=== PATIENT | female | born 1945 | race Caucasian/White ===

== ENCOUNTER 2018-03-07 17:20 | Emergency (ER) | payer MEDICARE, MEDICAID, SELFPAY ==
[2018-03-07 17:26] VITALS: BP 162/95; PULSE 58; RESP 16; TEMP 36.9; O2SAT 98
--- NOTE | 2018-03-07 18:24 | ED.SKABFB ---
HPI - Skin/Abscess/Foreign Bdy General Chief complaint: Skin/Abscess/Foreign Body Stated complaint: FACIAL INJURY S/P FALL Time Seen by Provider: 03/07/18 18:24 Source: patient Mode of arrival: ambulatory Limitations: no limitations History of Present Illness HPI narrative: 72-year-old female here for complaint of abrasions and soreness to her face. She states that she was playing basketball earlier this afternoon when she tumbled over feet landing forward onto her face. She denies any loss of consciousness. Pain is limited to the face area but she reports that she tripped a tooth during the fall. She denies any headache. She is ambulatory in the emergency room. She denies any other injuries or concerns. She states she is unknown last tetanus shot. She is currently taking Plavix due to having cardiac stents and low-dose aspirin MD complaint: other Related Data Home Medications Medication Instructions Recorded Confirmed acetaminophen [Tylenol Arthritis 650 mg PO Q8H PRN 03/07/18 03/07/18 Pain] aspirin [Aspirin Childrens] 81 mg PO DAILY 03/07/18 03/07/18 carvedilol 6.25 mg PO BID 03/07/18 03/07/18 clopidogrel 75 mg PO DAILY 03/07/18 03/07/18 oxybutynin chloride 5 mg PO DAILY 03/07/18 03/07/18 Allergies Allergy/AdvReac Type Severity Reaction Status Date / Time Cephalosporins Allergy Mild Hives Verified 03/07/18 17:30 Penicillins [PENICILLINS] Allergy Unknown RASH Verified 03/07/18 17:30 erythromycin base Allergy Hives Verified 03/07/18 17:30 SEASONAL ALLERGIES Allergy Unknown Uncoded 03/07/18 17:30 Review of Systems Constitutional Denies chills, Denies fever(s), Denies lethargy and Denies weakness Eyes Denies change in vision, Denies eye discharge, Denies irritation and Denies loss of vision ENT Ears, Nose, Mouth, and Throat: Denies change in voice, Denies neck pain and Denies sore throat Cardiovascular Denies chest pain, Denies irregular heart rhythm, Denies lightheadedness, Denies palpitations, Denies dyspnea, Denies dyspnea on exertion and Denies orthopnea Respiratory Denies cough, Denies dyspnea, Denies dyspnea on exertion and Denies wheezing Gastrointestinal Gastrointestinal: Denies abdominal pain, Denies change in bowel habits, Denies diarrhea, Denies nausea and Denies vomiting Genitourinary Denies hematuria, Denies flank pain, Denies urinary incontinence and Denies urinary urgency Musculoskeletal Denies neck pain Integumentary/Breasts Comments: Abrasions and swelling to face status post fall Neurologic Denies loss of vision and Denies weakness Endocrine Denies palpitations Allergic/Immunologic Denies wheezing [facility] Social History Smoking Status: Never smoker Exam Initial Vital Signs Initial Vital Signs: Vital Signs Temperature 98.4 F 03/07/18 17:26 Pulse Rate 58 L 03/07/18 17:26 Respiratory Rate 16 03/07/18 17:26 Blood Pressure 162/95 H 03/07/18 17:26 Pulse Oximetry 98 03/07/18 17:26 Const General: cooperative and well developed Nutritional Appearance: well nourished Orientation: alert, awake, oriented x3 and not confused [facility] Head: normocephalic, atraumatic, No abrasion, No Bazzi's sign, No contusion, No palpable skull fracture, No raccoon eyes, No scalp lesion and No scalp tenderness Face and sinus: other (Multiple superficial abrasions to the lower lip upper lip and to the maxillary area.) Mouth: oral mucosae normal and moist mucous membranes Teeth and gingiva: abnormal tooth or associated gingiva (Tooth fracture to a front left medial upper incisor #9) and poor dentition Throat: posterior oropharynx normal Eyes General: appearance normal, both eyes and all related structures Eyelids: eyelids normal Conjunctivae: conjunctivae normal Sclera: sclerae normal Pupils: PERRL EOM: EOM intact bilaterally Neck Neck: normal visual inspection, trachea midline, No lymphadenopathy, No midline deformity and No JVD Lymphatic: No lymphedema Chest Chest: normal inspection of the chest Resp Effort & Inspection: normal respiratory effort, able to speak in complete sentences, no respiratory distress and no use of accessory muscles Auscultation: clear to auscultation bilaterally, no rales, no rhonchi and no wheezes Cardio Rate: regular rate Rhythm: regular rhythm Heart Sounds: no click, no gallops, no murmurs and no rubs Pulses: normal peripheral pulses GI Inspection: non-distended Palpation: soft, no hepatosplenomegaly, No guarding, No pulsatile mass and No tender Auscultation: normal bowel sounds General: No CVA tenderness Back/Spine/Pelvis Back: No CVA tenderness Cervical Spine: cervical ROM normal and No pain with cervical ROM Thoracic/Lumbar Spine: thoracic and lumbar spine normal to inspection Neuro General: alert, oriented x3, gait normal and no focal motor deficits Speech: speech normal Extrem General: full ROM, no clubbing, cyanosis or edema, no pedal edema and no calf tenderness Course Orders Ordered: ED Orders 03/07/18 18:56 CT head/brain wo con Stat 03/07/18 18:58 CT facial bones wo con Stat Discontinued Medications Acetaminophen (Tylenol) 650 mg PO NOW ONE Stop: 03/07/18 18:57 Last Admin: 03/07/18 19:04 Dose: 650 mg Diphtheria/Tetanus/Acell Pertussis (Adacel) 0.5 ml IM .ONCE ONE Stop: 03/07/18 19:48 Last Admin: 03/07/18 20:00 Dose: 0.5 ml Vital Signs - 8 hr 03/07/18 17:26 03/07/18 20:19 Temperature 98.4 F Pulse Rate 58 L 52 L Respiratory Rate 16 16 Blood Pressure 162/95 H 138/68 H Pulse Oximetry 98 98 MDM - Skin/Abscess/Foreign Bdy Imaging Data CT scan - head: Radiologist's impression: [place] [address] CT Scan Report Signed Patient: Inga Julian MR#: [id number] : 1945 Acct:[id number] Age/Sex: 72 / F Date of Service: 03/07/18 Loc: ED Accession Number: [id number] Procedure: CT head/brain wo con Ordering Provider: Sudheer Lipscomb PROCEDURE: CT HEAD/BRAIN WO CON INDICATIONS: Ground level fall striking face TECHNIQUE: Noncontrast 4.5 mm thick angled axial sections acquired from the foramen magnum to the vertex, with coronal and sagittal reformats. For radiation dose reduction, the following was used: automated exposure control, adjustment of mA and/or kV according to patient size. COMPARISON: None. FINDINGS: Image quality: Excellent. CSF spaces: Basal cisterns are patent. No extra-axial fluid collections. The ventricles are symmetric in size and shape. There is mild cerebral volume loss, with resultant ventricular and sulcal prominence. Brain: No intracranial hemorrhage, mass, or mass effect. There are subcortical, periventricular and deep white matter hypodensities consistent with mild chronic small vessel ischemic changes. There is intracranial internal carotid artery atherosclerosis. Skull and face: There is mild right periorbital soft tissue swelling. Calvarium and visualized facial bones appear intact, without suspicious lesions. Sinuses: Visualized sinuses and mastoids are clear. IMPRESSION: 1. No acute intracranial abnormality. 2. Mild right periorbital soft tissue swelling without fractures identified. 3. Mild chronic white matter small ischemic changes and cerebral volume loss. Dictated by: Donovan Ahumada M.D. on 03/07/2018 at 19:17 Approved by: Donovan Ahumada M.D. on 03/07/2018 at 19:[address] : Radiologist's impression: PROCEDURE: CT FACIAL BONES WO CON INDICATIONS: Ground level fall striking face TECHNIQUE: Noncontrast 2.5 mm thick axial images acquired from the mandible through the frontal sinuses, with coronal and sagittal reformatting. For radiation dose reduction, the following was used: automated exposure control, adjustment of mA and/or kV according to patient size. COMPARISON: [facility], CT, CT HEAD/BRAIN WO CON, 03/07/2018, 18:55. FINDINGS: Image quality: Excellent. Bones and teeth: Orbital rachel are intact. Sinus rachel show no fracture or deformity. Nasal bones and septum are intact. Visualized portions of the mandible demonstrate no fractures or subluxation. There is bony erosive change involving the patient's left frontal maxillary incisor. There are also bony erosions demonstrated in the mandible involving the root of the right mandibular molars with associated erosion of the anterior wall the mandible. Zygomatic arches are intact. Pterygoid plates are intact. Visualized portions of the skull base and auditory canals are intact. Sinuses: Paranasal sinuses are aerated, without fluid levels, mucosal thickening, or mucoceles. Mastoid air cells are aerated. Soft tissues: There is mild right periorbital soft tissue swelling. The globes appear intact. No intraorbital fluid collections. No lymphadenopathy of the visualized neck soft tissues. Vascular: Visualized vascular structures appear normal in the absence of contrast. Bony vascular foramina and canals are intact. IMPRESSION: 1. Right periorbital soft tissue swelling without definite acute fracture. No intraorbital collections. 2. Erosions demonstrated in the mandible involving the roots of the right mandibular molars. There is also erosion of the left frontal maxillary incisor. Dictated by: Donovan Ahumada M.D. on 03/07/2018 at 19:27 Approved by: Donovan Ahumada M.D. on 03/07/2018 at 19:31 [facility] Narrative Medical decision making narrative: CT of the head and face was obtained was negative for any acute fractures. Signs and symptoms presents as minor head injury with abrasions to the face. Facial abrasions cleansed and dressed with bacitracin. She is referred to dentist for her dental injury. [id number] Tylenol as needed for any discomfort. Tetanus was updated in the emergency room. Head injury instructions are provided with warning signs return to the emergency room. Follow up with primary care provider the next few days for re-evaluation. For any worsening symptoms return to the emergency room. Dress wounds with bacitracin daily until healed. Discharge Plan Departure Patient Disposition: Home Clinical Impression: Abrasion of face, Minor head injury without loss of consciousness Discharge Date/Time: 03/07/18 20:20 Interventions: ED Discharge Assessment Last Done: 03/07/18 20:19 Instructions: DI for Closed Head Injury Activity Restrictions/Additional Instructions: CT of the head and face was obtained was negative for any acute fractures. Signs and symptoms presents as minor head injury with abrasions to the face. Facial abrasions cleansed and dressed with bacitracin. She is referred to dentist for her dental injury. [id number] Tylenol as needed for any discomfort. Tetanus was updated in the emergency room. Head injury instructions are provided with warning signs return to the emergency room. Follow up with primary care provider the next few days for re-evaluation. For any worsening symptoms return to the emergency room. Dress wounds with bacitracin daily until healed. Prescriptions: No Action carvedilol 6.25 mg Tablet 6.25 mg PO BID RF: 0 oxybutynin chloride 5 mg Tablet Extended Release 24hr 5 mg PO DAILY RF: 0 clopidogrel 75 mg Tablet 75 mg PO DAILY RF: 0 aspirin [Aspirin Childrens] 81 mg Tablet,Chewable 81 mg PO DAILY RF: 0 acetaminophen [Tylenol Arthritis Pain] 650 mg Tablet Extended Release 650 mg PO Q8H PRN (Reason: Pain (Scale Score 1-3)) RF: 0 Referrals: Booker Hunter MD [Primary Care Provider] -
--- NOTE | 2018-03-07 18:56 | DI.CT.S_ITS ---
PROCEDURE: CT HEAD/BRAIN WO CON INDICATIONS: Ground level fall striking face TECHNIQUE: Noncontrast 4.5 mm thick angled axial sections acquired from the foramen magnum to the vertex, with coronal and sagittal reformats. For radiation dose reduction, the following was used: automated exposure control, adjustment of mA and/or kV according to patient size. COMPARISON: None. FINDINGS: Image quality: Excellent. CSF spaces: Basal cisterns are patent. No extra-axial fluid collections. The ventricles are symmetric in size and shape. There is mild cerebral volume loss, with resultant ventricular and sulcal prominence. Brain: No intracranial hemorrhage, mass, or mass effect. There are subcortical, periventricular and deep white matter hypodensities consistent with mild chronic small vessel ischemic changes. There is intracranial internal carotid artery atherosclerosis. Skull and face: There is mild right periorbital soft tissue swelling. Calvarium and visualized facial bones appear intact, without suspicious lesions. Sinuses: Visualized sinuses and mastoids are clear. IMPRESSION: 1. No acute intracranial abnormality. 2. Mild right periorbital soft tissue swelling without fractures identified. 3. Mild chronic white matter small ischemic changes and cerebral volume loss. Dictated by: Donovan Ahumada M.D. on 03/07/2018 at 19:17 Approved by: Donovan Ahumada M.D. on 03/07/2018 at 19:18
--- NOTE | 2018-03-07 18:58 | DI.CT.S_ITS ---
PROCEDURE: CT FACIAL BONES WO CON INDICATIONS: Ground level fall striking face TECHNIQUE: Noncontrast 2.5 mm thick axial images acquired from the mandible through the frontal sinuses, with coronal and sagittal reformatting. For radiation dose reduction, the following was used: automated exposure control, adjustment of mA and/or kV according to patient size. COMPARISON: Located [facility], CT, CT HEAD/BRAIN WO CON, 03/07/2018, 18:55. FINDINGS: Image quality: Excellent. Bones and teeth: Orbital rachel are intact. Sinus rachel show no fracture or deformity. Nasal bones and septum are intact. Visualized portions of the mandible demonstrate no fractures or subluxation. There is bony erosive change involving the patient's left frontal maxillary incisor. There are also bony erosions demonstrated in the mandible involving the root of the right mandibular molars with associated erosion of the anterior wall the mandible. Zygomatic arches are intact. Pterygoid plates are intact. Visualized portions of the skull base and auditory canals are intact. Sinuses: Paranasal sinuses are aerated, without fluid levels, mucosal thickening, or mucoceles. Mastoid air cells are aerated. Soft tissues: There is mild right periorbital soft tissue swelling. The globes appear intact. No intraorbital fluid collections. No lymphadenopathy of the visualized neck soft tissues. Vascular: Visualized vascular structures appear normal in the absence of contrast. Bony vascular foramina and canals are intact. IMPRESSION: 1. Right periorbital soft tissue swelling without definite acute fracture. No intraorbital collections. 2. Erosions demonstrated in the mandible involving the roots of the right mandibular molars. There is also erosion of the left frontal maxillary incisor. Dictated by: Donovan Ahumada M.D. on 03/07/2018 at 19:27 Approved by: Donovan Ahumada M.D. on 03/07/2018 at 19:31
[2018-03-07] MEDS: ACETAMINOPHEN 325 MG TABLET 650 MG PO (19:04)
[2018-03-07] MEDS: TET,DIPH,PERTUSS(ACELL),VAC/PF 0.5 ML SYRINGE IM (20:00)
[2018-03-07 20:19] VITALS: BP 138/68; PULSE 52; RESP 16; O2SAT 98
== END 2018-03-07 20:20 | disposition home or self-care (01) ==
PROVIDERS: Emergency Provider Nurse Practitioner Family; Family Provider Internal Medicine; PCP Internal Medicine
DX: S00.81XA Abrasion of other part of head, initial encounter (principal); S09.90XA Unspecified injury of head, initial encounter; W01.0XXA Fall on same level from slipping, tripping and stumbling without subsequent striking against object, initial encounter; Y93.67 Activity, basketball
CPT/HCPCS: 70450; 70486; 90471; 99283; 99284; 90715

== ENCOUNTER → 2018-05-16 07:58 | Outpatient (CLI) | payer MEDICARE, MEDICAID, SELFPAY ==
[2018-05-16 08:34] LABS: Add Manual Diff / Slide Review NO; Basophils Percent Auto 0.4 % (0-2); Eosinophils Percent Auto 4.1 % (2-4); Hematocrit 39.6 % (36-46); Hemoglobin 12.9 g/dL (12.0-16.0); Lymphocytes Percent Auto 20.7 % (25-40); Mean Corpuscular HGB Conc 32.6 % (30-36); Mean Corpuscular Hemoglobin 32.4 PG (26-34); Mean Corpuscular Volume 99.3 fL (80-100); Monocytes Percent Auto 9.8 % (3-14); Neutrophils Absolute Auto 4300 /uL (3000-5900); Platelet Count 236 X10^3/uL (150-400); Red Blood Cell Count 3.99 X10^6/uL (4.0-5.2); Red Cell Distribution Width 14.4 % (11.6-14.8); White Blood Cell Count 6.7 X10^3/uL (4.5-11.0)
[2018-05-16 08:51] LABS: Alanine Aminotransferase 23 IU/L (9-52); Albumin 4.2 g/dL (3.5-5.0); Albumin Globulin Ratio 1.9 (1.0-2.8); Alkaline Phosphatase 65 U/L (38-126); Aspartate Aminotransferase 16 IU/L (14-36); Bilirubin Total 0.4 mg/dL (0.2-1.3); Blood Urea Nitrogen 19 mg/dL (7-17); Calcium 10.6 mg/dL (8.4-10.2); Carbon Dioxide 25 mmol/L (22-32); Chloride 107 mmol/L (98-107); Cholesterol 206 mg/dL (140-199); Estimated Glomerular Filt Rate 54.3 mL/min (>60); Globulin 2.2 g/dL (1.7-4.1); Glucose 95 mg/dL (80-110); HDL Cholesterol 41 mg/dL (40-60); HEMOLYSIS < 15 (0-50); LDL Cholesterol Calculated 128 mg/dL (<100); Potassium 4.9 mmol/L (3.4-5.1); Sodium 142 mmol/L (137-145); Total Protein 6.4 g/dL (6.3-8.2); Triglycerides 183 mg/dL (35-150)
== END ==
PROVIDERS: PCP Internal Medicine; Visit Provider Internal Medicine
DX: N18.9 Chronic kidney disease, unspecified (principal); M15.0 Primary generalized (osteo)arthritis; I10 Essential (primary) hypertension
CPT/HCPCS: 36415; 80053; 80061; 85025

== ENCOUNTER 2018-12-26 21:45 | Emergency (ER) | payer MEDICARE, MEDICAID, SELFPAY ==
[2018-12-26 21:50] VITALS: BP 157/75; PULSE 69; RESP 22; TEMP 36.6; O2SAT 96; BMI 37.8
--- NOTE | 2018-12-26 21:53 | DI.RAD.S_ITS ---
PROCEDURE: XR CHEST 1V INDICATIONS: chest pain TECHNIQUE: One view of the chest was acquired. COMPARISON: [facility], CR, XR CHEST 1VW (PORTABLE), 11/22/2015, 9:25. FINDINGS: Surgical changes and devices: None. Lungs and pleura: Right infrahilar opacity may be pneumonia or atelectasis. No pleural effusions or pneumothorax. Mediastinum: Mediastinal contours appear normal. Heart size is normal. Bones and chest wall: No suspicious bony lesions. Overlying soft tissues appear unremarkable. IMPRESSION: Right infrahilar pneumonia or atelectasis. Dictated by: Brandt Ragsdale M.D. on 12/27/2018 at 8:33 Approved by: Brandt Ragsdale M.D. on 12/27/2018 at 8:35
[2018-12-26] MEDS: ASPIRIN 81 MG TAB 324 MG PO (21:55)
[2018-12-26 22:07] LABS: Add Manual Diff / Slide Review NO; Basophils Absolute Auto 0 /uL (0-100); Basophils Percent Auto 0.5 % (0-2); Eosinophils Absolute Auto 400 /uL (0-450); Eosinophils Percent Auto 4.7 % (2-4); Hematocrit 41.8 % (36-46); Hemoglobin 13.8 g/dL (12.0-16.0); Lymphocytes Absolute Auto 2200 /uL (1100-4500); Lymphocytes Percent Auto 24.3 % (25-40); Mean Corpuscular HGB Conc 33.1 % (30-36); Mean Corpuscular Hemoglobin 32.9 PG (26-34); Mean Corpuscular Volume 99.6 fL (80-100); Monocytes Absolute Auto 700 /uL (0-900); Monocytes Percent Auto 7.6 % (3-14); Neutrophils Absolute Auto 5700 /uL (1500-7000); Neutrophils Percent Auto 62.9 % (50-75); Platelet Count 273 X10^3/uL (150-400); Red Blood Cell Count 4.19 X10^6/uL (4.0-5.2); Red Cell Distribution Width 14.7 % (11.6-14.8); White Blood Cell Count 9.1 X10^3/uL (4.5-11.0)
[2018-12-26 22:14] LABS: INR 0.9 (0.9-1.3); Prothrombin Time 10.8 SECONDS (10.1-12.7)
[2018-12-26 22:17] LABS: PTT Partial Thromboplastin Tim 26 SECONDS (26.4-36.2)
[2018-12-26 22:19] LABS: Alanine Aminotransferase 14 IU/L (9-52); Albumin 4.4 g/dL (3.5-5.0); Albumin Globulin Ratio 1.5 (1.0-2.8); Alkaline Phosphatase 84 U/L (38-126); Aspartate Aminotransferase 18 IU/L (14-36); BUN Creatinine Ratio 26.4 (6-22); Bilirubin Total 0.5 mg/dL (0.2-1.3); Blood Urea Nitrogen 29 mg/dL (7-17); Calcium 10.9 mg/dL (8.4-10.2); Carbon Dioxide 26 mmol/L (22-32); Chloride 106 mmol/L (98-107); Creatine Kinase 68 U/L (30-135); Estimated Glomerular Filt Rate 48.7 mL/min (>60); Glucose 113 mg/dL (80-110); HEMOLYSIS 17 (0-50); Lipase 23 U/L (23-300); Potassium 4.9 mmol/L (3.4-5.1); Sodium 139 mmol/L (137-145); Total Protein 7.4 g/dL (6.3-8.2)
[2018-12-26 22:28] LABS: B Type Natriuretic Peptide 121 (<100)
[2018-12-26 22:31] LABS: Troponin I 0.014 ng/mL (0.01-0.034)
[2018-12-26 22:35] LABS: Appearance Urine UA CLEAR; Bilirubin Urine UA NEGATIVE (NEGATIVE); Color Urine UA YELLOW; Glucose Urine UA NEGATIVE (Negative); Ketones Urine UA TRACE (NEGATIVE); Leukocyte Esterase Urine UA 1+ (NEGATIVE); Nitrite Urine UA NEGATIVE (Negative); Occult Blood Urine UA 1+ (Negative); Protein Urine UA 1+ (Negative); Specific Gravity Urine UA 1.025 (1.000-1.035)
[2018-12-26 22:36] LABS: Bacteria Urine Few (2-10); Hyaline Casts Urine 0-1/LPF; RBC Urine 0-1/HPF (0-5/HPF); Squamous Epithelial Cell Urine 0-1 /HPF (0-5/HPF); WBC Urine 1-5/HPF (0-5/HPF)
[2018-12-26 22:38] LABS: Culture Indicated Urine Specimen Cultured
[2018-12-26 22:48] VITALS: BP 155/75; PULSE 54
[2018-12-26] MEDS: NITROGLYCERIN 0.4 MG SL TAB SL (22:48)
[2018-12-26] MEDS: SODIUM CHLORIDE 0.9% 1,000 ML 150 ML IV (22:49)
[2018-12-26 23:00] VITALS: BP 106/51; PULSE 53; RESP 15; O2SAT 94
--- NOTE | 2018-12-26 23:00 | PC.NURSE ---
PT reports chest pressure which started at 1930 after dinner with several episodes of loose stool since the onset of her chest pressure and an episode of vomiting. Pt has hx of TN about 10 years ago with 2 stents placed and states her pain feels similar to her previous TN. Pt denies any difficulty breathing or being lightheaded or dizzy.
[2018-12-26 23:01] VITALS: BP 106/51; PULSE 24
--- NOTE | 2018-12-26 23:18 | ED.CHESTPAIN ---
HPI - Chest Pain <Rosalio Alicea DO - Last Filed: 12/31/18 08:04> General Chief Complaint: Chest Pain Stated Complaint: intense chest pressure Time Seen by Provider: 12/26/18 21:46 Source: patient Mode of arrival: ambulatory Limitations: no limitations History of Present Illness HPI narrative: 73-year-old female nonsmoker with cardiac history presents with a chief complaint of retrosternal chest pressure which started about 2 hours prior to her arrival while cleaning up after dinner. She denies radiation or associated symptoms such as shortness of breath, dizziness, lightheadedness, weakness, diaphoresis, nausea, vomiting. She does state that she has had multiple episodes of diarrhea since her chest pain started. Her pain does remind her of when she had an IL a few years ago. She denies any recent provocative testing and has no ongoing care with a assembler body. She states it seems to get worse with exertion and improves with rest. She did not take any nitro at home but did take a baby aspirin MD complaint: chest pain Onset (ago): hour(s) Duration: constant Onset: during rest Pain location: substernal Severity: moderate Quality: aching Pain radiation: none Exacerbating factors: exertion Treatments prior to arrival chest pain: aspirin Related Data On Oral Contraceptives: No Home Medications Medication Instructions Recorded Confirmed acetaminophen [Tylenol Arthritis 650 mg PO Q8H PRN 03/07/18 12/27/18 Pain] clopidogrel 75 mg PO DAILY 03/07/18 12/27/18 aspirin 81 mg PO DAILY 12/27/18 12/27/18 carvedilol 12.5 mg PO BID 12/27/18 12/27/18 febuxostat [Uloric] 80 mg PO DAILY 12/27/18 12/27/18 oxybutynin chloride 10 mg PO DAILY 12/27/18 12/27/18 Allergies Allergy/AdvReac Type Severity Reaction Status Date / Time Cephalosporins Allergy Mild Hives Verified 03/07/18 17:30 Penicillins [PENICILLINS] Allergy Unknown RASH Verified 03/07/18 17:30 erythromycin base Allergy Hives Verified 03/07/18 17:30 SEASONAL ALLERGIES Allergy Unknown Uncoded 03/07/18 17:30 Review of Systems <DO Kemal Armendariz Last Filed: 12/31/18 08:04> Constitutional Denies chills, Denies fever(s), Denies lethargy and Denies weakness Eyes Denies change in vision, Denies eye discharge, Denies irritation and Denies loss of vision ENT Ears, Nose, Mouth, and Throat: Denies change in voice, Denies neck pain and Denies sore throat Cardiovascular Reports chest pain, Reports chest pain with activity, Denies irregular heart rhythm, Reports leg edema, Denies lightheadedness, Denies palpitations, Denies dyspnea, Denies dyspnea on exertion and Denies orthopnea Respiratory Denies cough, Denies dyspnea, Denies dyspnea on exertion and Denies wheezing Gastrointestinal Gastrointestinal: Denies abdominal pain, Denies change in bowel habits, Reports diarrhea, Denies nausea and Denies vomiting Genitourinary Denies hematuria, Denies flank pain, Denies urinary incontinence and Denies urinary urgency Musculoskeletal Denies neck pain Integumentary/Breasts Denies pruritus, Denies erythema, Denies rash and Denies wounds Neurologic Denies confusion, Denies loss of vision and Denies weakness Psychiatric Denies anxiety, Denies confusion, Denies depression, Denies homicidal ideation and Denies suicidal ideation Endocrine Denies palpitations Hematologic/Lymphatic Denies easy bruising Allergic/Immunologic Denies wheezing PFSH <Rosalio Alicea DO - Last Filed: 12/31/18 08:04> Medical History (Updated 12/27/18 @ 02:02 by Rosalio Alicea DO) ST elevation myocardial infarction (STEMI) of lateral wall (Acute) Obstructive uropathy (Acute) Social History Smoking Status: Never smoker Social History Smoking Status: Never smoker Exam <Rosalio Alicea DO - Last Filed: 12/31/18 08:04> Narrative Exam Narrative: GENERAL: 73-year-old female appears stated age, in mild distress HEAD: Atraumatic. Normocephalic. No temporal or scalp tenderness. EYES: Pupils equal round and reactive. Extraocular motions intact. No scleral icterus. No injection or drainage. ENT: Nose without bleeding, purulent drainage or septal hematoma. Throat without erythema, tonsillar hypertrophy or exudate. Uvula midline. Airway patent. NECK: Trachea midline. No JVD or lymphadenopathy. Supple, nontender, no meningeal signs. CARDIOVASCULAR: Regular rate and rhythm without murmurs, gallops, or rubs. RESPIRATORY: Clear to auscultation. Breath sounds equal bilaterally. No wheezes, rales, or rhonchi. GASTROINTESTINAL: Abdomen soft, non-tender, nondistended. No hepato-splenomegaly, or palpable masses. No guarding. EXTREMITIES: 1+ pitting edema bilateral lower extremities. BACK: Nontender without deformity or crepitance. No flank tenderness. NEURO: AOx3. SKIN: No rash or erythema. Initial Vital Signs Initial Vital Signs: Vital Signs Temperature 97.8 F 12/26/18 21:50 Pulse Rate 69 12/26/18 21:50 Respiratory Rate 22 12/26/18 21:50 Blood Pressure 157/75 H 12/26/18 21:50 Pulse Oximetry 96 12/26/18 21:50 <Graciela Gray DO - Last Filed: 12/27/18 19:01> Initial Vital Signs Initial Vital Signs: Vital Signs Temperature 97.8 F 12/26/18 21:50 Pulse Rate 69 12/26/18 21:50 Respiratory Rate 22 12/26/18 21:50 Blood Pressure 157/75 H 12/26/18 21:50 Pulse Oximetry 96 12/26/18 21:50 Course <Rosalio Alicea DO - Last Filed: 12/31/18 08:04> Orders Ordered: Discontinued Medications Aspirin (Aspirin Chew) 324 mg PO NOW ONE Stop: 12/26/18 21:54 Last Admin: 12/26/18 21:55 Dose: 324 mg Clopidogrel Bisulfate (Plavix) 75 mg PO NOW ONE Stop: 12/27/18 08:52 Last Admin: 12/27/18 08:59 Dose: 75 mg Al Hydrox/Mg Hydrox/Simethicone 20 ml/ Lidocaine HCl 15 ml 0 ml PO NOW ONE Stop: 12/26/18 23:20 Last Admin: 12/26/18 23:28 Dose: 45 ml Heparin Sodium (Porcine) (Heparin) 5,000 unit IV NOW ONE Stop: 12/27/18 02:08 Last Admin: 12/27/18 02:15 Dose: 5,000 unit Sodium Chloride (Normal Saline 0.9%) 1,000 mls @ 150 mls/hr IV CONT REGINA Last Infusion: 12/27/18 06:30 Dose: 150 mls/hr Admin: 12/26/18 22:49 Dose: 150 mls/hr Heparin Sodium/Dextrose (Heparin Drip) 25,000 unit in 500 mls @ 20 mls/hr IV CONT REGINA; Protocol Last Titration: 12/27/18 11:27 Dose: 0 units/hr, 0 mls/hr Admin: 12/27/18 02:20 Dose: 1,000 units/hr, 20 mls/hr Nitroglycerin (Nitroglycerin) 50 mg in 250 mls @ 1.5 mls/hr IV TITRATE REGINA; Protocol Last Titration: 12/27/18 11:27 Dose: 0 mcg/min, 0 mls/hr Admin: 12/27/18 08:57 Dose: 5 mcg/min, 1.5 mls/hr Nitroglycerin (Nitrostat) 0.4 mg SL [id number] PRN PRN Reason: Chest Pain Last Admin: 12/26/18 22:48 Dose: 0.4 mg Pantoprazole Sodium (Protonix) 40 mg IV NOW ONE Stop: 12/26/18 23:20 Last Admin: 12/26/18 23:28 Dose: 40 mg Reevaluation(s) Reevaluation #1: patient pain free Consultations Consultation #1: call to hospitalist at [facility]. Not appropriate for our facility given history of STEMI, stents, + trop, exertional symptoms Call to [facility] - no beds Patient and sister would prefer [place] 0200 - Call to [place] cardio, Dr. Zafar, happy to be involved in care, requests admission to hospitalist [phone] - Call back from [place] hospitalist (Dorothy) is happy to accept but has a full workload and will have to pass this to his partners at shift change 0300 - [facility] has other obligations and cannot arrive until about 1000. Vital Signs - 8 hr 12/27/18 04:00 12/27/18 05:02 12/27/18 05:30 Pulse Rate 51 L 63 52 L Respiratory Rate 19 18 19 Blood Pressure Blood Pressure [Right Arm] 97/51 L 131/48 L 107/63 Pulse Oximetry 94 98 93 12/27/18 06:30 12/27/18 07:25 12/27/18 07:55 Pulse Rate 56 L 57 L 58 L Respiratory Rate 17 18 19 Blood Pressure Blood Pressure [Right Arm] 111/54 L 122/71 131/64 Pulse Oximetry 95 97 96 12/27/18 08:57 12/27/18 08:58 12/27/18 09:25 Pulse Rate 63 59 L 61 Respiratory Rate 17 18 Blood Pressure 120/100 H Blood Pressure [Right Arm] 138/114 H 107/59 L Pulse Oximetry 97 95 12/27/18 09:34 12/27/18 10:00 12/27/18 10:30 Pulse Rate 65 64 63 Respiratory Rate 16 15 Blood Pressure 107/64 Blood Pressure [Right Arm] 107/61 117/59 L Pulse Oximetry 95 94 <Graciela Gray DO - Last Filed: 12/27/18 19:01> Orders Ordered: Discontinued Medications Aspirin (Aspirin Chew) 324 mg PO NOW ONE Stop: 12/26/18 21:54 Last Admin: 12/26/18 21:55 Dose: 324 mg Clopidogrel Bisulfate (Plavix) 75 mg PO NOW ONE Stop: 12/27/18 08:52 Last Admin: 12/27/18 08:59 Dose: 75 mg Al Hydrox/Mg Hydrox/Simethicone 20 ml/ Lidocaine HCl 15 ml 0 ml PO NOW ONE Stop: 12/26/18 23:20 Last Admin: 12/26/18 23:28 Dose: 45 ml Heparin Sodium (Porcine) (Heparin) 5,000 unit IV NOW ONE Stop: 12/27/18 02:08 Last Admin: 12/27/18 02:15 Dose: 5,000 unit Sodium Chloride (Normal Saline 0.9%) 1,000 mls @ 150 mls/hr IV CONT REGINA Last Infusion: 12/27/18 06:30 Dose: 150 mls/hr Admin: 12/26/18 22:49 Dose: 150 mls/hr Heparin Sodium/Dextrose (Heparin Drip) 25,000 unit in 500 mls @ 20 mls/hr IV CONT REGINA; Protocol Last Titration: 12/27/18 11:27 Dose: 0 units/hr, 0 mls/hr Admin: 12/27/18 02:20 Dose: 1,000 units/hr, 20 mls/hr Nitroglycerin (Nitroglycerin) 50 mg in 250 mls @ 1.5 mls/hr IV TITRATE REGINA; Protocol Last Titration: 12/27/18 11:27 Dose: 0 mcg/min, 0 mls/hr Admin: 12/27/18 08:57 Dose: 5 mcg/min, 1.5 mls/hr Nitroglycerin (Nitrostat) 0.4 mg SL [id number] PRN PRN Reason: Chest Pain Last Admin: 12/26/18 22:48 Dose: 0.4 mg Pantoprazole Sodium (Protonix) 40 mg IV NOW ONE Stop: 12/26/18 23:20 Last Admin: 12/26/18 23:28 Dose: 40 mg Vital Signs - 8 hr 12/27/18 04:00 12/27/18 05:02 12/27/18 05:30 Pulse Rate 51 L 63 52 L Respiratory Rate 19 18 19 Blood Pressure Blood Pressure [Right Arm] 97/51 L 131/48 L 107/63 Pulse Oximetry 94 98 93 12/27/18 06:30 12/27/18 07:25 12/27/18 07:55 Pulse Rate 56 L 57 L 58 L Respiratory Rate 17 18 19 Blood Pressure Blood Pressure [Right Arm] 111/54 L 122/71 131/64 Pulse Oximetry 95 97 96 12/27/18 08:57 12/27/18 08:58 12/27/18 09:25 Pulse Rate 63 59 L 61 Respiratory Rate 17 18 Blood Pressure 120/100 H Blood Pressure [Right Arm] 138/114 H 107/59 L Pulse Oximetry 97 95 12/27/18 09:34 12/27/18 10:00 12/27/18 10:30 Pulse Rate 65 64 63 Respiratory Rate 16 15 Blood Pressure 107/64 Blood Pressure [Right Arm] 107/61 117/59 L Pulse Oximetry 95 94 MDM - Chest Pain <Rosalio Alicea DO - Last Filed: 12/31/18 08:04> Lab Data Result diagrams: 12/27/18 05:06 12/26/18 21:55 Lab Results 12/26/18 12/26/18 12/26/18 Range/Units 21:55 21:55 21:55 WBC 9.1 (4.5-11.0) X10^3/uL RBC 4.19 (4.0-5.2) X10^6/uL Hgb 13.8 (12.0-16.0) g/dL Hct 41.8 (36-46) % MCV 99.6 (80-100) fL MCH 32.9 (26-34) PG MCHC 33.1 (30-36) % RDW 14.7 (11.6-14.8) % Plt Count 273 (150-400) X10^3/uL Neut % (Auto) 62.9 (50-75) % Lymph % (Auto) 24.3 L (25-40) % [facility] % (Auto) 7.6 (3-14) % Eos % (Auto) 4.7 H (2-4) % Baso % (Auto) 0.5 (0-2) % Neut # (Auto) 5700 (9471-2394) /uL Lymph # (Auto) 2200 (9061-7010) /uL [facility] # (Auto) 700 (0-900) /uL Eos # (Auto) 400 (0-450) /uL Baso # (Auto) 0 (0-100) /uL PT 10.8 (10.1-12.7) SECONDS INR 0.9 (0.9-1.3) APTT 26 L (26.4-36.2) SECONDS D-Dimer (<230) ng/mL Sodium 139 (137-145) mmol/L Potassium 4.9 (3.4-5.1) mmol/L Chloride 106 (98-107) mmol/L Carbon Dioxide 26 (22-32) mmol/L BUN 29 H (7-17) mg/dL Creatinine 1.10 H (0.52-1.04) mg/dL Estimated GFR 48.7 L (>60) mL/min BUN/Creatinine Ratio 26.4 H (6-22) Glucose 113 H (80-110) mg/dL Calcium 10.9 H (8.4-10.2) mg/dL Total Bilirubin 0.5 (0.2-1.3) mg/dL AST 18 (14-36) IU/L ALT 14 (9-52) IU/L Alkaline Phosphatase 84 (38-126) U/L Total Creatine Kinase 68 (30-135) U/L CK-MB (CK-2) TNP CK-MB (CK-2) Rel Index TNP Troponin I 0.014 (0.01-0.034) ng/mL B-Natriuretic Peptide 121 H (<100) Total Protein 7.4 (6.3-8.2) g/dL Albumin 4.4 (3.5-5.0) g/dL Globulin 3.0 (1.7-4.1) g/dL Albumin/Globulin Ratio 1.5 (1.0-2.8) Lipase 23 (23-300) U/L Urine Color Urine Appearance Urine pH (4.5-8.0) Ur Specific [place] (1.000-1.035) Urine Protein (Negative) Urine Glucose (UA) (Negative) g/dL Urine Ketones (NEGATIVE) Urine Occult Blood (Negative) Urine Nitrate (Negative) Urine Bilirubin (NEGATIVE) Urine Urobilinogen (0.2) E.U./dL Ur Leukocyte Esterase (NEGATIVE) Urine RBC (0-5/HPF) Urine WBC (0-5/HPF) Ur Squamous Epith Cells (0-5/HPF) Urine Bacteria (None) Hyaline Casts (None) Ur Culture Indicated? Micro UA Comment 12/26/18 12/26/18 12/26/18 Range/Units 22:25 23:43 23:59 WBC (4.5-11.0) X10^3/uL RBC (4.0-5.2) X10^6/uL Hgb (12.0-16.0) g/dL Hct (36-46) % MCV (80-100) fL MCH (26-34) PG MCHC (30-36) % RDW (11.6-14.8) % Plt Count (150-400) X10^3/uL Neut % (Auto) (50-75) % Lymph % (Auto) (25-40) % [facility] % (Auto) (3-14) % Eos % (Auto) (2-4) % Baso % (Auto) (0-2) % Neut # (Auto) (6398-5091) /uL Lymph # (Auto) (2013-1180) /uL [facility] # (Auto) (0-900) /uL Eos # (Auto) (0-450) /uL Baso # (Auto) (0-100) /uL PT (10.1-12.7) SECONDS INR (0.9-1.3) APTT (26.4-36.2) SECONDS D-Dimer 693 H (<230) ng/mL Sodium (137-145) mmol/L Potassium (3.4-5.1) mmol/L Chloride (98-107) mmol/L Carbon Dioxide (22-32) mmol/L BUN (7-17) mg/dL Creatinine (0.52-1.04) mg/dL Estimated GFR (>60) mL/min BUN/Creatinine Ratio (6-22) Glucose (80-110) mg/dL Calcium (8.4-10.2) mg/dL Total Bilirubin (0.2-1.3) mg/dL AST (14-36) IU/L ALT (9-52) IU/L Alkaline Phosphatase (38-126) U/L Total Creatine Kinase (30-135) U/L CK-MB (CK-2) CK-MB (CK-2) Rel Index Troponin I 0.366 H* (0.01-0.034) ng/mL B-Natriuretic Peptide (<100) Total Protein (6.3-8.2) g/dL Albumin (3.5-5.0) g/dL Globulin (1.7-4.1) g/dL Albumin/Globulin Ratio (1.0-2.8) Lipase (23-300) U/L Urine Color Yellow Urine Appearance Clear Urine pH 5.0 (4.5-8.0) Ur Specific [place] 1.025 (1.000-1.035) Urine Protein 1+ H (Negative) Urine Glucose (UA) Negative (Negative) g/dL Urine Ketones Trace H (NEGATIVE) Urine Occult Blood 1+ H (Negative) Urine Nitrate Negative (Negative) Urine Bilirubin Negative (NEGATIVE) Urine Urobilinogen 1.0 (0.2) E.U./dL Ur Leukocyte Esterase 1+ H (NEGATIVE) Urine RBC 0-1/hpf (0-5/HPF) Urine WBC 1-5/hpf (0-5/HPF) Ur Squamous Epith Cells 0-1 /hpf (0-5/HPF) Urine Bacteria Few (2-10) H (None) Hyaline Casts 0-1/lpf (None) Ur Culture Indicated? Specimen cultured Micro UA Comment . 12/27/18 12/27/18 12/27/18 Range/Units 05:06 07:25 08:15 WBC (4.5-11.0) X10^3/uL RBC (4.0-5.2) X10^6/uL Hgb 12.2 (12.0-16.0) g/dL Hct 37.1 (36-46) % MCV (80-100) fL MCH (26-34) PG MCHC (30-36) % RDW (11.6-14.8) % Plt Count (150-400) X10^3/uL Neut % (Auto) (50-75) % Lymph % (Auto) (25-40) % [facility] % (Auto) (3-14) % Eos % (Auto) (2-4) % Baso % (Auto) (0-2) % Neut # (Auto) (7079-8878) /uL Lymph # (Auto) (3040-5239) /uL [facility] # (Auto) (0-900) /uL Eos # (Auto) (0-450) /uL Baso # (Auto) (0-100) /uL PT (10.1-12.7) SECONDS INR (0.9-1.3) APTT 50 H D (26.4-36.2) SECONDS D-Dimer (<230) ng/mL Sodium (137-145) mmol/L Potassium (3.4-5.1) mmol/L Chloride (98-107) mmol/L Carbon Dioxide (22-32) mmol/L BUN (7-17) mg/dL Creatinine (0.52-1.04) mg/dL Estimated GFR (>60) mL/min BUN/Creatinine Ratio (6-22) Glucose (80-110) mg/dL Calcium (8.4-10.2) mg/dL Total Bilirubin (0.2-1.3) mg/dL AST (14-36) IU/L ALT (9-52) IU/L Alkaline Phosphatase (38-126) U/L Total Creatine Kinase (30-135) U/L CK-MB (CK-2) CK-MB (CK-2) Rel Index Troponin I 1.200 H* (0.01-0.034) ng/mL B-Natriuretic Peptide (<100) Total Protein (6.3-8.2) g/dL Albumin (3.5-5.0) g/dL Globulin (1.7-4.1) g/dL Albumin/Globulin Ratio (1.0-2.8) Lipase (23-300) U/L Urine Color Urine Appearance Urine pH (4.5-8.0) Ur Specific [place] (1.000-1.035) Urine Protein (Negative) Urine Glucose (UA) (Negative) g/dL Urine Ketones (NEGATIVE) Urine Occult Blood (Negative) Urine Nitrate (Negative) Urine Bilirubin (NEGATIVE) Urine Urobilinogen (0.2) E.U./dL Ur Leukocyte Esterase (NEGATIVE) Urine RBC (0-5/HPF) Urine WBC (0-5/HPF) Ur Squamous Epith Cells (0-5/HPF) Urine Bacteria (None) Hyaline Casts (None) Ur Culture Indicated? Micro UA Comment <Graciela Gray, DO - Last Filed: 12/27/18 19:01> Lab Data Attestation: I reviewed the patient's lab results. Lab Results 12/26/18 12/26/18 12/26/18 Range/Units 21:55 21:55 21:55 WBC 9.1 (4.5-11.0) X10^3/uL RBC 4.19 (4.0-5.2) X10^6/uL Hgb 13.8 (12.0-16.0) g/dL Hct 41.8 (36-46) % MCV 99.6 (80-100) fL MCH 32.9 (26-34) PG MCHC 33.1 (30-36) % RDW 14.7 (11.6-14.8) % Plt Count 273 (150-400) X10^3/uL Neut % (Auto) 62.9 (50-75) % Lymph % (Auto) 24.3 L (25-40) % [facility] % (Auto) 7.6 (3-14) % Eos % (Auto) 4.7 H (2-4) % Baso % (Auto) 0.5 (0-2) % Neut # (Auto) 5700 (8049-1583) /uL Lymph # (Auto) 2200 (2631-0154) /uL [facility] # (Auto) 700 (0-900) /uL Eos # (Auto) 400 (0-450) /uL Baso # (Auto) 0 (0-100) /uL PT 10.8 (10.1-12.7) SECONDS INR 0.9 (0.9-1.3) APTT 26 L (26.4-36.2) SECONDS D-Dimer (<230) ng/mL Sodium 139 (137-145) mmol/L Potassium 4.9 (3.4-5.1) mmol/L Chloride 106 (98-107) mmol/L Carbon Dioxide 26 (22-32) mmol/L BUN 29 H (7-17) mg/dL Creatinine 1.10 H (0.52-1.04) mg/dL Estimated GFR 48.7 L (>60) mL/min BUN/Creatinine Ratio 26.4 H (6-22) Glucose 113 H (80-110) mg/dL Calcium 10.9 H (8.4-10.2) mg/dL Total Bilirubin 0.5 (0.2-1.3) mg/dL AST 18 (14-36) IU/L ALT 14 (9-52) IU/L Alkaline Phosphatase 84 (38-126) U/L Total Creatine Kinase 68 (30-135) U/L CK-MB (CK-2) TNP CK-MB (CK-2) Rel Index TNP Troponin I 0.014 (0.01-0.034) ng/mL B-Natriuretic Peptide 121 H (<100) Total Protein 7.4 (6.3-8.2) g/dL Albumin 4.4 (3.5-5.0) g/dL Globulin 3.0 (1.7-4.1) g/dL Albumin/Globulin Ratio 1.5 (1.0-2.8) Lipase 23 (23-300) U/L Urine Color Urine Appearance Urine pH (4.5-8.0) Ur Specific [place] (1.000-1.035) Urine Protein (Negative) Urine Glucose (UA) (Negative) g/dL Urine Ketones (NEGATIVE) Urine Occult Blood (Negative) Urine Nitrate (Negative) Urine Bilirubin (NEGATIVE) Urine Urobilinogen (0.2) E.U./dL Ur Leukocyte Esterase (NEGATIVE) Urine RBC (0-5/HPF) Urine WBC (0-5/HPF) Ur Squamous Epith Cells (0-5/HPF) Urine Bacteria (None) Hyaline Casts (None) Ur Culture Indicated? Micro UA Comment 12/26/18 12/26/18 12/26/18 Range/Units 22:25 23:43 23:59 WBC (4.5-11.0) X10^3/uL RBC (4.0-5.2) X10^6/uL Hgb (12.0-16.0) g/dL Hct (36-46) % MCV (80-100) fL MCH (26-34) PG MCHC (30-36) % RDW (11.6-14.8) % Plt Count (150-400) X10^3/uL Neut % (Auto) (50-75) % Lymph % (Auto) (25-40) % [facility] % (Auto) (3-14) % Eos % (Auto) (2-4) % Baso % (Auto) (0-2) % Neut # (Auto) (1071-4651) /uL Lymph # (Auto) (3794-2773) /uL [facility] # (Auto) (0-900) /uL Eos # (Auto) (0-450) /uL Baso # (Auto) (0-100) /uL PT (10.1-12.7) SECONDS INR (0.9-1.3) APTT (26.4-36.2) SECONDS D-Dimer 693 H (<230) ng/mL Sodium (137-145) mmol/L Potassium (3.4-5.1) mmol/L Chloride (98-107) mmol/L Carbon Dioxide (22-32) mmol/L BUN (7-17) mg/dL Creatinine (0.52-1.04) mg/dL Estimated GFR (>60) mL/min BUN/Creatinine Ratio (6-22) Glucose (80-110) mg/dL Calcium (8.4-10.2) mg/dL Total Bilirubin (0.2-1.3) mg/dL AST (14-36) IU/L ALT (9-52) IU/L Alkaline Phosphatase (38-126) U/L Total Creatine Kinase (30-135) U/L CK-MB (CK-2) CK-MB (CK-2) Rel Index Troponin I 0.366 H* (0.01-0.034) ng/mL B-Natriuretic Peptide (<100) Total Protein (6.3-8.2) g/dL Albumin (3.5-5.0) g/dL Globulin (1.7-4.1) g/dL Albumin/Globulin Ratio (1.0-2.8) Lipase (23-300) U/L Urine Color Yellow Urine Appearance Clear Urine pH 5.0 (4.5-8.0) Ur Specific [place] 1.025 (1.000-1.035) Urine Protein 1+ H (Negative) Urine Glucose (UA) Negative (Negative) g/dL Urine Ketones Trace H (NEGATIVE) Urine Occult Blood 1+ H (Negative) Urine Nitrate Negative (Negative) Urine Bilirubin Negative (NEGATIVE) Urine Urobilinogen 1.0 (0.2) E.U./dL Ur Leukocyte Esterase 1+ H (NEGATIVE) Urine RBC 0-1/hpf (0-5/HPF) Urine WBC 1-5/hpf (0-5/HPF) Ur Squamous Epith Cells 0-1 /hpf (0-5/HPF) Urine Bacteria Few (2-10) H (None) Hyaline Casts 0-1/lpf (None) Ur Culture Indicated? Specimen cultured Micro UA Comment . 12/27/18 12/27/18 12/27/18 Range/Units 05:06 07:25 08:15 WBC (4.5-11.0) X10^3/uL RBC (4.0-5.2) X10^6/uL Hgb 12.2 (12.0-16.0) g/dL Hct 37.1 (36-46) % MCV (80-100) fL MCH (26-34) PG MCHC (30-36) % RDW (11.6-14.8) % Plt Count (150-400) X10^3/uL Neut % (Auto) (50-75) % Lymph % (Auto) (25-40) % [facility] % (Auto) (3-14) % Eos % (Auto) (2-4) % Baso % (Auto) (0-2) % Neut # (Auto) (0829-8334) /uL Lymph # (Auto) (0317-8710) /uL [facility] # (Auto) (0-900) /uL Eos # (Auto) (0-450) /uL Baso # (Auto) (0-100) /uL PT (10.1-12.7) SECONDS INR (0.9-1.3) APTT 50 H D (26.4-36.2) SECONDS D-Dimer (<230) ng/mL Sodium (137-145) mmol/L Potassium (3.4-5.1) mmol/L Chloride (98-107) mmol/L Carbon Dioxide (22-32) mmol/L BUN (7-17) mg/dL Creatinine (0.52-1.04) mg/dL Estimated GFR (>60) mL/min BUN/Creatinine Ratio (6-22) Glucose (80-110) mg/dL Calcium (8.4-10.2) mg/dL Total Bilirubin (0.2-1.3) mg/dL AST (14-36) IU/L ALT (9-52) IU/L Alkaline Phosphatase (38-126) U/L Total Creatine Kinase (30-135) U/L CK-MB (CK-2) CK-MB (CK-2) Rel Index Troponin I 1.200 H* (0.01-0.034) ng/mL B-Natriuretic Peptide (<100) Total Protein (6.3-8.2) g/dL Albumin (3.5-5.0) g/dL Globulin (1.7-4.1) g/dL Albumin/Globulin Ratio (1.0-2.8) Lipase (23-300) U/L Urine Color Urine Appearance Urine pH (4.5-8.0) Ur Specific [place] (1.000-1.035) Urine Protein (Negative) Urine Glucose (UA) (Negative) g/dL Urine Ketones (NEGATIVE) Urine Occult Blood (Negative) Urine Nitrate (Negative) Urine Bilirubin (NEGATIVE) Urine Urobilinogen (0.2) E.U./dL Ur Leukocyte Esterase (NEGATIVE) Urine RBC (0-5/HPF) Urine WBC (0-5/HPF) Ur Squamous Epith Cells (0-5/HPF) Urine Bacteria (None) Hyaline Casts (None) Ur Culture Indicated? Micro UA Comment MDM Narrative Medical decision making narrative: Patient's repeat troponin about 8 hours after the 2nd is positive at 1.2 and trending upwards, patient's repeat EKG shows no new changes sinus bradycardia with sinus arrhythmia. Q-waves in 1 and aVL patient's earlier EKG does appear to have more peaked T-waves. Patient states chest pain has resolved but she occasionally has a twinge here in there. She does not have any other symptoms with it. She states it is not anything similar to what she had before. Patient is not supposed to be transported to the other facility until 10:00 a.m. it is 8:30 a.m. at this time. Cardiology was re-contacted, Dr. klein spoke with Dr. Zafar, I spoke with Dr. Trejo recommendations are to hold on a nitro drip this patient has had some low pressures, she is not having any active chest pain just occasional twinge sure there. She had not had her regular Plavix so 75 mg dose was given per the recommendation. We discussed no new EKG changes. Plan to continue with patient's transport at 10:00 a.m. I did ask patient and she confirmed with me that she received #4, 81mg asa. Patient updated, feeling fine without any other issues whle in department. Discharge Plan Departure Patient Disposition: [facility] Clinical Impression: Non-ST elevation [place] (NSTEMI) Discharge Date/Time: 12/27/18 11:15 Interventions: ED Discharge Assessment Last Done: 12/27/18 11:29 Prescriptions: No Action clopidogrel 75 mg Tablet 75 mg PO DAILY RF: 0 acetaminophen [Tylenol Arthritis Pain] 650 mg Tablet Extended Release 650 mg PO Q8H PRN (Reason: Pain (Scale Score 1-3)) RF: 0 carvedilol 12.5 mg tablet 12.5 mg PO BID RF: 0 oxybutynin chloride 10 mg tablet extended release 24hr 10 mg PO DAILY RF: 0 Uloric 80 mg tablet 80 mg PO DAILY RF: 0 aspirin 81 mg Tablet,Delayed Release (Dr/Ec) 81 mg PO DAILY RF: 0 Referrals: Booker Hunter MD [Primary Care Provider] - ED Cosign/Signout <Rosalio Alicea DO - Last Filed: 12/31/18 08:04> Cosign ED Attending Cosignature Attestation: I was immediately available in the department for consultation. Documentation has been reviewed. I agree with assessment and plan.
[2018-12-26] MEDS: MAG HYDROX/ALUMINUM/SIMETH SUS 20 ML, LIDOCAINE VISCOUS 2% 15 ML PO (23:28)
[2018-12-26] MEDS: PANTOPRAZOLE 40 MG VIAL IV (23:28)
[2018-12-26 23:32] VITALS: BP 109/86; PULSE 55; RESP 13; O2SAT 96
[2018-12-27] VITALS (14 sets, daily range): BP systolic 97–138; BP diastolic 48–114; PULSE 51–65; RESP 11–19; O2SAT 93–98
--- NOTE | 2018-12-27 00:15 | ED_ITS ---
HPI - Chest Pain <Rosalio Alicea DO - Last Filed: 12/31/18 08:04> General Chief Complaint: Chest Pain Stated Complaint: intense chest pressure Time Seen by Provider: 12/26/18 21:46 Source: patient Mode of arrival: ambulatory Limitations: no limitations History of Present Illness HPI narrative: 73-year-old female nonsmoker with cardiac history presents with a chief complaint of retrosternal chest pressure which started about 2 hours prior to her arrival while cleaning up after dinner. She denies radiation or associated symptoms such as shortness of breath, dizziness, lightheadedness, w eakness, diaphoresis, nausea, vomiting. She does state that she has had multiple episodes of diarrhea since her chest pain started. Her pain does remind her of when she had an MT a few years ago. 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 She states it seems to get worse with exertion and improves with rest. She did not take any nitro at home but did take a baby aspirin MD complaint: chest pain Onset (ago): hour(s) Duration: constant Onset: during rest Pain location: substernal Severity: moderate Quality: aching Pain radiation: none Exacerbating factors: exertion Treatments prior to arrival chest pain: aspirin Related Data On Oral Contraceptives: No Home Medications Medication Instructions Recorded Confirmed acetaminophen [Tylenol Arthritis 650 mg PO Q8H PRN 03/07/18 12/27/18 Pain] clopidogrel 75 mg PO DAILY 03/07/18 12/27/18 aspirin 81 mg PO DAILY 12/27/18 12/27/18 carvedilol 12.5 mg PO BID 12/27/18 12/27/18 febuxostat [Uloric] 80 mg PO DAILY 12/27/18 12/27/18 oxybutynin chloride 10 mg PO DAILY 12/27/18 12/27/18 Allergies Allergy/AdvReac Type Severity Reaction Status Date / Time Cephalosporins Allergy Mild Hives Verified 03/07/18 17:30 Penicillins [PENICILLINS] Allergy Unknown RASH Verified 03/07/18 17:30 erythromycin base Allergy Hives Verified 03/07/18 17:30 SEASONAL ALLERGIES Allergy Unknown Uncoded 03/07/18 17:30 Review of Systems <DO Kemal Armendariz Last Filed: 12/31/18 08:04> Constitutional Denies chills, Denies fever(s), Denies lethargy and Denies weakness Eyes Denies change in vision, Denies eye discharge, Denies irritation and Denies loss of vision ENT Ears, Nose, Mouth, and Throat: Denies change in voice, Denies neck pain and Denies sore throat Cardiovascular Reports chest pain, Reports chest pain with activity, Denies irregular heart rhythm, Reports leg edema, Denies lightheadedness, Denies palpitations, Denies dyspnea, Denies dyspnea on exertion and Denies orthopnea Respiratory Denies cough, Denies dyspnea, Denies dyspnea on exertion and Denies wheezing Gastrointestinal Gastrointestinal: Denies abdominal pain, Denies change in bowel habits, Reports diarrhea, Denies nausea and Denies vomiting Genitourinary Denies hematuria, Denies flank pain, Denies urinary incontinence and Denies urinary urgency Musculoskeletal Denies neck pain Integumentary/Breasts Denies pruritus, Denies erythema, Denies rash and Denies wounds Neurologic Denies confusion, Denies loss of vision and Denies weakness Psychiatric Denies anxiety, Denies confusion, Denies depression, Denies homicidal ideation and Denies suicidal ideation Endocrine Denies palpitations Hematologic/Lymphatic Denies easy bruising Allergic/Immunologic Denies wheezing PFSH <Rosalio Alicea DO - Last Filed: 12/31/18 08:04> Medical History (Updated 12/27/18 @ 02:02 by Rosalio Alicea DO) ST elevation myocardial infarction (STEMI) of lateral wall (Acute) Obstructive uropathy (Acute) Social History Smoking Status: Never smoker Social History Smoking Status: Never smoker Exam <Rosalio Alicea DO - Last Filed: 12/31/18 08:04> Narrative Exam Narrative: GENERAL: 73-year-old female appears stated age, in mild distress HEAD: Atraumatic. Normocephalic. No temporal or scalp tenderness. EYES: Pupils equal round and reactive. Extraocular motions intact. No scleral icterus. No injection or drainage. ENT: Nose without bleeding, purulent drainage or septal hematoma. Throat without erythema, tonsillar hypertrophy or exudate. Uvula midline. Airway patent. NECK: Trachea midline. No JVD or lymphadenopathy. Supple, nontender, no meningeal signs. CARDIOVASCULAR: Regular rate and rhythm without murmurs, gallops, or rubs. RESPIRATORY: Clear to auscultation. Breath sounds equal bilaterally. No wheezes, rales, or rhonchi. GASTROINTESTINAL: Abdomen soft, non-tender, nondistended. No hepato- splenomegaly, or palpable masses. No guarding. EXTREMITIES: 1+ pitting edema bilateral lower extremities. BACK: Nontender without deformity or crepitance. No flank tenderness. NEURO: AOx3. SKIN: No rash or erythema. Initial Vital Signs Initial Vital Signs: Vital Signs Temperature 97.8 F 12/26/18 21:50 Pulse Rate 69 12/26/18 21:50 Respiratory Rate 22 12/26/18 21:50 Blood Pressure 157/75 H 12/26/18 21:50 Pulse Oximetry 96 12/26/18 21:50 <Graciela Gray DO - Last Filed: 12/27/18 19:01> Initial Vital Signs Initial Vital Signs: Vital Signs Temperature 97.8 F 12/26/18 21:50 Pulse Rate 69 12/26/18 21:50 Respiratory Rate 22 12/26/18 21:50 Blood Pressure 157/75 H 12/26/18 21:50 Pulse Oximetry 96 12/26/18 21:50 Course <Rosalio Alicea DO - Last Filed: 12/31/18 08:04> Orders Ordered: Discontinued Medications Aspirin (Aspirin Chew) 324 mg PO NOW ONE Stop: 12/26/18 21:54 Last Admin: 12/26/18 21:55 Dose: 324 mg Clopidogrel Bisulfate (Plavix) 75 mg PO NOW ONE Stop: 12/27/18 08:52 Last Admin: 12/27/18 08:59 Dose: 75 mg Al Hydrox/Mg Hydrox/Simethicone 20 ml/ Lidocaine HCl 15 ml 0 ml PO NOW ONE Stop: 12/26/18 23:20 Last Admin: 12/26/18 23:28 Dose: 45 ml Heparin Sodium (Porcine) (Heparin) 5,000 unit IV NOW ONE Stop: 12/27/18 02:08 Last Admin: 12/27/18 02:15 Dose: 5,000 unit Sodium Chloride (Normal Saline 0.9%) 1,000 mls @ 150 mls/hr IV CONT REGINA Last Infusion: 12/27/18 06:30 Dose: 150 mls/hr Admin: 12/26/18 22:49 Dose: 150 mls/hr Heparin Sodium/Dextrose (Heparin Drip) 25,000 unit in 500 mls @ 20 mls/hr IV CONT REGINA; Protocol Last Titration: 12/27/18 11:27 Dose: 0 units/hr, 0 mls/hr Admin: 12/27/18 02:20 Dose: 1,000 units/hr, 20 mls/hr Nitroglycerin (Nitroglycerin) 50 mg in 250 mls @ 1.5 mls/hr IV TITRATE REGINA; Protocol Last Titration: 12/27/18 11:27 Dose: 0 mcg/min, 0 mls/hr Admin: 12/27/18 08:57 Dose: 5 mcg/min, 1.5 mls/hr Nitroglycerin (Nitrostat) 0.4 mg SL [id number] PRN PRN Reason: Chest Pain Last Admin: 12/26/18 22:48 Dose: 0.4 mg Pantoprazole Sodium (Protonix) 40 mg IV NOW ONE Stop: 12/26/18 23:20 Last Admin: 12/26/18 23:28 Dose: 40 mg Reevaluation(s) Reevaluation #1: patient pain free Consultations Consultation #1: call to hospitalist at [facility]. Not appropriate for our facility given history of STEMI, stents, + trop, exertional symptoms Call to [facility] - no beds Patient and sister would prefer [facility] 0200 - Call to [facility] cardio, Dr. Zafar, happy to be involved in care, requests admission to hospitalist [phone] - Call back from [facility] hospitalist (Dorothy) is happy to accept but has a full workload and will have to pass this to his partners at shift change 0300 - [facility] has other obligations and cannot arrive until about 1000. Vital Signs - 8 hr 12/27/18 04:00 12/27/18 05:02 12/27/18 05:30 Pulse Rate 51 L 63 52 L Respiratory Rate 19 18 19 Blood Pressure Blood Pressure [Right Arm] 97/51 L 131/48 L 107/63 Pulse Oximetry 94 98 93 12/27/18 06:30 12/27/18 07:25 12/27/18 07:55 Pulse Rate 56 L 57 L 58 L Respiratory Rate 17 18 19 Blood Pressure Blood Pressure [Right Arm] 111/54 L 122/71 131/64 Pulse Oximetry 95 97 96 12/27/18 08:57 12/27/18 08:58 12/27/18 09:25 Pulse Rate 63 59 L 61 Respiratory Rate 17 18 Blood Pressure 120/100 H Blood Pressure [Right Arm] 138/114 H 107/59 L Pulse Oximetry 97 95 12/27/18 09:34 12/27/18 10:00 12/27/18 10:30 Pulse Rate 65 64 63 Respiratory Rate 16 15 Blood Pressure 107/64 Blood Pressure [Right Arm] 107/61 117/59 L Pulse Oximetry 95 94 <Graciela Gray DO - Last Filed: 12/27/18 19:01> Orders Ordered: Discontinued Medications Aspirin (Aspirin Chew) 324 mg PO NOW ONE Stop: 12/26/18 21:54 Last Admin: 12/26/18 21:55 Dose: 324 mg Clopidogrel Bisulfate (Plavix) 75 mg PO NOW ONE Stop: 12/27/18 08:52 Last Admin: 12/27/18 08:59 Dose: 75 mg Al Hydrox/Mg Hydrox/Simethicone 20 ml/ Lidocaine HCl 15 ml 0 ml PO NOW ONE Stop: 12/26/18 23:20 Last Admin: 12/26/18 23:28 Dose: 45 ml Heparin Sodium (Porcine) (Heparin) 5,000 unit IV NOW ONE Stop: 12/27/18 02:08 Last Admin: 12/27/18 02:15 Dose: 5,000 unit Sodium Chloride (Normal Saline 0.9%) 1,000 mls @ 150 mls/hr IV CONT REGINA Last Infusion: 12/27/18 06:30 Dose: 150 mls/hr Admin: 12/26/18 22:49 Dose: 150 mls/hr Heparin Sodium/Dextrose (Heparin Drip) 25,000 unit in 500 mls @ 20 mls/hr IV CONT REGINA; Protocol Last Titration: 12/27/18 11:27 Dose: 0 units/hr, 0 mls/hr Admin: 12/27/18 02:20 Dose: 1,000 units/hr, 20 mls/hr Nitroglycerin (Nitroglycerin) 50 mg in 250 mls @ 1.5 mls/hr IV TITRATE REGINA; Protocol Last Titration: 12/27/18 11:27 Dose: 0 mcg/min, 0 mls/hr Admin: 12/27/18 08:57 Dose: 5 mcg/min, 1.5 mls/hr Nitroglycerin (Nitrostat) 0.4 mg SL [id number] PRN PRN Reason: Chest Pain Last Admin: 12/26/18 22:48 Dose: 0.4 mg Pantoprazole Sodium (Protonix) 40 mg IV NOW ONE Stop: 12/26/18 23:20 Last Admin: 12/26/18 23:28 Dose: 40 mg Vital Signs - 8 hr 12/27/18 04:00 12/27/18 05:02 12/27/18 05:30 Pulse Rate 51 L 63 52 L Respiratory Rate 19 18 19 Blood Pressure Blood Pressure [Right Arm] 97/51 L 131/48 L 107/63 Pulse Oximetry 94 98 93 12/27/18 06:30 12/27/18 07:25 12/27/18 07:55 Pulse Rate 56 L 57 L 58 L Respiratory Rate 17 18 19 Blood Pressure Blood Pressure [Right Arm] 111/54 L 122/71 131/64 Pulse Oximetry 95 97 96 12/27/18 08:57 12/27/18 08:58 12/27/18 09:25 Pulse Rate 63 59 L 61 Respiratory Rate 17 18 Blood Pressure 120/100 H Blood Pressure [Right Arm] 138/114 H 107/59 L Pulse Oximetry 97 95 12/27/18 09:34 12/27/18 10:00 12/27/18 10:30 Pulse Rate 65 64 63 Respiratory Rate 16 15 Blood Pressure 107/64 Blood Pressure [Right Arm] 107/61 117/59 L Pulse Oximetry 95 94 MDM - Chest Pain <Rosalio Alicea DO - Last Filed: 12/31/18 08:04> Lab Data Result diagrams: 12/27/18 05:06 12/26/18 21:55 Lab Results 12/26/18 12/26/18 12/26/18 Range/Units 21:55 21:55 21:55 WBC 9.1 (4.5-11.0) X10^3/uL RBC 4.19 (4.0-5.2) X10^6/uL Hgb 13.8 (12.0-16.0) g/dL Hct 41.8 (36-46) % MCV 99.6 (80-100) fL MCH 32.9 (26-34) PG MCHC 33.1 (30-36) % RDW 14.7 (11.6-14.8) % Plt Count 273 (150-400) X10^3/uL Neut % (Auto) 62.9 (50-75) % Lymph % (Auto) 24.3 L (25-40) % Day % (Auto) 7.6 (3-14) % Eos % (Auto) 4.7 H (2-4) % Baso % (Auto) 0.5 (0-2) % Neut # (Auto) 5700 (9817-7171) /uL Lymph # (Auto) 2200 (7037-9582) /uL Day # (Auto) 700 (0-900) /uL Eos # (Auto) 400 (0-450) /uL Baso # (Auto) 0 (0-100) /uL PT 10.8 (10.1-12.7) SECONDS INR 0.9 (0.9-1.3) APTT 26 L (26.4-36.2) SECONDS D-Dimer (<230) ng/mL Sodium 139 (137-145) mmol/L Potassium 4.9 (3.4-5.1) mmol/L Chloride 106 (98-107) mmol/L Carbon Dioxide 26 (22-32) mmol/L BUN 29 H (7-17) mg/dL Creatinine 1.10 H (0.52-1.04) mg/dL Estimated GFR 48.7 L (>60) mL/min BUN/Creatinine Ratio 26.4 H (6-22) Glucose 113 H (80-110) mg/dL Calcium 10.9 H (8.4-10.2) mg/dL Total Bilirubin 0.5 (0.2-1.3) mg/dL AST 18 (14-36) IU/L ALT 14 (9-52) IU/L Alkaline Phosphatase 84 (38-126) U/L Total Creatine Kinase 68 (30-135) U/L CK-MB (CK-2) TNP CK-MB (CK-2) Rel Index TNP Troponin I 0.014 (0.01-0.034) ng/mL B-Natriuretic Peptide 121 H (<100) Total Protein 7.4 (6.3-8.2) g/dL Albumin 4.4 (3.5-5.0) g/dL Globulin 3.0 (1.7-4.1) g/dL Albumin/Globulin Ratio 1.5 (1.0-2.8) Lipase 23 (23-300) U/L Urine Color Urine Appearance Urine pH (4.5-8.0) Ur Specific [place] (1.000-1.035) Urine Protein (Negative) Urine Glucose (UA) (Negative) g/dL Urine Ketones (NEGATIVE) Urine Occult Blood (Negative) Urine Nitrate (Negative) Urine Bilirubin (NEGATIVE) Urine Urobilinogen (0.2) E.U./dL Ur Leukocyte Esterase (NEGATIVE) Urine RBC (0-5/HPF) Urine WBC (0-5/HPF) Ur Squamous Epith Cells (0-5/HPF) Urine Bacteria (None) Hyaline Casts (None) Ur Culture Indicated? Micro UA Comment 12/26/18 12/26/18 12/26/18 Range/Units 22:25 23:43 23:59 WBC (4.5-11.0) X10^3/uL RBC (4.0-5.2) X10^6/uL Hgb (12.0-16.0) g/dL Hct (36-46) % MCV (80-100) fL MCH (26-34) PG MCHC (30-36) % RDW (11.6-14.8) % Plt Count (150-400) X10^3/uL Neut % (Auto) (50-75) % Lymph % (Auto) (25-40) % Day % (Auto) (3-14) % Eos % (Auto) (2-4) % Baso % (Auto) (0-2) % Neut # (Auto) (5105-1358) /uL Lymph # (Auto) (9137-5225) /uL Day # (Auto) (0-900) /uL Eos # (Auto) (0-450) /uL Baso # (Auto) (0-100) /uL PT (10.1-12.7) SECONDS INR (0.9-1.3) APTT (26.4-36.2) SECONDS D-Dimer 693 H (<230) ng/mL Sodium (137-145) mmol/L Potassium (3.4-5.1) mmol/L Chloride (98-107) mmol/L Carbon Dioxide (22-32) mmol/L BUN (7-17) mg/dL Creatinine (0.52-1.04) mg/dL Estimated GFR (>60) mL/min BUN/Creatinine Ratio (6-22) Glucose (80-110) mg/dL Calcium (8.4-10.2) mg/dL Total Bilirubin (0.2-1.3) mg/dL AST (14-36) IU/L ALT (9-52) IU/L Alkaline Phosphatase (38-126) U/L Total Creatine Kinase (30-135) U/L CK-MB (CK-2) CK-MB (CK-2) Rel Index Troponin I 0.366 H* (0.01-0.034) ng/mL B-Natriuretic Peptide (<100) Total Protein (6.3-8.2) g/dL Albumin (3.5-5.0) g/dL Globulin (1.7-4.1) g/dL Albumin/Globulin Ratio (1.0-2.8) Lipase (23-300) U/L Urine Color Yellow Urine Appearance Clear Urine pH 5.0 (4.5-8.0) Ur Specific [place] 1.025 (1.000-1.035) Urine Protein 1+ H (Negative) Urine Glucose (UA) Negative (Negative) g/dL Urine Ketones Trace H (NEGATIVE) Urine Occult Blood 1+ H (Negative) Urine Nitrate Negative (Negative) Urine Bilirubin Negative (NEGATIVE) Urine Urobilinogen 1.0 (0.2) E.U./dL Ur Leukocyte Esterase 1+ H (NEGATIVE) Urine RBC 0-1/hpf (0-5/HPF) Urine WBC 1-5/hpf (0-5/HPF) Ur Squamous Epith Cells 0-1 /hpf (0-5/HPF) Urine Bacteria Few (2-10) H (None) Hyaline Casts 0-1/lpf (None) Ur Culture Indicated? Specimen cultured Micro UA Comment . 12/27/18 12/27/18 12/27/18 Range/Units 05:06 07:25 08:15 WBC (4.5-11.0) X10^3/uL RBC (4.0-5.2) X10^6/uL Hgb 12.2 (12.0-16.0) g/dL Hct 37.1 (36-46) % MCV (80-100) fL MCH (26-34) PG MCHC (30-36) % RDW (11.6-14.8) % Plt Count (150-400) X10^3/uL Neut % (Auto) (50-75) % Lymph % (Auto) (25-40) % Day % (Auto) (3-14) % Eos % (Auto) (2-4) % Baso % (Auto) (0-2) % Neut # (Auto) (0222-1876) /uL Lymph # (Auto) (9134-3065) /uL Day # (Auto) (0-900) /uL Eos # (Auto) (0-450) /uL Baso # (Auto) (0-100) /uL PT (10.1-12.7) SECONDS INR (0.9-1.3) APTT 50 H D (26.4-36.2) SECONDS D-Dimer (<230) ng/mL Sodium (137-145) mmol/L Potassium (3.4-5.1) mmol/L Chloride (98-107) mmol/L Carbon Dioxide (22-32) mmol/L BUN (7-17) mg/dL Creatinine (0.52-1.04) mg/dL Estimated GFR (>60) mL/min BUN/Creatinine Ratio (6-22) Glucose (80-110) mg/dL Calcium (8.4-10.2) mg/dL Total Bilirubin (0.2-1.3) mg/dL AST (14-36) IU/L ALT (9-52) IU/L Alkaline Phosphatase (38-126) U/L Total Creatine Kinase (30-135) U/L CK-MB (CK-2) CK-MB (CK-2) Rel Index Troponin I 1.200 H* (0.01-0.034) ng/mL B-Natriuretic Peptide (<100) Total Protein (6.3-8.2) g/dL Albumin (3.5-5.0) g/dL Globulin (1.7-4.1) g/dL Albumin/Globulin Ratio (1.0-2.8) Lipase (23-300) U/L Urine Color Urine Appearance Urine pH (4.5-8.0) Ur Specific [place] (1.000-1.035) Urine Protein (Negative) Urine Glucose (UA) (Negative) g/dL Urine Ketones (NEGATIVE) Urine Occult Blood (Negative) Urine Nitrate (Negative) Urine Bilirubin (NEGATIVE) Urine Urobilinogen (0.2) E.U./dL Ur Leukocyte Esterase (NEGATIVE) Urine RBC (0-5/HPF) Urine WBC (0-5/HPF) Ur Squamous Epith Cells (0-5/HPF) Urine Bacteria (None) Hyaline Casts (None) Ur Culture Indicated? Micro UA Comment <Graciela rGay, DO - Last Filed: 12/27/18 19:01> Lab Data Attestation: I reviewed the patient's lab results. Lab Results 12/26/18 12/26/18 12/26/18 Range/Units 21:55 21:55 21:55 WBC 9.1 (4.5-11.0) X10^3/uL RBC 4.19 (4.0-5.2) X10^6/uL Hgb 13.8 (12.0-16.0) g/dL Hct 41.8 (36-46) % MCV 99.6 (80-100) fL MCH 32.9 (26-34) PG MCHC 33.1 (30-36) % RDW 14.7 (11.6-14.8) % Plt Count 273 (150-400) X10^3/uL Neut % (Auto) 62.9 (50-75) % Lymph % (Auto) 24.3 L (25-40) % Day % (Auto) 7.6 (3-14) % Eos % (Auto) 4.7 H (2-4) % Baso % (Auto) 0.5 (0-2) % Neut # (Auto) 5700 (2465-5299) /uL Lymph # (Auto) 2200 (4697-2699) /uL Day # (Auto) 700 (0-900) /uL Eos # (Auto) 400 (0-450) /uL Baso # (Auto) 0 (0-100) /uL PT 10.8 (10.1-12.7) SECONDS INR 0.9 (0.9-1.3) APTT 26 L (26.4-36.2) SECONDS D-Dimer (<230) ng/mL Sodium 139 (137-145) mmol/L Potassium 4.9 (3.4-5.1) mmol/L Chloride 106 (98-107) mmol/L Carbon Dioxide 26 (22-32) mmol/L BUN 29 H (7-17) mg/dL Creatinine 1.10 H (0.52-1.04) mg/dL Estimated GFR 48.7 L (>60) mL/min BUN/Creatinine Ratio 26.4 H (6-22) Glucose 113 H (80-110) mg/dL Calcium 10.9 H (8.4-10.2) mg/dL Total Bilirubin 0.5 (0.2-1.3) mg/dL AST 18 (14-36) IU/L ALT 14 (9-52) IU/L Alkaline Phosphatase 84 (38-126) U/L Total Creatine Kinase 68 (30-135) U/L CK-MB (CK-2) TNP CK-MB (CK-2) Rel Index TNP Troponin I 0.014 (0.01-0.034) ng/mL B-Natriuretic Peptide 121 H (<100) Total Protein 7.4 (6.3-8.2) g/dL Albumin 4.4 (3.5-5.0) g/dL Globulin 3.0 (1.7-4.1) g/dL Albumin/Globulin Ratio 1.5 (1.0-2.8) Lipase 23 (23-300) U/L Urine Color Urine Appearance Urine pH (4.5-8.0) Ur Specific [place] (1.000-1.035) Urine Protein (Negative) Urine Glucose (UA) (Negative) g/dL Urine Ketones (NEGATIVE) Urine Occult Blood (Negative) Urine Nitrate (Negative) Urine Bilirubin (NEGATIVE) Urine Urobilinogen (0.2) E.U./dL Ur Leukocyte Esterase (NEGATIVE) Urine RBC (0-5/HPF) Urine WBC (0-5/HPF) Ur Squamous Epith Cells (0-5/HPF) Urine Bacteria (None) Hyaline Casts (None) Ur Culture Indicated? Micro UA Comment 12/26/18 12/26/18 12/26/18 Range/Units 22:25 23:43 23:59 WBC (4.5-11.0) X10^3/uL RBC (4.0-5.2) X10^6/uL Hgb (12.0-16.0) g/dL Hct (36-46) % MCV (80-100) fL MCH (26-34) PG MCHC (30-36) % RDW (11.6-14.8) % Plt Count (150-400) X10^3/uL Neut % (Auto) (50-75) % Lymph % (Auto) (25-40) % Day % (Auto) (3-14) % Eos % (Auto) (2-4) % Baso % (Auto) (0-2) % Neut # (Auto) (9074-8602) /uL Lymph # (Auto) (8160-3543) /uL Day # (Auto) (0-900) /uL Eos # (Auto) (0-450) /uL Baso # (Auto) (0-100) /uL PT (10.1-12.7) SECONDS INR (0.9-1.3) APTT (26.4-36.2) SECONDS D-Dimer 693 H (<230) ng/mL Sodium (137-145) mmol/L Potassium (3.4-5.1) mmol/L Chloride (98-107) mmol/L Carbon Dioxide (22-32) mmol/L BUN (7-17) mg/dL Creatinine (0.52-1.04) mg/dL Estimated GFR (>60) mL/min BUN/Creatinine Ratio (6-22) Glucose (80-110) mg/dL Calcium (8.4-10.2) mg/dL Total Bilirubin (0.2-1.3) mg/dL AST (14-36) IU/L ALT (9-52) IU/L Alkaline Phosphatase (38-126) U/L Total Creatine Kinase (30-135) U/L CK-MB (CK-2) CK-MB (CK-2) Rel Index Troponin I 0.366 H* (0.01-0.034) ng/mL B-Natriuretic Peptide (<100) Total Protein (6.3-8.2) g/dL Albumin (3.5-5.0) g/dL Globulin (1.7-4.1) g/dL Albumin/Globulin Ratio (1.0-2.8) Lipase (23-300) U/L Urine Color Yellow Urine Appearance Clear Urine pH 5.0 (4.5-8.0) Ur Specific [place] 1.025 (1.000-1.035) Urine Protein 1+ H (Negative) Urine Glucose (UA) Negative (Negative) g/dL Urine Ketones Trace H (NEGATIVE) Urine Occult Blood 1+ H (Negative) Urine Nitrate Negative (Negative) Urine Bilirubin Negative (NEGATIVE) Urine Urobilinogen 1.0 (0.2) E.U./dL Ur Leukocyte Esterase 1+ H (NEGATIVE) Urine RBC 0-1/hpf (0-5/HPF) Urine WBC 1-5/hpf (0-5/HPF) Ur Squamous Epith Cells 0-1 /hpf (0-5/HPF) Urine Bacteria Few (2-10) H (None) Hyaline Casts 0-1/lpf (None) Ur Culture Indicated? Specimen cultured Micro UA Comment . 12/27/18 12/27/18 12/27/18 Range/Units 05:06 07:25 08:15 WBC (4.5-11.0) X10^3/uL RBC (4.0-5.2) X10^6/uL Hgb 12.2 (12.0-16.0) g/dL Hct 37.1 (36-46) % MCV (80-100) fL MCH (26-34) PG MCHC (30-36) % RDW (11.6-14.8) % Plt Count (150-400) X10^3/uL Neut % (Auto) (50-75) % Lymph % (Auto) (25-40) % Day % (Auto) (3-14) % Eos % (Auto) (2-4) % Baso % (Auto) (0-2) % Neut # (Auto) (1359-1416) /uL Lymph # (Auto) (6466-3357) /uL Day # (Auto) (0-900) /uL Eos # (Auto) (0-450) /uL Baso # (Auto) (0-100) /uL PT (10.1-12.7) SECONDS INR (0.9-1.3) APTT 50 H D (26.4-36.2) SECONDS D-Dimer (<230) ng/mL Sodium (137-145) mmol/L Potassium (3.4-5.1) mmol/L Chloride (98-107) mmol/L Carbon Dioxide (22-32) mmol/L BUN (7-17) mg/dL Creatinine (0.52-1.04) mg/dL Estimated GFR (>60) mL/min BUN/Creatinine Ratio (6-22) Glucose (80-110) mg/dL Calcium (8.4-10.2) mg/dL Total Bilirubin (0.2-1.3) mg/dL AST (14-36) IU/L ALT (9-52) IU/L Alkaline Phosphatase (38-126) U/L Total Creatine Kinase (30-135) U/L CK-MB (CK-2) CK-MB (CK-2) Rel Index Troponin I 1.200 H* (0.01-0.034) ng/mL B-Natriuretic Peptide (<100) Total Protein (6.3-8.2) g/dL Albumin (3.5-5.0) g/dL Globulin (1.7-4.1) g/dL Albumin/Globulin Ratio (1.0-2.8) Lipase (23-300) U/L Urine Color Urine Appearance Urine pH (4.5-8.0) Ur Specific [place] (1.000-1.035) Urine Protein (Negative) Urine Glucose (UA) (Negative) g/dL Urine Ketones (NEGATIVE) Urine Occult Blood (Negative) Urine Nitrate (Negative) Urine Bilirubin (NEGATIVE) Urine Urobilinogen (0.2) E.U./dL Ur Leukocyte Esterase (NEGATIVE) Urine RBC (0-5/HPF) Urine WBC (0-5/HPF) Ur Squamous Epith Cells (0-5/HPF) Urine Bacteria (None) Hyaline Casts (None) Ur Culture Indicated? Micro UA Comment MDM Narrative Medical decision making narrative: Patient's repeat troponin about 8 hours after the 2nd is positive at 1.2 and trending upwards, patient's repeat EKG shows no new changes sinus bradycardia with sinus arrhythmia. Q-waves in 1 and aVL raoul ent's earlier EKG does appear to have more peaked T-waves. Patient states chest pain has resolved but she occasionally has a twinge here in there. She does not have any other symptoms with it. She states it is not anything similar to what she had before. Patient is not supposed to be transported to the other facility until 10:00 a.m. it is 8:30 a.m. at this time. Cardiology was re-contacted, Dr. klein spoke with Dr. Zafar, I spoke with Dr. Trejo recommendations are to hold on a nitro drip this patient has had some low pressures, she is not having any active chest pain just occasional twinge sure there. She had not had her regular Plavix so 75 mg dose was given per the recommendation. We discussed no new EKG changes. Plan to continue with patient's transport at 10:00 a.m. I did ask patient and she confirmed with me that she received #4, 81mg asa. Patient updated, feeling fine without any other issues whle in department. Discharge Plan Departure Patient Disposition: [facility] Clinical Impression: Non-ST elevation MT (NSTEMI) Discharge Date/Time: 12/27/18 11:15 Interventions: ED Discharge Assessment Last Done: 12/27/18 11:29 Prescriptions: No Action clopidogrel 75 mg Tablet 75 mg PO DAILY RF: 0 acetaminophen [Tylenol Arthritis Pain] 650 mg Tablet Extended Release 650 mg PO Q8H PRN (Reason: Pain (Scale Score 1-3)) RF: 0 carvedilol 12.5 mg tablet 12.5 mg PO BID RF: 0 oxybutynin chloride 10 mg tablet extended release 24hr 10 mg PO DAILY RF: 0 Uloric 80 mg tablet 80 mg PO DAILY RF: 0 aspirin 81 mg Tablet,Delayed Release (Dr/Ec) 81 mg PO DAILY RF: 0 Referrals: Booker Hunter MD [Primary Care Provider] - ED Cosign/Signout <Rosalio Alicea DO - Last Filed: 12/31/18 08:04> Cosign ED Attending Cosignature Attestation: I was immediately available in the [facility] tment for consultation. Documentation has been reviewed. I agree with assessment and plan.
[2018-12-27 00:39] LABS: D Dimer 693 ng/mL (<230)
--- NOTE | 2018-12-27 00:56 | DI.CT.S_ITS ---
PROCEDURE: CT ANGIO CHEST PE PROTOCOL INDICATIONS: Chest pain, Shortness of breath, travel, elevated DDimer TECHNIQUE: After the administration of intravenous contrast, 2 mm thick sections acquired from the pulmonary apices to the posterior costophrenic angles. 3-dimensional maximum intensity projection (MIP) coronal and sagittal reformats were then acquired through the thorax. For radiation dose reduction, the following was used: automated exposure control, adjustment of mA and/or kV according to patient size. COMPARISON: None. FINDINGS: Image quality: Excellent. Pulmonary arteries: There are no intraluminal filling defects to suggest central pulmonary embolism. There is enlargement of the main pulmonary artery without evidence for acute right-sided heart strain. Findings are consistent with chronic arterial pulmonary hypertension. Lungs and pleura: Diffuse, patchy bilateral groundglass opacities with mild smooth septal thickening of the upper lung zones. No focal consolidation. No suspicious mass lesion. No pleural effusions or pneumothorax. Central and peripheral airways are patent. Mediastinum: Heart is enlarged without pericardial effusion. Scattered atherosclerotic calcifications of the coronary arteries are noted. No mediastinal or hilar adenopathy. Thoracic aorta is normal in caliber and enhancement. Scattered atherosclerotic calcifications of the thoracic aorta. Esophagus is normal in caliber, without hiatal hernia. Bones and chest wall: No suspicious bony lesions. Ribs and thoracic spine appear intact throughout. Thyroid gland appears unremarkable. No axillary or supraclavicular adenopathy. Abdomen: Suggestion of nodular contour of the incompletely imaged left kidney. Otherwise, visualized upper abdominal solid organs appear normal in the early arterial phase of enhancement. IMPRESSION: 1. No acute pulmonary emboli identified. 2. Scattered, diffuse patchy ground glass opacities with smooth septal thickening seen in the bilateral hemithoraces. Findings may represent infectious versus inflammatory process, both acute and chronic. Early pulmonary edema may have a similar appearance. 3. Findings suggestive of chronic pulmonary arterial hypertension. 4. The left kidney is incompletely imaged on this study. There is suggestion of possible lobular contour. Consider ultrasound to exclude underlying mass. Findings are concordant with preliminary radiology report. Dictated by: Lc Mcclain M.D. on 12/27/2018 at 8:08 Approved by: Lc Mcclain M.D. on 12/27/2018 at 8:28
[2018-12-27 01:05] LABS: Troponin I 0.366 ng/mL (0.01-0.034)
[2018-12-27] MEDS: HEPARIN 5,000 UNIT/ML VIAL 5000 UNIT IV (02:15)
[2018-12-27] MEDS: HEPARIN DRIP 25,000 UNIT/500 ML IV.SOLN 20 UNIT IV (02:20)
[2018-12-27 05:17] LABS: Hematocrit 37.1 % (36-46); Hemoglobin 12.2 g/dL (12.0-16.0)
--- NOTE | 2018-12-27 08:21 | PC.NURSE ---
Attempt at IV start x2. Unsuccessful. Lab drawn for PTT
[2018-12-27 08:39] LABS: PTT Partial Thromboplastin Tim 50 SECONDS (26.4-36.2)
[2018-12-27] MEDS: NITROGLYCERIN 50 MG/250 ML INFUS..BTL IV (08:57)
[2018-12-27] MEDS: CLOPIDOGREL 75 MG TABLET PO (08:59)
== END 2018-12-27 11:15 | disposition short-term general hospital (02) ==
PROVIDERS: Emergency Medicine; Emergency Provider Emergency Medicine; Family Provider Internal Medicine; PCP Internal Medicine
DX: I21.4 Non-ST elevation (NSTEMI) myocardial infarction (principal)
CPT/HCPCS: 36415; 36591; 71045; 71275; 80053; 81001; 82550; 83690; 83880; 84484; 85014; 85018; 85025; 85379; 85610; 85730; 87086; 93005; 96361; 96365; 96366; 96368; 96375; 96376; 99285; C9113; J1644; Q9967

== ENCOUNTER → 2019-02-21 12:21 | Outpatient (CLI) | payer MEDICARE, MEDICAID, SELFPAY ==
--- NOTE | 2019-02-21 | DI.MG.S_ITS ---
BILATERAL DIGITAL SCREENING MAMMOGRAM 3D/2D WITH CAD: 02/21/2019 CLINICAL: Routine screening. Family history of breast cancer. Comparison is made to exams dated: 06/22/2016 mammogram and 08/28/2012 mammogram - [facility]. There are scattered fibroglandular elements in both breasts. Current study was also evaluated with a Computer Aided Detection (CAD) system. No significant masses, calcifications, or other findings are seen in either breast. There has been no significant interval change. IMPRESSION: NEGATIVE There is no mammographic evidence of malignancy. A 1 year screening mammogram is recommended. This exam was interpreted at Station ID: [id number]. NOTE: For mammograms, a report in lay terms will be sent to the patient. Approximately 15% of breast malignancies will not be visualized mammographically. In the management of a palpable breast mass, a negative mammogram must not discourage biopsy of a clinically suspicious lesion. Electronically Signed By: Lc gomez/candace:02/21/2019 13:31:00 letter sent: Normal Exam ACR BI-RADS Category 1: Negative [id number]
== END ==
PROVIDERS: PCP Internal Medicine; Visit Provider Internal Medicine
DX: Z12.31 Encounter for screening mammogram for malignant neoplasm of breast (principal); Z80.3 Family history of malignant neoplasm of breast; Z78.0 Asymptomatic menopausal state; M85.852 Other specified disorders of bone density and structure, left thigh; M85.851 Other specified disorders of bone density and structure, right thigh; M85.88 Other specified disorders of bone density and structure, other site; Z82.62 Family history of osteoporosis
CPT/HCPCS: 77063; 77067; 77080

== ENCOUNTER → 2019-02-24 09:45 | Outpatient (CLI) | payer MEDICARE, MEDICAID, SELFPAY ==
[2019-02-24 10:40] LABS: BUN Creatinine Ratio 18.2 (6-22); Blood Urea Nitrogen 20 mg/dL (7-17); Calcium 10.8 mg/dL (8.4-10.2); Carbon Dioxide 25 mmol/L (22-32); Chloride 109 mmol/L (98-107); Cholesterol 137 mg/dL (140-199); Estimated Glomerular Filt Rate 48.7 mL/min (>60); Glucose 92 mg/dL (80-110); HDL Cholesterol 48 mg/dL (40-60); HEMOLYSIS < 15 (0-50); LDL Cholesterol Calculated 56 mg/dL (<100); Potassium 4.6 mmol/L (3.4-5.1); Sodium 141 mmol/L (137-145); Triglycerides 166 mg/dL (35-150)
== END ==
PROVIDERS: PCP Internal Medicine; Visit Provider Internal Medicine
DX: E78.00 Pure hypercholesterolemia, unspecified (principal); N18.9 Chronic kidney disease, unspecified
CPT/HCPCS: 36415; 80048; 80061

== ENCOUNTER 2019-04-17 11:30 | Outpatient (RCR) | payer MEDICARE, MEDICAID, SELFPAY | END 2019-05-13 11:16 | LOC: CAR 11:30 | PROVIDERS: Family Provider Internal Medicine; PCP Internal Medicine; Visit Provider Internal Medicine | DX: I21.4 Non-ST elevation (NSTEMI) myocardial infarction (principal) | CPT/HCPCS: 93798 ==

== ENCOUNTER → 2019-04-28 08:49 | Outpatient (CLI) | payer MEDICARE, MEDICAID, SELFPAY ==
[2019-04-28 10:54] LABS: BUN Creatinine Ratio 19.1 (6-22); Blood Urea Nitrogen 21 mg/dL (7-17); Calcium 11.1 mg/dL (8.4-10.2); Carbon Dioxide 26 mmol/L (22-32); Chloride 108 mmol/L (98-107); Estimated Glomerular Filt Rate 48.6 mL/min (>60); Glucose 95 mg/dL (80-110); HEMOLYSIS < 15 (0-50); Potassium 4.7 mmol/L (3.4-5.1); Sodium 141 mmol/L (137-145)
== END ==
PROVIDERS: PCP Internal Medicine; Visit Provider Internal Medicine
DX: N18.9 Chronic kidney disease, unspecified (principal)
CPT/HCPCS: 36415; 80048

== ENCOUNTER → 2019-05-12 08:35 | Outpatient (CLI) | payer MEDICARE, MEDICAID, SELFPAY ==
[2019-05-12 09:25] LABS: Magnesium 2.1 mg/dL (1.6-2.3); Phosphorous 2.8 mg/dL (2.8-4.1)
[2019-05-12 10:14] LABS: Vitamin D 25 Hydroxy (D3) < 12.8 ng/mL (30.0-100.0)
[2019-05-16 16:32] LABS: Parathyroid Hormone Int 182 pg/mL (14-64)
== END ==
PROVIDERS: PCP Internal Medicine; Visit Provider Internal Medicine
DX: N18.9 Chronic kidney disease, unspecified (principal); E83.52 Hypercalcemia
CPT/HCPCS: 36415; 82306; 82330; 83735; 83970; 84100

== ENCOUNTER → 2019-05-29 07:42 | Outpatient (CLI) | payer MEDICARE, MEDICAID, SELFPAY ==
--- NOTE | 2019-05-29 | DI.NM.S_ITS ---
PROCEDURE: NM PARATHYROID SPECT RADIOPHARMACEUTICAL: 25.4 mCi Tc-99m sestamibi IV. INDICATIONS: Parathyriod adenoma TECHNIQUE: After intravenous administration of Tc-99m sestamibi, anterior planar images of the neck and mediastinum were obtained at approximately 10 minutes and 2-3 hours. SPECT images were acquired after the 10 minute planar images. COMPARISON: [facility], CT, CT ANGIO CHEST PE PROTOCOL, 12/27/2018, 1:01. FINDINGS: On the early images, the thyroid gland is bilobed. There is focal increased activity in the left thyroid bed. The delayed images show preferential tracer retention in the left thyroid bed suggesting a parathyroid adenoma. The SPECT images demonstrate increased activity in the left thyroid bed. 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 on 05/29/2019 at 11:24 Approved by: Brandt Ragsdale M.D. on 05/29/2019 at 17:19
== END ==
PROVIDERS: PCP Internal Medicine; Visit Provider Internal Medicine
DX: D35.1 Benign neoplasm of parathyroid gland (principal)
CPT/HCPCS: 78071; A9500

== ENCOUNTER → 2019-06-26 11:05 | Outpatient (CLI) | payer MEDICARE, MEDICAID, SELFPAY ==
[2019-06-26 15:36] LABS: Calcium 24 Hour Urine 90 mg/day (100-300); Calcium Urine Random 6.7; Collection Time Urine 24 Hours; Total Volume Urine 1350 mL
== END ==
PROVIDERS: PCP Internal Medicine; Visit Provider Internal Medicine
DX: E21.3 Hyperparathyroidism, unspecified (principal); R82.994 Hypercalciuria
CPT/HCPCS: 82340

== ENCOUNTER 2019-09-08 07:31 | Emergency (ER) | payer MEDICARE, MEDICAID, SELFPAY ==
[2019-09-08] VITALS (12 sets, daily range): BP systolic 162–224; BP diastolic 72–106; PULSE 49–87; RESP 13–18; TEMP 36.6; O2SAT 92–100; BMI 27.4
--- NOTE | 2019-09-08 07:42 | ED.OVERDOSE ---
HPI - Overdose General Chief Complaint: Psychiatric Symptoms Stated Complaint: Overdose Time Seen by Provider: 09/08/19 07:42 Source: patient and EMS Mode of arrival: EMS Limitations: no limitations History of Present Illness HPI Narrative: This is a 74-year-old female comes in with attempted overdose. Patient states she took about number 50, 50 mg tablets of tramadol. This was witnessed by her sister. Patient then ran away from her sister within the house attempting to elevate her. EMS and police were called and patient was transported to the emergency department. Patient states she has had suicidal thoughts for a long time and she attempted today. She states she still feels suicidal at this time. She has a history of anxiety and depression with adjustment disorder in his seen psychiatry once before and they felt a large amount of this was related to her situation which is she lives with family including niece is, their parents and her sister. The niece has psychiatric issues and placed rectally called last night. She was acting aggressively throwing things, screaming and has been up for several days. Today's patient states that this was initially triggered because she took some clothes out of the spray drier with a were not fully dry and her niece would not allow her to return them triggering her nieces behavior which in turn triggered the patient's increased stress and attempt today. Patient states that she does take medication for hypertension, dyslipidemia she has a history of cardiac stents with heart attack several years ago, tramadol was prescribed for arthritis. Patient has had tonsil and adenoids removed, cholecystectomy, cardiac stents placed several years ago. She is not currently on any psychiatric medications. She states she has never been hospitalized. She states she has had thoughts of attempts she eluded to 1 prior attempt remotely. Related Data Home Medications Medication Instructions Recorded Confirmed acetaminophen [Tylenol Arthritis 650 mg PO Q8H PRN 03/07/18 09/08/19 Pain] clopidogrel 75 mg PO DAILY 03/07/18 09/08/19 carvedilol 12.5 mg PO BID 12/27/18 09/08/19 febuxostat [Uloric] 80 mg PO DAILY 12/27/18 09/08/19 aspirin 81 mg PO DAILY 09/08/19 09/08/19 rosuvastatin 10 mg PO DAILY 09/08/19 09/08/19 tramadol 50 mg PO TID PRN 09/08/19 09/08/19 Previous Rx's Medication Instructions Recorded sulfamethoxazole-trimethoprim 1 tab PO Q12H #10 tab 09/08/19 [Bactrim DS] Allergies Allergy/AdvReac Type Severity Reaction Status Date / Time Cephalosporins Allergy Mild Hives Verified 04/08/19 13:12 Penicillins [PENICILLINS] Allergy Unknown RASH Verified 04/08/19 13:12 erythromycin base Allergy Hives Verified 04/08/19 13:12 Review of Systems Review of Systems ROS Unobtainable: All systems reviewed & are unremarkable except as noted in HPI and below Constitutional Constitutional: Denies chills, Denies fatigue, Denies fever(s), Denies headache(s) and Denies weakness ENT Ears, Nose, Mouth, and Throat: Denies headache(s) Cardiovascular Cardiovascular: Denies chest pain, Denies diaphoresis, Denies syncope, Denies rapid heart rate, Denies leg edema, Denies lightheadedness, Denies dyspnea and Denies dyspnea on exertion Respiratory Respiratory: Denies chest congestion, Denies cough, Denies dyspnea and Denies dyspnea on exertion Gastrointestinal Gastrointestinal: Denies abdominal pain, Denies constipation, Denies diarrhea, Denies nausea and Denies vomiting Genitourinary Genitourinary: Reports system reviewed and no additional complaints, except as docu Neurologic Neurologic: Reports as per HPI, Denies syncope, Denies headache(s) and Denies weakness Psychiatric Psychiatric: Reports as per HPI, Reports anxiety, Reports depression, Denies hallucinations, Denies homicidal ideation and Reports suicidal ideation Endocrine Endocrine: Denies fatigue Patient History Medical History Adjustment disorder with mixed anxiety and depressed mood (Acute) Obstructive uropathy (Acute) ST elevation myocardial infarction (STEMI) of lateral wall (Acute) Social History Smoking Status: Never smoker Smoking Status: Never smoker alcohol intake frequency: holidays/special occasions only Substance Use Type: does not use Exam Narrative Exam Narrative: GEN: well nourished, well appearing elderly female, alert and oriented x 3, patient appears to be in mild distress. HEENT: Atraumatic, pupils are equal round reactive to light, extraocular movements are intact, nares are clear, there is no conjunctival pallor. Throat is clear without any exudates, erythema, tonsillar enlargement or uvular deviation, HEART: Regular rate and rhythm without murmur, clicks, rubs. No carotid bruits, pulses are equal in upper and lower extremities LUNGS:Lungs clear to auscultation, no wheezes, rales, crackles, chest moves symmetrically ABD:bowel sounds normal, soft, non-tender, no guarding, rebound, rigidity, no masses noted, no hepatosplenomegaly :No CVA tenderness. MSCL: Non-tender, no muscle atrophy, muscles strength 5/5 upper and lower extremities, full range of motion, normal gait NEURO:CN 2-12 intact, sensation normal PSYCH: Suicidal ideation with intent, denies homicidal. Anxiety and depression positive. Denies hallucinations. Initial Vital Signs Initial Vital Signs: Vital Signs Temperature 97.8 F 09/08/19 07:36 Pulse Rate 87 09/08/19 07:36 Respiratory Rate 18 09/08/19 07:36 Blood Pressure 224/106 H 09/08/19 07:36 Pulse Oximetry 94 09/08/19 07:36 Scores GCS James coma scale eye opening: Spontaneous [place] coma scale verbal response: Orientated James coma scale motor response: Obey commands [place] coma scale total score: 15 Course Orders Ordered: ED Orders 09/08/19 11:48 Urine Drug Screen, Rapid Stat 09/08/19 11:49 Urine Culture Stat Urine Microscopic Stat Sodium Chloride (Normal Saline 0.9%) 1,000 mls @ 150 mls/hr IV CONT REGINA Last Infusion: 09/08/19 15:56 Dose: 0 mls/hr Documented by: Admin: 09/08/19 08:00 Dose: 150 mls/hr Documented by: BTONER Discontinued Medications Trimethoprim/Sulfamethoxazole (Bactrim Ds) 1 tab PO NOW ONE Stop: 09/08/19 12:10 Last Admin: 09/08/19 12:26 Dose: 1 tab Documented by: ABHIJEET Vital Signs Vital signs: Vital Signs - 8 hr 09/08/19 12:21 09/08/19 13:15 09/08/19 14:00 Pulse Rate 70 60 51 L Respiratory Rate Blood Pressure [Left Arm] 177/79 H 173/78 H 162/72 H Pulse Oximetry 99 98 98 09/08/19 14:48 09/08/19 15:41 09/08/19 16:35 Pulse Rate 49 L 51 L 50 L Respiratory Rate 13 13 Blood Pressure [Left Arm] 203/91 H 202/79 H 201/74 H Pulse Oximetry 99 100 100 09/08/19 18:16 Pulse Rate 49 L Respiratory Rate Blood Pressure [Left Arm] 186/72 H Pulse Oximetry 99 MDM - Overdose Lab Data Attestation: I reviewed the patient's lab results. Result diagrams: 09/08/19 08:15 09/08/19 08:15 Labs: Lab Results 09/08/19 09/08/19 09/08/19 Range/Units 08:15 08:15 08:15 WBC 5.9 (4.5-11.0) X10^3/uL RBC 3.67 L (4.0-5.2) X10^6/uL Hgb 12.2 (12.0-16.0) g/dL Hct 36.7 (36-46) % MCV 100.1 H (80-100) fL MCH 33.2 (26-34) PG MCHC 33.2 (30-36) % RDW 14.7 (11.6-14.8) % Plt Count 206 (150-400) X10^3/uL Neut % (Auto) 67.1 (50-75) % Lymph % (Auto) 19.7 L (25-40) % Gulf % (Auto) 8.9 (3-14) % Eos % (Auto) 3.7 (2-4) % Baso % (Auto) 0.6 (0-2) % Neut # (Auto) 4000 (6516-1824) /uL Lymph # (Auto) 1200 (2309-9750) /uL Gulf # (Auto) 500 (0-900) /uL Eos # (Auto) 200 (0-450) /uL Baso # (Auto) 0 (0-100) /uL PT 11.7 (10.1-12.7) SECONDS INR 1.0 (0.9-1.3) Sodium 140 (137-145) mmol/L Potassium 4.4 (3.4-5.1) mmol/L Chloride 108 H (98-107) mmol/L Carbon Dioxide 23 (22-32) mmol/L BUN 25 H (7-17) mg/dL Creatinine 1.10 H (0.52-1.04) mg/dL Estimated GFR 48.6 L (>60) mL/min BUN/Creatinine Ratio 22.7 H (6-22) Glucose 138 H (80-110) mg/dL Calcium 11.5 H (8.4-10.2) mg/dL Total Bilirubin 0.4 (0.2-1.3) mg/dL Conjugated Bilirubin 0.0 (0.0-0.3) md/dL Unconjugated Bilirubin 0.4 (0.0-1.1) mg/dL AST 19 (14-36) IU/L ALT 14 (<35) IU/L Alkaline Phosphatase 69 (38-126) U/L Total Creatine Kinase 73 (30-135) U/L CK-MB (CK-2) TNP CK-MB (CK-2) Rel Index TNP Troponin I 0.013 (0.01-0.034) ng/mL Total Protein 7.1 (6.3-8.2) g/dL Albumin 4.3 (3.5-5.0) g/dL Globulin 2.8 (1.7-4.1) g/dL Albumin/Globulin Ratio 1.5 (1.0-2.8) TSH (0.47-4.68) uIU/mL Urine RBC (0-5/HPF) Urine WBC (0-5/HPF) Ur Squamous Epith Cells (0-5/HPF) Urine Bacteria (None) Ur Culture Indicated? Salicylates < 1.0 (<20) mg/dL U Opiates 300ng/mL cut (Negative) Ur Oxycodone Screen (Negative) Urine Methadone Screen (Negative) Acetaminophen < 10 L (10-30) ug/mL Ur Barbiturates Screen (Negative) U Tricyclic Antidepress (Negative) Ur Phencyclidine Scrn (Negative) Ur Amphetamines Screen (Negative) U Methamphetamines Scrn (Negative) Ur MDMA Scrn (Ecstasy) (Negative) U Benzodiazepines Scrn (Negative) Urine Cocaine Screen (Negative) U Marijuana (THC) Screen (Negative) Ethyl Alcohol < 10 ( - 10) mg/dL 09/08/19 09/08/19 09/08/19 Range/Units 08:15 11:48 11:49 WBC (4.5-11.0) X10^3/uL RBC (4.0-5.2) X10^6/uL Hgb (12.0-16.0) g/dL Hct (36-46) % MCV (80-100) fL MCH (26-34) PG MCHC (30-36) % RDW (11.6-14.8) % Plt Count (150-400) X10^3/uL Neut % (Auto) (50-75) % Lymph % (Auto) (25-40) % Gulf % (Auto) (3-14) % Eos % (Auto) (2-4) % Baso % (Auto) (0-2) % Neut # (Auto) (9685-5239) /uL Lymph # (Auto) (3095-5877) /uL Gulf # (Auto) (0-900) /uL Eos # (Auto) (0-450) /uL Baso # (Auto) (0-100) /uL PT (10.1-12.7) SECONDS INR (0.9-1.3) Sodium (137-145) mmol/L Potassium (3.4-5.1) mmol/L Chloride (98-107) mmol/L Carbon Dioxide (22-32) mmol/L BUN (7-17) mg/dL Creatinine (0.52-1.04) mg/dL Estimated GFR (>60) mL/min BUN/Creatinine Ratio (6-22) Glucose (80-110) mg/dL Calcium (8.4-10.2) mg/dL Total Bilirubin (0.2-1.3) mg/dL Conjugated Bilirubin (0.0-0.3) md/dL Unconjugated Bilirubin (0.0-1.1) mg/dL AST (14-36) IU/L ALT (<35) IU/L Alkaline Phosphatase (38-126) U/L Total Creatine Kinase (30-135) U/L CK-MB (CK-2) CK-MB (CK-2) Rel Index Troponin I (0.01-0.034) ng/mL Total Protein (6.3-8.2) g/dL Albumin (3.5-5.0) g/dL Globulin (1.7-4.1) g/dL Albumin/Globulin Ratio (1.0-2.8) TSH 3.83 (0.47-4.68) uIU/mL Urine RBC 0-1/hpf (0-5/HPF) Urine WBC 10-30/hpf H (0-5/HPF) Ur Squamous Epith Cells 1-5 /hpf (0-5/HPF) Urine Bacteria Moderate (10-30) H (None) Ur Culture Indicated? Specimen cultured Salicylates (<20) mg/dL U Opiates 300ng/mL cut Negative (Negative) Ur Oxycodone Screen Negative (Negative) Urine Methadone Screen Negative (Negative) Acetaminophen (10-30) ug/mL Ur Barbiturates Screen Negative (Negative) U Tricyclic Antidepress Negative (Negative) Ur Phencyclidine Scrn Negative (Negative) Ur Amphetamines Screen Negative (Negative) U Methamphetamines Scrn Negative (Negative) Ur MDMA Scrn (Ecstasy) Negative (Negative) U Benzodiazepines Scrn Negative (Negative) Urine Cocaine Screen Negative (Negative) U Marijuana (THC) Screen Negative (Negative) Ethyl Alcohol ( - 10) mg/dL Urine Dip Bedside Urine Glucose Negative Bedside Urine Bilirubin - Negative Bedside Urine Ketone - Negative Urine Specific [place] 1.025 Bedside Urine Occult Blood +/- Bedside Urine pH 5.5 Bedside Urine Protein - Negative Bedside Urine Urobilinogen - Negative Bedside Urine Nitrite - Negative Bedside Urine Leukocytes +++ [address] scan - head: Radiologist's Impression: Chart Viewer Diagnostics DATE TYPE STATUS AUTHOR Arthur 09/08/19 07:44 Donovan Ahumada 09/08/19 07:44 Ronald Trejo 05/29/19 00:00 Pedro Ragsdale 02/21/19 00:00 Lc Mcclain 02/21/19 00:00 12/27/18 00:56 Lc Mcclain 12/26/18 21:53 Pedro Ragsdale 12/26/18 21:45 03/07/18 18:58 Donovan Ahumada 03/07/18 18:56 Donovan Ahumada Judith A 74, F0 1945 [facility], Main ED R06 162.56cm 72.575kg BMI: 27.5kg/m? Psychiatric Symptoms Search Chart No Data to Display Hives RASH Hives ONSET Today 07:36 Inga Julian 74 F [address] [address] [address] Scan Report Signed Patient: Inga Julian AMR#: [id number] : 5Acct:[id number] Age/Sex: 74 / FDate of Service: 09/08/19 Loc: ED Accession Number: [id number] Procedure: CT head/brain wo con Ordering Provider: Graciela Gray D.O. PROCEDURE: CT HEAD/BRAIN WO CON INDICATIONS: suicide attempt, overdose TECHNIQUE: Noncontrast 4.5 mm thick angled axial sections acquired from the foramen magnum to the vertex, with coronal and sagittal reformats. For radiation dose reduction, the following was used: automated exposure control, adjustment of mA and/or kV according to patient size. COMPARISON: [facility], CT, CT HEAD/BRAIN WO CON, 03/07/2018, 18:55. FINDINGS: Image quality: Excellent. CSF spaces: Basal cisterns are patent. No extra-axial fluid collections. The ventricles are symmetric in size and shape. There is mild cerebral volume loss, with resultant ventricular and sulcal prominence. Brain: No intracranial hemorrhage, mass, or mass effect. There are subcortical, periventricular and deep white matter hypodensities consistent with mild chronic small vessel ischemic changes. There is intracranial internal carotid artery atherosclerosis. Skull and face: Calvarium and visualized facial bones appear intact, without suspicious lesions. Sinuses: Visualized sinuses and mastoids are clear. IMPRESSION: 1. No acute intracranial abnormality. Dictated by: Donovan Ahumada M.D. on 09/08/2019 at 8:35 Approved by: Donovan Ahumada M.D. on 09/08/2019 at 8:37 Chest x-ray: Radiologist's Impression: [address] [address] XRay Report Signed Patient: Inga Julian AMR#: [id number] : 5Acct:[id number] Age/Sex: 74 / FDate of Service: 09/08/19 Loc: ED Accession Number: [id number] Procedure: XR chest 1V Ordering Provider: Graciela Gray D.O. PROCEDURE: XR CHEST 1V INDICATIONS: suicide attempt, overdose TECHNIQUE: One view of the chest was acquired. COMPARISON: [facility], CR, XR CHEST 1V, 12/26/2018, 22:05. FINDINGS: Surgical changes and devices: None. Lungs and pleura: Lungs are clear. No pleural effusions or pneumothorax. Mediastinum: Mediastinal contours appear normal. Heart size is enlarged. Bones and chest wall: No suspicious bony lesions. Overlying soft tissues appear unremarkable. IMPRESSION: No acute cardiopulmonary pathology. Cardiomegaly. Dictated by: Ronald Trejo M.D. on 09/08/2019 at 8:11 Approved by: Ronald Trejo M.D. on 09/08/2019 at 8:11 ECG Data Attestation: I personally reviewed and interpreted this ECG as follows: Interpretation: Sinus rhythm with a rate of 62 P are 185 QRS of 105 and QTC of 419. No ST elevation or depression noted. Appears similar to prior. MDM Narrative Medical decision making narrative: Initially on evaluation patient's blood pressure is quite elevated. Head CT chest x-ray, lab work including troponin, UDS, TSH Tylenol salicylates were ordered. Will recheck and if patient still elevated give patient a dose of her home medication to see if this improves her blood pressure. Overtime patient's blood pressures improved to the 170 range this could be secondary to Ultram or patient may be more calm she will continue to be monitored in terms of her blood pressure. She is bradycardic on her EKG and on prior EKGs and does not show major change in her QRS or QT. Head CT, chest x-ray are negative. Lab work showed CBC without major abnormalities, INR is negative, chemistry showed creatinine is normal baseline in comparison to February of 2019. Calciums elevated but also close to baseline. Patient BUN is slightly elevated as well as chloride. Glucose is 138. LFTs and troponin are negative with a normal TSH. Patient's urine shows on Bactrim p.o.. Rapid drug screen is negative. Patient has been medically cleared. She is still unable to contract for safety or states that she is not willing to kill herself at this time so DCR was contacted. Plan for dispatch. Poison control closed case and signing off as patient has not exhibited any symptoms in greater than 6 hours. DCR was contacted evaluated patient initially she was resistant to evaluation. He spoke with patient's sister who is coming in and there was discussion if patient is willing to contract for safety and sisters willing to take responsibility patient may possibly be discharged but if she is unwilling or seems unsafe plan is for detained. Patient sister is present. She feels comfortable taking patient home with her. They share a room where they live. Patient is chioma for safety at this time. Discharge Plan Departure Patient Disposition: Home Clinical Impression: Overdose Qualifiers: Encounter type: initial encounter Injury intent: intentional self-harm Qualified Code(s): T50.902A - Poisoning by unspecified drugs, medicaments and biological substances, intentional self-harm, initial encounter UTI (urinary tract infection) Qualifiers: Urinary tract infection type: acute cystitis Instructions: DI for Urinary Tract Infection (UTI), DI for Drug Overdose in Adults Activity Restrictions/Additional Instructions: Follow-up with psychiatric care in the next 24 hours. Follow with the resources given to by Marcus from the DCR. Take antibiotics until completely gone your urine shows signs of possible UTI. Prescription was sent to [facility] in [place]. Return to ER for new or worsening symptoms if you feel your unsafe have recurrent thoughts of suicidal at tent, altered mental status, new chest pain shortness of breath, passing out, persistent vomiting or other new or concerning symptoms. If you're feeling suicidal or having suicidal thoughts, contact the suicide hotline: . Prescriptions: New sulfamethoxazole-trimethoprim [Bactrim DS] 800-160 mg tablet 1 tab PO Q12H Qty: 10 RF: 0 No Action clopidogrel 75 mg Tablet 75 mg PO DAILY RF: 0 acetaminophen [Tylenol Arthritis Pain] 650 mg Tablet Extended Release 650 mg PO Q8H PRN (Reason: Pain (Scale Score 1-3)) RF: 0 carvedilol 12.5 mg tablet 12.5 mg PO BID RF: 0 febuxostat [Uloric] 80 mg tablet 80 mg PO DAILY RF: 0 tramadol 50 mg tablet 50 mg PO TID PRN (Reason: pain) RF: 0 rosuvastatin 10 mg tablet 10 mg PO DAILY RF: 0 aspirin 81 mg Tablet,Chewable 81 mg PO DAILY RF: 0 Referrals: Booker Hunter MD [Primary Care Provider] -
[2019-09-08] MEDS: SODIUM CHLORIDE 0.9% 1,000 ML 150 ML IV (08:00)
[2019-09-08 08:34] LABS: Add Manual Diff / Slide Review NO; Basophils Absolute Auto 0 /uL (0-100); Basophils Percent Auto 0.6 % (0-2); Eosinophils Absolute Auto 200 /uL (0-450); Eosinophils Percent Auto 3.7 % (2-4); Hematocrit 36.7 % (36-46); Hemoglobin 12.2 g/dL (12.0-16.0); Lymphocytes Absolute Auto 1200 /uL (1100-4500); Lymphocytes Percent Auto 19.7 % (25-40); Mean Corpuscular HGB Conc 33.2 % (30-36); Mean Corpuscular Hemoglobin 33.2 PG (26-34); Mean Corpuscular Volume 100.1 fL (80-100); Monocytes Absolute Auto 500 /uL (0-900); Monocytes Percent Auto 8.9 % (3-14); Neutrophils Absolute Auto 4000 /uL (1500-7000); Neutrophils Percent Auto 67.1 % (50-75); Platelet Count 206 X10^3/uL (150-400); Red Blood Cell Count 3.67 X10^6/uL (4.0-5.2); Red Cell Distribution Width 14.7 % (11.6-14.8); White Blood Cell Count 5.9 X10^3/uL (4.5-11.0)
[2019-09-08 08:41] LABS: Prothrombin Time 11.7 SECONDS (10.1-12.7)
[2019-09-08 08:46] LABS: Acetaminophen < 10 ug/mL (10-30); Alanine Aminotransferase 14 IU/L (<35); Albumin 4.3 g/dL (3.5-5.0); Albumin Globulin Ratio 1.5 (1.0-2.8); Alkaline Phosphatase 69 U/L (38-126); Aspartate Aminotransferase 19 IU/L (14-36); BUN Creatinine Ratio 22.7 (6-22); Bilirubin Total 0.4 mg/dL (0.2-1.3); Bilirubin Unconjugated 0.4 mg/dL (0.0-1.1); Blood Urea Nitrogen 25 mg/dL (7-17); Calcium 11.5 mg/dL (8.4-10.2); Carbon Dioxide 23 mmol/L (22-32); Chloride 108 mmol/L (98-107); Creatine Kinase 73 U/L (30-135); Estimated Glomerular Filt Rate 48.6 mL/min (>60); Ethanol (ETOH) < 10 mg/dL; Globulin 2.8 g/dL (1.7-4.1); Glucose 138 mg/dL (80-110); HEMOLYSIS < 15 (0-50); Potassium 4.4 mmol/L (3.4-5.1); Salicylate < 1.0 mg/dL (<20); Sodium 140 mmol/L (137-145); Total Protein 7.1 g/dL (6.3-8.2)
--- NOTE | 2019-09-08 08:55 | PC.NURSE ---
patient talking with sister on phone in the room.
[2019-09-08 08:57] LABS: Troponin I 0.013 ng/mL (0.01-0.034)
[2019-09-08 09:22] LABS: Thyroid Stimulating Hormone 3.83 uIU/mL (0.47-4.68)
[2019-09-08 11:57] LABS: UR Morphine/Opiate cutoff 300 Negative (Negative); Ur Creatinine Normal (Normal); Ur Specific Gravity Normal (Normal); Urine Amphetamines Negative (Negative); Urine Barbiturates Negative (Negative); Urine Benzodiazepines Negative (Negative); Urine Cocaine Negative (Negative); Urine MDMA Negative (Negative); Urine Methadone Negative (Negative); Urine Methamphetamines Negative (Negative); Urine Oxycodone Negative (Negative); Urine Phencyclidine Negative (Negative); Urine Tetrahydrocannabinol Negative (Negative); Urine Tricyclic Antidepressant Negative (Negative); Urine pH Normal (Normal)
[2019-09-08 12:06] LABS: RBC Urine 0-1/HPF (0-5/HPF); Squamous Epithelial Cell Urine 1-5 /HPF (0-5/HPF); WBC Urine 10-30/HPF (0-5/HPF)
[2019-09-08 12:07] LABS: Bacteria Urine Moderate (10-30); Culture Indicated Urine Specimen Cultured
[2019-09-08] MEDS: TRIMETH/SULFA 160/800 (DS) TABLET 1 TAB PO (12:26)
--- NOTE | 2019-09-08 15:47 | PC.NURSE ---
Spoke with [facility]. States they will send a DCR. Refaxed attestation form.
--- NOTE | 2019-09-08 19:46 | PC.NURSE ---
Patient states she wants her IV out and she is leaving. Cinthya RN and I talking with pt. She states Yamil (DCR) did not make her feel safe. States he put words in her mouth and told her that her civil rights are being taken away and that she is going to [facility]. This RN told her that we are not taking her to [facility] and we do not want to take her rights away but we need her to be safe. Yamil states he may have a plan for her sister to come and come to an agreement to get patient home.
--- NOTE | 2019-09-08 20:16 | PC.NURSE ---
This RN joined Olivia Lobo, and patients sister for conversation. Olivia states she felt much better having me in the room. Agrees that we just want her to be safe. Interview/planning took approximately 20 minutes.Pt sister plans on helping Olivia and calling crisis line if needed. Crisis center will check in on Olivia tomorrow.
== END 2019-09-08 20:30 | disposition home or self-care (01) ==
PROVIDERS: Emergency Provider Emergency Medicine; PCP Internal Medicine
DX: T50.902A Poisoning by unspecified drugs, medicaments and biological substances, intentional self-harm, initial encounter (principal); N30.00 Acute cystitis without hematuria
CPT/HCPCS: 36415; 70450; 71045; 80053; 80076; 80305; 80320; 80329; 81003; 81015; 82550; 84443; 84484; 85025; 85610; 87086; 93005; 96360; 96361; 99285; G0480

== ENCOUNTER 2021-01-11 16:39 | Observation (INO) | payer MEDICARE, MEDICAID, SELFPAY ==
[2021-01-11] VITALS (19 sets, daily range): BP systolic 192–237; BP diastolic 86–116; PULSE 52–90; RESP 15–22; TEMP 36.7–36.9; O2SAT 87–98; BMI 32.5
--- NOTE | 2021-01-11 17:39 | DI.RAD.S_ITS ---
PROCEDURE: XR ACUTE ABDOMEN SERIES INDICATIONS: abd pain, h/o hernia w/ repair, + bloating, nausea/vomiting. TECHNIQUE: One view chest and two views of the abdomen were acquired. COMPARISON: CR, KUB XRAY (1 VIEW ABDOMEN), 09/02/2014, 10:12. FINDINGS: Surgical changes and devices: None. Chest: Integrate pulmonary vascularity. Heart size is moderately increased. No pleural effusions. No pneumoperitoneum. Abdomen: There are multiple air-fluid levels in the left side of abdomen. Small bowel loops are mildly dilated. No suspicious calcifications. Visualized solid organ contours appear normal. Bones: No suspicious bony lesions. IMPRESSION: 1. Suspect small bowel obstruction. 2. Mild cardiomegaly. Increased pulmonary vascularity but no confluent pulmonary edema. Dictated by: Brandt Ragsdale M.D. on 01/11/2021 at 18:41 Approved by: Brandt Ragsdale M.D. on 01/11/2021 at 18:42
[2021-01-11 17:44] LABS: Add Manual Diff / Slide Review NO; Basophils Absolute Auto 0 /uL (0-100); Basophils Percent Auto 0.6 % (0-2); Eosinophils Absolute Auto 200 /uL (0-450); Eosinophils Percent Auto 2.6 % (2-4); Hematocrit 34.2 % (36-46); Hemoglobin 11.5 g/dL (12.0-16.0); Lymphocytes Absolute Auto 900 /uL (1100-4500); Lymphocytes Percent Auto 11.1 % (25-40); Mean Corpuscular HGB Conc 33.7 % (30-36); Mean Corpuscular Hemoglobin 35.5 PG (26-34); Mean Corpuscular Volume 105.4 fL (80-100); Monocytes Absolute Auto 600 /uL (0-900); Monocytes Percent Auto 7.8 % (3-14); Neutrophils Absolute Auto 6500 /uL (1500-7000); Neutrophils Percent Auto 77.9 % (50-75); Platelet Count 240 X10^3/uL (150-400); Red Blood Cell Count 3.24 X10^6/uL (4.0-5.2); Red Cell Distribution Width 15.3 % (11.6-14.8); White Blood Cell Count 8.4 X10^3/uL (4.5-11.0)
[2021-01-11 18:03] LABS: Alanine Aminotransferase 11 IU/L (<35); Albumin 3.7 g/dL (3.5-5.0); Albumin Globulin Ratio 1.6 (1.0-2.8); Alkaline Phosphatase 63 U/L (38-126); Aspartate Aminotransferase 23 IU/L (14-36); BUN Creatinine Ratio 17.6 (6-22); Bilirubin Total 0.6 mg/dL (0.2-1.3); Blood Urea Nitrogen 18 mg/dL (7-17); Calcium 11.1 mg/dL (8.4-10.2); Carbon Dioxide 22 mmol/L (22-32); Chloride 110 mmol/L (98-107); Estimated Glomerular Filt Rate 52.8 mL/min (>60); Globulin 2.3 g/dL (1.7-4.1); Glucose 101 mg/dL (80-110); Sodium 138 mmol/L (137-145)
[2021-01-11 18:05] LABS: HEMOLYSIS 59 (0-50); Lipase < 10 U/L (23-300); Potassium 5.1 mmol/L (3.4-5.1)
--- NOTE | 2021-01-11 18:53 | ED_ITS ---
HPI - General Adult General Chief complaint: Abdominal Pain Stated complaint: pain, states hernia has moved Time Seen by Provider: 01/11/21 18:36 Source: patient Mode of arrival: Wheelchair Limitations: no limitations History of Present Illness HPI narrative: Patient is a 75-year-old female. Does have a significant cardiac history and has been diagnosed with heart failure. Has a known abdominal hernia. She states she has had this for many years. There was a attempt had a surgical correction several years ago but she states that he really did not help all that much. She was in her normal state health until this morning when she started to have abdominal discomfort that is worsened throughout the day. The discomfort is over her hernia. She did have a bowel movement this morning that did not change in a pain. No urinary symptoms. Has had some nausea and vomiting. No fevers. Last meal was earlier today. Related Data Home Medications Medication Instructions Recorded Confirmed acetaminophen 650 mg 650 mg PO Q8H PRN 03/07/18 01/11/21 tablet,extended release (Tylenol Arthritis Pain) clopidogrel 75 mg tablet 75 mg PO QAM 03/07/18 01/11/21 carvedilol 12.5 mg tablet 12.5 mg PO BID 12/27/18 01/11/21 febuxostat 80 mg tablet 80 mg PO QAM 12/27/18 01/11/21 aspirin 81 mg chewable tablet 81 mg PO QAM 09/08/19 01/11/21 Allergies Allergy/AdvReac Type Severity Reaction Status Date / Time Cephalosporins Allergy Mild Hives Verified 01/11/21 16:47 Penicillins [PENICILLINS] Allergy Unknown RASH Verified 01/11/21 16:47 erythromycin base Allergy Hives Verified 01/11/21 16:47 Review of Systems Constitutional Constitutional: Denies fever(s) Eyes Eyes: Reports system reviewed and no additional complaints, except as documented ENT Ears, Nose, Mouth, and Throat: Reports system reviewed and no additional complaints, except as documented Cardiovascular Comments: No chest pain Respiratory Comments: No shortness of breath Gastrointestinal Comments: Is having abdominal pain and nausea and vomiting no change in bowel habits Genitourinary Comments: No urinary symptoms Musculoskeletal Comments: No change in the swelling of her lower extremities Integumentary/Breasts Skin/Breast: Reports system reviewed and no additional complaints, except as documented Neurologic Neurologic: Reports system reviewed and no additional complaints, except as documented Psychiatric Psychiatric: Reports system reviewed and no additional complaints, except as documented Endocrine Endocrine: Reports system reviewed and no additional complaints, except as docum ented Hematologic/Lymphatic On Anticoagulants: No Allergic/Immunologic Allergic/Immunologic: Reports system reviewed and no additional complaints, except as documented Patient History Medical History Adjustment disorder with mixed anxiety and depressed mood Hx of renal calculi Obstructive uropathy ST elevation myocardial infarction (STEMI) of lateral wall Family History (Updated 01/11/21 @ 19:48 by Maulik Kapadia MD) Father Congestive heart failure Sister No problems noted. Social History Smoking Status: Never smoker Smoking Status: Never smoker alcohol intake frequency: holidays/special occasions only Substance Use Type: does not use Exam Initial Vital Signs Initial Vital Signs: Vital Signs Temperature 98.4 F 01/11/21 16:48 Pulse Rate 55 L 01/11/21 16:48 Respiratory Rate 18 01/11/21 16:48 Blood Pressure 237/114 H 01/11/21 16:48 Pulse Oximetry 96 01/11/21 16:48 Const General: cooperative and comfortable HENMT Head: normal to inspection and normocephalic Eyes General: appearance normal, both eyes and all related structures Chest Chest: normal inspection of the chest Resp Effort & Inspection: normal respiratory effort Auscultation: clear to auscultation bilaterally Cardio Rate: bradycardic Rhythm: regular rhythm GI Other: Patient does have a well-healed surgical scar over her mid abdomen. Has a large easily palpable hernia. Her abdomen does feel distended. She is having discomfort with palpation of the hernia. Skin Other: Well-healed surgical scar over abdomen consistent with stated history Neuro Speech: speech normal Extrem Other: Bilateral lower extremity edema Psych Appearance: grossly normal and well kempt Course Orders Ordered: ED Orders 01/11/21 17:30 Complete Blood Count AUTO DIFF Stat Comprehensive Metabolic Panel Stat Lipase Stat 01/11/21 17:39 XR acute abdomen series Stat 01/11/21 18:53 CT abdomen pelvis w con Stat EKG-12 Lead Routine 01/11/21 19:15 Consult to General Surgery Stat 01/11/21 19:20 COVID19 - ADMIT (GENERAL PRACTITIONER swab/PCR) Stat Hydromorphone HCl (Hydromorphone 1 Mg Inj) 0.5 mg IV Q2H PRN PRN Reason: Pain, Severe (7-10) Lactated Ringer's (Lactated Ringers) 1,000 mls @ 125 mls/hr IV CONT [facility] Last Admin: 01/11/21 22:39 Dose: 125 mls/hr Documented by: FRANCISCAEL Naloxone HCl (Naloxone 0.4 Mg/Ml Vial) 0.2 mg IV Q2MIN PRN PRN Reason: Opiate Reversal Ondansetron HCl (Ondansetron 4 Mg/2 Ml Inj) 4 mg IV Q4HR PRN PRN Reason: Nausea And Vomiting Discontinued Medications Sodium Chloride (Normal Saline 0.9%) 1,000 mls @ 125 mls/hr IV CONT [facility] Last Admin: 01/11/21 19:41 Dose: 125 mls/hr Documented by: CVANCE Morphine Sulfate (Morphine 4 Mg/Ml Inj) 4 mg IV NOW ONE Stop: 01/11/21 19:27 Last Admin: 01/11/21 19:43 Dose: 4 mg Documented by: CVANCE Ondansetron HCl (Ondansetron 4 Mg/2 Ml Inj) 4 mg IV NOW ONE Stop: 01/11/21 19:27 Last Admin: 01/11/21 19:43 Dose: 4 mg Documented by: CVANCE Vital Signs Vital signs: Vital Signs - 8 hr 01/11/21 16:48 01/11/21 19:22 01/11/21 19:30 Temperature 98.4 F Pulse Rate 55 L 64 67 Respiratory Rate 18 Blood Pressure 237/114 H Pulse Oximetry 96 95 95 Medical Decision Making Lab Data Result diagrams: 01/11/21 17:30 01/11/21 17:30 Labs: Lab Results 01/11/21 01/11/21 01/11/21 Range/Units 17:30 17:30 17:50 WBC 8.4 (4.5-11.0) X10^3/uL RBC 3.24 L (4.0-5.2) X10^6/uL Hgb 11.5 L (12.0-16.0) g/dL Hct 34.2 L (36-46) % MCV 105.4 H (80-100) fL MCH 35.5 H (26-34) PG MCHC 33.7 (30-36) % RDW 15.3 H (11.6-14.8) % Plt Count 240 (150-400) X10^3/uL Neut % (Auto) 77.9 H (50-75) % Lymph % (Auto) 11.1 L (25-40) % Burke % (Auto) 7.8 (3-14) % Eos % (Auto) 2.6 (2-4) % Baso % (Auto) 0.6 (0-2) % Neut # (Auto) 6500 (7735-3864) /uL Lymph # (Auto) 900 L (9064-1311) /uL Burke # (Auto) 600 (0-900) /uL Eos # (Auto) 200 (0-450) /uL Baso # (Auto) 0 (0-100) /uL Sodium 138 (137-145) mmol/L Potassium 5.1 (3.4-5.1) mmol/L Chloride 110 H (98-107) mmol/L Carbon Dioxide 22 (22-32) mmol/L BUN 18 H (7-17) mg/dL Creatinine 1.02 (0.52-1.04) mg/dL Estimated GFR 52.8 L (>60) mL/min BUN/Creatinine Ratio 17.6 (6-22) Glucose 101 (80-110) mg/dL Calcium 11.1 H (8.4-10.2) mg/dL Total Bilirubin 0.6 (0.2-1.3) mg/dL AST 23 (14-36) IU/L ALT 11 (<35) IU/L Alkaline Phosphatase 63 (38-126) U/L Total Protein 6.0 L (6.3-8.2) g/dL Albumin 3.7 (3.5-5.0) g/dL Globulin 2.3 (1.7-4.1) g/dL Albumin/Globulin Ratio 1.6 (1.0-2.8) Lipase < 10 L (23-300) U/L SARS-CoV-2 (PCR) (Negative) Blood Type A Positive Antibody Screen Negative Crossmatch See Detail 01/11/21 01/11/21 Range/Units 19:20 19:30 WBC (4.5-11.0) X10^3/uL RBC (4.0-5.2) X10^6/uL Hgb (12.0-16.0) g/dL Hct (36-46) % MCV (80-100) fL MCH (26-34) PG MCHC (30-36) % RDW (11.6-14.8) % Plt Count (150-400) X10^3/uL Neut % (Auto) (50-75) % Lymph % (Auto) (25-40) % Burke % (Auto) (3-14) % Eos % (Auto) (2-4) % Baso % (Auto) (0-2) % Neut # (Auto) (1892-2023) /uL Lymph # (Auto) (3697-3825) /uL Burke # (Auto) (0-900) /uL Eos # (Auto) (0-450) /uL Baso # (Auto) (0-100) /uL Sodium (137-145) mmol/L Potassium (3.4-5.1) mmol/L Chloride (98-107) mmol/L Carbon Dioxide (22-32) mmol/L BUN (7-17) mg/dL Creatinine (0.52-1.04) mg/dL Estimated GFR (>60) mL/min BUN/Creatinine Ratio (6-22) Glucose (80-110) mg/dL Calcium (8.4-10.2) mg/dL Total Bilirubin (0.2-1.3) mg/dL AST (14-36) IU/L ALT (<35) IU/L Alkaline Phosphatase (38-126) U/L Total Protein (6.3-8.2) g/dL Albumin (3.5-5.0) g/dL Globulin (1.7-4.1) g/dL Albumin/Globulin Ratio (1.0-2.8) Lipase (23-300) U/L SARS-CoV-2 (PCR) Negative Negative (Negative) Blood Type Antibody Screen Crossmatch Imaging Data Abdominal x-ray: Radiologist's Impression: [address] [id number] ReportSigned Patient: Inga Julian AMR#: [id number]: 5Acct:[id number]/Sex: 75 / FDate of Service: 01/11/21Loc: EDAccession Number: [id number] Procedure: XR acute abdomen series Ordering Provider: Asia Pena D.O. PROCEDURE: XR ACUTE ABDOMEN SERIES INDICATIONS: abd pain, h/o hernia w/ repair, + bloating, nausea/vomiting. TECHNIQUE: One view chest and two views of the abdomen were acquired. COMPARISON: CR, KUB XRAY (1 VIEW ABDOMEN), 09/02/2014, 10:12. FINDINGS: Surgical changes and devices: None. Chest: Integrate pulmonary vascularity. Heart size is moderately increased. No pleural effusions. No pneumoperitoneum. Abdomen: There are multiple air-fluid levels in the left side of abdomen. Small bowel loops are mildly dilated. No suspicious calcifications. Visualized solid organ contours appear normal. Bones: No suspicious bony lesions. IMPRESSION: 1. Suspect small bowel obstruction. 2. Mild cardiomegaly. Increased pulmonary vascularity but no confluent pulmonary edema. Dictated by: Brandt Ragsdale M.D. on 01/11/2021 at 18:41 Approved by: Brandt Ragsdale M.D. on 01/11/2021 at 18:42 CT scan - abdomen/pelvis: Radiologist's Impression: [address] [id number] Scan ReportSigned Patient: Inga Julian AMR#: [id number]: 5Acct:[id number]/Sex: 75 / FDate of Service: 01/11/21Loc: [id number] Number: [id number] Procedure: CT abdomen pelvis w con Ordering Provider: Isaac Grace D.O. PROCEDURE: CT ABDOMEN PELVIS W CON INDICATIONS: eval for SBO TECHNIQUE: After the administration of intravenous contrast, axial sections acquired from the lung bases to the pubic symphysis. Coronal and sagittal reformats were performed. For radiation dose reduction, the following was used: automated exposure control, adjustment of mA and/or kV according to patient size. COMPARISON: [facility], CT, KIDNEY/ URETER/BLADDER, 02/08/2016, 7:03. [facility], CT, ABDOMEN/PELVIS WITH CONTRAST, 09/09/2013, 20:45. [facility], CT, CT ANGIO CHEST PE PROTOCOL, 12/27/2018, 1:01. FINDINGS: Image quality: Excellent. Lung bases: Bibasilar atelectasis. There is a small hiatal hernia. Heart: Heart size is moderately increased. There is moderate coronary artery calcification. ABDOMEN: Liver: Unremarkable. Gallbladder: Gallbladder may contain sludge or small gallstones. Biliary ducts: Unremarkable. Pancreas: Unremarkable. Spleen: Unremarkable. Adrenal Glands: Adrenal nodularity bilaterally. Kidneys and Ureters: Bilateral nonobstructive renal calculi. There is cortical thinning bilaterally. A cortical scars seen in the superior pole of the left kidney. No hydronephrosis. Stomach and Bowel: There is gastric antral thickening. There is a gastric diverticulum in the posterior aspect of the gastric cardia. Small bowel loops are filled with fluid and prominent in caliber measuring up to 3.2 cm in diameter. There is transitional point in the distal ileum. There are numerous colonic diverticula. No CT findings to suggest acute diverticulitis. A moderate amount of stool in colon.. Peritoneum: A small amount of free peritoneal fluid is present. No free air. Ventral Wall: There is a large periumbilical hernia right of the umbilicus containing a is stagnant of transverse colon and omentum. Abdominal Nodes: No retroperitoneal or mesenteric adenopathy by size criteria. Vessels: Aorta and inferior vena cava are normal in size. Moderate atherosclerotic calcifications. PELVIS: Pelvic Organs: Unremarkable. Uterus is atrophic. There is a 3.5 cm fibroid arising from the right uterine wall. Bladder: Unremarkable. Pelvic Nodes: No enlarged lymph nodes. Miscellaneous: No hernias are seen. Bones: Degenerative changes in lumbar spine. IMPRESSION: 1. The CT findings are consistent with small bowel obstruction. 2. There is gastric antral thickening. 3. A gastric diverticulum is seen arising from the posterior aspect of the gastric cardia. 4. A large periumbilical ventral hernia right of midline containing a segment of transverse colon. No findings to suggest strangulation or obstruction. 5. Small amount of free fluid in the peritoneal cavity. 6. Colonic diverticulosis without diverticulitis. 7. Bilateral nonobstructive renal calculi. There is cortical thinning in kidneys bilaterally. A cortical scar seen in the superior pole of the left kidney. No hydronephrosis. 8. Atrophic uterus. There is a 3.5 cm fibroid in the right uterine wall. 9. Moderate cardiomegaly. Dictated by: Brandt Ragsdale M.D. on 01/11/2021 at 19:42 Approved by: Brandt Ragsdale M.D. on 01/11/2021 at 19:56 ECG Data Interpretation: Sinus bradycardia Ventricular rate of 52 Normal axis Normal QRS Normal QTC No ST T wave changes MDM Narrative Medical decision making narrative: X-ray and CT scan concerning for small bowel obstruction. I did discuss the case with Dr. Kapadia was on-call for General surgery who evaluated the CT scan also came to the emergency department evaluated the patient. I did discuss the findings with the patient. Plan only is to admit to the hospital for further evaluation and treatment. Discharge Plan Departure Patient Disposition: Admitted As Inpatient Clinical Impression: SBO (small bowel obstruction) Admit Date/Time: 01/11/21 19:30 Admit Provider: Maulik Kapadia
[2021-01-11] MEDS: SODIUM CHLORIDE 0.9% 1,000 ML 125 ML IV (19:41)
--- NOTE | 2021-01-11 19:41 | P.HP_ITS ---
History of Present Illness History of Present Illness Chief complaint: pain, states hernia has moved Narrative: Patient is a woman with a longstanding incarcerated ventral hernia. It was repaired in the distant past with mesh with failed. She intermittently has pain and hardness in the area and usually just stays home and lives with it. However this episode is been serious and she has been having vomiting. She will a normal bowel movement for her this morning. Denies fever chills. Patient History Medical History (Updated 01/11/21 @ 20:24 by Maulik Kapadia MD) Adjustment disorder with mixed anxiety and depressed mood Hx of renal calculi Obstructive uropathy ST elevation myocardial infarction (STEMI) of lateral wall Family & Social History Family History (Updated 01/11/21 @ 19:48 by Maulik Kapadia MD) Father Congestive heart failure Sister No problems noted. Safety & Behavioral: Feels Safe in Current Yes Environment Tobacco & Substance use: Smoking Status Never smoker alcohol intake frequency holiday/special occasion Substance Use Type does not use Meds Home Medications and Allergies Home Medications Medication Instructions Recorded Confirmed Type acetaminophen 650 mg 650 mg PO Q8H PRN 03/07/18 09/08/19 History tablet,extended release (Tylenol Arthritis Pain) clopidogrel 75 mg tablet 75 mg PO DAILY 03/07/18 09/08/19 History carvedilol 12.5 mg tablet 12.5 mg PO BID 12/27/18 09/08/19 History febuxostat 80 mg tablet 80 mg PO DAILY 12/27/18 09/08/19 History aspirin 81 mg chewable tablet 81 mg PO DAILY 09/08/19 09/08/19 History Allergies Allergy/AdvReac Type Severity Reaction Status Date / Time Cephalosporins Allergy Mild Hives Verified 01/11/21 16:47 Penicillins [PENICILLINS] Allergy Unknown RASH Verified 01/11/21 16:47 erythromycin base Allergy Hives Verified 01/11/21 16:47 Review of Systems Review of Systems Narrative: Patient's family history is positive for spinal cancer in immediate family member. Patient has a personal history of tonsillectomy and congestive heart failure. She has also apparently had an ME.(past history segment of this computer system is not working for some reason at this time. Thus this entry into this section of the report) patient has never smoked and drinks very rarely. Patient denies any visual difficulties. She is losing most of her teeth. No trouble swallowing. No cough or cold at this time. No chest pain that she is not very active. Her legs swell. Patient has no black or bloody bowel movements. Had a colonoscopy about 2 years ago. No seizures or blackouts. She bruises easily. She is on Plavix. Exam Vital Signs (past 8 hours): - 01/11/21 16:48 Temperature 98.4 F Pulse Rate 55 L Respiratory Rate 18 Blood Pressure 237/114 H Pulse Oximetry 96 Oxygen Delivery Method Room Air Narrative Exam Narrative: Cooperative woman. Eyes are nonicteric. Oral mucosa is dry. Missing multiple teeth. Those remaining are not in good shape. She has no nodes in the neck or supraclavicular areas. Lungs are clear to auscultation no rales or rhonchi equal percussion heart regular rate and rhythm there is a 2/6 systolic murmur heard well at the left base without radiation into the neck. Abdomen is protuberant. Much of it is soft except for an area where she has an obvious hernia that is not reducible and tender with attempts to reduce it. No overlying redness at this time. Not particularly hard either. Peripheral edema bilaterally. Patient is alert and oriented. Speech rate and content are appropriate. Objective Labs Result Diagrams: 01/11/21 17:30 01/11/21 17:30 Labs: Laboratory Results - last 24 hr 01/11/21 01/11/21 17:30 17:30 WBC 8.4 RBC 3.24 L Hgb 11.5 L Hct 34.2 L MCV 105.4 H MCH 35.5 H MCHC 33.7 RDW 15.3 H Plt Count 240 Neut % (Auto) 77.9 H Lymph % (Auto) 11.1 L Stone % (Auto) 7.8 Eos % (Auto) 2.6 Baso % (Auto) 0.6 Neut # (Auto) 6500 Lymph # (Auto) 900 L Stone # (Auto) 600 Eos # (Auto) 200 Baso # (Auto) 0 Sodium 138 Potassium 5.1 Chloride 110 H Carbon Dioxide 22 BUN 18 H Creatinine 1.02 Estimated GFR 52.8 L BUN/Creatinine Ratio 17.6 Glucose 101 Calcium 11.1 H Total Bilirubin 0.6 AST 23 ALT 11 Alkaline Phosphatase 63 Total Protein 6.0 L Albumin 3.7 Globulin 2.3 Albumin/Globulin Ratio 1.6 Lipase < 10 L Assessment & Plan Assessment and plan (1) SBO (small bowel obstruction): Status: Acute (2) CHF (congestive heart failure): Status: Acute (3) Obesity (BMI 30-39.9): Status: Acute (4) Hx of renal calculi: Status: Acute Assessment & Plan narrative: Patient is a woman treated for chronic congestive heart failure per her history who has a chronically incarcerated recurrent ventral hernia which was repaired with mesh in the past. She appears to have a small-bowel obstruction that is not related however to that hernia which contains colon. She has a normal white blood cell count. But she is mildly anemic with hematocrit of 34. She has a history kidney stones and is on Uloric because of them. She is chronically obese. Plan to perform a small-bowel follow-through with Gastroview or similar water soluble contrast to see if we can get her small bowel obstruction to resolve non operatively. I will have our medicine colleagues see her regarding her congestive heart failure that is chronic and make recommendations should she need an emergency operation. I actually talked to her about an operation. Risks of bleeding infection recurrence of her hernia cardiac complications were all discussed. She was very abdomen initially about not having an ostomy should she need 1. If I a half to operate in the future we will have further discussion about that matter.
[2021-01-11] MEDS: ONDANSETRON 4 MG/2 ML INJ IV (19:43)
[2021-01-11] MEDS: MORPHINE 4 MG/ML INJ IV (19:43)
--- NOTE | 2021-01-11 19:50 | PC.NURSE ---
Extensive conversation with Olivia and her sister regarding surgery. All questions answered. Olivia does not want a colostomy (father had one 50 + years ago and she is fearful) however Olivia verbalized understanding that it was a possibility. Olivia verbalized that her sister is her desired decision maker in case she is incapacitated.
[2021-01-11 20:14] LABS: COVID19 -Nasal RAPID Negative (Negative)
[2021-01-11 20:51] LABS: COVID19 - ADMIT (NP swab/PCR) Negative (Negative)
[2021-01-11 20:52] LABS: Prothrombin Time 11.5 SECONDS (10.1-12.7)
[2021-01-11 20:55] LABS: PTT Partial Thromboplastin Tim 27 SECONDS (26.4-36.2)
[2021-01-11 21:07] LABS: RBC Urine 0-1/HPF (0-5/HPF); Squamous Epithelial Cell Urine 1-5 /HPF (0-5/HPF); WBC Urine 10-30/HPF (0-5/HPF)
[2021-01-11 21:08] LABS: Bacteria Urine Moderate (10-30); Culture Indicated Urine Specimen Cultured; Hyaline Casts Urine 0-1/LPF; Mucus Urine 1+ (Negative)
--- NOTE | 2021-01-11 21:52 | DI.RAD.S_ITS ---
PROCEDURE: FL SMALL BOWEL FOLLOW THROUGH INDICATIONS: sbo:dx and therapeutic COMPARISON: CT abdomen/pelvis 01/11/21.. FINDINGS: KUB: Preprocedural assistant counsel film demonstrates a mildly prominent but nonspecific bowel gas pattern. No suspicious abdominal calcifications. Visualized solid organ contours appear normal. No suspicious bony abnormalities. Small bowel: There is normal transit time of barium through the small bowel. Small bowel loops are of normal caliber throughout. Mucosal folds are smooth and of normal thickness. No strictures, intraluminal masses, or extrinsic mass effects are noted. The terminal ileum is identified, and is normal in morphology. IMPRESSION: Note is made of mild to moderate colonic obstipation. Oral contrast transit through the small bowel and into the colon, over a 6 year hour period of time. At the termination of the study approximately 10 hours after contrast injection oral contrast has reached the rectum. Dictated by: Nikhil Faust M.D. on 01/12/2021 at 9:57 Approved by: Nikhil Faust M.D. on 01/12/2021 at 10:00
[2021-01-11] MEDS: LACTATED RINGERS 1,000 ML 125 ML IV (22:39)
[2021-01-12] VITALS (23 sets, daily range): BP systolic 156–208; BP diastolic 67–94; PULSE 48–66; RESP 12–17; TEMP 36.9–37.2; O2SAT 88–98
[2021-01-12] MEDS: LABETALOL 20 MG/4 ML SYRINGE 5 MG IV ×2 (01:06→05:11)
[2021-01-12] MEDS: HYDROMORPHONE 1 MG INJ 0.5 MG IV ×2 (01:25→08:06)
[2021-01-12 04:43] LABS: Add Manual Diff / Slide Review NO; Basophils Absolute Auto 0 /uL (0-100); Basophils Percent Auto 0.2 % (0-2); Eosinophils Absolute Auto 100 /uL (0-450); Hematocrit 34.3 % (36-46); Hemoglobin 11.4 g/dL (12.0-16.0); Lymphocytes Absolute Auto 700 /uL (1100-4500); Lymphocytes Percent Auto 12.1 % (25-40); Mean Corpuscular HGB Conc 33.1 % (30-36); Mean Corpuscular Hemoglobin 35.4 PG (26-34); Mean Corpuscular Volume 106.7 fL (80-100); Monocytes Absolute Auto 400 /uL (0-900); Monocytes Percent Auto 6.7 % (3-14); Neutrophils Absolute Auto 4500 /uL (1500-7000); Platelet Count 226 X10^3/uL (150-400); Red Blood Cell Count 3.21 X10^6/uL (4.0-5.2); Red Cell Distribution Width 15.3 % (11.6-14.8); White Blood Cell Count 5.6 X10^3/uL (4.5-11.0)
--- NOTE | 2021-01-12 04:53 | PM.CN ---
History of Present Illness Consult details Date Patient Seen: 01/11/21 Time Patient Seen: 22:00 Chief complaint: pain, states hernia has moved Reason for consult: CHF/HTN management Narrative: Patient was admitted to Dr. Kapadia for evaluation or small-bowel obstruction and incarcerated ventral hernia. Dr. Kapadia kindly requested that we consult regarding her his Congestive heart failure and hypertension. Upon initial evaluation patient was resting comfortably in bed and complained of only mild abdominal discomfort with the pain 2/10 after getting up to use the restroom. Patient denies chest pain shortness of breath vomiting body aches chills weakness, changes in vision or headache. Patient was slightly hypertensive upon admit with a blood pressure of 193/106 heart rate and respiratory rate were stable at a heart rate of 90 and respiratory rate of 15 and O2 saturation 91% on room air. Patient is NPO so will provide IV blood pressure management with a slow decrease overnight until patient can take p.o. medication. Patient is possibly having a small-bowel follow-through with Dr. Kapadia today to see if the small-bowel obstruction can not be resolved without surgical intervention. Meds Home Medications and Allergies Home Medications Medication Instructions Recorded Confirmed Type acetaminophen 650 mg 650 mg PO Q8H PRN 03/07/18 01/11/21 History tablet,extended release (Tylenol Arthritis Pain) clopidogrel 75 mg tablet 75 mg PO QAM 03/07/18 01/11/21 History carvedilol 12.5 mg tablet 12.5 mg PO BID 12/27/18 01/11/21 History febuxostat 80 mg tablet 80 mg PO QAM 12/27/18 01/11/21 History aspirin 81 mg chewable tablet 81 mg PO QAM 09/08/19 01/11/21 History Allergies Allergy/AdvReac Type Severity Reaction Status Date / Time Cephalosporins Allergy Mild Hives Verified 01/11/21 16:47 Penicillins [PENICILLINS] Allergy Unknown RASH Verified 01/11/21 16:47 erythromycin base Allergy Hives Verified 01/11/21 16:47 Review of Systems Review of Systems Narrative: Patient denies any issues with the exception of mild abdominal pain 2/10 at this time. Exam Vital Signs (past 8 hours): - 01/11/21 21:00 01/11/21 21:40 01/11/21 21:50 Temperature 98.3 F Pulse Rate 54 L 56 L Respiratory Rate 20 Blood Pressure 233/102 H 216/94 H Pulse Oximetry 88 L 94 01/11/21 21:56 01/11/21 22:00 01/11/21 22:15 Temperature Pulse Rate 53 L 52 L 66 Respiratory Rate Blood Pressure Pulse Oximetry 95 94 87 L 01/11/21 22:36 01/11/21 22:37 01/11/21 23:00 Temperature Pulse Rate 55 L 63 Respiratory Rate 22 Blood Pressure 210/116 H Pulse Oximetry 95 92 01/11/21 23:30 01/11/21 23:47 01/12/21 00:00 Temperature 98.1 F Pulse Rate 59 L 52 L 49 L Respiratory Rate 18 16 14 Blood Pressure 218/86 H 218/86 H Pulse Oximetry 88 L 98 88 L 01/12/21 00:30 01/12/21 01:06 01/12/21 01:15 Temperature Pulse Rate 48 L 55 L Respiratory Rate 16 Blood Pressure 183/94 H Pulse Oximetry 97 98 01/12/21 01:40 01/12/21 04:00 Temperature 98.6 F Pulse Rate 54 L 54 L Respiratory Rate 12 Blood Pressure 175/75 H 206/86 H Pulse Oximetry 94 Oxygen Delivery Method Nasal Cannula Oxygen Flow Rate 1.5 Narrative Exam Narrative: General: Patient is a obese female, well-nourished in no distress at this time. HEENT: Normocephalic, atraumatic, extraocular muscles intact, oral pharynx is clear and mucous membranes are moist. Neck is supple and symmetric, trachea is midline, no adenopathy, no thyroid enlargement, nontender, no masses palpated. Negative for JVD Lungs: Auscultation of all lung pruitt are clear decreased but equal without adventitious sounds, wheezes, rhonchi, or rales.no nasal flaring, retractions, or tachypneic labored Cardio: regular rate and rhythm with positive +3/5 murmur, Negative for rubs, or gallops, no carotid bruit, no cardiac pulsations present. Musculoskeletal: Muscle strength and tone are equal within normal limits, no deformity, crepitus, effusions, cyanosis, clubbing present. Positive bilateral +2 non pitting edema, Full range of motion intact radial and pedal pulses are normal. Skin: Warm dry and intact without rashes, ulcerations or petechiae. Neuro: Alert and orientated x3, strength is +5/5 in all extremities, sensation to touch intact, no gross deficits noted of cranial nerves. Psych: Patient has a well-kept appearance, appropriate affect, mental status attitude thought context and judgment are appropriate for age. Objective Labs Result Diagrams: 01/12/21 04:14 01/12/21 04:14 Labs: Laboratory Results - last 24 hr 01/11/21 01/11/21 01/11/21 17:30 17:30 17:50 WBC 8.4 RBC 3.24 L Hgb 11.5 L Hct 34.2 L MCV 105.4 H MCH 35.5 H MCHC 33.7 RDW 15.3 H Plt Count 240 Neut % (Auto) 77.9 H Lymph % (Auto) 11.1 L [place] % (Auto) 7.8 Eos % (Auto) 2.6 Baso % (Auto) 0.6 Neut # (Auto) 6500 Lymph # (Auto) 900 L [place] # (Auto) 600 Eos # (Auto) 200 Baso # (Auto) 0 PT INR APTT Sodium 138 Potassium 5.1 Chloride 110 H Carbon Dioxide 22 BUN 18 H Creatinine 1.02 Estimated GFR 52.8 L BUN/Creatinine Ratio 17.6 Glucose 101 Calcium 11.1 H Total Bilirubin 0.6 AST 23 ALT 11 Alkaline Phosphatase 63 Total Protein 6.0 L Albumin 3.7 Globulin 2.3 Albumin/Globulin Ratio 1.6 Lipase < 10 L Urine RBC Urine WBC Ur Squamous Epith Cells Urine Bacteria Hyaline Casts Urine Mucus Ur Culture Indicated? Nasal Screen MRSA (PCR) SARS-CoV-2 (PCR) Blood Type A Positive Antibody Screen Negative Crossmatch See Detail 01/11/21 01/11/21 01/11/21 19:20 19:30 20:15 WBC RBC Hgb Hct MCV MCH MCHC RDW Plt Count Neut % (Auto) Lymph % (Auto) [place] % (Auto) Eos % (Auto) Baso % (Auto) Neut # (Auto) Lymph # (Auto) [place] # (Auto) Eos # (Auto) Baso # (Auto) PT INR APTT Sodium Potassium Chloride Carbon Dioxide BUN Creatinine Estimated GFR BUN/Creatinine Ratio Glucose Calcium Total Bilirubin AST ALT Alkaline Phosphatase Total Protein Albumin Globulin Albumin/Globulin Ratio Lipase Urine RBC 0-1/hpf Urine WBC 10-30/hpf H Ur Squamous Epith Cells 1-5 /hpf Urine Bacteria Moderate (10-30) H Hyaline Casts 0-1/lpf Urine Mucus 1+ H Ur Culture Indicated? Specimen cultured Nasal Screen MRSA (PCR) SARS-CoV-2 (PCR) Negative Negative Blood Type Antibody Screen Crossmatch 01/11/21 01/11/21 01/12/21 20:35 21:55 04:14 WBC 5.6 RBC 3.21 L Hgb 11.4 L Hct 34.3 L MCV 106.7 H MCH 35.4 H MCHC 33.1 RDW 15.3 H Plt Count 226 Neut % (Auto) 79.0 H Lymph % (Auto) 12.1 L [place] % (Auto) 6.7 Eos % (Auto) 2.0 Baso % (Auto) 0.2 Neut # (Auto) 4500 Lymph # (Auto) 700 L [place] # (Auto) 400 Eos # (Auto) 100 Baso # (Auto) 0 PT 11.5 INR 1.0 APTT 27 D Sodium Potassium Chloride Carbon Dioxide BUN Creatinine Estimated GFR BUN/Creatinine Ratio Glucose Calcium Total Bilirubin AST ALT Alkaline Phosphatase Total Protein Albumin Globulin Albumin/Globulin Ratio Lipase Urine RBC Urine WBC Ur Squamous Epith Cells Urine Bacteria Hyaline Casts Urine Mucus Ur Culture Indicated? Nasal Screen MRSA (PCR) Negative for mrsa SARS-CoV-2 (PCR) Blood Type Antibody Screen Crossmatch Assessment & Plan Assessment & Plan narrative: 1. Incarcerated ventral hernia and small-bowel obstruction, acute on chronic, present on admission -to be managed by Dr. Kapadia -small-bowel follow-through possibly tomorrow 2.Congestive heart failure, in the setting of hypertension, hyperlipidemia, and obesity, acute on chronic, present on admission -no echo on file unable to validate EF % -holding patient's Plavix due to pending small-bowel follow-through 3. Hypertension, uncontrolled, acute on chronic, present on admission -at the time consult 193/106 patient was stable and asymptomatic -holding patient's oral carvedilol -will provide IV labetalol while patient is NPO due to patient's elevated blood pressure and low heart rate in the 40s and 50s 4. Obesity as evidence by BMI of 32.5, acute on chronic, present on admission -Consideration will be given to dietary counseling Code status: Full code Surrogate decision maker: sister Saskia Baehr Covid PCR: Negative DVT/VTE prophylaxis: Contraindicated holding due to possible small-bowel follow-through, SCDs only
[2021-01-12 04:56] LABS: Alanine Aminotransferase 10 IU/L (<35); Albumin 3.3 g/dL (3.5-5.0); Albumin Globulin Ratio 1.3 (1.0-2.8); Alkaline Phosphatase 64 U/L (38-126); Aspartate Aminotransferase 18 IU/L (14-36); BUN Creatinine Ratio 15.6 (6-22); Bilirubin Total 0.5 mg/dL (0.2-1.3); Blood Urea Nitrogen 15 mg/dL (7-17); Calcium 11.1 mg/dL (8.4-10.2); Carbon Dioxide 26 mmol/L (22-32); Chloride 111 mmol/L (98-107); Estimated Glomerular Filt Rate 56.7 mL/min (>60); Globulin 2.5 g/dL (1.7-4.1); Glucose 108 mg/dL (80-110); HEMOLYSIS < 15 (0-50); Magnesium 1.9 mg/dL (1.6-2.3); Potassium 4.4 mmol/L (3.4-5.1); Sodium 139 mmol/L (137-145); Total Protein 5.8 g/dL (6.3-8.2)
[2021-01-12] MEDS: LACTATED RINGERS 1,000 ML 125 ML IV (06:05)
--- NOTE | 2021-01-12 06:34 | PC.NURSE ---
Shift Note-Patient admitted to room 226 at 2140 from ED, able to stand to transfer from stretcher to bed. No nausea, minimal abdominal pain, initially, then 0.5mg IV Dilaudid given at 0130 which was effective. Patient drank contrast around 2300, abdominal xx-rays Q2h through night. Bowel sounds active in Rt quadrants, hypoactive in Lt quadrants. SB/SR, 1st degree AVB, IVP labetalol given for HTN, see vital trends. NPO.
[2021-01-12] MEDS: LABETALOL 20 MG/4 ML SYRINGE 10 MG IV ×4 (08:07→23:34)
--- NOTE | 2021-01-12 08:37 | DI.RAD.S_ITS ---
PROCEDURE: XR CHEST FOR PICC 1V INDICATIONS: picc placement COMPARISON: [facility], , XR CHEST 1V, 09/08/2019, 7:48. FINDINGS: PICC was placed by the intravenous therapy team from the left side. Fluoroscopic spot film demonstrates the tip of PICC projecting to the area of proximal SVC. IMPRESSION: Tip of PICC projects to the area of proximal SVC. Dictated by: Olivia Nelson M.D. on 01/12/2021 at 9:00 Approved by: Olivia Nelson M.D. on 01/12/2021 at 9:01
--- NOTE | 2021-01-12 15:49 | CM.DANOTE ---
Patient is a 75 yo female who was admitted on 01/11/21 for Pain/hernia. Pt has [facility] and [facility] for insurance and her PCP is Dr. Booker Hunter. EMR was reviewed. Per Surgeon, pt with a hx of incarcerated ventral hernia with mesh failure but pt now with SBO. SBFT scheduled for today. Per RN, pt seems to be having return bowel function since her SBFT and having bowel movements and currently no identified concerns at this time. Will continue advancing diet and see how pt tolerates. Hospitalist consulting for other medical complexities. No bedside assessment completed at this time due to triage needs and no noted concerns for d/c yet. Plan: SW to follow closely for bedside assessment to confirm safe plan of d/c home with supportive sister and any further identified discharge planning needs. CARITO Mariee
--- NOTE | 2021-01-12 16:19 | PM.PN.1 ---
Subjective Subjective Date Patient Seen: 01/12/21 Time Patient Seen: 16:22 Interval history: This is a 75-year-old female admitted with possible bowel obstruction and incarcerated hernia by General surgery. Medicine was consulted for for tensive urgency. She denies any chest pain, palpitations, shortness of breath today. She is now having bowel movements. Her pain is much better. She remains markedly hypertensive, currently on labetalol as needed. Given that she is having bowel movements hopefully she will be able to start clears and restart her home medications. She will probably need further adjustments given her marked hypertension but this may also be in the setting of her acute illness/pain. Exam Vital Signs (past 8 hours): - 01/12/21 08:55 01/12/21 09:13 01/12/21 13:00 Pulse Rate 54 L Blood Pressure 176/74 H Pulse Oximetry 98 97 Oxygen Delivery Method Nasal Cannula Oxygen Flow Rate 1.5 Narrative Exam Narrative: General: Patient is a obese female, well-nourished in no distress at this time. Sitting on commode. No NG tube. Lungs: Auscultation of all lung pruitt are clear decreased but equal without adventitious sounds, wheezes, rhonchi, or rales.no nasal flaring, retractions, or tachypneic labored Cardio: regular rate and rhythm with positive +3/6 murmur, Negative for rubs, or gallops, no carotid bruit, no cardiac pulsations present. Musculoskeletal: Muscle strength and tone are equal within normal limits, no deformity, crepitus, effusions, cyanosis, clubbing present. Positive bilateral +2 non pitting edema, Full range of motion intact radial and pedal pulses are normal. Skin: Warm dry and intact without rashes, ulcerations or petechiae. Abd: Soft, non-distended Neuro: Alert and orientated x3, strength is +5/5 in all extremities, sensation to touch intact, no gross deficits noted of cranial nerves. Psych: Patient has a well-kept appearance, appropriate affect, mental status attitude thought context and judgment are appropriate for age. Objective Labs Result Diagrams: 01/12/21 04:14 01/12/21 04:14 Labs: Laboratory Results - last 24 hr 01/11/21 01/11/21 01/11/21 17:30 17:30 17:50 WBC 8.4 RBC 3.24 L Hgb 11.5 L Hct 34.2 L MCV 105.4 H MCH 35.5 H MCHC 33.7 RDW 15.3 H Plt Count 240 Neut % (Auto) 77.9 H Lymph % (Auto) 11.1 L [place] % (Auto) 7.8 Eos % (Auto) 2.6 Baso % (Auto) 0.6 Neut # (Auto) 6500 Lymph # (Auto) 900 L [place] # (Auto) 600 Eos # (Auto) 200 Baso # (Auto) 0 PT INR APTT Sodium 138 Potassium 5.1 Chloride 110 H Carbon Dioxide 22 BUN 18 H Creatinine 1.02 Estimated GFR 52.8 L BUN/Creatinine Ratio 17.6 Glucose 101 Calcium 11.1 H Magnesium Total Bilirubin 0.6 AST 23 ALT 11 Alkaline Phosphatase 63 Total Protein 6.0 L Albumin 3.7 Globulin 2.3 Albumin/Globulin Ratio 1.6 Lipase < 10 L Urine RBC Urine WBC Ur Squamous Epith Cells Urine Bacteria Hyaline Casts Urine Mucus Ur Culture Indicated? Nasal Screen MRSA (PCR) SARS-CoV-2 (PCR) Blood Type A Positive Antibody Screen Negative Crossmatch See Detail 01/11/21 01/11/21 01/11/21 19:20 19:30 20:15 WBC RBC Hgb Hct MCV MCH MCHC RDW Plt Count Neut % (Auto) Lymph % (Auto) [place] % (Auto) Eos % (Auto) Baso % (Auto) Neut # (Auto) Lymph # (Auto) [place] # (Auto) Eos # (Auto) Baso # (Auto) PT INR APTT Sodium Potassium Chloride Carbon Dioxide BUN Creatinine Estimated GFR BUN/Creatinine Ratio Glucose Calcium Magnesium Total Bilirubin AST ALT Alkaline Phosphatase Total Protein Albumin Globulin Albumin/Globulin Ratio Lipase Urine RBC 0-1/hpf Urine WBC 10-30/hpf H Ur Squamous Epith Cells 1-5 /hpf Urine Bacteria Moderate (10-30) H Hyaline Casts 0-1/lpf Urine Mucus 1+ H Ur Culture Indicated? Specimen cultured Nasal Screen MRSA (PCR) SARS-CoV-2 (PCR) Negative Negative Blood Type Antibody Screen Crossmatch 01/11/21 01/11/21 01/12/21 20:35 21:55 04:14 WBC 5.6 RBC 3.21 L Hgb 11.4 L Hct 34.3 L MCV 106.7 H MCH 35.4 H MCHC 33.1 RDW 15.3 H Plt Count 226 Neut % (Auto) 79.0 H Lymph % (Auto) 12.1 L [place] % (Auto) 6.7 Eos % (Auto) 2.0 Baso % (Auto) 0.2 Neut # (Auto) 4500 Lymph # (Auto) 700 L [place] # (Auto) 400 Eos # (Auto) 100 Baso # (Auto) 0 PT 11.5 INR 1.0 APTT 27 D Sodium Potassium Chloride Carbon Dioxide BUN Creatinine Estimated GFR BUN/Creatinine Ratio Glucose Calcium Magnesium Total Bilirubin AST ALT Alkaline Phosphatase Total Protein Albumin Globulin Albumin/Globulin Ratio Lipase Urine RBC Urine WBC Ur Squamous Epith Cells Urine Bacteria Hyaline Casts Urine Mucus Ur Culture Indicated? Nasal Screen MRSA (PCR) Negative for mrsa SARS-CoV-2 (PCR) Blood Type Antibody Screen Crossmatch 01/12/21 04:14 WBC RBC Hgb Hct MCV MCH MCHC RDW Plt Count Neut % (Auto) Lymph % (Auto) [place] % (Auto) Eos % (Auto) Baso % (Auto) Neut # (Auto) Lymph # (Auto) [place] # (Auto) Eos # (Auto) Baso # (Auto) PT INR APTT Sodium 139 Potassium 4.4 Chloride 111 H Carbon Dioxide 26 BUN 15 Creatinine 0.96 Estimated GFR 56.7 L BUN/Creatinine Ratio 15.6 Glucose 108 Calcium 11.1 H Magnesium 1.9 Total Bilirubin 0.5 AST 18 ALT 10 Alkaline Phosphatase 64 Total Protein 5.8 L Albumin 3.3 L Globulin 2.5 Albumin/Globulin Ratio 1.3 Lipase Urine RBC Urine WBC Ur Squamous Epith Cells Urine Bacteria Hyaline Casts Urine Mucus Ur Culture Indicated? Nasal Screen MRSA (PCR) SARS-CoV-2 (PCR) Blood Type Antibody Screen Crossmatch [facility] Medical History (Updated 01/12/21 @ 06:48 by PADILLA Givens) Adjustment disorder with mixed anxiety and depressed mood CHF (congestive heart failure) Essential hypertension Hx of renal calculi Hyperlipidemia Obstructive uropathy ST elevation myocardial infarction (STEMI) of lateral wall Surgical History (Updated 01/12/21 @ 06:48 by PADILLA Givens) History of cholecystectomy History of common carotid artery stent placement History of tonsillectomy and adenoidectomy Family History Father Congestive heart failure Sister No problems noted. Social History details: Patient lives with her niece and sister, retired household members: family Smoking Status: Never smoker alcohol intake: never substance use type: does not use Assessment & Plan Assessment & Plan narrative: 1. Incarcerated ventral hernia and small-bowel obstruction, acute on chronic, present on admission -to be managed by Dr. Kapadia -small-bowel follow-through showed passage of stool, now having bowel movements. -diet per surgery. 2.Congestive heart failure with unknown ejection fraction, and CAD, in the setting of hypertension, hyperlipidemia, and obesity, acute on chronic, present on admission -no echo on file unable to validate EF % -holding patient's Plavix due to NPO status, resume when able. -no current indications for TTE. 3. Hypertensive urgency, present on admission -continue prn labetalol, elevated BP may be in setting of pain. She remains markedly hypertensive today. Consider addition of IV enaprilat if still NPO, or add back home coreg and add additional oral agents if needed. 4. Obesity as evidence by BMI of 32.5, acute on chronic, present on admission -Consideration will be given to dietary counseling Code status: Full code Surrogate decision maker: sister Saskia Julian Neha PCR: Negative DVT/VTE prophylaxis: Contraindicated holding due to possible small-bowel follow-through, SCDs only
[2021-01-12] MEDS: carvediloL 12.5 MG TABLET PO (20:16)
[2021-01-12] MEDS: SODIUM CHLORIDE 0.9% FLUSH 10 ML IV ×2 (21:44→23:34)
[2021-01-13] VITALS (7 sets, daily range): BP systolic 123–173; BP diastolic 56–76; PULSE 48–63; RESP 14–18; TEMP 36.9; O2SAT 94–99
[2021-01-13] MEDS: HYDROMORPHONE 1 MG INJ 0.5 MG IV (01:05)
[2021-01-13 06:52] LABS: Add Manual Diff / Slide Review NO; Basophils Absolute Auto 0 /uL (0-100); Basophils Percent Auto 0.2 % (0-2); Eosinophils Absolute Auto 200 /uL (0-450); Eosinophils Percent Auto 4.7 % (2-4); Hematocrit 28.6 % (36-46); Hemoglobin 9.4 g/dL (12.0-16.0); Lymphocytes Absolute Auto 900 /uL (1100-4500); Lymphocytes Percent Auto 17.6 % (25-40); Mean Corpuscular HGB Conc 32.8 % (30-36); Mean Corpuscular Hemoglobin 35.3 PG (26-34); Mean Corpuscular Volume 107.7 fL (80-100); Monocytes Absolute Auto 500 /uL (0-900); Monocytes Percent Auto 10.2 % (3-14); Neutrophils Absolute Auto 3400 /uL (1500-7000); Neutrophils Percent Auto 67.3 % (50-75); Platelet Count 180 X10^3/uL (150-400); Red Blood Cell Count 2.65 X10^6/uL (4.0-5.2); Red Cell Distribution Width 15.2 % (11.6-14.8); White Blood Cell Count 5.1 X10^3/uL (4.5-11.0)
[2021-01-13 07:01] LABS: Alanine Aminotransferase 8 IU/L (<35); Albumin 2.7 g/dL (3.5-5.0); Albumin Globulin Ratio 1.3 (1.0-2.8); Alkaline Phosphatase 50 U/L (38-126); Aspartate Aminotransferase 17 IU/L (14-36); BUN Creatinine Ratio 16.9 (6-22); Bilirubin Total 0.3 mg/dL (0.2-1.3); Blood Urea Nitrogen 15 mg/dL (7-17); Calcium 10.6 mg/dL (8.4-10.2); Carbon Dioxide 29 mmol/L (22-32); Chloride 112 mmol/L (98-107); Estimated Glomerular Filt Rate > 60.0 mL/min (>60); Globulin 2.1 g/dL (1.7-4.1); Glucose 93 mg/dL (80-110); HEMOLYSIS < 15 (0-50); Sodium 139 mmol/L (137-145); Total Protein 4.8 g/dL (6.3-8.2)
[2021-01-13] MEDS: CLOPIDOGREL 75 MG TABLET PO (08:40)
[2021-01-13] MEDS: ASPIRIN 81 MG CHEW TAB PO (08:41)
[2021-01-13] MEDS: carvediloL 12.5 MG TABLET 25 MG PO (08:41)
[2021-01-13] MEDS: SODIUM CHLORIDE 0.9% FLUSH 10 ML IV (08:41)
--- NOTE | 2021-01-13 11:11 | PC.NURSE ---
Addendum entered by Jailene Nix R.N. 01/13/21 12:59: Went over dc instructions and medications with patient, questions answered. Patient taken via wc to vehicle driven by family. Patient had all belongings. Original Note: Patient alert, oriented denies pain and nausea. SBA to bathroom had loose BM, unmeasured. Tolerated full liquid diet, RA sats 95%.
--- NOTE | 2021-01-13 14:08 | CM.DPC ---
DCP: continued: case discussed in Team Rounds with team noting that Dr. Kapadia was in process of discharging pt to home setting. No concerns re the d/c today were noted and see now that pt did d/c home in company of family just after 1100. OBS admission status: noted.
== END 2021-01-13 13:00 | disposition home or self-care (01) ==
LOC: ED 19:16 → AC 19:54 → ICU 01-12 08:53 → AC 01-12 15:50
PROVIDERS: Emergency Medicine; Nurse Practitioner Family; Admitting Provider Specialist; Emergency Provider Emergency Medicine; PCP Internal Medicine; Referring Provider Emergency Medicine; Visit Provider Specialist
DX: K56.609 Unspecified intestinal obstruction, unspecified as to partial versus complete obstruction (principal); K43.6 Other and unspecified ventral hernia with obstruction, without gangrene; I11.0 Hypertensive heart disease with heart failure; I50.9 Heart failure, unspecified; E66.9 Obesity, unspecified; Z68.32 Body mass index [BMI] 32.0-32.9, adult; Z20.822 Contact with and (suspected) exposure to COVID-19
CPT/HCPCS: 36415; 36569; 74022; 74177; 74250; 80053; 81003; 81015; 83690; 83735; 85025; 85610; 85730; 86850; 86900; 86901; 87086; 87635; 87797; 93005; 94760; 96361; 96374; 96375; 96376; 99219; 99284; C9803; G0378; J1170; J1642; J2270; J2405; Q9967

== ENCOUNTER → 2021-01-24 08:31 | Outpatient (CLI) | payer MEDICARE, MEDICAID, SELFPAY ==
[2021-01-11 23:02] VITALS: BMI 32.5
--- NOTE | 2021-01-24 | DI.RAD.S_ITS ---
PROCEDURE: XR HIP W PEL IF DONE BILAT 2V INDICATIONS: OSTEOARTHRITIS TECHNIQUE: AP pelvis with lateral views of each hip. COMPARISON: [facility], CT, CT ABDOMEN PELVIS W CON, 01/11/2021, 19:04. FINDINGS: Bones: No acute fractures or dislocations. Pelvic ring appears intact. No suspicious bony lesions. There is severe narrowing of the superior left hip joint space with subchondral sclerosis and marginal osteophyte formation and mild subchondral cystic changes, with mild remodeling and flattening of the femoral head. No significant degenerative changes are seen in the right hip. Degenerative changes are also noted at the pubic symphysis, sacroiliac joints, and included lower lumbar spine. Soft tissues: The visualized bowel gas pattern is normal. No suspicious soft tissue calcifications. IMPRESSION: 1. Severe left hip osteoarthrosis. 2. Additional degenerative changes in the pubic symphysis, sacroiliac joints, and lumbar spine. Dictated by: Mark Stevens M.D. on 01/24/2021 at 12:44 Approved by: Mark Stevens M.D. on 01/24/2021 at 12:47
[2021-01-24 10:25] LABS: Add Manual Diff / Slide Review NO; Basophils Absolute Auto 0 /uL (0-100); Basophils Percent Auto 0.8 % (0-2); Eosinophils Absolute Auto 300 /uL (0-450); Eosinophils Percent Auto 5.2 % (2-4); Hematocrit 35.2 % (36-46); Hemoglobin 11.7 g/dL (12.0-16.0); Lymphocytes Absolute Auto 1600 /uL (1100-4500); Lymphocytes Percent Auto 26.7 % (25-40); Mean Corpuscular HGB Conc 33.3 % (30-36); Mean Corpuscular Hemoglobin 35.3 PG (26-34); Mean Corpuscular Volume 106.1 fL (80-100); Monocytes Absolute Auto 500 /uL (0-900); Monocytes Percent Auto 8.7 % (3-14); Neutrophils Absolute Auto 3400 /uL (1500-7000); Neutrophils Percent Auto 58.6 % (50-75); Red Blood Cell Count 3.32 X10^6/uL (4.0-5.2); Red Cell Distribution Width 14.4 % (11.6-14.8); White Blood Cell Count 5.8 X10^3/uL (4.5-11.0)
[2021-01-24 10:32] LABS: Alanine Aminotransferase 15 IU/L (<35); Albumin 3.7 g/dL (3.5-5.0); Albumin Globulin Ratio 1.4 (1.0-2.8); Alkaline Phosphatase 73 U/L (38-126); Aspartate Aminotransferase 24 IU/L (14-36); BUN Creatinine Ratio 10.8 (6-22); Bilirubin Total 0.5 mg/dL (0.2-1.3); Blood Urea Nitrogen 9 mg/dL (7-17); Calcium 11.1 mg/dL (8.4-10.2); Carbon Dioxide 22 mmol/L (22-32); Chloride 111 mmol/L (98-107); Estimated Glomerular Filt Rate > 60.0 mL/min (>60); Globulin 2.7 g/dL (1.7-4.1); Glucose 87 mg/dL (80-110); HEMOLYSIS 15 (0-50); Sodium 139 mmol/L (137-145); Total Protein 6.4 g/dL (6.3-8.2)
== END ==
PROVIDERS: PCP Internal Medicine; Referring Provider Internal Medicine; Visit Provider Internal Medicine
DX: I10 Essential (primary) hypertension (principal); R19.7 Diarrhea, unspecified; M19.90 Unspecified osteoarthritis, unspecified site
CPT/HCPCS: 36415; 73521; 80053; 85025

== ENCOUNTER → 2021-01-25 08:45 | Outpatient (CLI) | payer MEDICARE, MEDICAID, SELFPAY ==
[2021-01-11 23:02] VITALS: BMI 32.5
[2021-01-25 11:59] LABS: Adenovirus F 40/41 Not Detected (Not Detect); Astrovirus Not Detected (Not Detect); Campylobacter Not Detected (Not Detect); Clostridium difficile toxin AB Not Detected (Not Detect); Cryptosporidium Not Detected (Not Detect); Cyclospora cayetanensis Not Detected (Not Detect); Entamoeba histolytica Not Detected (Not Detect); Enteroaggregative E.coli Not Detected (Not Detect); Enteropathogenic E.coli Not Detected (Not Detect); Enterotoxigenic E.coli It/st Not Detected (Not Detect); Giardia lamblia Not Detected (Not Detect); Norovirus GI/GII Not Detected (Not Detect); Plesiomonsa shigelloides Not Detected (Not Detect); Rotavirus A Not Detected (Not Detect); Salmonella Not Detected (Not Detect); Sapovirus Not Detected (Not Detect); Shiga-like toxin-prod E.coli Not Detected (Not Detect); Shigella/Enteroinvasive E.coli Not Detected (Not Detect); Vibrio Not Detected (Not Detect); Vibrio cholerae Not Detected (Not Detect); Yersinia enterocolitica Not Detected (Not Detect)
== END ==
PROVIDERS: PCP Internal Medicine; Referring Provider Internal Medicine; Visit Provider Internal Medicine
DX: R19.7 Diarrhea, unspecified (principal); I10 Essential (primary) hypertension
CPT/HCPCS: 87507

== ENCOUNTER → 2021-02-07 07:50 | Outpatient (CLI) | payer MEDICARE, MEDICAID, SELFPAY ==
[2021-01-11 23:02] VITALS: BMI 32.5
--- NOTE | 2021-02-07 | DI.ECHO.S_ITS ---
[place] [facility]---------+ [facility] +---------+ : : [address] : : : : [id number] : : : : Phone: [phone] Echocardiogram Report + + :Name: JUD DÍAZ Study Date: 02/07/2021 Height: 61 in : :[facility] ReadingLocation: Weight: 173 lb : : Gender: Female BSA: 1.8 m2 : :: 1945 Age: 75 yrs BP: 152/73 mmHg: :Reason For Study: ATHEROCLEROTIC HEART DISEASE : :Ordering Physician: LINA, : :KAREN Walker Performed By: Amelia Wood : :Referring: KAREN MILLS : + + Interpretation Summary Normal left ventricle size with ejection fraction 60-65%. Diastolic parameters suggest a relaxation abnormality of the left ventricle, consistent with probable normal filling pressures. Severely dilated left atrium. Mildly dilated right atrium. Moderate aortic stenosis. The peak aortic velocity is 3.08 m/sec. Mild aortic regurgitation. Mild mitral annular calcification. Mild tricuspid regurgitation. Comparison is made with the echocardiogram of 01/26/2016, aortic stenosis is new. Procedure: A two-dimensional transthoracic echocardiogram with color flow and Doppler was performed. The study quality was technically adequate. Comparison is made with the echocardiogram of 01/26/2016. The patient was in sinus rhythm with heart rates between 48-52 bpm during the exam. Left Ventricle: The left ventricle is normal in size and wall thickness. The ejection fraction is estimated to be 60-65%. There are no focal wall motion abnormalities. Diastolic parameters suggest a relaxation abnormality of the left ventricle, consistent with probable normal filling pressures. Right Ventricle: The right ventricle is normal in size and function. Atria: The left atrium is severely dilated. The right atrium is mildly dilated. There is no Doppler evidence for an interatrial shunt. Mitral Valve: There is mild mitral annular calcification. The mitral valve leaflets are slightly calcified. There is trace mitral regurgitation. Aortic Valve: The aortic valve is trileaflet. The aortic valve is moderately calcified. There is moderate aortic stenosis. The peak aortic velocity is 3.08 m/sec. The aortic valve mean gradient is 20 mmHg. There is mild aortic regurgitation. Tricuspid Valve: The tricuspid valve is normal in structure and function. There is mild tricuspid regurgitation. The right ventricular systolic pressure is estimated to be at least 34 mmHg based on an estimated right atrial pressure of 3 mm Hg. Pulmonic Valve: The pulmonic valve leaflets are thin and pliable; valve motion is normal. There is trace pulmonic regurgitation. Great Vessels: The aortic root is normal size. The dimensions of the ascending aorta are normal. The IVC is of normal diameter and collapses greater than 50% with a sniff. This suggests a low right atrial pressure of 3 mm Hg. Pericardium/ Pleura There is no pericardial effusion. There is no pleural effusion. MMode/2D Measurements & Calculations LVIDd: 5.5 cm LVOT diam: 2.0 cm LVIDs: 3.8 cm Ao root diam: 3.2 cm FS: 31.1 % asc Aorta Diam: 3.2 cm IVSd: 0.90 cm LVPWd: 1.1 cm LV ha. diameter/BSA (cm/m^2): 3.1 LV sys. diameter/BSA (cm/m^2): 2.1 LA A2 area: 29.2 cm2 RA long axis: 5.6 cm LA A4 area: 27.9 cm2 RA area: 20.5 cm2 LA length (vol): 6.7 cm RA vol: 64.3 ml LA vol: 104.0 ml RA : 36.2 ml/m2 LA vol index: 58.6 ml/m2 IVC diam: 1.6 cm RVD1 (basal): 3.0 cm TAPSE: 2.1 cm Doppler Measurements & Calculations Ao V2 max: 308.3 cm/sec LVOT Max Conrado: 90.6 cm/sec Ao V2 mean: 203.5 cm/sec LV V1 max P.3 mmHg Ao max P.0 mmHg LV V1 VTI: 24.0 cm Ao mean P.7 mmHg WILI(I,D): 0.86 cm2 Ao V2 VTI: 84.7 cm WILI(V,D): 0.90 cm2 sev ratio: 0.28 WILI indexed to BSA (cm^2/m^2): 0.49 MV E max conrado: 81.3 cm/sec TR max conrado: 276.0 cm/sec MV A max conrado: 107.2 cm/sec TR max P.5 mmHg MV E/A: 0.76 PA V2 max: 129.0 cm/sec Med Peak E' Conrado: 4.6 cm/sec PA V2 mean: 95.4 cm/sec E/E' med: 17.5 PA mean P.9 mmHg Lat Peak E' Conrado: 5.4 cm/sec E/E' lat: 15.1 E/e' average: 16.3 MV dec time: 0.29 sec [facility] 73.1 ml Electronically signed by: Hector Aguilar on Reading Physician:02/07/2021 04:26 PM
== END ==
PROVIDERS: PCP Internal Medicine; Referring Provider Internal Medicine; Visit Provider Internal Medicine
DX: I08.2 Rheumatic disorders of both aortic and tricuspid valves (principal); I25.10 Atherosclerotic heart disease of native coronary artery without angina pectoris
CPT/HCPCS: 93306

== ENCOUNTER → 2021-03-16 09:30 | Outpatient (CLI) | payer MEDICARE, MEDICAID, SELFPAY ==
[2021-01-11 23:02] VITALS: BMI 32.5
--- NOTE | 2021-03-16 09:31 | DI.US.S_ITS ---
PROCEDURE: US PELVIC COMPLETE INDICATIONS: POSTMENOPAUSAL BLEEDING TECHNIQUE: Real-time scanning was performed of the pelvic organs, with image documentation. Additional endovaginal scanning was necessary due to incomplete visualization of the adnexal and endometrial structures by transabdominal scanning. COMPARISON: None. FINDINGS: Uterus: Uterus is normal in size at 7.3 x 5.0 x 4.4 cm. The endometrium measures 24 mm in combined thickness. There is thickened appearance of the endometrium with increased hyperemic and vascular appearance. Left anterior intramural fibroid measuring 1.3 x 1.3 x 0.9 cm. Right anterior subserosal fibroid measuring 3.8 x 2.3 x 2.2 cm. Ovaries: Neither ovary is well seen sonographic Other: Anechoic mild right adnexal fluid, nonspecific. IMPRESSION: Hyperemic and thickened appearance of the endometrium, which in the setting of postmenopausal bleeding is suspicious for endometrial malignancy. Recommend histopathologic sampling. Multiple uterine fibroids. Neither ovary visualized sonographically. Dictated by: Sumeet Wright M.D. on 03/16/2021 at 11:27 Approved by: Sumeet Wright M.D. on 03/16/2021 at 11:32
== END ==
PROVIDERS: PCP Internal Medicine; Referring Provider Obstetrics & Gynecology; Visit Provider Obstetrics & Gynecology
DX: N95.0 Postmenopausal bleeding (principal); D25.1 Intramural leiomyoma of uterus; D25.2 Subserosal leiomyoma of uterus
CPT/HCPCS: 76830; 76856

== ENCOUNTER → 2021-04-14 09:23 | Outpatient (CLI) | payer MEDICARE, MEDICAID, SELFPAY ==
[2021-01-11 23:02] VITALS: BMI 32.5
[2021-04-14 10:39] LABS: Add Manual Diff / Slide Review NO; Basophils Absolute Auto 0 /uL (0-100); Basophils Percent Auto 0.3 % (0-2); Eosinophils Absolute Auto 100 /uL (0-450); Eosinophils Percent Auto 2.7 % (2-4); Hematocrit 31.6 % (36-46); Hemoglobin 10.5 g/dL (12.0-16.0); Lymphocytes Absolute Auto 1600 /uL (1100-4500); Lymphocytes Percent Auto 29.6 % (25-40); Mean Corpuscular HGB Conc 33.3 % (30-36); Mean Corpuscular Hemoglobin 35.2 PG (26-34); Mean Corpuscular Volume 105.8 fL (80-100); Monocytes Absolute Auto 400 /uL (0-900); Neutrophils Absolute Auto 3100 /uL (1500-7000); Neutrophils Percent Auto 59.4 % (50-75); Platelet Count 235 X10^3/uL (150-400); Red Blood Cell Count 2.98 X10^6/uL (4.0-5.2); Red Cell Distribution Width 14.8 % (11.6-14.8); White Blood Cell Count 5.3 X10^3/uL (4.5-11.0)
[2021-04-14 11:02] LABS: Hemoglobin A1C% w Est Avg Glu 5.2 % (4.0-6.0)
[2021-04-14 11:15] LABS: Appearance Urine UA SL CLOUDY; Bilirubin Urine UA NEGATIVE (NEGATIVE); Color Urine UA YELLOW; Glucose Urine UA NEGATIVE (Negative); Ketones Urine UA NEGATIVE (NEGATIVE); Leukocyte Esterase Urine UA 1+ (NEGATIVE); Nitrite Urine UA NEGATIVE (Negative); Occult Blood Urine UA 2+ (Negative); Protein Urine UA NEGATIVE (Negative); Specific Gravity Urine UA 1.015 (1.000-1.035); Urobilinogen Urine UA 0.2 E.U./dL (0.2)
[2021-04-14 11:29] LABS: Amorphous Sediment Urine 1+; Bacteria Urine Few (2-10); Culture Indicated Urine Cult Not Indicated; RBC Urine 1-5/HPF (0-5/HPF); Squamous Epithelial Cell Urine 5-10 /HPF (0-5/HPF); WBC Urine 5-10/HPF (0-5/HPF)
[2021-04-14 11:40] LABS: BUN Creatinine Ratio 27.9 (6-22); Blood Urea Nitrogen 39 mg/dL (7-17); Calcium 11.2 mg/dL (8.4-10.2); Carbon Dioxide 26 mmol/L (22-32); Chloride 107 mmol/L (98-107); Estimated Glomerular Filt Rate 36.6 mL/min (>60); Glucose 91 mg/dL (80-110); HEMOLYSIS < 15 (0-50); Potassium 4.3 mmol/L (3.4-5.1); Sodium 140 mmol/L (137-145)
== END ==
PROVIDERS: PCP Internal Medicine; Referring Provider Orthopaedic Surgery; Visit Provider Orthopaedic Surgery
DX: Z01.818 Encounter for other preprocedural examination (principal); R73.9 Hyperglycemia, unspecified; Z01.812 Encounter for preprocedural laboratory examination; N39.0 Urinary tract infection, site not specified
CPT/HCPCS: 36415; 80048; 81001; 83036; 85025; 93005

== ENCOUNTER → 2021-05-02 09:18 | Outpatient (CLI) | payer MEDICARE, MEDICAID, SELFPAY ==
[2021-01-11 23:02] VITALS: BMI 32.5
[2021-05-02 09:51] LABS: Hematocrit 34.1 % (36-46); Hemoglobin 11.3 g/dL (12.0-16.0)
[2021-05-02 10:30] LABS: BUN Creatinine Ratio 25.7 (6-22); Blood Urea Nitrogen 28 mg/dL (7-17); Calcium 11.4 mg/dL (8.4-10.2); Carbon Dioxide 27 mmol/L (22-32); Chloride 104 mmol/L (98-107); Estimated Glomerular Filt Rate 48.8 mL/min (>60); Glucose 89 mg/dL (80-110); HEMOLYSIS < 15 (0-50); Potassium 5.1 mmol/L (3.4-5.1); Sodium 136 mmol/L (137-145)
[2021-05-02 11:17] LABS: Creatinine Urine Random 65.4 mg/dL; Protein (Total) Urine Random 15 mg/dL (0-12); Protein Creatinine Ratio Urine 0.22 GRAM/24H
== END ==
PROVIDERS: PCP Internal Medicine; Referring Provider Student in an Organized Health Care Education/Training Program; Visit Provider Student in an Organized Health Care Education/Training Program
DX: D64.9 Anemia, unspecified (principal); N05.9 Unspecified nephritic syndrome with unspecified morphologic changes; R80.9 Proteinuria, unspecified
CPT/HCPCS: 36415; 80048; 82570; 84156; 85014; 85018

== ENCOUNTER → 2021-06-08 08:53 | Outpatient (CLI) | payer MEDICARE, MEDICAID, SELFPAY ==
[2021-01-11 23:02] VITALS: BMI 32.5
[2021-06-08 11:03] LABS: BUN Creatinine Ratio 23.4 (6-22); Blood Urea Nitrogen 36 mg/dL (7-17); Calcium 10.1 mg/dL (8.4-10.2); Carbon Dioxide 24 mmol/L (22-32); Chloride 106 mmol/L (98-107); Estimated Glomerular Filt Rate 32.8 mL/min (>60); Glucose 102 mg/dL (80-110); HEMOLYSIS < 15 (0-50); Potassium 4.8 mmol/L (3.4-5.1); Sodium 138 mmol/L (137-145)
[2021-06-08 12:19] LABS: Appearance Urine UA CLEAR; Bilirubin Urine UA NEGATIVE (NEGATIVE); Color Urine UA YELLOW; Glucose Urine UA NEGATIVE (Negative); Ketones Urine UA NEGATIVE (NEGATIVE); Leukocyte Esterase Urine UA TRACE (NEGATIVE); Nitrite Urine UA NEGATIVE (Negative); Occult Blood Urine UA TRACE-LYSED (Negative); Protein Urine UA NEGATIVE (Negative); Specific Gravity Urine UA 1.015 (1.000-1.035); Urobilinogen Urine UA 0.2 E.U./dL (0.2)
[2021-06-08 12:23] LABS: Creatinine Urine Random 86.4 mg/dL; Protein (Total) Urine Random 11 mg/dL (0-12); Protein Creatinine Ratio Urine 0.12 GRAM/24H; pH Urine UA 5.5 (4.5-8.0)
[2021-06-08 12:41] LABS: Amorphous Sediment Urine 1+; Bacteria Urine Occasional (0-1); Culture Indicated Urine Specimen Cultured; RBC Urine 0-1/HPF (0-5/HPF); Squamous Epithelial Cell Urine 0-1 /HPF (0-5/HPF); WBC Urine 1-5/HPF (0-5/HPF)
[2021-06-09 04:50] LABS: Complement C3 108 mg/dL (82-167)
[2021-06-09 08:36] LABS: Parathyroid Hormone Int 49 pg/mL (15-65)
[2021-06-09 17:41] LABS: DNA (DS) Antibody <1 IU/mL (0-9)
[2021-06-10 15:47] LABS: ANA Screen, IFA Negative (.)
[2021-06-10 16:17] LABS: Albumin 3.5 g/dL (2.9-4.4); Alpha-1 Globulin, Ur 4.6 % (.); Alpha-1-Globulin 0.2 g/dL (0.0-0.4); Alpha-2-Globulin 0.6 g/dL (0.4-1.0); Beta Globulin, Ur 16.2 % (.); Gamma Globulin 0.6 g/dL (0.4-1.8); Gamma Globulin, Ur 3.1 % (.); Globulin Total 2.2 g/dL (2.2-3.9); M-Spike % Not Observed % (Not Observed); Protein, Total 5.7 g/dL (6.0-8.5); Urine Total Protein 9.9 mg/dL (Not Estab.)
[2021-06-13 10:09] LABS: Immunoglobulin A, Serum 145 mg/dL (64-422); Immunoglobulin G,Serum 620 mg/dL (586-1602); Immunoglobulin M, Serum 20 mg/dL (26-217)
[2021-06-13 14:09] LABS: Cytoplasmic C-ANCA <1:20 titer (Neg:<1:20); Perinuclear P-ANCA <1:20 titer (Neg:<1:20)
== END ==
PROVIDERS: PCP Internal Medicine; Referring Provider Student in an Organized Health Care Education/Training Program; Visit Provider Student in an Organized Health Care Education/Training Program
DX: M31.30 Wegener's granulomatosis without renal involvement (principal); M32.10 Systemic lupus erythematosus, organ or system involvement unspecified; N00.9 Acute nephritic syndrome with unspecified morphologic changes; E83.30 Disorder of phosphorus metabolism, unspecified; N25.81 Secondary hyperparathyroidism of renal origin; D47.2 Monoclonal gammopathy; R80.9 Proteinuria, unspecified; N30.00 Acute cystitis without hematuria
CPT/HCPCS: 36415; 80048; 81001; 82570; 82784; 83516; 83970; 84100; 84155; 84156; 84165; 84166; 86038; 86160; 86225; 86256; 86334; 86335; 87086

== ENCOUNTER 2021-06-24 15:10 | Emergency (ER) | payer MEDICARE, MEDICAID, SELFPAY ==
[2021-01-11 23:02] VITALS: BMI 32.5
[2021-06-24 15:22] VITALS: BP 172/79; PULSE 57; RESP 19; TEMP 36.7; O2SAT 99; BMI 30.6
--- NOTE | 2021-06-24 15:28 | PC.NURSE ---
Patient is using panty liners and has changed them today 7-8 times and reports they are not always soaked.
--- NOTE | 2021-06-24 16:26 | DI.US.S_ITS ---
PROCEDURE: US PELVIC COMPLETE INDICATIONS: vaginal bleeding TECHNIQUE: Real-time scanning was performed of the pelvic organs, with image documentation. Additional endovaginal scanning was necessary due to incomplete visualization of the adnexal and endometrial structures by transabdominal scanning. COMPARISON: [facility], , US PELVIC COMPLETE, 03/16/2021, 10:01. FINDINGS: Uterus: Uterus is retroverted and normal in size at 7.5 x 4.6 x 4.6 cm. The endometrial stripe is abnormal, measuring approximately 3 mm in thickness. The endometrial stripe is irregular and hypervascular. There is a potential mass seen within the region of the cervix that measures 3.6 x 1.9 x 2.7 cm. The uterus is heterogeneous, with fibroids as follows: Right uterus, intramural/submucosal, 3.1 x 3.4 x 3 cm Left uterus, intramural/submucosal, 1.8 x 1.5 cm Ovaries: Neither ovary is seen. Other: No pathologic free abdominal or pelvic fluid. IMPRESSION: A possible mass is seen at the level of the cervix that measures up to 3.6 cm. The endometrial stripe is distinctly abnormal, which is thickened and hypervascular. Given the age of the patient, there is strong clinical concern for endometrial neoplasm in this postmenopausal patient with a presenting history of vaginal bleeding. Gynecology consultation is recommended. Note: Concordant preliminary findings given by the cigarette inspector upon the completion of the examination to Dr. Barney at 5:45 p.m. on June 24, 2021. We strive to produce accurate, complete, and clear reports of imaging services. To assist us in improving patient care, this report was composed using standard report templates and voice recognition software. Therefore, it may contain abnormal punctuation, insertions and/or omissions. Occasional wrong-word or sound-alike substitutions may occur. Though we review the report and make efforts to correct it, we do recommend that the report be read carefully in proper context to recognize any text inaccuracies. Dictated by: Milo Acosta M.D. on 06/24/2021 at 17:21 Approved by: Milo Acosta M.D. on 06/24/2021 at 17:26
[2021-06-24 17:00] LABS: Add Manual Diff / Slide Review NO; Basophils Absolute Auto 0 /uL (0-100); Basophils Percent Auto 0.3 % (0-2); Eosinophils Absolute Auto 100 /uL (0-450); Eosinophils Percent Auto 2.4 % (2-4); Hematocrit 30.4 % (36-46); Hemoglobin 10.4 g/dL (12.0-16.0); Lymphocytes Absolute Auto 1400 /uL (1100-4500); Lymphocytes Percent Auto 32.5 % (25-40); Mean Corpuscular HGB Conc 34.3 % (30-36); Mean Corpuscular Hemoglobin 37.3 PG (26-34); Mean Corpuscular Volume 108.8 fL (80-100); Monocytes Absolute Auto 300 /uL (0-900); Monocytes Percent Auto 8.2 % (3-14); Neutrophils Absolute Auto 2400 /uL (1500-7000); Neutrophils Percent Auto 56.6 % (50-75); Platelet Count 252 X10^3/uL (150-400); Red Cell Distribution Width 13.7 % (11.6-14.8); White Blood Cell Count 4.2 X10^3/uL (4.5-11.0)
[2021-06-24 17:10] LABS: INR 1.1 (0.9-1.3)
[2021-06-24 17:12] LABS: PTT Partial Thromboplastin Tim 28 SECONDS (26.4-36.2)
[2021-06-24 17:20] LABS: Alanine Aminotransferase 9 IU/L (<35); Albumin 4.2 g/dL (3.5-5.0); Albumin Globulin Ratio 1.8 (1.0-2.8); Alkaline Phosphatase 63 U/L (38-126); Aspartate Aminotransferase 17 IU/L (14-36); BUN Creatinine Ratio 20.8 (6-22); Bilirubin Total 0.4 mg/dL (0.2-1.3); Blood Urea Nitrogen 26 mg/dL (7-17); Calcium 10.7 mg/dL (8.4-10.2); Carbon Dioxide 24 mmol/L (22-32); Chloride 109 mmol/L (98-107); Estimated Glomerular Filt Rate 41.7 mL/min (>60); Globulin 2.4 g/dL (1.7-4.1); Glucose 95 mg/dL (80-110); HEMOLYSIS < 15 (0-50); Potassium 4.8 mmol/L (3.4-5.1); Sodium 140 mmol/L (137-145); Total Protein 6.6 g/dL (6.3-8.2)
[2021-06-24 18:07] LABS: Amorphous Sediment Urine 1+; Bacteria Urine Occasional (0-1); Culture Indicated Urine Specimen Cultured; Mucus Urine 1+ (Negative); RBC Urine 30-100/HPF (0-5/HPF); Squamous Epithelial Cell Urine 1-5 /HPF (0-5/HPF); WBC Urine 5-10/HPF (0-5/HPF)
--- NOTE | 2021-06-24 18:43 | ED_ITS ---
HPI - Female Genitourinary General Chief complaint: Vaginal Bleeding Stated complaint: Vaginal Bleeding/Passing Clots Time Seen by Provider: 06/24/21 17:00 Source: patient Mode of arrival: Ambulatory History of Present Illness HPI Narrative: The patient has experienced vaginal bleeding for several months. Bleeding has recently increased. It is noted she has history of coronary artery disease, she takes aspirin and Plavix. Regarding the bleeding, she was evaluated March 2020. Ultrasound at that time revealed thickened endometrium, recent concerns for neoplasm. Cut Off Machine Unloader consult revealed a narrowed vaginal canal, and cervical steno sis. Surgical D and C was recommended for histologic sampling. There has been no follow through since March. She has severe difficult comorbidity. She is here hyperparathyroidism as well as the barrel charrer helper concerns. Apparently there was an attempt to align surgeons to address the parathyroid as well as the barrel charrer helper issues simultaneously. Neither issue has been successfully addressed thus far, resulting in her return here at this time. She describes abdominal discomfort. She has very poor appetite. She is able eat. She is issue should renal function but she has urine output. She has normal bowel movements. She has experienced significant weight loss in recent months. She was seen December 2020, CT revealed a small bowel obstruction, bilateral kidney stones, atrophic uterus with a fibroid. No intra-abdominal or pelvic masses were otherwise identified at that time. She denies recent illness. She has no fever, chills, or sore throat. She has no cough, no dyspnea or chest discomfort. She has no weakness or dizziness. Related Data Home Medications Medication Instructions Recorded Confirmed acetaminophen 650 mg 650 mg PO Q8H PRN 03/07/18 03/28/21 tablet,extended release (Tylenol Arthritis Pain) clopidogrel 75 mg tablet 75 mg PO QAM 03/07/18 03/28/21 carvedilol 12.5 mg tablet 12.5 mg PO BID 12/27/18 03/28/21 febuxostat 80 mg tablet 80 mg PO QAM 12/27/18 03/28/21 aspirin 81 mg chewable tablet 81 mg PO QAM 09/08/19 03/28/21 amiloride 5 mg tablet 5 mg PO DAILY 03/28/21 03/28/21 lisinopril PO 03/28/21 03/28/21 Allergies Allergy/AdvReac Type Severity Reaction Status Date / Time Cephalosporins Allergy Severe Hives Verified 12/10/21 15:22 Penicillins [PENICILLINS] Allergy Intermediate RASH Verified 06/24/21 15:22 erythromycin base Allergy Hives Verified 06/24/21 15:22 Review of Systems Constitutional Constitutional: Reports as per HPI, Denies body ache(s), Denies chills, Reports fatigue, Denies fever(s), Reports poor appetite and Reports weight loss ENT Ears, Nose, Mouth, and Throat: Denies dizziness, Denies sinus pain and Denies sore throat Cardiovascular Cardiovascular: Denies chest pain, Denies syncope, Denies leg edema and Denies lightheadedness Respiratory Respiratory: Denies chest congestion and Denies cough Gastrointestinal Gastrointestinal: Reports as per HPI and Reports abdominal pain Genitourinary Genitourinary: Reports as per HPI Musculoskeletal Comments: Chronic bilateral hip pain. Integumentary/Breasts Skin/Breast: Denies lesions and Denies rash Neurologic Neurologic: Reports system reviewed and no additional complaints, except as documented, Denies confusion, Denies dizziness and Denies syncope Psychiatric Psychiatric: Denies confusion Endocrine Endocrine: Reports fatigue Patient History Medical History Abnormal vaginal bleeding with endometrial thickness greater than 5 mm present on transvaginal ultrasound in postmenopausal patient Adjustment disorder with mixed anxiety and depressed mood CHF (congestive heart failure) Essential hypertension Hx of renal calculi Hyperlipidemia Obstructive uropathy Postmenopausal bleeding Senile atrophic vaginitis ST elevation myocardial infarction (STEMI) of lateral wall Stenosis, cervix Urethral polyp Surgical History History of cholecystectomy History of common carotid artery stent placement History of tonsillectomy and adenoidectomy Family History Father Congestive heart failure Sister No problems noted. alcohol intake frequency: holidays/special occasions only Substance Use Type: does not use Exam Initial Vital Signs Initial Vital Signs: Vital Signs Temperature 98.0 F 06/24/21 15:22 Pulse Rate 57 L 06/24/21 15:22 Respiratory Rate 19 06/24/21 15:22 Blood Pressure 172/79 H 06/24/21 15:22 Pulse Oximetry 99 06/24/21 15:22 Const General: cooperative, comfortable and anxious HENAR Head: normal to inspection, normocephalic and atraumatic Mouth: oral mucosae normal Eyes Conjunctivae: conjunctivae normal Sclera: sclerae normal Cornea: corneas normal Pupils: PERRL EOM: EOM intact bilaterally Neck Neck: normal visual inspection Chest Chest: normal inspection of the chest Resp Auscultation: clear to auscultation bilaterally Cardio Rate: regular rate Rhythm: regular rhythm Heart Sounds: S1 normal, S2 normal and no murmurs GI Other: Obese abdomen. Palpable, easily reducible, ventral hernia. No palpable masses. Normal bowel sounds. Speculum Exam - Vagina: other (Deferred. See HPI.) Back/Spine/Pelvis Back: normal to inspection, No back tenderness and No CVA tenderness Skin General: no rashes or lesions noted Neuro General: patient alert, patient awake, patient oriented x3 and no focal motor deficits Extrem General: normal to inspection, no pedal edema and no calf tenderness Psych Appearance: well kempt Mental Status: mental status grossly normal Mood: anxious mood Course Orders Ordered: ED Orders 06/24/21 16:26 US pelvic complete Stat 06/24/21 16:46 Complete Blood Count AUTO DIFF Stat Comprehensive Metabolic Panel Stat Partial Thromboplastin Time Stat Prothrombin Time INR Stat 06/24/21 17:32 Urine Culture Stat Urine Microscopic Stat Vital Signs Vital signs: Vital Signs - 8 hr 06/24/21 15:22 Temperature 98.0 F Pulse Rate 57 L Respiratory Rate 19 Blood Pressure 172/79 H Pulse Oximetry 99 MDM - Female Genitourinary Lab Data Result diagrams: 06/24/21 16:46 06/24/21 16:46 Labs: Lab Results 06/24/21 06/24/21 06/24/21 Range/Units 16:46 16:46 16:46 WBC 4.2 L (4.5-11.0) X10^3/uL RBC 2.80 L (4.0-5.2) X10^6/uL Hgb 10.4 L (12.0-16.0) g/dL Hct 30.4 L (36-46) % MCV 108.8 H (80-100) fL MCH 37.3 H (26-34) PG MCHC 34.3 (30-36) % RDW 13.7 (11.6-14.8) % Plt Count 252 (150-400) X10^3/uL Neut % (Auto) 56.6 (50-75) % Lymph % (Auto) 32.5 (25-40) % [place] % (Auto) 8.2 (3-14) % Eos % (Auto) 2.4 (2-4) % Baso % (Auto) 0.3 (0-2) % Neut # (Auto) 2400 (2845-0209) /uL Lymph # (Auto) 1400 (9555-2540) /uL [place] # (Auto) 300 (0-900) /uL Eos # (Auto) 100 (0-450) /uL Baso # (Auto) 0 (0-100) /uL PT 12.0 (10.1-12.7) SECONDS INR 1.1 (0.9-1.3) APTT 28 (26.4-36.2) SECONDS Sodium 140 (137-145) mmol/L Potassium 4.8 (3.4-5.1) mmol/L Chloride 109 H (98-107) mmol/L Carbon Dioxide 24 (22-32) mmol/L BUN 26 H (7-17) mg/dL Creatinine 1.25 H (0.52-1.04) mg/dL Estimated GFR 41.7 L (>60) mL/min BUN/Creatinine Ratio 20.8 (6-22) Glucose 95 (80-110) mg/dL Calcium 10.7 H (8.4-10.2) mg/dL Total Bilirubin 0.4 (0.2-1.3) mg/dL AST 17 (14-36) IU/L ALT 9 (<35) IU/L Alkaline Phosphatase 63 (38-126) U/L Total Protein 6.6 (6.3-8.2) g/dL Albumin 4.2 (3.5-5.0) g/dL Globulin 2.4 (1.7-4.1) g/dL Albumin/Globulin Ratio 1.8 (1.0-2.8) Urine RBC (0-5/HPF) Urine WBC (0-5/HPF) Ur Squamous Epith Cells (0-5/HPF) Amorphous Sediment Urine Bacteria (None) Urine Mucus (Negative) Ur Culture Indicated? 06/24/21 Range/Units 17:32 WBC (4.5-11.0) X10^3/uL RBC (4.0-5.2) X10^6/uL Hgb (12.0-16.0) g/dL Hct (36-46) % MCV (80-100) fL MCH (26-34) PG MCHC (30-36) % RDW (11.6-14.8) % Plt Count (150-400) X10^3/uL Neut % (Auto) (50-75) % Lymph % (Auto) (25-40) % [place] % (Auto) (3-14) % Eos % (Auto) (2-4) % Baso % (Auto) (0-2) % Neut # (Auto) (8894-5134) /uL Lymph # (Auto) (8271-0103) /uL [place] # (Auto) (0-900) /uL Eos # (Auto) (0-450) /uL Baso # (Auto) (0-100) /uL PT (10.1-12.7) SECONDS INR (0.9-1.3) APTT (26.4-36.2) SECONDS Sodium (137-145) mmol/L Potassium (3.4-5.1) mmol/L Chloride (98-107) mmol/L Carbon Dioxide (22-32) mmol/L BUN (7-17) mg/dL Creatinine (0.52-1.04) mg/dL Estimated GFR (>60) mL/min BUN/Creatinine Ratio (6-22) Glucose (80-110) mg/dL Calcium (8.4-10.2) mg/dL Total Bilirubin (0.2-1.3) mg/dL AST (14-36) IU/L ALT (<35) IU/L Alkaline Phosphatase (38-126) U/L Total Protein (6.3-8.2) g/dL Albumin (3.5-5.0) g/dL Globulin (1.7-4.1) g/dL Albumin/Globulin Ratio (1.0-2.8) Urine RBC 30-100/hpf H (0-5/HPF) Urine WBC 5-10/hpf H (0-5/HPF) Ur Squamous Epith Cells 1-5 /hpf (0-5/HPF) Amorphous Sediment 1+ Urine Bacteria Occasional (0-1) (None) Urine Mucus 1+ H (Negative) Ur Culture Indicated? Specimen cultured Urine Dip Bedside Urine Glucose Negative Bedside Urine Bilirubin - Negative Bedside Urine Ketone - Negative Urine Specific [place] 1.025 Bedside Urine Occult Blood +++ Bedside Urine pH 5.5 Bedside Urine Protein - Negative Bedside Urine Urobilinogen 0.2 Bedside Urine Nitrite - Negative Bedside Urine Leukocytes + 70 Esterase Imaging Data US - SKYLIGHTS ASSEMBLER: Radiologist's Impression: [address] [address] Ultrasound Report Signed Patient: Inga Julian MR#: [id number] : 1945 Acct:[id number] Age/Sex: 76 / F Date of Service: 06/24/21 Loc: ED Accession Number: [id number] ?? Procedure: US pelvic complete Ordering Provider: Jose Barney MD PROCEDURE:? US PELVIC COMPLETE ? INDICATIONS:? vaginal bleeding ? TECHNIQUE:? Real-time scanning was performed of the pelvic organs, with image documentation.? Additional endovaginal scanning was necessary due to incomplete visualization of the adnexal and endometrial structures by transabdominal scanning.? ? COMPARISON:? [facility], US PELVIC COMPLETE, 03/16/2021, 10:01. ? FINDINGS:? ?? Uterus:? Uterus is retroverted and normal in size at 7.5 x 4.6 x 4.6 cm.? The endometrial stripe is abnormal, measuring approximately 3 mm in thickness.? The endometrial stripe is irregular and hypervascular.? There is a potential mass seen within the region of the cervix that measures 3.6 x 1.9 x 2.7 cm. ? The uterus is heterogeneous, with fibroids as follows: ? Right uterus, intramural/submucosal, 3.1 x 3.4 x 3 cm Left uterus, intramural/submucosal, 1.8 x 1.5 cm ? Ovaries:? Neither ovary is seen. ? Other:? No pathologic free abdominal or pelvic fluid. ? ? IMPRESSION:? A possible mass is seen at the level of the cervix that measures up to 3.6 cm. ? The endometrial stripe is distinctly abnormal, which is thickened and hypervascular.? Given the age of the patient, there is strong clinical concern for endometrial neoplasm in this postmenopausal patient with a presenting history of vaginal bleeding. ? Gynecology consultation is recommended. ? Note: Concordant preliminary findings given by the account auditor upon the completion of the examination to Dr. Barney at 5:45 p.m. on June 24, 2021. ? ? ? We strive to produce accurate, complete, and clear reports of imaging services. To assist us in improving patient care, this report was composed using standard report templates and voice recognition software. Therefore, it may contain abnormal punctuation, insertions and/or omissions. Occasional wrong-word or sound-alike substitutions may occur. Though we review the report and make efforts to correct it, we do recommend that the report be read carefully in proper context to recognize any text inaccuracies. ? ? Dictated by: Milo Acosta M.D. on 06/24/2021 at 17:21 ? ? Approved by: Milo Acosta M.D. on 06/24/2021 at 17:26?? MDM Narrative Medical decision making narrative: The patient is clinically stable, her H&H is stable despite the blood loss. It is understood that she has significant comorbidities. She is on aspirin and Plavix for coronary artery disease. The ultrasound again raises great concern for gynecologic cancer. Additional workup has not yet occurred. I discussed the situation with the on-call child life specialist, Dr. lFor. Dr. Lopez's took immediate interest in the patient's needs. She agreed to assist the patient in proceeding with the appropriate barrel charrer helper workup next week, perhaps with referral to Cut Off Machine Unloader-Onc at the [facility]. Thank you Dr. Flor. Discharge Plan Departure Patient Disposition: Home Clinical Impression: Abnormal endometrial ultrasound, Mass of uterine cervix Instructions: DI for Vaginal Bleeding Activity Restrictions/Additional Instructions: The ultrasound raises significant concern for uterine/cervical cancer. Despite the bleeding, your blood counts are normal. You do not need immediate intervention for blood loss. If he of significant increase in bleeding return here. I have discussed your case with Gynecology, Dr. Flor. I will be forwarding your record to her. She will provide further guidance next week. She mentioned likely referring you to the [facility]. Prescriptions: No Action lisinopril PO 0RF amiloride 5 mg tablet 5 mg PO DAILY 0RF clopidogrel 75 mg Tablet 75 mg PO QAM 0RF acetaminophen [Tylenol Arthritis Pain] 650 mg Tablet Extended Release 650 mg PO Q8H PRN (Reason: Pain (Scale Score 1-3)) 0RF carvedilol 12.5 mg tablet 12.5 mg PO BID 0RF Label Comments: TK 1 T PO BID febuxostat 80 mg tablet 80 mg PO QAM 0RF Label Comments: TK 1 T PO QD aspirin 81 mg Tablet,Chewable 81 mg PO QAM 0RF Referrals: Jose Neumann MD [Primary Care Provider] - [place],MD Donna [Physician] -
[2021-06-24 19:18] VITALS: BP 200/84; PULSE 64; RESP 18; O2SAT 98
== END 2021-06-24 19:30 | disposition home or self-care (01) ==
PROVIDERS: Emergency Provider Emergency Medicine; PCP Internal Medicine
DX: R93.89 Abnormal findings on diagnostic imaging of other specified body structures (principal); N85.9 Noninflammatory disorder of uterus, unspecified; Z79.02 Long term (current) use of antithrombotics/antiplatelets; Z79.82 Long term (current) use of aspirin
CPT/HCPCS: 36415; 76830; 76856; 80053; 81003; 81015; 85025; 85610; 85730; 87086; 99283; 99284

== ENCOUNTER → 2021-08-09 06:50 | Outpatient (CLI) | payer MEDICARE, MEDICAID, SELFPAY ==
[2021-01-11 23:02] VITALS: BMI 32.5
--- NOTE | 2021-08-09 | DI.US.S_ITS ---
PROCEDURE: US THYROID INDICATIONS: HYPERPARATHYROIDISM TECHNIQUE: Real-time scanning was performed of the thyroid gland, with image documentation. COMPARISON: [facility], [place], [place] PARATHYROID WITH SPECT, 03/17/2021, 9:01. [facility], CT, CT ANGIO CHEST PE PROTOCOL, 12/27/2018, 1:01. FINDINGS: Right: Thyroid lobe measures 4.7 x 1.7 x 1.6 cm, and is homogeneous in echotexture. Left: Thyroid lobe measures 4.6 x 2 x 2 x 1.9 cm. Isthmus: 3.4 mm thick. Scrutiny is given to parathyroid glands. None can be seen. Nodule number: 1 Location: Left superior thyroid Size: 2.4 x 2.2 x 1.4 cm. Composition: Solid Echogenicity: Minimally hypoechoic Shape: wider than tall. Margins: Smooth Echogenic foci: None. Total points: 4 ACR TI-RADS category: 4 IMPRESSION: No parathyroid glands are seen on this study. The apparent left parathyroid nodule is not seen on these ultrasound images. There is a 2.4 cm left thyroid nodule seen. By published criteria, ultrasound-guided percutaneous biopsy is recommended. ACR TI-RADS definitions and recommendations: TI-RADS 1 (benign): 0 points. FNA not needed. TI-RADS 2 (not suspicious): 2 points. FNA not needed. TI-RADS 3 (mildly suspicious): 3 points. * FNA if 2.5 cm or larger, follow up if 1.5 cm or larger (at 1, 3, and 5 years). TI-RADS 4 (moderately suspicious): 4-6 points. * FNA if 1.5 cm or larger, follow up if 1 cm or larger (at 1, 2, 3, and 5 years). TI-RADS 5 (highly suspicious): 7 points or more. * FNA if 1 cm or larger, follow up if 0.5 cm or larger (every year for 5 years). Dictated by: Milo Acosta M.D. on 08/09/2021 at 8:25 Approved by: Milo cAosta M.D. on 08/09/2021 at 8:29
== END ==
PROVIDERS: PCP Internal Medicine; Referring Provider Surgery Surgical Oncology; Visit Provider Surgery Surgical Oncology
DX: E21.3 Hyperparathyroidism, unspecified (principal); E04.1 Nontoxic single thyroid nodule
CPT/HCPCS: 76536

== ENCOUNTER → 2021-10-10 11:31 | Outpatient (CLI) | payer MEDICARE, MEDICAID, SELFPAY ==
[2021-01-11 23:02] VITALS: BMI 32.5
--- NOTE | 2021-10-10 11:33 | DI.CT.S_ITS ---
PROCEDURE: CT CHEST ABD PEL W CON INDICATIONS: uterine cancer staging TECHNIQUE: After the administration of oral and intravenous contrast, axial sections acquired from the supraclavicular neck to the pubic symphysis. Coronal and sagittal reformats were performed. For radiation dose reduction, the following was used: automated exposure control, adjustment of mA and/or kV according to patient size. COMPARISON:[facility], CT, CT ABDOMEN PELVIS W CON, 01/11/2021, 19:04. [facility], [place], US THYROID, 08/09/2021, 7:21. [facility], [place], US PELVIC COMPLETE, 06/24/2021, 17:15. [facility], CT, CT ANGIO CHEST PE PROTOCOL, 12/27/2018, 1:01. FINDINGS: Image quality: Excellent. CHEST: Lower Neck: No enlarged lymph nodes. Thyroid: Left thyroid nodule is better demonstrated on recent ultrasound from 08/09/2021. Axillae: No enlarged lymph nodes. Chest Wall: Unremarkable. Lungs and Airways: No acute consolidation. 4 mm solid nodule is seen in the superior segment of the left lower lobe (118/3). A 2 mm nodule is seen in the central left upper lobe (139/3). A 3 mm nodule is seen at the left lung base (208/3). Pleura: No pneumothorax or pleural effusions. Heart: Heart size is normal. No pericardial effusion. Coronary artery calcifications are present. Thoracic Vessels: The aorta and pulmonary arteries demonstrate normal size. Mediastinum and Ilene: No enlarged lymph nodes. Esophagus: No wall thickening. No hiatal hernia. ABDOMEN: Liver: Unremarkable. Gallbladder: Unremarkable. Biliary ducts: Unremarkable. Pancreas: Unremarkable. Spleen: Unremarkable. Adrenal Glands: Unremarkable. Kidneys and Ureters: Duplex left renal collecting system is noted. There is mild bilateral renal atrophy. Bilateral nonobstructing renal calculi are seen measuring up to 3 mm in maximum dimension. No hydronephrosis. Stomach and Bowel: Communicating posterior gastric fundal diverticulum is noted. No most diverticula are seen in the sigmoid colon. The cecum is located in the right upper quadrant. Normal appendix. The transverse colon is located within a ventral hernia without signs of bowel obstruction. Peritoneum: No abnormal intraperitoneal fluid. No free air. Ventral Wall: A midline ventral hernia is seen containing fat and a portion of the transverse colon without signs of bowel obstruction. The hernia measures up to 18.4 x 5.6 by 11 cm with neck measuring 4.7 x 3.9 cm. Abdominal Nodes: No retroperitoneal or mesenteric adenopathy by size criteria. Vessels: Aorta and inferior vena cava are normal in size. Moderate aortic atherosclerotic calcifications. PELVIS: Pelvic Organs: Status post hysterectomy. The ovaries are not well seen and may be absent. A small amount of fluid is seen in the left pelvis in the expected location of the left ovary that is likely postsurgical in nature. Bladder: Bladder is underdistended, which limits evaluation.. Pelvic Nodes: No enlarged lymph nodes. Miscellaneous: No inguinal hernias are seen. Bones: Severe degenerative changes are seen in the left hip. Degenerative changes are seen in the bilateral sacroiliac joints. Mild multilevel degenerative changes are seen in the spine including grade 1 anterolisthesis of L4 on L5. No focal osteolytic or osteoblastic lesion is seen. Healed left-sided 6th rib fracture. IMPRESSION: 1. Status post hysterectomy. No focal pelvic mass is seen. Small fluid collection in the left posterior pelvis in the expected region of the left ovary is most likely postsurgical in nature. 2. No significant lymphadenopathy in the pelvis, abdomen, or chest. 3. Small left-sided pulmonary nodules measuring up to 4 mm are most likely benign. Recommend attention on follow-up exams. 4. Large ventral abdominal hernia containing fat and transverse colon without signs of bowel obstruction. Colonic diverticulosis. 5. Nonobstructing bilateral renal calculi. Mild renal cortical atrophy. Dictated by: Mark Stevens M.D. on 10/10/2021 at 14:05 Approved by: Mark Stevens M.D. on 10/10/2021 at 14:30
== END ==
PROVIDERS: PCP Internal Medicine; Referring Provider Internal Medicine Medical Oncology; Visit Provider Internal Medicine Medical Oncology
DX: C55 Malignant neoplasm of uterus, part unspecified (principal); R91.8 Other nonspecific abnormal finding of lung field; K46.9 Unspecified abdominal hernia without obstruction or gangrene; K57.90 Diverticulosis of intestine, part unspecified, without perforation or abscess without bleeding; N20.0 Calculus of kidney; Z90.710 Acquired absence of both cervix and uterus
CPT/HCPCS: 71260; 74177

== ENCOUNTER → 2021-10-10 12:49 | Outpatient (CLI) | payer MEDICARE, MEDICAID, SELFPAY ==
[2021-01-11 23:02] VITALS: BMI 32.5
[2021-10-10 14:35] LABS: COVID19 -Nasal RAPID Negative (Negative)
== END ==
PROVIDERS: PCP Internal Medicine; Visit Provider Surgery
DX: Z01.812 Encounter for preprocedural laboratory examination (principal); Z20.822 Contact with and (suspected) exposure to COVID-19
CPT/HCPCS: 87635; C9803

== ENCOUNTER 2021-10-10 17:30 | Observation (INO) | payer MEDICARE, MEDICAID, SELFPAY ==
[2021-01-11 23:02] VITALS: BMI 32.5
[2021-10-10] VITALS (13 sets, daily range): BP systolic 94–118; BP diastolic 46–68; PULSE 56–67; RESP 14–31; TEMP 36.6; O2SAT 93–99; BMI 27.5; BMI 27.3
--- NOTE | 2021-10-10 17:33 | DI.RAD.S_ITS ---
PROCEDURE: XR CHEST 1V INDICATIONS: chest pain TECHNIQUE: One view of the chest was acquired. COMPARISON: [facility], [place], XR CHEST 1V, 09/08/2019, 7:48. FINDINGS: Surgical changes and devices: None. Lungs and pleura: Lungs are clear. No pleural effusions or pneumothorax. Mediastinum: Mediastinal contours appear normal. Heart size is normal. Bones and chest wall: No suspicious bony lesions. Overlying soft tissues appear unremarkable. IMPRESSION: No acute cardiopulmonary process demonstrated radiographically. Dictated by: Jorge Chance M.D. on 10/10/2021 at 18:24 Approved by: Jorge Chance M.D. on 10/10/2021 at 18:26
--- NOTE | 2021-10-10 18:00 | PC.NURSE ---
Multiple attempts at IV by multiple nurses failed, DI nurse Thompson at bedside attempting to obtain ultraosund guided IV.
[2021-10-10] MEDS: SODIUM CHLORIDE 0.9% 1,000 ML 1000 ML IV (18:09)
[2021-10-10] MEDS: MORPHINE 4 MG/ML INJ IV ×2 (18:10→20:30)
[2021-10-10 18:21] LABS: Add Manual Diff / Slide Review NO; Basophils Absolute Auto 0 /uL (0-100); Basophils Percent Auto 0.1 % (0-2); Eosinophils Absolute Auto 0 /uL (0-450); Eosinophils Percent Auto 0.4 % (2-4); Hematocrit 30.8 % (36-46); Hemoglobin 10.4 g/dL (12.0-16.0); Lymphocytes Absolute Auto 100 /uL (1100-4500); Lymphocytes Percent Auto 2.9 % (25-40); Mean Corpuscular HGB Conc 33.9 % (30-36); Mean Corpuscular Hemoglobin 37.1 PG (26-34); Mean Corpuscular Volume 109.5 fL (80-100); Monocytes Absolute Auto 0 /uL (0-900); Monocytes Percent Auto 0.8 % (3-14); Neutrophils Absolute Auto 4200 /uL (1500-7000); Neutrophils Percent Auto 95.8 % (50-75); Platelet Count 258 X10^3/uL (150-400); Red Blood Cell Count 2.81 X10^6/uL (4.0-5.2); Red Cell Distribution Width 13.4 % (11.6-14.8); White Blood Cell Count 4.4 X10^3/uL (4.5-11.0)
[2021-10-10 18:29] LABS: Alanine Aminotransferase 14 IU/L (<35); Albumin 4.2 g/dL (3.5-5.0); Albumin Globulin Ratio 1.6 (1.0-2.8); Alkaline Phosphatase 44 U/L (38-126); Aspartate Aminotransferase 23 IU/L (14-36); BUN Creatinine Ratio 26.6 (6-22); Bilirubin Total 0.5 mg/dL (0.2-1.3); Blood Urea Nitrogen 33 mg/dL (7-17); Calcium 9.4 mg/dL (8.4-10.2); Carbon Dioxide 17 mmol/L (22-32); Chloride 107 mmol/L (98-107); Creatine Kinase 42 U/L (30-135); Estimated Glomerular Filt Rate 42.1 mL/min (>60); Globulin 2.6 g/dL (1.7-4.1); Glucose 92 mg/dL (80-110); HEMOLYSIS 47 (0-50); Lipase 31 U/L (23-300); Magnesium 1.9 mg/dL (1.6-2.3); Sodium 135 mmol/L (137-145); Total Protein 6.8 g/dL (6.3-8.2)
[2021-10-10 18:32] LABS: Potassium 5.5 mmol/L (3.4-5.1)
[2021-10-10 18:40] LABS: Troponin I < 0.012 ng/mL (0.01-0.034)
[2021-10-10 18:47] LABS: NT-proBNP (BNP-Adult 18+) 1030 pg/mL (<450)
[2021-10-10 18:49] LABS: Prothrombin Time 11.6 SECONDS (10.1-12.7)
[2021-10-10 18:52] LABS: PTT Partial Thromboplastin Tim 21 SECONDS (26.4-36.2)
--- NOTE | 2021-10-10 18:57 | ED_ITS ---
HPI - Chest Pain General Chief Complaint: Chest Pain Stated Complaint: Chest Pain Time Seen by Provider: 10/10/21 17:39 Source: patient and EMS Mode of arrival: EMS History of Present Illness HPI narrative: 76-year-old woman with a history of both endometrial and parathyroid hormone cancer post hysterectomy August 19 at the [facility] she is scheduled for a Port-A-Cath to be placed into days. She was sitting at her com puter she stood up and broken to sweat, describes pain in the epigastrium radiating both to the abdomen and up to the chest, nausea but no emesis increasing weakness with near syncope. She did have a prior myocardial infarction in 2008 when she was living in [place] resulted in 2 stents being placed and she remains on Plavix. She describes the pain from that episode is decidedly distinctly different. She has not been have any overt diarrhea or vomiting. With her recent laparoscopic-assisted vaginal hysterectomy she is having some mild abdominal pelvic pain but notes that this has been improving significantly. She was relatively hypotensive for the medics so she was given aspirin but no nitro prior to arrival. She was given some morphine on arrival in the emergency department and noted that the epigastric/chest pain is improved but the mild right-sided neck pain was still present. At 6:30 a.m. she complained of increasing pain radiating up into the right angle of the jaw. Blo od pressure remains in the 104/60 range while she is supine so nitro is held. Related Data Home Medications Medication Instructions Recorded Confirmed acetaminophen 650 mg 650 mg PO Q8H PRN 03/07/18 10/11/21 tablet,extended release (Tylenol Arthritis Pain) clopidogrel 75 mg tablet 75 mg PO QAM 03/07/18 10/11/21 carvedilol 12.5 mg tablet 12.5 mg PO BID 12/27/18 10/11/21 febuxostat 80 mg tablet 80 mg PO QAM 12/27/18 10/11/21 aspirin 81 mg chewable tablet 81 mg PO QAM 09/08/19 10/11/21 hydrocodone 5 mg-acetaminophen 325 1 tab PO Q4-6H PRN 10/05/21 10/11/21 mg tablet pravastatin 20 mg tablet 20 mg PO DAILY 10/05/21 10/11/21 lisinopril 10 mg tablet 10 mg PO DAILY 10/06/21 10/11/21 Allergies Allergy/AdvReac Type Severity Reaction Status Date / Time Cephalosporins Allergy Severe Hives Verified 10/10/21 18:01 Penicillins [PENICILLINS] Allergy Intermediate RASH Verified 10/10/21 18:01 erythromycin base Allergy Hives Verified 10/10/21 18:01 Review of Systems Review of Systems Narrative: Remainder of complete review of systems is otherwise unremarkable except for severiano t included in the HPI. Patient History Medical History Abnormal vaginal bleeding with endometrial thickness greater than 5 mm present on transvaginal ultrasound in postmenopausal patient Adjustment disorder with mixed anxiety and depressed mood CHF (congestive heart failure) Essential hypertension Hx of renal calculi Hyperlipidemia Obstructive uropathy Postmenopausal bleeding Senile atrophic vaginitis ST elevation myocardial infarction (STEMI) of lateral wall Stenosis, cervix Urethral polyp Surgical History History of cholecystectomy History of common carotid artery stent placement History of tonsillectomy and adenoidectomy History of total hysterectomy with bilateral salpingo-oophorectomy (BSO) Hx of parathyroidectomy Family History Father Congestive heart failure Sister No problems noted. Social History details: Patient lives with her niece and sister, retired household members: family Smoking Status: Never smoker alcohol intake: current substance use type: does not use Smoking Status: Never smoker alcohol intake frequency: holidays/special occasions only Substance Use Type: does not use Exam Initial Vital Signs Initial Vital Signs: Vital Signs Pulse Rate 58 L 10/10/21 17:51 Respiratory Rate 19 10/10/21 17:51 Pulse Oximetry 96 10/10/21 17:51 General: Pale-appearing, in no acute distress. Able to give a complete and coherent history. Well-nourished well-developed HEENT: Moist mucous membranes, normal sclera with reactive pupils, Neck: No JVD, supple Respiratory: Lungs are clear to auscultation, no wheezing no rales no rhonchi. Full and symmetrical air movement Cardiac: Regular rate and rhythm with 3/6 systolic ejection murmur, no bruits. Abdomen: Soft, nontender, good bowel tones, no flank pain. Nicely healing trocar sites and an old nontender mid abdominal hernia. Skin: Warm pale and dry, no rashes Neurologic: Globally weak but Grossly neurologically intact with no obvious asymmetries or abnormalities Extremities: No trauma, well perfused Psych: Cooperative, appropriate insight and affect Course Course Course Narrative: Discussion regarding end of life issues. She states ?my entire family knows my wishes?. She fairly clearly states that she wants to be DNR however does want to do all treatments up to that point. Orders Ordered: ED Orders 10/10/21 17:33 XR chest 1V Stat EKG-12 Lead Stat 10/10/21 18:00 Complete Blood Count AUTO DIFF Stat Comprehensive Metabolic Panel Stat Lipase Stat Magnesium Stat NT-proBNP (BNP-Adult 18+) Stat Partial Thromboplastin Time Stat Prothrombin Time INR Stat Troponin & CK Cardiac Panel Stat 10/10/21 18:41 EKG-12 Lead Stat 10/10/21 20:25 Trop I [Troponin I] Stat 10/11/21 00:02 NM jakub perf SPECT R&S pharm Stat 10/11/21 00:49 Troponin I Q8H 10/11/21 00:49 EC echo doppler complete Routine Lipid Panel Routine 10/11/21 08:49 Troponin I Q8H Acetaminophen (Acetaminophen 325 Mg Tablet) 650 mg PO Q8H PRN PRN Reason: Pain (Scale Score 1-3) Hydrocodone Bitart/Acetaminophen (Hydrocodone/Acet 5/325 Tablet) 1 tab PO Q4H PRN PRN Reason: Pain (Scale Score 4-6) Aspirin (Aspirin 81 Mg Chew Tab) 81 mg PO DAILY [facility] Last Admin: 10/11/21 01:32 Dose: 81 mg Documented by: HERBERT Carvedilol (Carvedilol 12.5 Mg Tablet) 12.5 mg PO BID [facility] Clopidogrel Bisulfate (Clopidogrel 75 Mg Tablet) 75 mg PO DAILY [facility] Last Admin: 10/11/21 01:32 Dose: 75 mg Documented by: HERBERT Enoxaparin Sodium (Enoxaparin 40 Mg/0.4 Ml Syringe) 40 mg SUBCUT DAILY [facility] Influenza Virus Vaccine (Influenza Hd Vaccine 0.7 Ml Syringe) 0.7 ml IM .ONCE ONE Stop: 10/11/21 09:01 Lisinopril (Lisinopril 10 Mg Tablet) 10 mg PO DAILY [facility] Morphine Sulfate (Morphine 2 Mg/Ml Inj) 2 mg IV Q5MIN PRN PRN Reason: Chest Pain Nitroglycerin (Nitroglycerin 0.4 Mg Sl Tab) 0.4 mg SL [id number] PRN PRN Reason: Chest Pain Non-Formulary Medication (Febuxostat) 80 mg PO DAILY [facility] Pravastatin Sodium (Pravastatin 20 Mg Tablet) 20 mg PO DAILY [facility] Discontinued Medications Sodium Chloride (Normal Saline 0.9%) 1,000 mls @ 1,000 mls/hr IV BOLUS ONE Stop: 10/10/21 18:39 Last Infusion: 10/10/21 19:50 Dose: 0 mls/hr Documented by: Admin: 10/10/21 18:09 Dose: 1,000 mls/hr Documented by: LV Sodium Chloride (Normal Saline 0.9%) 500 mls @ 1,000 mls/hr IV BOLUS ONE Stop: 10/10/21 19:37 Last Infusion: 10/10/21 20:42 Dose: 0 mls/hr Documented by: Admin: 10/10/21 19:44 Dose: 1,000 mls/hr Documented by: LV Morphine Sulfate (Morphine 4 Mg/Ml Inj) 4 mg IV NOW ONE Stop: 10/10/21 17:43 Last Admin: 10/10/21 18:10 Dose: 4 mg Documented by: LV Morphine Sulfate (Morphine 4 Mg/Ml Inj) 4 mg IV NOW ONE Stop: 10/10/21 20:08 Last Admin: 10/10/21 20:30 Dose: 4 mg Documented by: LV Vital Signs Vital signs: Vital Signs - 8 hr 10/10/21 18:30 10/10/21 18:32 10/10/21 18:46 Pulse Rate 58 L 58 L 65 Respiratory Rate 17 15 20 Blood Pressure 107/53 L 105/51 L Pulse Oximetry 98 97 96 10/10/21 19:00 10/10/21 19:15 10/10/21 19:30 Pulse Rate 61 61 67 Respiratory Rate 18 16 31 H Blood Pressure 105/55 L 104/53 L Pulse Oximetry 99 98 96 10/10/21 19:45 10/10/21 20:00 Pulse Rate 64 67 Respiratory Rate 19 14 Blood Pressure 112/56 L 118/54 L Pulse Oximetry 99 98 MDM - Chest Pain Lab Data Lab results narrative: Anemia, stable, potassium has been at 5.5 over the last week. She does not have any peaked T-waves nor widened QRS. Chronic renal insufficiency somewhat better from last week. Result diagrams: 10/10/21 18:00 10/10/21 18:00 Labs: Lab Results 10/10/21 10/10/21 10/10/21 Range/Units 18:00 18:00 18:00 WBC 4.4 L (4.5-11.0) X10^3/uL RBC 2.81 L (4.0-5.2) X10^6/uL Hgb 10.4 L (12.0-16.0) g/dL Hct 30.8 L (36-46) % MCV 109.5 H (80-100) fL MCH 37.1 H (26-34) PG MCHC 33.9 (30-36) % RDW 13.4 (11.6-14.8) % Plt Count 258 (150-400) X10^3/uL Neut % (Auto) 95.8 H (50-75) % Lymph % (Auto) 2.9 L (25-40) % [place] % (Auto) 0.8 L (3-14) % Eos % (Auto) 0.4 L (2-4) % Baso % (Auto) 0.1 (0-2) % Neut # (Auto) 4200 (0445-1711) /uL Lymph # (Auto) 100 L (5457-2352) /uL [place] # (Auto) 0 (0-900) /uL Eos # (Auto) 0 (0-450) /uL Baso # (Auto) 0 (0-100) /uL PT 11.6 (10.1-12.7) SECONDS INR 1.0 (0.9-1.3) APTT 21 L D (26.4-36.2) SECONDS Sodium 135 L (137-145) mmol/L Potassium 5.5 H (3.4-5.1) mmol/L Chloride 107 (98-107) mmol/L Carbon Dioxide 17 L (22-32) mmol/L BUN 33 H (7-17) mg/dL Creatinine 1.24 H (0.52-1.04) mg/dL Estimated GFR 42.1 L (>60) mL/min BUN/Creatinine Ratio 26.6 H (6-22) Glucose 92 (80-110) mg/dL Calcium 9.4 (8.4-10.2) mg/dL Magnesium 1.9 (1.6-2.3) mg/dL Total Bilirubin 0.5 (0.2-1.3) mg/dL AST 23 (14-36) IU/L ALT 14 (<35) IU/L Alkaline Phosphatase 44 (38-126) U/L Total Creatine Kinase 42 (30-135) U/L CK-MB (CK-2) TNP CK-MB (CK-2) Rel Index TNP Troponin I < 0.012 (0.01-0.034) ng/mL NT-Pro-B Natriuret Pep (<450) pg/mL Total Protein 6.8 (6.3-8.2) g/dL Albumin 4.2 (3.5-5.0) g/dL Globulin 2.6 (1.7-4.1) g/dL Albumin/Globulin Ratio 1.6 (1.0-2.8) Lipase 31 (23-300) U/L 10/10/21 10/10/21 Range/Units 18:00 20:25 WBC (4.5-11.0) X10^3/uL RBC (4.0-5.2) X10^6/uL Hgb (12.0-16.0) g/dL Hct (36-46) % MCV (80-100) fL MCH (26-34) PG MCHC (30-36) % RDW (11.6-14.8) % Plt Count (150-400) X10^3/uL Neut % (Auto) (50-75) % Lymph % (Auto) (25-40) % [place] % (Auto) (3-14) % Eos % (Auto) (2-4) % Baso % (Auto) (0-2) % Neut # (Auto) (9317-9579) /uL Lymph # (Auto) (4898-4903) /uL [place] # (Auto) (0-900) /uL Eos # (Auto) (0-450) /uL Baso # (Auto) (0-100) /uL PT (10.1-12.7) SECONDS INR (0.9-1.3) APTT (26.4-36.2) SECONDS Sodium (137-145) mmol/L Potassium (3.4-5.1) mmol/L Chloride (98-107) mmol/L Carbon Dioxide (22-32) mmol/L BUN (7-17) mg/dL Creatinine (0.52-1.04) mg/dL Estimated GFR (>60) mL/min BUN/Creatinine Ratio (6-22) Glucose (80-110) mg/dL Calcium (8.4-10.2) mg/dL Magnesium (1.6-2.3) mg/dL Total Bilirubin (0.2-1.3) mg/dL AST (14-36) IU/L ALT (<35) IU/L Alkaline Phosphatase (38-126) U/L Total Creatine Kinase (30-135) U/L CK-MB (CK-2) CK-MB (CK-2) Rel Index Troponin I < 0.012 (0.01-0.034) ng/mL NT-Pro-B Natriuret Pep 1030 H (<450) pg/mL Total Protein (6.3-8.2) g/dL Albumin (3.5-5.0) g/dL Globulin (1.7-4.1) g/dL Albumin/Globulin Ratio (1.0-2.8) Lipase (23-300) U/L Imaging Data Chest x-ray: Radiologist's Impression: FINDINGS:? ? Surgical changes and devices:? None.? ? Lungs and pleura:? Lungs are clear.? No pleural effusions or pneumothorax.? ? Mediastinum:? Mediastinal contours appear normal.? Heart size is normal.? ? Bones and chest wall:? No suspicious bony lesions.? Overlying soft tissues appear unremarkable.? ? IMPRESSION:? No acute cardiopulmonary process demonstrated radiographically. ? ? Dictated by: Jorge Chance M.D. on 10/10/2021 at 18:24 ? ? CT chest abdomen pelvis, earlier today for cancer screening: Radiologist's Impression: INDINGS:? Image quality:? Excellent.? ? CHEST: Lower Neck: No enlarged lymph nodes.? Thyroid:? Left thyroid nodule is better demonstrated on recent ultrasound from 08/09/2021. Axillae: No enlarged lymph nodes. Chest Wall:? Unremarkable.? ? Lungs and Airways:? No acute consolidation.? 4 mm solid nodule is seen in the superior segment of the left lower lobe (118/3).? A 2 mm nodule is seen in the central left upper lobe (139/3).? A 3 mm nodule is seen at the left lung base (208/3). Pleura: No pneumothorax or pleural effusions.? ? Heart: Heart size is normal.? No pericardial effusion.? Coronary artery calcifications are present. Thoracic Vessels: The aorta and pulmonary arteries demonstrate normal size.? Mediastinum and Ilene: No enlarged lymph nodes.? Esophagus: No wall thickening. No hiatal hernia. ? ? ABDOMEN: Liver:? Unremarkable.? ? Gallbladder:? Unremarkable. Biliary ducts:? Unremarkable.? ? Pancreas:? Unremarkable.? ? Spleen:? Unremarkable.? ? Adrenal Glands:? Unremarkable.? ? Kidneys and Ureters:? Duplex left renal collecting system is noted.? There is mild bilateral renal atrophy.? Bilateral nonobstructing renal calculi are seen measuring up to 3 mm in maximum dimension.? No hydronephrosis. ? Stomach and Bowel:? Communicating posterior gastric fundal diverticulum is noted.? No most diverticula are seen in the sigmoid colon.? The cecum is located in the right upper quadrant.? Normal appendix.? The transverse colon is located within a ventral hernia without signs of bowel obstruction.? Peritoneum:? No abnormal intraperitoneal fluid.? No free air.? ? Ventral Wall: ? A midline ventral hernia is seen containing fat and a portion of the transverse colon without signs of bowel obstruction.? The hernia measures up to 18.4 x 5.6 by 11 cm with neck measuring 4.7 x 3.9 cm. Abdominal Nodes:? No retroperitoneal or mesenteric adenopathy by size criteria.? Vessels:? Aorta and inferior vena cava are normal in size.? Moderate aortic atherosclerotic calcifications. ? PELVIS: Pelvic Organs:? Status post hysterectomy.? The ovaries are not well seen and may be absent.? A small amount of fluid is seen in the left pelvis in the expected location of the left ovary that is likely postsurgical in nature.? ? Bladder:? Bladder is underdistended, which limits evaluation..? ? Pelvic Nodes: No enlarged lymph nodes.? Miscellaneous: No inguinal hernias are seen. ? ? ? Bones:? Severe degenerative changes are seen in the left hip.? Degenerative changes are seen in the bilateral sacroiliac joints.? Mild multilevel degenerative changes are seen in the spine including grade 1 anterolisthesis of L4 on L5.? No focal osteolytic or osteoblastic lesion is seen.? Healed left-sided 6th rib fracture. ? IMPRESSION:? 1. Status post hysterectomy.? No focal pelvic mass is seen.? Small fluid collection in the left posterior pelvis in the expected region of the left ovary is most likely postsurgical in nature. 2. No significant lymphadenopathy in the pelvis, abdomen, or chest. 3. Small left-sided pulmonary nodules measuring up to 4 mm are most likely benign.? Recommend attention on follow-up exams. 4. Large ventral abdominal hernia containing fat and transverse colon without signs of bowel obstruction.? Colonic diverticulosis. 5. Nonobstructing bilateral renal calculi.? Mild renal cortical atrophy. ? ? ? Dictated by: Mark Stevens M.D. on 10/10/2021 at 14:05 ? ? 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 Six weeks postop from pituitary gland removal and hysterectomy scheduled for Port-A-Cath placement to begin chemo on 10/12. She has a history of myocardial infarction with stents in 2008 and a non-STEMI approximately 2 years ago. She comes in with chest pain radiating to the right side of her neck and right side of her jaw. EKGs do not show acute ischemic changes and 1st and 2nd troponins are negative. She is on Plavix. Because of her history and anticipated chemotherapy starting in the near future would like to admit her for continued cardiac evaluation. Will talk with the hospitalist. Findings and concerns are reviewed with the patient who agrees. Discharge Plan Departure Patient Disposition: Admitted as Observation Clinical Impression: Endometrial cancer, Cancer of parathyroid gland Chest pain Qualifiers: Chest pain type: unspecified Qualified Code(s): R07.9 - Chest pain, unspecified Admit Date/Time: 10/11/21 00:06 Admit Provider: Dania Olson
[2021-10-10] MEDS: SODIUM CHLORIDE 0.9% 500 ML 1000 ML IV (19:44)
[2021-10-10 21:18] LABS: Troponin I < 0.012 ng/mL (0.01-0.034)
[2021-10-11] VITALS (9 sets, daily range): BP systolic 82–119; BP diastolic 33–56; PULSE 60–72; RESP 16–20; TEMP 37–37.5; O2SAT 93–99; BMI 27.3
--- NOTE | 2021-10-11 00:02 | DI.NM.S_ITS ---
PROCEDURE: ME SHYAM PERF SPECT SINGLE STUDY Resting myocardial perfusion SPECT, with gated imaging and ejection fraction RADIOPHARMACEUTICAL: 11.4 mCi 99m-Tc sestamibi intravenously. INDICATIONS: Chest pain TECHNIQUE: Radiopharmaceutical was injected at rest. SPECT images were obtained. SPECT myocardial perfusion images were displayed in short axis, horizontal long axis, and vertical long axis views. Gated images were reviewed using [employer] software. COMPARISON: None. FINDINGS: Raw data: There is poor quality uptake by the myocardium. Significant motion artifacts. Left ventricle function: Gated images demonstrate left ventricle wall thickening. No segmental wall motion abnormalities. No transient ischemic dilation. Left ventricle resting end-diastolic volume is 41 mL. Left ventricle resting ejection fraction is 71%; normal values are above 45%. Myocardial perfusion: There is probably normal distribution of activity in the left ventricular myocardium. IMPRESSION: 1. Poor quality rest only study. 2. No obvious resting defects. Dictated by: Nancy Foster D.O. on 10/13/2021 at 17:09 Approved by: Nancy Foster M.D. on 10/13/2021 at 17:11
--- NOTE | 2021-10-11 00:36 | P.HP_ITS ---
History of Present Illness History of Present Illness Date Patient Seen: 10/11/21 Time Patient Seen: 00:37 Chief complaint: Chest Pain Narrative: The patient is a 76-year-old female with a history of uterine cancer, congestive heart failure, hypertension, hyperlipidemia, history of myocardial infarction in 2008, and a non STEMI in 2018. The patient is currently undergoing treatment for newly diagnosed endometrial cancer. She underwent hysterectomy with bilate ral oophorectomy August 19, 2021, this showed a high-grade endometrial carcinoma. There was a peritoneal wall implant that was positive for metastatic disease as well. The patient has been referred to [facility] for systemic chemotherapy. She is scheduled for Port-A-Cath placed on Sunday. The patient has had a left inferior parathyroidectomy for benign pathology. Patient also has had a bowel obstruction related to a ventral hernia. She continues to have the ventral hernia but denies any pain. The patient was at her computer today when she stood up and developed this severe chest pain. She describes the pain as a pressure radiating to her jaw. Patient states she had pain in the epigastrium radiating up in the abdomen into the chest, she felt like she was going to pass out. She was found to be hypertensive for the medics, however after treatment her blood pressure improved significantly. She also complained of pain radiating up to the right angle of the jaw. Symptoms resolved after administration of morphine. It lasted for several hours. The pain was associated with dizziness, nausea, and shortness of breath. She felt like she was going to pass out. The pain was different from her pain she had previously with her myocardial infarction. She was quite afraid as a result of this chest pressure that she presented to the emergency room for evaluation. In the emergency room EKG did not show any acute ST T wave abnormalities. Her troponins were negative x2. Patient is admitted to the hospital at this time for further evaluation of chest pain. Patient presents with a heart score of 4. Patient History Medical History Abnormal vaginal bleeding with endometrial thickness greater than 5 mm present on transvaginal ultrasound in postmenopausal patient Adjustment disorder with mixed anxiety and depressed mood CHF (congestive heart failure) Essential hypertension Hx of renal calculi Hyperlipidemia Obstructive uropathy Postmenopausal bleeding Senile atrophic vaginitis ST elevation myocardial infarction (STEMI) of lateral wall Stenosis, cervix Urethral polyp Surgical History History of cholecystectomy History of common carotid artery stent placement History of tonsillectomy and adenoidectomy History of total hysterectomy with bilateral salpingo-oophorectomy (BSO) Hx of parathyroidectomy Family & Social History Family History Father Congestive heart failure Sister No problems noted. Social History: household members family Safety & Behavioral: Feels Safe in Current Yes Environment Been Physically Hurt or No Threatened By a Person Tobacco & Substance use: Smoking Status Never smoker alcohol intake never alcohol intake frequency holiday/special occasion Substance Use Type does not use Meds Home Medications and Allergies Home Medications Medication Instructions Recorded Confirmed Type acetaminophen 650 mg 650 mg PO Q8H PRN 03/07/18 10/06/21 History tablet,extended release (Tylenol Arthritis Pain) clopidogrel 75 mg tablet 75 mg PO QAM 03/07/18 10/06/21 History carvedilol 12.5 mg tablet 12.5 mg PO BID 12/27/18 10/06/21 History febuxostat 80 mg tablet 80 mg PO QAM 12/27/18 10/06/21 History aspirin 81 mg chewable tablet 81 mg PO QAM 09/08/19 10/06/21 History hydrocodone 5 mg-acetaminophen 325 1 tab PO Q4-6H PRN 10/05/21 10/06/21 History mg tablet pravastatin 20 mg tablet 20 mg PO DAILY 10/05/21 10/06/21 History lisinopril 10 mg tablet 10 mg PO DAILY 10/06/21 10/06/21 History Allergies Allergy/AdvReac Type Severity Reaction Status Date / Time Cephalosporins Allergy Severe Hives Verified 10/10/21 18:01 Penicillins [PENICILLINS] Allergy Intermediate RASH Verified 10/10/21 18:01 erythromycin base Allergy Hives Verified 10/10/21 18:01 Review of Systems Review of Systems Narrative: Ten point review of systems is negative except as above Exam Vital Signs (past 8 hours): - 10/10/21 17:51 10/10/21 17:56 Temperature 97.9 F Pulse Rate 58 L 56 L Respiratory Rate 19 16 Blood Pressure 114/68 Pulse Oximetry 96 98 Oxygen Delivery Method Room Air Narrative Exam Narrative: Pleasant female sitting in bed in no obvious distress [facility] Other: HEENT: Normocephalic atraumatic, extraocular muscles are intact, oropharynx is clear, Resp Other: Lungs are clear to auscultation Cardio Other: Cardiac exam: Regular rate and rhythm normal S1-S2 with a 3/6 systolic ejection murmur GI Other: Abdomen: Soft and nontender, patient has a prominent ventral hernia which is easily reducible, no appreciable hepatosplenomegaly, there is palpable bowel within the ventral hernia Skin Other: No lesions identified Neuro Other: Neuro exam is nonfocal Extrem Other: No edema Psych Other: Patient is awake alert and appropriate, no hallucinations, no delusions, her mood affect and attitude is appropriate Objective ECG Impression: EKG appears to be sinus rhythm, no acute ST T wave abnormalities Labs Result Diagrams: 10/10/21 18:00 10/10/21 18:00 Labs: Laboratory Results - last 24 hr 10/10/21 10/10/21 10/10/21 18:00 18:00 18:00 WBC 4.4 L RBC 2.81 L Hgb 10.4 L Hct 30.8 L MCV 109.5 H MCH 37.1 H MCHC 33.9 RDW 13.4 Plt Count 258 Neut % (Auto) 95.8 H Lymph % (Auto) 2.9 L [place] % (Auto) 0.8 L Eos % (Auto) 0.4 L Baso % (Auto) 0.1 Neut # (Auto) 4200 Lymph # (Auto) 100 L [place] # (Auto) 0 Eos # (Auto) 0 Baso # (Auto) 0 PT 11.6 INR 1.0 APTT 21 L D Sodium 135 L Potassium 5.5 H Chloride 107 Carbon Dioxide 17 L BUN 33 H Creatinine 1.24 H Estimated GFR 42.1 L BUN/Creatinine Ratio 26.6 H Glucose 92 Calcium 9.4 Magnesium 1.9 Total Bilirubin 0.5 AST 23 ALT 14 Alkaline Phosphatase 44 Total Creatine Kinase 42 CK-MB (CK-2) TNP CK-MB (CK-2) Rel Index TNP Troponin I < 0.012 NT-Pro-B Natriuret Pep Total Protein 6.8 Albumin 4.2 Globulin 2.6 Albumin/Globulin Ratio 1.6 Lipase 31 10/10/21 10/10/21 18:00 20:25 WBC RBC Hgb Hct MCV MCH MCHC RDW Plt Count Neut % (Auto) Lymph % (Auto) [place] % (Auto) Eos % (Auto) Baso % (Auto) Neut # (Auto) Lymph # (Auto) [place] # (Auto) Eos # (Auto) Baso # (Auto) PT INR APTT Sodium Potassium Chloride Carbon Dioxide BUN Creatinine Estimated GFR BUN/Creatinine Ratio Glucose Calcium Magnesium Total Bilirubin AST ALT Alkaline Phosphatase Total Creatine Kinase CK-MB (CK-2) CK-MB (CK-2) Rel Index Troponin I < 0.012 NT-Pro-B Natriuret Pep 1030 H Total Protein Albumin Globulin Albumin/Globulin Ratio Lipase Assessment & Plan Assessment & Plan narrative: 76-year-old female with a history of endometrial cancer, status post hysterectomy and bilateral oophorectomy, awaiting Port-A-Cath placement tomorrow. Patient developed abrupt onset of chest pain, with associated diaphoresis and nausea that lasted for several hours. Her initial cardiac enzymes and EKG are nondiagnostic * Patient has a significant history of cardiac disease, having had a myocardial infarction in 2008 and 2018 * Symptoms are highly suggestive, with a heart score for would indicate observation * Patient will have a 2D echo tomorrow to evaluate valvular function given history of rheumatic fever an aortic stenosis exam * Patient will also undergo stress testing tomorrow to rule out reversible causes of ischemia * Will continue her aspirin, Coreg, Plavix, statin History of uterine cancer, status post hysterectomy and bilateral oophorectomy * Patient is scheduled to have a Port-A-Cath placed on Sunday in anticipation of initiation of chemotherapy * Will rule out reversible causes of ischemia prior to Port-A-Cath placement Hypertension * Continue her lisinopril Hyperlipidemia * Continue pravastatin Ventral hernia * No evidence to suggest strangulation or bowel obstruction at this time. Chronic kidney disease stage 3 * Will continue her lisinopril * Will avoid nephrotoxic agents Patient reports she would like to be a full code, a she if she did not survive she would not want to be a vast double. Her sister Lis is her surrogate decision maker I have utilized all available methods to review update confirm the patient's current medication Patient will be admitted under observation as it is anticipated she will be here less than 2 midnight Time Spent With Patient Critical Care time: I spent a total of [] minutes of critical care time on this patient's care today; this time is exclusive of procedural time.
--- NOTE | 2021-10-11 00:49 | DI.ECHO.S_ITS ---
[facility] +---------+ [facility] +---------+ : : [address] : : : : [id number] : : : : Phone: [phone]+ Echocardiogram Report + + :Name: JUD DÍZA Study Date: 10/11/2021 Height: 61 in : :[facility] ReadingLocation: Weight: 141 lb : : Gender: Female BSA: 1.6 m2 : :: 1945 Age: 76 yrs BP: 119/51 mmHg: :Reason For Study: CHEST PAIN, HISTORY OF CHF : :Ordering Physician: BECKY, : :NELLY Performed By: Amelia Wood : :Referring: NELLY PENA : + + Interpretation Summary The left ventricle is normal in size and wall thickness. The ejection fraction is estimated to be 70-75%. The left ventricle is hyperdynamic. The right ventricle is normal in size and function. The aortic valve is moderately calcified. Aortic valve appears to be tricuspid. Noncoronary cusp is pliable however right and left coronary cusp appears to have restricted movement. The peak aortic velocity is 3.30 m/sec. The aortic valve mean gradient is 23 mmHg. The calculated aortic valve area is 1.2 cm2. The peak aortic velocity on the previous exam was 3.08 m/sec. There is moderate aortic stenosis. The IVC is of normal diameter and collapses greater than 50% with a sniff. This suggests a low right atrial pressure of 3 mm Hg. Mild atherosclerotic plaque(s) in the aortic arch. There is mild luminal irregularity and echogenicity in the abdominal aorta, suggestive of aortic atherosclerotic disease. Procedure: A two-dimensional transthoracic echocardiogram with color flow and Doppler was performed. The study quality was technically adequate. Comparison is made with the echocardiogram of 02/07/2021. The patient was in sinus rhythm with heart rates between 60-73 bpm during the exam. Left Ventricle: The left ventricle is normal in size and wall thickness. There is no echo evidence for significant left ventricular outflow tract obstruction. There is no thrombus. The ejection fraction is estimated to be 70-75%. The left ventricle is hyperdynamic. There are no focal wall motion abnormalities. MV E/A: 0.58 Med Peak E' Conrado: 4.0 cm/sec E/E' med: 15.5. Right Ventricle: The right ventricle is normal in size and function. Atria: The left atrium is moderately dilated. The left atrium has mildly decreased in size since the prior echo exam. Right atrial size is normal. There is no Doppler evidence for an interatrial shunt. The thickening of interatrial septum suggests lipomatous hypertrophy. The atrial septum is aneurysmal. Mitral Valve: The mitral valve leaflets are slightly calcified. There is mild mitral annular calcification. There is trace mitral regurgitation. Aortic Valve: The aortic valve is moderately calcified. Aortic valve appears to be tricuspid. Noncoronary cusp is pliable however right and left coronary cusp appears to have restricted movement. There is moderate aortic stenosis. The peak aortic velocity is 3.30 m/sec. The aortic valve mean gradient is 23 mmHg. The calculated aortic valve area is 1.2 cm2. The peak aortic velocity on the previous exam was 3.08 m/sec. There is trace aortic regurgitation. Tricuspid Valve: Fatty tricuspid annulus. There is trace tricuspid regurgitation. Pulmonary artery pressures cannot be estimated because of the lack of a measurable TR jet velocity. Pulmonic Valve: The pulmonic valve is not well seen, but is grossly normal. There is mild pulmonic regurgitation. Great Vessels: The aortic root is normal size. There is aortic root sclerosis/calcification. The dimensions of the ascending aorta are normal. Mild atherosclerotic plaque(s) in the aortic arch. There is mild luminal irregularity and echogenicity in the abdominal aorta, suggestive of aortic atherosclerotic disease. The IVC is of normal diameter and collapses greater than 50% with a sniff. This suggests a low right atrial pressure of 3 mm Hg. Pericardium/ Pleura There is no pericardial effusion. There is no pleural effusion. MMode/2D Measurements & Calculations LVIDd: 5.1 cm LVOT diam: 2.0 cm LVIDs: 3.5 cm Ao root diam: 3.1 cm FS: 31.7 % asc Aorta Diam: 2.9 cm IVSd: 0.90 cm Ao Arch Diam (Prox Trans): 2.7 cm LVPWd: 0.83 cm LV ha. diameter/BSA (cm/m^2): 3.2 LV sys. diameter/BSA (cm/m^2): 2.2 LA A2 area: 19.8 cm2 RA long axis: 5.2 cm LA A4 area: 20.4 cm2 RA area: 15.3 cm2 LA length (vol): 5.3 cm RA vol: 38.5 ml LA vol: 64.4 ml RA : 23.7 ml/m2 LA vol index: 39.6 ml/m2 IVC diam: 0.87 cm RVD1 (basal): 3.6 cm RVD2 (mid): 3.1 cm TAPSE: 2.1 cm Doppler Measurements & Calculations Ao V2 max: 330.4 cm/sec LVOT Max Conrado: 124.9 cm/sec Ao V2 mean: 218.6 cm/sec LV V1 max P.3 mmHg Ao max P.0 mmHg LV V1 VTI: 27.7 cm Ao mean P.2 mmHg WILI(I,D): 1.2 cm2 Ao V2 VTI: 72.8 cm WILI(V,D): 1.2 cm2 sev ratio: 0.38 WILI indexed to BSA (cm^2/m^2): 0.73 MV E max conrado: 62.5 cm/sec PA V2 max: 113.6 cm/sec MV A max conrado: 108.2 cm/sec PA V2 mean: 71.3 cm/sec MV E/A: 0.58 PA mean P.4 mmHg Med Peak E' Conrado: 4.0 cm/sec PA Accel Time: 0.08 sec E/E' med: 15.5 Lat Peak E' Conrado: 5.9 cm/sec E/E' lat: 10.7 E/e' average: 13.1 MV dec time: 0.37 sec SV(LVOT): 86.0 ml Reading Physician:01:32 PM
[2021-10-11] MEDS: ASPIRIN 81 MG CHEW TAB PO (01:32)
[2021-10-11] MEDS: CLOPIDOGREL 75 MG TABLET PO (01:32)
[2021-10-11 03:04] LABS: Hematocrit 28.1 % (36-46); Hemoglobin 9.3 g/dL (12.0-16.0)
[2021-10-11 03:19] LABS: Cholesterol 147 mg/dL (140-199); HDL Cholesterol 39 mg/dL (40-60); LDL Cholesterol Calculated 84 mg/dL (<100); Triglycerides 122 mg/dL (35-150)
[2021-10-11 03:31] LABS: Troponin I < 0.012 ng/mL (0.01-0.034)
[2021-10-11 03:38] LABS: D Dimer 2566 ng/mL (<230)
[2021-10-11] MEDS: SODIUM CHLORIDE 0.9% 500 ML 1000 ML IV (04:45)
--- NOTE | 2021-10-11 05:22 | PC.NURSE ---
Addendum entered by Carmelita Camarillo R.N. 10/11/21 05:30: At 0430, this RN was informed of pt's low BP, 82/48 MAP 54 HR 68. Pt asymptomatic, AOx4, in no apparent distress, no change in tele reading. Provider cesar, ordered STAT 500 cc bolus NS. At 250cc BP measured 92/39 MAP 61 HR 66. At the end of the bolus BP measured 99/50 MAP 70 HR 68. Original Note: Pt admitted and arrived to unit in no respiratory or cardiovascular distress, AOx4, able to stand and pivot to bed from [facility]. VSS, mild hypotension at 119/51. Denies headache, dizziness, nausea, chest pain, or SOB. Tele placed. NPO per order for potential stress test. At approx 0215, pt experienced sudden onset of emesis, approx 350 mL, creamy brown in coloration w/ slight presence of coffee ground-like particulate matter. Pt denies nausea before and after. Pt reported last meal at dinnertime approx 1800. Pt given aspirin and plavix at 0130. No sign of pills in emesis. Pt continues to be asymptomatic. Informed provider BEKCY, ordered STAT H&H. Labs drawn. 0245 H&H 9.3/28.1 from 10.4/30.8 at 1800.
--- NOTE | 2021-10-11 07:34 | DI.CT.S_ITS ---
PROCEDURE: CT ANGIO CHEST PE PROTOCOL INDICATIONS: shortness of breath TECHNIQUE: After the administration of intravenous contrast, 2 mm thick sections acquired from the pulmonary apices to the posterior costophrenic angles. 3-dimensional maximum intensity projection (MIP) coronal and sagittal reformats were then acquired through the thorax. For radiation dose reduction, the following was used: automated exposure control, adjustment of mA and/or kV according to patient size. COMPARISON: [facility], CT, CT CHEST ABD PEL W CON, 10/10/2021, 12:26. [facility], CT, CT ANGIO CHEST PE PROTOCOL, 12/27/2018, 1:01. FINDINGS: Image quality: Excellent. Pulmonary arteries: Pulmonary arteries demonstrate no intraluminal filling defects to suggest central pulmonary embolism. There is enlargement of the pulmonary arteries, with the main pulmonary artery measuring up to 3.5 cm. 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 Lungs and pleura: Within the superior segment of the left lower lobe, there is a 0.4 cm nodule on series 5, image 138 which appears similar to the recent prior study but appears new compared to the previous exam from 2019. A 0.2 cm nodule on series 5, image 134 also appears unchanged compared to the recent prior study. The previously noted 0.3 cm nodule in the left lung base is not well seen on the current study due to adjacent atelectasis. Mild atelectasis and scarring are demonstrated bilaterally. There is also mild perihilar bronchiectasis. No pleural effusions or pneumothorax. Central and peripheral airways are patent. Mediastinum: Heart size is normal, without pericardial effusion. There are coronary arterial vascular calcifications. No mediastinal or hilar adenopathy. Thoracic aorta is normal in caliber and enhancement. Esophagus is normal in caliber, with a small hiatal hernia. Bones and chest wall: No suspicious bony lesions. Ribs and thoracic spine appear intact throughout. The visualized thyroid demonstrates no discrete nodules. No axillary or supraclavicular adenopathy. Abdomen: Visualized upper abdomen demonstrates nodular thickening of the bilateral adrenal glands, measuring up to 1.1 cm in width on the right and 1.2 cm in with on the left. Findings appear progressively increased compared to prior studies. There is a gastric diverticulum noted posteriorly. IMPRESSION: 1. No evidence of pulmonary embolism. There is enlargement of the pulmonary arteries suggestive of pulmonary arterial hypertension. 2. 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 Cardiology consultation is recommended as well as correlation with echocardiography. 3. Increased thickening of the adrenal glands bilaterally. Findings are nonspecific and further evaluation may be may be obtained with an adrenal protocol MRI or CT if indicated. 4. Small left pulmonary arteries appears similar in size compared to the recent prior study but were not definitely seen on the 2019 study. Recommend follow-up in 12 months to demonstrate stability. Dictated by: Donovan Ahumada M.D. on 10/11/2021 at 9:04 Approved by: Donovan Ahumada M.D. on 10/11/2021 at 9:16
--- NOTE | 2021-10-11 08:42 | PC.NURSE ---
Addendum entered by Germania Mendoza R.N. 10/11/21 13:30: Unable to do second part of stress test as patients blood pressure 89/40s. She is back to her room and comfortable. Addendum entered by Germania Mendoza R.N. 10/11/21 10:24: Patients bp on the l.side was 64/40 and and r.side 90/40. Dr. Richards is aware, blood pressure meds held. She will be going to the second part of her stress test at 1300. She is only able to have water at this time. Robert from [employer] called to see if we could get another iv in patient, she is a difficult start and they had trouble getting the r.ac iv in. Explained to patient that he may have to wiggle iv or pull it back. He states that he had a hard time flushing dye into arm. Lab is also now coming up to draw patients blood. Original Note: Assess- Patient is alert and oriented x3, she is waiting to have to stress test and would like to eat some breakfast. Called Robert down in [facility] and he states that he will come up and inject patient and take her pic, and then maybe she can eat until around 1000am. He actually just arrived. Patient has lap sites to lower abdomen that are cdi from surgery for endometrial cancer. She also has an incision that is healed from thyroid surgery previously. She denies pain. Will be giving her oral meds accept beta blockers before the second part of her stress test.
[2021-10-11] MEDS: ENOXAPARIN 40 MG/0.4 ML SYRINGE SUBCUT (09:10)
[2021-10-11] MEDS: PRAVASTATIN 20 MG TABLET PO (09:10)
[2021-10-11 11:28] LABS: Troponin I < 0.012 ng/mL (0.01-0.034)
--- NOTE | 2021-10-11 15:43 | CM.DANOTE ---
DCP Brief Assessment Note Patient is a 76 yo female who was admitted on 10/11/21 today for Malignant neoplasm. Pt has MCR and ARNULFO for insurance and her PCP is Jose Neumann. EMR was reviewed. Per MD, pt with hx of uterine CA and now newer dx of endometrial CA and starting new tx and was scheduled to have Port A Cath placed tomorrow. Pt admitted for chest pain and to have Echo, Stress Test, and CT. SW attempted to meet bedside with pt 3 times today but she was either off the floor for testing/imaging or MD was bedside in the room with door closed. Per RN, pt able to complete second part of stress test today and if reports return normal may be able to d/c tonight or tomorrow. LASHAWN called [facility] and updated her on pt status and admission and she confirms pt did get Port A Cath placed, chemo teaching to happen in two days on 10/13/21 and then chemo tx begins about October 17. No concerns at this time from Oncology and hopeful she will be stable for d/c in time to attend chemo teaching in a couple days. Plan: SW to follow closely for bedside assessment with pt tomorrow if she remains in the hospital as end of shift and no time to attempt to see pt again. SW to follow for any further identified discharge planning needs. CARITO Mariee
[2021-10-12] VITALS (12 sets, daily range): BP systolic 94–143; BP diastolic 47–100; PULSE 61–81; RESP 12–18; TEMP 36.8–37.6; O2SAT 97–100; BMI 27.6
--- NOTE | 2021-10-12 | DI.RAD.S_ITS ---
PROCEDURE: XR CHEST 1V INDICATIONS: PORT PLACEMENT TECHNIQUE: One view of the chest was acquired. COMPARISON: [facility], CR, XR CHEST 1V, 10/10/2021, 17:59. FINDINGS: Surgical changes and devices: There is a on the left with the tip projecting to the area of SVC. Lungs and pleura: Interstitial prominence appears unchanged. No pleural effusions or pneumothorax. Mediastinum: Mediastinal contours appear normal. Heart size is normal. Bones and chest wall: No suspicious bony lesions. Overlying soft tissues appear unremarkable. IMPRESSION: No acute cardiopulmonary disease. Port-A-Cath tip projecting to the area of SVC. Dictated by: Brandt Ragsdale M.D. on 10/12/2021 at 18:11 Approved by: Brandt Ragsdale M.D. on 10/12/2021 at 18:11
[2021-10-12 09:10] LABS: Mean Corpuscular HGB Conc 33.2 % (30-36); Mean Corpuscular Hemoglobin 36.6 PG (26-34); Mean Corpuscular Volume 110.3 fL (80-100); Platelet Count 193 X10^3/uL (150-400); Red Blood Cell Count 2.45 X10^6/uL (4.0-5.2); Red Cell Distribution Width 13.5 % (11.6-14.8); White Blood Cell Count 5.4 X10^3/uL (4.5-11.0)
[2021-10-12 09:41] LABS: Creatine Kinase 35 U/L (30-135); Lactate Dehydrogenase 433 U/L (313-618)
--- NOTE | 2021-10-12 10:56 | CM.DANOTE ---
DCP: Case received, EMR reviewed and met with patient. Sister, Saskia, was also in the room, and left shortly after. Introduced self and role. Was able to obtain information regarding patient's baseline activity level prior to hospitalization. DCP assessment completed with information currently available. Patient is a 76 year old female who admitted yesterday to the care of the hospitalist team. PCP: Dr. Neumann. Payer: confirmed: Medicare/Medicaid. Patient came to the hospital via ambulance secondary to weakness, and diaphoresis as well as pain to her chest and nausea. According to notes, patient had been working on her computer, and started developing these symptoms. 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 She is scheduled for a port-a-cath. [place] She was hypotensive when the medics arrived at her home. She is here for monitoring. Met with patient in her room. Her sister, Saskia, was present, just left. Confirmed that patient lives here in [place], in a multigenerational home, including her sister Saskia, niece and her . She does not drive, her sister takes her to appointments. She uses a walker at home. Patient indicated that when she was discharged from [facility], she had [facility], and was very pleased with the care. P: DCP to continue to follow. Patient should be able to go home when medically stable. She is scheduled for port-a-cath placement today if she discharges. Darling Boyer RN/Material Handling Equipment [employer] Discharge Planning/Care Management Advanced directive, confirm from CLIN[facility] Start: 10/11/21 01:17 Freq: Q24H Status: Active Protocol: Document 10/11/21 08:32 CLL (Rec: 10/11/21 08:39 CLL [id number]) Advance Directive, confirm on record Time 08:33 Person contacted patient Copy received No CM Discharge Assessment Start: 10/12/21 10:55 Freq: Status: Active Protocol: Document 10/12/21 10:55 (Rec: 10/12/21 10:56 [id number]) Discharge Planning Assessment Assigned Dye Feeder Darling Boyer RN/Material Handling Equipment [employer] Advance Directives? Yes Advance Directives on File No History Provided By Patient,Medical Record Prior Living Arrangements Apartment/Condo Household Members family Type of transporation used prior to Relies on Others admit Independent with ADL's Yes Is patient alert and oriented? Yes Needs Assistance With Home Chores / Shopping Caregiver for Another No DME Already Rented / Owned FWW / Walker Barriers to Discharge No Discharge Plan Home Referrals Initiated None needed Whiteboard Updated in Patient Room with Yes name and ext. # of Dye Feeder Review Status In Process Next Review Type Continued Stay Review
[2021-10-12 11:36] LABS: BUN Creatinine Ratio 29.3 (6-22); Blood Urea Nitrogen 49 mg/dL (7-17); Calcium 8.7 mg/dL (8.4-10.2); Carbon Dioxide 15 mmol/L (22-32); Chloride 110 mmol/L (98-107); Estimated Glomerular Filt Rate 29.8 mL/min (>60); Glucose 83 mg/dL (80-110); HEMOLYSIS < 15 (0-50); Potassium 5.2 mmol/L (3.4-5.1); Sodium 134 mmol/L (137-145)
--- NOTE | 2021-10-12 11:59 | P.PN_ITS ---
Subjective Subjective Interval history: The patient denies any recurrence whatsoever of her presenting pain. She reports feeling well overall. She requests to be discharged today as she feels back to her baseline, and she is wanting to make a catheter insertion appointment for her upcoming chemotherapy. Exam Vital Signs (past 8 hours): - 10/12/21 08:00 10/12/21 08:26 Temperature 98.9 F Pulse Rate 64 Respiratory Rate 18 Blood Pressure 102/47 L Pulse Oximetry 98 100 Oxygen Delivery Method Room Air Narrative Exam Narrative: [facility] Other: HEENT:? Normocephalic atraumatic, oropharynx is clear Resp Other: Lungs are clear to auscultation bilaterally Cardio Other: Cardiac exam: Regular rate and rhythm normal S1-S2 with a 3/6 systolic ejection murmur GI Other: Abdomen:?Soft and nontender, patient has a prominent ventral hernia which is easily reducible, no appreciable hepatosplenomegaly, there is palpable bowel within the ventral hernia Skin Other: No grossly abnormal lesions identified Extrem Other: No edema, palpable dorsalis pedis pulses bilaterally Psych Other: Patient is awake alert and appropriate, no hallucinations, no delusions, her mood affect and attitude is appropriate Objective Labs Result Diagrams: 10/12/21 08:25 10/12/21 08:25 Labs: Laboratory Results - last 24 hr 10/12/21 10/12/21 10/12/21 08:15 08:25 08:25 WBC 5.4 RBC 2.45 L Hgb 9.0 L Hct 27.0 L MCV 110.3 H MCH 36.6 H MCHC 33.2 RDW 13.5 Plt Count 193 Sodium 134 L Potassium 5.2 H Chloride 110 H Carbon Dioxide 15 L BUN 49 H Creatinine 1.67 H Estimated GFR 29.8 L BUN/Creatinine Ratio 29.3 H Glucose 83 Calcium 8.7 Magnesium 2.0 Lactate Dehydrogenase 433 Total Creatine Kinase 35 PFSH Medical History Abnormal vaginal bleeding with endometrial thickness greater than 5 mm present on transvaginal ultrasound in postmenopausal patient Adjustment disorder with mixed anxiety and depressed mood CHF (congestive heart failure) Essential hypertension Hx of renal calculi Hyperlipidemia Obstructive uropathy Postmenopausal bleeding Senile atrophic vaginitis ST elevation myocardial infarction (STEMI) of lateral wall Stenosis, cervix Urethral polyp Surgical History History of cholecystectomy History of common carotid artery stent placement History of tonsillectomy and adenoidectomy History of total hysterectomy with bilateral salpingo-oophorectomy (BSO) Hx of parathyroidectomy Family History Father Congestive heart failure Sister No problems noted. Social History details: Patient lives with her niece and sister, retired household members: family Smoking Status: Never smoker alcohol intake: current substance use type: does not use Assessment & Plan Assessment & Plan narrative: 76-year-old female with a history of endometrial cancer, status post hysterectomy and bilateral oophorectomy, awaiting Port-A-Cath placement on September, who presented with atypical CP. 1. Atypical CP * Patient has a significant history of cardiac disease, having had a myocardial infarction in 2008 and 2018, with 2 stents of unknown distribution placed in 2008 * Echo is not showing evidence of wall motion abnormalities, troponins negative three times, and aortic stenosis () is still at baseline of being moderate * Will continue her aspirin, Coreg, Plavix, statin * Unfortunately, patient could not complete pharmacologic stress testing as her BP was too low, although she remained asymptomatic * After shared decision making, patient elected to undergo stress testing as an outpatient 2. History of uterine cancer, status post hysterectomy and bilateral oophorectomy * Patient is scheduled to have a Port-A-Cath placed on Sunday in anticipation of initiation of chemotherapy * Will rule out reversible causes of ischemia prior to Port-A-Cath placement 3. Moderate aortic stenosis * This render the patient more preload-dependent * The degree of severity is unchanged from prior echo, although this could still be contributing to patient's atypical CP 4. Hx of hypertension * Will hold lisinopril given her slight hyperkalemia * BP's here have been consistently on the lower side, and so have held all home anti-HTN meds 5. Hyperlipidemia * Continue pravastatin 6. Ventral hernia, non-incarcerated * No evidence to suggest strangulation or bowel obstruction at this time 7. Chronic kidney disease stage 3 * Will avoid nephrotoxic agents 8. Hyperkalemia * Likely due to increased cell turnover from underlying cancer, along with CKD III * Will hold home lisinopril indefinitely, especially given borderline low BP * Extensively discussed with patient to avoid high potassium foods, i.e. bananas, sweet potatoes, etc. Code: Full Proxy: SisterLis I have utilized all available immediate methods to review update confirm the patient's current medication Time Spent With Patient Critical Care time: I spent a total of [] minutes of critical care time on this patient's care today; this time is exclusive of procedural time. Quality MIPS - Admit I confirm the patient?s Advance Care Plan is present, Code status is documented, Surrogate decision maker is in patient?s record [If Yes, STOP here]: Yes
--- NOTE | 2021-10-12 13:28 | DIET.CONS ---
Addendum entered by Mita Okeefe 10/12/21 13:46: currently NPO. If pt stays after NPO status, will implement ONS plan. Original Note: Dietary Consultation Note Admission Date: 10/11/2021 00:06 Assessment: 76 y/o F c PMH endometrial ca, s/p hysterectomy and bilateral oophorectomy, awaiting port-a-cath. Consulted for weight loss. Endorses weight loss over the last year. States her appetite was impacted sometime in [id number]. Reports she had no desire for food, nothing sounded good. This continued into 2021. States she was dx with cancer in 03/2021. After dx, appetite seems to have worsened with depression and anxiety about her state of health per report. Her new normal for food intake has been as follows: B: cup of tea with sugar and milk L: skipped or crackers and PB D: chicken and stuffing or TV dinners Beverages; water, soda, crystal light, tea States her sister sometimes cooks for her, otherwise she is often reliant on frozen meals. reports plan for chemo 10/19/21. No previous h/o chemo or cancer tx. RD has concern about her weight loss and going into treatment. Her appetite is already limited per report. Reports UBW of 180-190s# but was 232# precovid. wt changes: 10/11/21: 66.5kg 06/24/21: 73.5kg (-6.98kg or 9.4%) 03/28/21: 76.7kg (-10.2kg or 13%) Nutrition focused physical exam: temporal scooping Ht: 154.94 cm Wt: 66.5 kg BMI: 27.3 UBW: 81.8-88.6kg reported Last BM: 10/10/21 (10/11/21 00:49) MNA: 7 Garett Score: 21 Diet: 10/10/21 17:33 NPO Diet Diet Modifications: NPO Type: Strict 10/11/21 Dinner Regular [General (Regular) Diet] Diet Modifications: Nutrition Percent Meal Consumed 100% 10/12/21 08:55 Labs: RBC 2.45 X10^6/uL (4.0-5.2) L 10/12/21 08:25 Hgb 9.0 g/dL (12.0-16.0) L 10/12/21 08:25 Hct 27.0 % (36-46) L 10/12/21 08:25 Creatinine 1.67 mg/dL (0.52-1.04) H 10/12/21 08:25 NT-Pro-B Natriuret Pep 1030 pg/mL (<450) H 10/10/21 18:00 Nutrition Diagnosis: Severe chronic protein calorie malnutrition r/t reduced appetite, cancer diagnosis, low PO aeb pt report, diet recall indicating <75% EER in over 1 mo, >10% weight loss in 6 months, some physical signs of muscle wasting. Interventions: Provided MNT regarding sustaining weight prior and during chemo tx. Encouraged ONS as a tool. She may discharge today. Kitchen will send ONS if she stays. EER: [id number] (25-27kcal/kg per BMI and cancer dx) 100g PRO (1.5g/kg per malnutrition and ca dx) Monitoring/Evaluations: Will cont to monitor for PO and ONS tolerance Electronically Signed by: Mita Okeefe 10/12/21 13:28 Clinical Dietitian [address] [address]
--- NOTE | 2021-10-12 13:59 | PC.NURSE ---
Addendum entered by Germania Mendoza R.N. 10/12/21 15:42: Patient taken down for jhonatan cath placement and patient will be discharged from surgery. Original Note: Patient is doing well today. Blood pressure is better, patient denies syncopal episodes or chest pain. She will be going down to have a port placed around 1415 and patient will then discharge from surgery home.
[2021-10-12] MEDS: LACTATED RINGERS 1,000 ML 42 ML IV (16:04)
--- NOTE | 2021-10-12 16:06 | PM.HP.1 ---
History of Present Illness History of Present Illness Date Patient Seen: 10/12/21 Time Patient Seen: 16:06 Chief complaint: Chest Pain Narrative: 76-year-old woman with metastatic endometrial carcinoma. She is here today for a Port-A-Cath placement. She has never had a previous indwelling venous catheter. She is scheduled to start chemotherapy early October. Patient History Medical History Abnormal vaginal bleeding with endometrial thickness greater than 5 mm present on transvaginal ultrasound in postmenopausal patient Adjustment disorder with mixed anxiety and depressed mood CHF (congestive heart failure) Essential hypertension Hx of renal calculi Hyperlipidemia Obstructive uropathy Postmenopausal bleeding Senile atrophic vaginitis ST elevation myocardial infarction (STEMI) of lateral wall Stenosis, cervix Urethral polyp Surgical History History of cholecystectomy History of common carotid artery stent placement History of tonsillectomy and adenoidectomy History of total hysterectomy with bilateral salpingo-oophorectomy (BSO) Hx of parathyroidectomy Family & Social History Family History Father Congestive heart failure Sister No problems noted. Social History: household members family Prior Living Arrangements Apartment/Condo Safety & Behavioral: Feels Safe in Current Yes Environment Been Physically Hurt or No Threatened By a Person Suicidal Ideation Description None Suicide Plan Description No Plan Tobacco & Substance use: Smoking Status Never smoker alcohol intake current alcohol intake frequency holiday/special occasion Substance Use Type does not use Meds Home Medications and Allergies Home Medications Medication Instructions Recorded Confirmed Type acetaminophen 650 mg 650 mg PO Q8H PRN 03/07/18 10/11/21 History tablet,extended release (Tylenol Arthritis Pain) clopidogrel 75 mg tablet 75 mg PO QAM 03/07/18 10/11/21 History carvedilol 12.5 mg tablet 12.5 mg PO BID 12/27/18 10/11/21 History febuxostat 80 mg tablet 80 mg PO QAM 12/27/18 10/11/21 History aspirin 81 mg chewable tablet 81 mg PO QAM 09/08/19 10/11/21 History hydrocodone 5 mg-acetaminophen 325 1 tab PO Q4-6H PRN 10/05/21 10/11/21 History mg tablet pravastatin 20 mg tablet 20 mg PO DAILY 10/05/21 10/11/21 History lisinopril 10 mg tablet 10 mg PO DAILY 10/06/21 10/11/21 History Allergies Allergy/AdvReac Type Severity Reaction Status Date / Time Cephalosporins Allergy Severe Hives Verified 10/12/21 15:58 Penicillins [PENICILLINS] Allergy Severe RASH Verified 10/12/21 15:58 erythromycin base Allergy Hives Verified 10/12/21 15:58 Exam Vital Signs (past 8 hours): - 10/12/21 08:26 10/12/21 12:00 Temperature 99.7 F H Pulse Rate 69 Respiratory Rate 16 Blood Pressure 117/63 Pulse Oximetry 100 97 Oxygen Delivery Method Room Air Narrative Exam Narrative: General elderly female alert oriented no distress Chest nonlabored respirations Abdomen soft nontender Objective Labs Result Diagrams: 10/12/21 08:25 10/12/21 08:25 Labs: Laboratory Results - last 24 hr 10/12/21 10/12/21 10/12/21 08:15 08:25 08:25 WBC 5.4 RBC 2.45 L Hgb 9.0 L Hct 27.0 L MCV 110.3 H MCH 36.6 H MCHC 33.2 RDW 13.5 Plt Count 193 Sodium 134 L Potassium 5.2 H Chloride 110 H Carbon Dioxide 15 L BUN 49 H Creatinine 1.67 H Estimated GFR 29.8 L BUN/Creatinine Ratio 29.3 H Glucose 83 Calcium 8.7 Magnesium 2.0 Lactate Dehydrogenase 433 Total Creatine Kinase 35 Assessment & Plan Assessment and plan (1) Endometrial cancer: Status: Acute Assessment & Plan narrative: 76-year-old woman with metastatic endometrial cancer he is here for an elective Port-A-Cath placement. Procedure was described to the patient. Operative risks including bleeding, infection, pneumothorax, mechanical device failure were discussed. She is currently taking aspirin and Plavix and understands that she is at increased risk of bleeding with this associated procedure. Her questions have been answered she is in agreement with this plan Time Spent With Patient Critical Care time: I spent a total of [] minutes of critical care time on this patient's care today; this time is exclusive of procedural time.
[2021-10-12] MEDS: CLINDAMYCIN 900 MG/50 ML PIGGYBACK 50 MG IV (16:25)
--- NOTE | 2021-10-12 16:42 | SUR.OPER ---
Supine on padded OR bed, head on pillow, left arm padded and tucked at side, right arm to arm board less than 90 degrees, legs uncrossed, safety belt at thigh, tape over blanket over lower legs .
[2021-10-12] MEDS: HEPARIN 5,000 UNIT, SODIUM CHLORIDE 0.9% 50 ML IV (16:56)
[2021-10-12] MEDS: BUPIVACAINE 0.25% (PF) VIAL 30 ML INJ (16:58)
--- NOTE | 2021-10-12 17:34 | P.OP_ITS ---
Operative Date/Time/Diagnoses Date of procedure: 10/12/21 Time of procedure: 17:34 Pre-op diagnosis: Metastatic uterine cancer Post-op diagnosis: same Procedure & Clinicians Procedure: Port-A-Cath insertion Same procedure as scheduled: Yes Indications: Metastatic uterine cancer. Venous insufficiency Surgeon: Abhishek Metzger Click Yes if Unassisted: Yes Anesthesia Type: General Operative Notes Findings: Tip of the catheter projects to into the SVC Specimen(s): none sent Estimated Blood Loss (mL): 20 Procedure in detail: Patient was brought to the operating room placed supine on table. Bilateral lower extremity compressive devices were applied. General anesthesia was induced and he was intubated with an LMA. She was then prepped and draped in usual sterile fashion. Time-out was performed ensure the correct patient procedure necessary equipment within the operating room. She received cl indamycin prior to incision. Under ultrasound guidance the right internal jugular vein was accessed under direct visualization. The guidewire was then threaded through the needle but it would not advance smoothly. The right internal jugular was then accessed a 2nd time but again the guidewire would not advance. Attempt was made to access the right subclavian vein but this was not successful. Ultimately the left internal jugular was accessed with ultrasound guidance. The guidewire was threaded through the needle. Its placement was then confirmed using fluoroscopy. The dilator was then placed over the guidewire. The catheter was then inserted through the sheath. Placement was again confirmed with fluoroscopy. A subcutaneous pocket was made in the left chest wall. The tunneler device was used to move the catheter from the neck to the chest pocket. The port was attached after it was primed with heparined saline. The port was tested to ensure that it flushed easily and had good blood return. The port was then secured to the underlying fascia using interupted Ethibond suture. Hemostasis was achieved. The wound was irrigated with sterile saline. The subcutaneous tissues were reapproximated with the 3 0 Vicryl and then skin closed with 4-0 Monocryl. The skin was sealed with Dermabond. Patient tolerated procedure well. The sponge and instrument count at the end operation was correct. Patient emerged from general anesthesia was extubated and taken to the postoperative care unit in stable condition Complications: none Post-operative Condition: stable Disposition: same day surgery
--- NOTE | 2021-10-12 18:36 | P.DS_ITS ---
History of Present Illness History of Present Illness Chief complaint: Chest Pain Narrative: The patient is a 76-year-old female with a history of uterine cancer, congestive heart failure, hypertension, hyperlipidemia, history of myocardial infarction in 2009, and a non STEMI in 2019.? The patient is currently undergoing treatment for newly diagnosed endometrial cancer.? She underwent hysterectomy with bilater al oophorectomy August 19, 2021, this showed a high-grade endometrial carcinoma.? There was a peritoneal wall implant that was positive for metastatic disease as well.? The patient has been referred to [facility] for systemic chemotherapy.? She is scheduled for Port-A-Cath placed on Sunday.? The patient has had a left inferior parathyroidectomy for benign pathology.? Patient also has had a bowel obstruction related to a ventral hernia.? She continues to have the ventral hernia but denies any pain.? The patient was at her computer today when she stood up and developed this severe chest pain.? She describes the pain as a pressure radiating to her jaw.? Patient states she had pain in the epigastrium radiating up in the abdomen into the chest, she felt like she was going to pass out.? She was found to be hypertensive for the medics, however after treatment her blood pressure improved significantly.? She also complained of pain radiating up to the right angle of the jaw.? Symptoms resolved after administration of morphine.? It lasted for several hours.? The pain was associated with dizziness, nausea, and shortness of breath.? She felt like she was going to pass out.? The pain was different from her pain she had previously with her myocardial infarction.? She was quite afraid as a result of this chest pressure that she presented to the emergency room for evaluation.? In the emergency room EKG did not show any acute ST T wave abnormalities.? Her troponins were negative x2.? Patient is admitted to the hospital at this time for further evaluation of chest pain.? Patient presents with a heart score of 4. Written by admitting provider. Discharge Providers Provider Date of admission: 10/11/21 00:06 Discharge Date: 10/12/21 Primary care physician: Jose Neumann MD Consults: 10/11/21 01:16 Consult to Dietitian, Adult Routine Comment: Reason For Exam: recent dramatic weight loss & CA dx Discharge provider: Joe Richards MD Summary Hospital Course Discharge Diagnosis: 76-year-old female with a history of endometrial cancer, status post hysterectomy and bilateral oophorectomy, awaiting Port-A-Cath placement on September, who presented with atypical CP. 1. Atypical CP * Patient has a significant history of cardiac disease, having had a myocardial infarction in 2008 and 2018, with 2 stents of unknown distribution placed in 2008 * Echo is not showing evidence of wall motion abnormalities, troponins negative three times, and aortic stenosis () is still at baseline of being moderate * Will continue her aspirin, Coreg, Plavix, statin * Unfortunately, patient could not complete pharmacologic stress testing as her BP was too low, although she remained asymptomatic * After shared decision making, patient elected to undergo stress testing as an outpatient 2. History of uterine cancer, status post hysterectomy and bilateral oopho rectomy * Patient is scheduled to have a Port-A-Cath placed on October 12, 2021 in anticipation of initiation of chemotherapy 3. Moderate aortic stenosis * This render the patient more preload-dependent * The degree of severity is unchanged from prior echocardiogram, although this could still be contributing to patient's atypical CP 4. Hx of hypertension * Will hold lisinopril given her slight hyperkalemia * BP's here have been consistently on the lower side, and so have held all home anti-HTN meds until outpatient follow-up 5. Hyperlipidemia * Continue home pravastatin 6. Ventral hernia, non-incarcerated * No evidence to suggest strangulation or bowel obstruction at this time 7. Chronic kidney disease stage 3 * Will avoid nephrotoxic agents 8. Hyperkalemia * Likely due to increased cell turnover from underlying cancer, along with CKD III * Will hold home lisinopril for now so as to not worsen this problem, especially given borderline low BP * Extensively discussed with patient to avoid high potassium foods, i.e. bananas, sweet potatoes, etc. Exam Vital Signs (past 8 hours): - 10/12/21 12:00 10/12/21 16:00 10/12/21 17:29 Temperature 99.7 F H 98.3 F 98.7 F Pulse Rate 69 81 75 Respiratory Rate 16 16 12 Blood Pressure 117/63 131/67 133/49 L Pulse Oximetry 97 98 100 10/12/21 17:34 10/12/21 17:39 10/12/21 17:44 Temperature Pulse Rate 74 73 71 Respiratory Rate 15 15 12 Blood Pressure 128/89 132/70 143/62 H Pulse Oximetry 99 100 100 10/12/21 17:49 10/12/21 17:54 10/12/21 18:04 Temperature 98.3 F Pulse Rate 80 75 74 Respiratory Rate 12 15 16 Blood Pressure 138/53 L 141/55 H 126/100 H Pulse Oximetry 100 98 100 Oxygen Delivery Method Room Air Objective Labs Result Diagrams: 10/12/21 08:25 10/12/21 08:25 Labs: Laboratory Results - last 24 hr 10/12/21 10/12/21 10/12/21 08:15 08:25 08:25 WBC 5.4 RBC 2.45 L Hgb 9.0 L Hct 27.0 L MCV 110.3 H MCH 36.6 H MCHC 33.2 RDW 13.5 Plt Count 193 Sodium 134 L Potassium 5.2 H Chloride 110 H Carbon Dioxide 15 L BUN 49 H Creatinine 1.67 H Estimated GFR 29.8 L BUN/Creatinine Ratio 29.3 H Glucose 83 Calcium 8.7 Magnesium 2.0 Lactate Dehydrogenase 433 Total Creatine Kinase 35 PFSH Medical History Abnormal vaginal bleeding with endometrial thickness greater than 5 mm present on transvaginal ultrasound in postmenopausal patient Adjustment disorder with mixed anxiety and depressed mood CHF (congestive heart failure) Essential hypertension Hx of renal calculi Hyperlipidemia Obstructive uropathy Postmenopausal bleeding Senile atrophic vaginitis ST elevation myocardial infarction (STEMI) of lateral wall Stenosis, cervix Urethral polyp Surgical History History of cholecystectomy History of common carotid artery stent placement History of tonsillectomy and adenoidectomy History of total hysterectomy with bilateral salpingo-oophorectomy (BSO) Hx of parathyroidectomy Family History Father Congestive heart failure Sister No problems noted. Social History details: Patient lives with her niece and sister, retired household members: family Smoking Status: Never smoker alcohol intake: current substance use type: does not use Discharge Assessment & Plan Assessment and Plan Assessment: 76-year-old female with a history of endometrial cancer, status post hysterectomy and bilateral oophorectomy, awaiting Port-A-Cath placement on September, who presented with atypical CP. 1. Atypical CP ? Patient has a significant history of cardiac disease, having had a myocardial infarction in 2008 and 2018, with 2 stents of unknown distribution placed in 2008 ? Echo is not showing evidence of wall motion abnormalities, troponins negative three times, and aortic stenosis () is still at baseline of being moderate ? Will continue her aspirin, Coreg, Plavix, statin ? Unfortunately, patient could not complete pharmacologic stress testing as her BP was too low, although she remained asymptomatic ? After shared decision making, patient elected to undergo stress testing as an outpatient 2. History of uterine cancer, status post hysterectomy and bilateral oophorectomy ? Patient is scheduled to have a Port-A-Cath placed on October 12, 2021 in anticipation of initiation of chemotherapy 3. Moderate aortic stenosis ? This render the patient more preload-dependent ? The degree of severity is unchanged from prior echocardiogram, although this could still be contributing to patient's atypical CP 4. Hx of hypertension ? Will hold lisinopril given her slight hyperkalemia ? BP's here have been consistently on the lower side, and so have held all home anti-HTN meds until outpatient follow-up 5. Hyperlipidemia ? Continue home pravastatin 6. Ventral hernia, non-incarcerated ? No evidence to suggest strangulation or bowel obstruction at this time 7. Chronic kidney disease stage 3 ? Will avoid nephrotoxic agents 8. Hyperkalemia ? Likely due to increased cell turnover from underlying cancer, along with CKD III ? Will hold home lisinopril for now so as to not worsen this problem, especially given borderline low BP ? Extensively discussed with patient to avoid high potassium foods, i.e. bananas, sweet potatoes, etc. Discharge Plan Discharge Plan Patient Disposition: Home Provider Discharge Comment: Remove dressings and then OK to shower in 48 hrs May resume aspirin and Plavix 10/13. Discharge orders & Medications Prescriptions: Continued clopidogrel 75 mg Tablet 75 mg PO QAM 0RF acetaminophen [Tylenol Arthritis Pain] 650 mg Tablet Extended Release 650 mg PO Q8H PRN (Reason: Pain (Scale Score 1-3)) 0RF febuxostat 80 mg tablet 80 mg PO QAM 0RF Label Comments: TK 1 T PO QD aspirin 81 mg Tablet,Chewable 81 mg PO QAM 0RF hydrocodone-acetaminophen 5-325 mg Tablet 1 tab PO Q4-6H PRN (Reason: Pain (Scale Score 4-6)) 0RF pravastatin 20 mg Tablet 20 mg PO DAILY 0RF Discontinued carvedilol 12.5 mg tablet 12.5 mg PO BID 0RF Label Comments: TK 1 T PO BID lisinopril 10 mg Tablet 10 mg PO DAILY 0RF Follow up/Referrals: Jose Neumann MD [Primary Care Provider] - Skin/Wound/Dressing Care Report to your healthcare provider any signs of infection, such as:: chills, fever, increased pain, unusual drainage and unusual redness Visit Report/Discharge Packet Instructions: DI for Implanted Venous Access [place] [facility]: Wound Care Stand Alone Forms: Surgery Discharge Discharge Data Primary Care Provider: Jose Neumann Attending Provider: Dania Olson
== END 2021-10-12 18:30 | disposition home or self-care (01) ==
LOC: ED 23:31 → AC 10-11 00:07
PROVIDERS: Emergency Medicine; Student in an Organized Health Care Education/Training Program; Surgery; Admitting Provider Internal Medicine; Emergency Provider Emergency Medicine; PCP Internal Medicine; Visit Provider Internal Medicine
PROC: (CPT 36561; principal; 2021-10-12 16:15)
DX: R07.89 Other chest pain (principal); C54.1 Malignant neoplasm of endometrium; E87.5 Hyperkalemia; I25.2 Old myocardial infarction; I35.0 Nonrheumatic aortic (valve) stenosis; I10 Essential (primary) hypertension; E78.5 Hyperlipidemia, unspecified; K43.9 Ventral hernia without obstruction or gangrene; N18.30 Chronic kidney disease, stage 3 unspecified; Z85.850 Personal history of malignant neoplasm of thyroid; Z85.42 Personal history of malignant neoplasm of other parts of uterus
CPT/HCPCS: 36561; 36415; 71045; 71260; 71275; 74177; 78451; 80048; 80053; 80061; 82550; 83615; 83690; 83735; 83880; 84484; 85014; 85018; 85025; 85027; 85379; 85610; 85730; 87635; 93005; 93306; 94762; 96374; 96376; 99284; C9803; G0378; A9502; C1788; J1644; J1650; J2250; J2270; J2704; J3010

== ENCOUNTER 2021-10-24 08:36 | Inpatient (IN) | payer MEDICARE, MEDICAID, SELFPAY ==
[2021-10-11 00:49] VITALS: BMI 27.3
[2021-10-24] VITALS (38 sets, daily range): BP systolic 72–154; BP diastolic 41–78; PULSE 61–86; RESP 11–24; TEMP 35.6–37.1; O2SAT 16–100; BMI 27.9
--- NOTE | 2021-10-24 08:48 | DI.CT.S_ITS ---
PROCEDURE: CT ABDOMEN PELVIS W CON INDICATIONS: severe pain, known hernia, likely incarcerated TECHNIQUE: After the administration of oral and IV contrast, axial sections were acquired from the lung bases to the pubic symphysis. Coronal and sagittal reformats were performed. For radiation dose reduction, the following was used: automated exposure control, adjustment of mA and/or kV according to patient size. COMPARISON: [facility], CT, CT CHEST ABD PEL W CON, 10/10/2021, 12:26. [facility], CT, CT ANGIO CHEST PE PROTOCOL, 10/11/2021, 7:38. [facility], CT, CT ABDOMEN PELVIS W CON, 01/11/2021, 19:04. FINDINGS: Image quality: Excellent. Lung bases: Unremarkable. Heart: No significant findings. ABDOMEN: Liver: Unremarkable. Gallbladder: Unremarkable. Biliary ducts: Unremarkable. Pancreas: Unremarkable. Spleen: Unremarkable. Adrenal Glands: Unremarkable. Kidneys and Ureters: Small nonobstructive renal calculi are again noted. No hydronephrosis. There is renal cortical thinning bilaterally. Stomach and Bowel: Please see the section ventral wall for discussion of ventral hernia and colonic obstruction. Stomach is normal in caliber. There is a gastric diverticulum in the posterior gastric cardia. Small bowel loops are unremarkable. Severe diverticulosis of the sigmoid colon. No findings to suggest acute diverticulitis. Peritoneum: Small intraperitoneal fluid is present. No free air. Ventral Wall: There is a large ventral hernia containing a short segment of transverse colon. There is segmental dilation of colon measuring up to 7 cm in diameter adjacent to the ventral hernia with air-fluid levels, consistent with colonic obstruction, possibly closed loop obstruction as proximal and distal bowel loops are decompressed. The obstruction transitional zone is related to the ventral hernia. Abdominal Nodes: No retroperitoneal or mesenteric adenopathy by size criteria. Vessels: Aorta and inferior vena cava are normal in size. PELVIS: Pelvic Organs: Unremarkable. Bladder: Unremarkable. Pelvic Nodes: No enlarged lymph nodes. Miscellaneous: No inguinal hernias are seen. Bones: Degenerative changes in lumbar spine. Grade 1 anterolisthesis of L4 on L5. IMPRESSION: 1. There is a large ventral hernia containing transverse colon. There is colonic obstruction related to the large ventral hernia with CT findings suggesting closed loop obstruction. 2. Severe diverticulosis without diverticulitis. 3. Small amount of free fluid is present in the peritoneal cavity. No free air. 4. A gastric diverticulum. 5. Bilateral small nonobstructive renal calculi. The result was discussed with Dr. Alicea. Dictated by: Brandt Ragsdale M.D. on 10/24/2021 at 10:56 Approved by: Brandt Ragsdale M.D. on 10/24/2021 at 11:24
--- NOTE | 2021-10-24 08:48 | ED.ABDPAIN ---
HPI - Abdominal Pain General Chief Complaint: Abdominal Pain Stated Complaint: Distended hernia/pain- sent by Time Seen by Provider: 10/24/21 08:38 History of Present Illness HPI narrative: 76-year-old female nonsmoker with history of endometrial cancer on chemotherapy, CHF and prior bowel obstruction presents from her primary care provider's office for evaluation of abdominal pain thought to be related to a known ventral hernia. She has had issues with this hernia off and on since the but states it is never been this painful or lasted this long. She has been having pain for about 1 week and has become quite distended. She is in severe pain with any motion and denies any obvious palliation. She has been nauseated and vomited once. She is passing gas and had a bowel movement today. She denies fever or chills and has no urinary complaints. Related Data Home Medications Medication Instructions Recorded Confirmed acetaminophen 650 mg 650 mg PO Q8H PRN 03/07/18 10/24/21 tablet,extended release (Tylenol Arthritis Pain) clopidogrel 75 mg tablet 75 mg PO QAM 03/07/18 10/19/21 febuxostat 80 mg tablet 80 mg PO QAM 12/27/18 10/19/21 aspirin 81 mg chewable tablet 81 mg PO QAM 09/08/19 10/24/21 carvedilol 6.25 mg tablet 6.25 mg PO BID 10/19/21 10/24/21 Allergies Allergy/AdvReac Type Severity Reaction Status Date / Time Cephalosporins Allergy Severe Hives Verified 10/24/21 10:10 Penicillins [PENICILLINS] Allergy Severe RASH Verified 10/24/21 10:10 erythromycin base Allergy Hives Verified 10/24/21 10:10 Review of Systems Review of Systems Narrative: GENERAL: See HPI HEENT: Denies sinus pain, ear pain, sore throat, difficulty swallowing, dizziness. RESPIRATORY: Denies dyspnea, cough, wheezing, hemoptysis, sputum. CARDIOVASCULAR: Denies chest pain, palpitations, orthopnea, edema, GASTROINTESTINAL: See HPI : Denies dysuria, frequency, incontinence, hematuria, urinary retention. MUSCULOSKELETAL: denies weakness, joint pain, or bony pain SKIN: Denies rash, skin lesions, or other NEUROLOGIC: Denies weakness, headache, numbness, change in speech, confusion, seizures, incoordination. PSYCHIATRIC: No concerning psychosocial issues. 12 point review of systems is negative except for those stated above Patient History Medical History Abnormal vaginal bleeding with endometrial thickness greater than 5 mm present on transvaginal ultrasound in postmenopausal patient Adjustment disorder with mixed anxiety and depressed mood CHF (congestive heart failure) Essential hypertension Hx of renal calculi Hyperlipidemia Obstructive uropathy Postmenopausal bleeding Senile atrophic vaginitis ST elevation myocardial infarction (STEMI) of lateral wall Stenosis, cervix Urethral polyp Surgical History History of cholecystectomy History of common carotid artery stent placement History of tonsillectomy and adenoidectomy History of total hysterectomy with bilateral salpingo-oophorectomy (BSO) Hx of parathyroidectomy Family History Father Congestive heart failure Sister No problems noted. Social History details: Patient lives with her niece and sister, retired household members: family Smoking Status: Never smoker alcohol intake: current substance use type: does not use Smoking Status: Never smoker alcohol intake frequency: holidays/special occasions only Substance Use Type: does not use Exam Narrative Exam Narrative: GENERAL: [76 year old patient appears stated age. Well-developed patient, in obvious distress, complaining of pain HEAD: Atraumatic. Normocephalic. EYES: Pupils equal round and reactive. Extraocular motions intact. No scleral icterus. No injection or drainage. ENT: Nose without bleeding, purulent drainage. Throat without erythema, tonsillar hypertrophy or exudate. Airway patent. NECK: Trachea midline. Non tender CARDIOVASCULAR: Regular rate and rhythm without murmurs, gallops, or rubs. RESPIRATORY: Clear to auscultation. Breath sounds equal bilaterally. No wheezes, rales, or rhonchi. GASTROINTESTINAL: Distended, large ventral hernia, unable to be reduced, significant tenderness to palpation, increased frequency and pitch of bowel sounds, no overlying erythema EXTREMITIES: No edema or joint tenderness. BACK: Nontender without deformity or crepitance. No flank tenderness. NEURO: AOx3. SKIN: No rash or erythema of visible areas Initial Vital Signs Initial Vital Signs: Vital Signs Temperature 98.2 F 10/24/21 09:10 Pulse Rate 63 10/24/21 09:10 Respiratory Rate 24 10/24/21 09:10 Blood Pressure 137/78 10/24/21 09:10 Pulse Oximetry 100 10/24/21 09:10 Course Orders Ordered: Heparin Sodium (Porcine) (Heparin 500 Unit/5 Ml Port Flush) 500 unit IV PRN PRN PRN Reason: Flush Hydromorphone HCl (Hydromorphone 0.5 Mg Inj) 0.5 mg IV Q2H PRN PRN Reason: Pain, Moderate (4-6) Last Admin: 10/25/21 05:48 Dose: 0.5 mg Documented by: Admin: 10/25/21 00:57 Dose: 0.5 mg Documented by: TOMA Sodium Chloride (Normal Saline 0.9%) 1,000 mls @ 100 mls/hr IV CONT REGINA Last Admin: 10/25/21 05:00 Dose: 100 mls/hr Documented by: Infusion: 10/25/21 05:00 Dose: 100 mls/hr Documented by: Admin: 10/24/21 19:46 Dose: 100 mls/hr Documented by: TOMA Naloxone HCl (Naloxone 0.4 Mg/Ml Vial) 0.2 mg IV Q2MIN PRN PRN Reason: Opiate Reversal Ondansetron HCl (Ondansetron 4 Mg/2 Ml Inj) 4 mg IV Q8HR PRN PRN Reason: Nausea And Vomiting Sodium Chloride (Sodium Chloride 0.9% Flush) 10 ml IV PRN PRN PRN Reason: Flush Last Admin: 10/25/21 05:02 Dose: 10 ml Documented by: TOMA Discontinued Medications Alteplase, Recombinant (Alteplase 2 Mg/2 Ml Vial) 2 mg IV NOW ONE Stop: 10/24/21 09:36 Last Admin: 10/24/21 10:41 Dose: 2 mg Documented by: TERESE Hydromorphone HCl (Hydromorphone 0.5 Mg Inj) 0.5 mg IV NOW ONE Stop: 10/24/21 08:49 Last Admin: 10/24/21 10:25 Dose: 0.5 mg Documented by: TERESE Hydromorphone HCl (Hydromorphone 0.5 Mg Inj) 0.5 mg IV Q4H PRN PRN Reason: Pain, Severe (7-10) Hydromorphone HCl (Hydromorphone 0.5 Mg Inj) 0.5 mg IV Q4H PRN PRN Reason: abdominal pain Hydromorphone HCl (Hydromorphone 2 Mg Inj) 0.5 mg IV NOW ONE Stop: 10/24/21 13:46 Last Admin: 10/24/21 13:42 Dose: 0.5 mg Documented by: KAYCE Hydromorphone HCl (Hydromorphone 2 Mg Inj) 0 mg IV Q5M PRN PRN Reason: Pain, Severe (7-10) Last Admin: 10/24/21 18:15 Dose: 0.5 mg Documented by: Admin: 10/24/21 18:07 Dose: 0.5 mg Documented by: Admin: 10/24/21 17:54 Dose: 0.5 mg Documented by: Admin: 10/24/21 17:45 Dose: 0.5 mg Documented by: ERIC Hydromorphone HCl (Hydromorphone 2 Mg Inj) 0 mg IV Q5MIN PRN PRN Reason: Pain, Moderate (4-6) Hydromorphone HCl (Hydromorphone 1 Mg Inj) 1 mg IV NOW ONE Stop: 10/25/21 02:38 Last Admin: 10/25/21 02:47 Dose: 1 mg Documented by: TOMA Hydroxyzine HCl (Hydroxyzine 50 Mg/Ml Inj) 25 mg IM NOW PRN PRN Reason: Pain, Mild (1-3) Hydroxyzine Pamoate (Hydroxyzine Pamoate 25 Mg Capsule) 25 mg PO NOW PRN PRN Reason: Pain, Mild (1-3) Sodium Chloride (Normal Saline 0.9%) 1,000 mls @ 1,000 mls/hr IV BOLUS ONE Stop: 10/24/21 09:47 Last Infusion: 10/24/21 10:42 Dose: 0 mls/hr Documented by: Admin: 10/24/21 10:25 Dose: 1,000 mls/hr Documented by: TERESE Lactated Ringer's (Lactated Ringers) 1,000 mls @ 84 mls/hr IV NOW ONE Stop: 10/25/21 01:33 Last Infusion: 10/24/21 20:14 Dose: 0 mls/hr Documented by: Admin: 10/24/21 16:29 Dose: 84 mls/hr Documented by: Infusion: 10/24/21 16:29 Dose: 84 mls/hr Documented by: Admin: 10/24/21 13:40 Dose: 84 mls/hr Documented by: KAYCE Lactated Ringer's (Lactated Ringers) 1,000 mls @ 42 mls/hr IV CONT REGINA Last Admin: 10/24/21 20:25 Dose: Not Given Documented by: TOMA Acetaminophen (Ofirmev) 1,000 mg in 100 mls @ 400 mls/hr IV NOW ONE Stop: 10/24/21 14:34 Last Infusion: 10/24/21 15:24 Dose: 0 mls/hr Documented by: Admin: 10/24/21 15:08 Dose: 400 mls/hr Documented by: DULCE Clindamycin Phosphate (Cleocin) 900 mg in 50 mls @ 50 mls/hr IV NOW ONE Stop: 10/24/21 16:42 Last Infusion: 10/24/21 15:44 Dose: 0 mls/hr Documented by: Admin: 10/24/21 15:25 Dose: 50 mls/hr Documented by: DULCE Calcium Gluconate 4.65 meq/ (Sodium Chloride) 60 mls @ 180 mls/hr IV NOW ONE Stop: 10/25/21 06:38 Naloxone HCl (Naloxone 0.4 Mg/Ml Vial) 0.2 mg IV Q2MIN PRN PRN Reason: Opiate Reversal Ondansetron HCl (Ondansetron 4 Mg/2 Ml Inj) 4 mg IV NOW ONE Stop: 10/24/21 08:49 Last Admin: 10/24/21 10:25 Dose: 4 mg Documented by: TERESE Reevaluation(s) Reevaluation #1: Port-A-Cath attempted to be accessed by nursing at the bedside. There was difficulty drawing, but it seemed to except administered fluids. Oncology nurse was consulted at the bedside recommended the use of tPA under the standard protocol. I discussed with on-call surgery (Domenica) who actually had placed the Port-A-Cath and recommends the tPA protocol. Vital Signs Vital signs: Vital Signs - 8 hr 10/24/21 09:10 10/24/21 10:30 10/24/21 11:00 Temperature 98.2 F Pulse Rate 63 66 61 Respiratory Rate 24 15 20 Blood Pressure 137/78 Pulse Oximetry 100 100 100 MDM - Abdominal Pain Lab Data Result diagrams: 10/25/21 05:42 10/25/21 05:42 Labs: Lab Results 10/24/21 10/24/21 10/24/21 Range/Units 10:00 10:00 10:00 WBC 4.8 (4.5-11.0) X10^3/uL RBC 2.40 L (4.0-5.2) X10^6/uL Hgb 8.7 L (12.0-16.0) g/dL Hct 26.1 L (36-46) % MCV 108.5 H (80-100) fL MCH 36.2 H (26-34) PG MCHC 33.4 (30-36) % RDW 13.3 (11.6-14.8) % Plt Count 202 (150-400) X10^3/uL Neut % (Auto) 77.5 H (50-75) % Lymph % (Auto) 15.4 L (25-40) % [place] % (Auto) 1.6 L (3-14) % Eos % (Auto) 5.4 H (2-4) % Baso % (Auto) 0.1 (0-2) % Neut # (Auto) 3700 (2241-4960) /uL Lymph # (Auto) 700 L (2557-8928) /uL [place] # (Auto) 100 (0-900) /uL Eos # (Auto) 300 (0-450) /uL Baso # (Auto) 0 (0-100) /uL Sodium 136 L (137-145) mmol/L Potassium 5.6 H (3.4-5.1) mmol/L Chloride 109 H (98-107) mmol/L Carbon Dioxide 20 L (22-32) mmol/L BUN 38 H (7-17) mg/dL Creatinine 1.21 H (0.52-1.04) mg/dL Estimated GFR 43.3 L (>60) mL/min BUN/Creatinine Ratio 31.4 H (6-22) Glucose 125 H (80-110) mg/dL Lactate 1.4 (0.7-2.1) mmol/L Calcium 8.5 (8.4-10.2) mg/dL Magnesium 2.4 H (1.6-2.3) mg/dL Total Bilirubin 0.6 (0.2-1.3) mg/dL AST 17 (14-36) IU/L ALT 11 (<35) IU/L Alkaline Phosphatase 52 (38-126) U/L Total Protein 6.2 L (6.3-8.2) g/dL Albumin 3.6 (3.5-5.0) g/dL Globulin 2.6 (1.7-4.1) g/dL Albumin/Globulin Ratio 1.4 (1.0-2.8) Lipase 63 (23-300) U/L SARS-CoV-2 (PCR) (Negative) 10/24/21 Range/Units 10:45 WBC (4.5-11.0) X10^3/uL RBC (4.0-5.2) X10^6/uL Hgb (12.0-16.0) g/dL Hct (36-46) % MCV (80-100) fL MCH (26-34) PG MCHC (30-36) % RDW (11.6-14.8) % Plt Count (150-400) X10^3/uL Neut % (Auto) (50-75) % Lymph % (Auto) (25-40) % [place] % (Auto) (3-14) % Eos % (Auto) (2-4) % Baso % (Auto) (0-2) % Neut # (Auto) (5903-5094) /uL Lymph # (Auto) (2361-2720) /uL [place] # (Auto) (0-900) /uL Eos # (Auto) (0-450) /uL Baso # (Auto) (0-100) /uL Sodium (137-145) mmol/L Potassium (3.4-5.1) mmol/L Chloride (98-107) mmol/L Carbon Dioxide (22-32) mmol/L BUN (7-17) mg/dL Creatinine (0.52-1.04) mg/dL Estimated GFR (>60) mL/min BUN/Creatinine Ratio (6-22) Glucose (80-110) mg/dL Lactate (0.7-2.1) mmol/L Calcium (8.4-10.2) mg/dL Magnesium (1.6-2.3) mg/dL Total Bilirubin (0.2-1.3) mg/dL AST (14-36) IU/L ALT (<35) IU/L Alkaline Phosphatase (38-126) U/L Total Protein (6.3-8.2) g/dL Albumin (3.5-5.0) g/dL Globulin (1.7-4.1) g/dL Albumin/Globulin Ratio (1.0-2.8) Lipase (23-300) U/L SARS-CoV-2 (PCR) Negative (Negative) Imaging Data CT scan - abdomen/pelvis: Radiologist's Impression: [address] [address] [address] Scan Report Signed Patient: Inga Julian MR#: [id number] : 1945 Acct:[id number] Age/Sex: 76 / F Date of Service: 10/24/21 Loc: ED Accession Number: [id number] ?? Procedure: CT abdomen pelvis w con Ordering Provider: Rosalio Alicea D.O. PROCEDURE:? CT ABDOMEN PELVIS W CON ? INDICATIONS:? severe pain, known hernia, likely incarcerated ? TECHNIQUE:? After the administration of oral and IV contrast, axial sections were acquired from the lung bases to the pubic symphysis.? Coronal and sagittal reformats were performed.? For radiation dose reduction, the following was used:? automated exposure control, adjustment of mA and/or kV according to patient size. ? COMPARISON:? [facility], CT, CT CHEST ABD PEL W CON, 10/10/2021, 12:26.? [facility], CT, CT ANGIO CHEST PE PROTOCOL, 10/11/2021, 7:38.? [facility], CT, CT ABDOMEN PELVIS W CON, 01/11/2021, 19:04. ? FINDINGS:? Image quality:? Excellent.? ? Lung bases:? Unremarkable.? ? Heart:? No significant findings. ? ? ABDOMEN: Liver:? Unremarkable.? ? Gallbladder:? Unremarkable.? ? Biliary ducts:? Unremarkable.? ? Pancreas:? Unremarkable.? ? Spleen:? Unremarkable.? ? Adrenal Glands:? Unremarkable.? ? Kidneys and Ureters:? Small nonobstructive renal calculi are again noted.? No hydronephrosis.? There is renal cortical thinning bilaterally.? ? ? Stomach and Bowel:? Please see the section ventral wall for discussion of ventral hernia and colonic obstruction. ? Stomach is normal in caliber.? There is a gastric diverticulum in the posterior gastric cardia.? Small bowel loops are unremarkable.? Severe diverticulosis of the sigmoid colon. ?No findings to suggest acute diverticulitis. Peritoneum:? Small intraperitoneal fluid is present.? No free air.? ? Ventral Wall: ? There is a large ventral hernia containing a short segment of transverse colon.? There is segmental dilation of colon measuring up to 7 cm in diameter adjacent to the ventral hernia with air-fluid levels, consistent with colonic obstruction, possibly closed loop obstruction as proximal and distal bowel loops are decompressed.? The obstruction transitional zone is related to the ventral hernia. ? Abdominal Nodes:? No retroperitoneal or mesenteric adenopathy by size criteria.? Vessels:? Aorta and inferior vena cava are normal in size.? ? PELVIS: Pelvic Organs:? Unremarkable.? ? Bladder:? Unremarkable.? ? Pelvic Nodes: No enlarged lymph nodes.? Miscellaneous: No inguinal hernias are seen. ? ? ? Bones:? Degenerative changes in lumbar spine.? Grade 1 anterolisthesis of L4 on L5.? IMPRESSION:? ? 1. There is a large ventral hernia containing transverse colon.? There is colonic obstruction related to the large ventral hernia with CT findings suggesting closed loop obstruction. ? 2. Severe diverticulosis without diverticulitis. ? 3. Small amount of free fluid is present in the peritoneal cavity.? No free air. ? 4. A gastric diverticulum. ? 5. Bilateral small nonobstructive renal calculi. ? The result was discussed with Dr. Alicea.? ? ? Dictated by: Brandt Ragsdale M.D. on 10/24/2021 at 10:56 ? ? Approved by: Brandt Ragsdale M.D. on 10/24/2021 at 11:24 ? Discharge Plan Departure Patient Disposition: Admitted As Inpatient Clinical Impression: Colon obstruction Admit Date/Time: 10/24/21 11:56 Admit Provider: Donovan Harris
[2021-10-24 10:13] LABS: Add Manual Diff / Slide Review NO; Basophils Absolute Auto 0 /uL (0-100); Basophils Percent Auto 0.1 % (0-2); Eosinophils Absolute Auto 300 /uL (0-450); Eosinophils Percent Auto 5.4 % (2-4); Hematocrit 26.1 % (36-46); Hemoglobin 8.7 g/dL (12.0-16.0); Lymphocytes Absolute Auto 700 /uL (1100-4500); Lymphocytes Percent Auto 15.4 % (25-40); Mean Corpuscular HGB Conc 33.4 % (30-36); Mean Corpuscular Hemoglobin 36.2 PG (26-34); Mean Corpuscular Volume 108.5 fL (80-100); Monocytes Absolute Auto 100 /uL (0-900); Monocytes Percent Auto 1.6 % (3-14); Neutrophils Absolute Auto 3700 /uL (1500-7000); Neutrophils Percent Auto 77.5 % (50-75); Platelet Count 202 X10^3/uL (150-400); Red Cell Distribution Width 13.3 % (11.6-14.8); White Blood Cell Count 4.8 X10^3/uL (4.5-11.0)
[2021-10-24 10:23] LABS: Alanine Aminotransferase 11 IU/L (<35); Albumin 3.6 g/dL (3.5-5.0); Albumin Globulin Ratio 1.4 (1.0-2.8); Alkaline Phosphatase 52 U/L (38-126); Aspartate Aminotransferase 17 IU/L (14-36); BUN Creatinine Ratio 31.4 (6-22); Bilirubin Total 0.6 mg/dL (0.2-1.3); Blood Urea Nitrogen 38 mg/dL (7-17); Calcium 8.5 mg/dL (8.4-10.2); Carbon Dioxide 20 mmol/L (22-32); Chloride 109 mmol/L (98-107); Estimated Glomerular Filt Rate 43.3 mL/min (>60); Globulin 2.6 g/dL (1.7-4.1); Glucose 125 mg/dL (80-110); HEMOLYSIS 26 (0-50); Lactate (Lactic Acid) 1.4 mmol/L (0.7-2.1); Lipase 63 U/L (23-300); Magnesium 2.4 mg/dL (1.6-2.3); Potassium 5.6 mmol/L (3.4-5.1); Sodium 136 mmol/L (137-145); Total Protein 6.2 g/dL (6.3-8.2)
[2021-10-24] MEDS: ONDANSETRON 4 MG/2 ML INJ IV (10:25)
[2021-10-24] MEDS: HYDROMORPHONE 0.5 MG INJ IV (10:25)
[2021-10-24] MEDS: SODIUM CHLORIDE 0.9% 1,000 ML 1000 ML IV (10:25)
[2021-10-24] MEDS: ALTEPLASE 2 MG/2 ML VIAL IV (10:41)
--- NOTE | 2021-10-24 11:19 | PC.NURSE ---
Donna arnett DI started Left upper arm 20g IV, had CT and blood drawn from line, gave meds and fluids. Pt co pain to left arm. appears to have infiltrated. Cathflo activase instilled into PORT, notified Dr Alicea of infiltrated IV. 30 minuted post instillation, no blood return. Will try again at 60 minutes post instillation. Pt states pain is improved since pain medication.
[2021-10-24 11:25] LABS: COVID19 -Nasal RAPID Negative (Negative)
--- NOTE | 2021-10-24 12:52 | PM.CN ---
History of Present Illness Consult details Date Patient Seen: 10/24/21 Time Patient Seen: 13:18 Chief complaint: Distended hernia/pain- sent by Narrative: Inga Julian is a 76-year-old woman who presented to the emergency room today for evaluation of abdominal pain with an associated ventral hernia. Many years of ventral hernia which has previously been reducible. Over the past 48 hours she developed worsening abdominal pain associated nausea emesis she is passing some stool per rectum. CT demonstrates a incarcerated ventral hernia containing a colonic obstruction within the hernia. At admission she is afebrile hemodynamically normal, WBC 5, hematocrit 26, creatinine 1.2, lactate 1.4. No anticoagulation, she is taking aspirin and Plavix. Anesthetic issues with previous surgery. Nonsmoker. No bleeding disorders. Relevant perioperative history 1. Endometrial cancer. Status post hysterectomy bilateral oophorectomy 20 August 2021. Demonstrated metastatic endometrial carcinoma stage IVB, lymph nodes negative however had peritoneal disease. 2. Congestive heart failure 3. Prior ventral hernia repair with mesh Meds Home Medications and Allergies Home Medications Medication Instructions Recorded Confirmed Type acetaminophen 650 mg 650 mg PO Q8H PRN 03/07/18 10/19/21 History tablet,extended release (Tylenol Arthritis Pain) clopidogrel 75 mg tablet 75 mg PO QAM 03/07/18 10/19/21 History febuxostat 80 mg tablet 80 mg PO QAM 12/27/18 10/19/21 History aspirin 81 mg chewable tablet 81 mg PO QAM 09/08/19 10/19/21 History carvedilol 6.25 mg tablet 6.25 mg PO BID 10/19/21 10/19/21 History Allergies Allergy/AdvReac Type Severity Reaction Status Date / Time Cephalosporins Allergy Severe Hives Verified 10/24/21 10:10 Penicillins [PENICILLINS] Allergy Severe RASH Verified 10/24/21 10:10 erythromycin base Allergy Hives Verified 10/24/21 10:10 Exam Vital Signs (past 8 hours): - 10/24/21 09:10 10/24/21 10:30 10/24/21 11:00 Temperature 98.2 F Pulse Rate 63 66 61 Respiratory Rate 24 15 20 Blood Pressure 137/78 Pulse Oximetry 100 100 100 Oxygen Delivery Method Room Air Narrative Exam Narrative: GENERAL: Elderly adult woman in no apparent distress HEENT: No scleral icterus CV: Regular rate, mild peripheral edema LUNGS: No increased work of breathing. Patient speaks in full sentences without oxygen support. ABDOMEN: Incarcerated ventral hernia mild tenderness to palpation no don peritonitis NEURO: Nonfocal, normal strength throughout, SKIN: Warm and dry Objective Labs Result Diagrams: 10/24/21 10:00 10/24/21 10:00 Labs: Laboratory Results - last 24 hr 10/24/21 10/24/21 10/24/21 10:00 10:00 10:00 WBC 4.8 RBC 2.40 L Hgb 8.7 L Hct 26.1 L MCV 108.5 H MCH 36.2 H MCHC 33.4 RDW 13.3 Plt Count 202 Neut % (Auto) 77.5 H Lymph % (Auto) 15.4 L [place] % (Auto) 1.6 L Eos % (Auto) 5.4 H Baso % (Auto) 0.1 Neut # (Auto) 3700 Lymph # (Auto) 700 L [place] # (Auto) 100 Eos # (Auto) 300 Baso # (Auto) 0 Sodium 136 L Potassium 5.6 H Chloride 109 H Carbon Dioxide 20 L BUN 38 H Creatinine 1.21 H Estimated GFR 43.3 L BUN/Creatinine Ratio 31.4 H Glucose 125 H Lactate 1.4 Calcium 8.5 Magnesium 2.4 H Total Bilirubin 0.6 AST 17 ALT 11 Alkaline Phosphatase 52 Total Protein 6.2 L Albumin 3.6 Globulin 2.6 Albumin/Globulin Ratio 1.4 Lipase 63 SARS-CoV-2 (PCR) 10/24/21 10:45 WBC RBC Hgb Hct MCV MCH MCHC RDW Plt Count Neut % (Auto) Lymph % (Auto) [place] % (Auto) Eos % (Auto) Baso % (Auto) Neut # (Auto) Lymph # (Auto) [place] # (Auto) Eos # (Auto) Baso # (Auto) Sodium Potassium Chloride Carbon Dioxide BUN Creatinine Estimated GFR BUN/Creatinine Ratio Glucose Lactate Calcium Magnesium Total Bilirubin AST ALT Alkaline Phosphatase Total Protein Albumin Globulin Albumin/Globulin Ratio Lipase SARS-CoV-2 (PCR) Negative [facility] Medical History Abnormal vaginal bleeding with endometrial thickness greater than 5 mm present on transvaginal ultrasound in postmenopausal patient Adjustment disorder with mixed anxiety and depressed mood CHF (congestive heart failure) Essential hypertension Hx of renal calculi Hyperlipidemia Obstructive uropathy Postmenopausal bleeding Senile atrophic vaginitis ST elevation myocardial infarction (STEMI) of lateral wall Stenosis, cervix Urethral polyp Surgical History History of cholecystectomy History of common carotid artery stent placement History of tonsillectomy and adenoidectomy History of total hysterectomy with bilateral salpingo-oophorectomy (BSO) Hx of parathyroidectomy Family History Father Congestive heart failure Sister No problems noted. Social History details: Patient lives with her niece and sister, retired household members: family Tobacco & Substance Use Smoking Status: Never smoker alcohol intake: current substance use type: does not use Assessment & Plan Assessment and plan (1) Colon obstruction: Status: Acute Plan 76-year-old woman here with a history of stage IVB endometrial carcinoma with an incarcerated ventral hernia containing bowel obstruction. I reviewed her CT abdomen pelvis which demonstrates a loop of transverse colon incarcerated within the ventral hernia possible closed loop obstruction. I explained to her that my recommendation is to proceed with exploratory laparotomy possible bowel resection possible hernia repair. Technical details of the operation were discussed with the patient. Operative risks including bleeding, enterotomy, hernia recurrence, infection, damage to surrounding structures were discussed. Her questions have been answered and she is in agreement with this plan. Time Spent With Patient Critical Care time: I spent a total of [] minutes of critical care time on this patient's care today; this time is exclusive of procedural time.
[2021-10-24] MEDS: LACTATED RINGERS 1,000 ML 84 ML IV ×2 (13:40→16:29)
[2021-10-24] MEDS: HYDROMORPHONE 2 MG INJ 0.5 MG IV (13:42)
--- NOTE | 2021-10-24 13:50 | SUR.HOLD ---
AWAITING LAB'S ARRIVAL FOR TYPE AND SCREEN. PT STATES PAIN IS DECREASING FROM 12 TO 9
--- NOTE | 2021-10-24 14:03 | SUR.HOLD ---
HOOP EARRINGS GIVEN TO SISTER, MILTON IN WR.
--- NOTE | 2021-10-24 14:11 | SUR.HOLD ---
LAB HERE FOR TYPE AND SCREEN.
[2021-10-24] MEDS: ACETAMINOPHEN IV 1,000 MG/100 ML VIAL 400 MG IV (15:08)
[2021-10-24] MEDS: CLINDAMYCIN 900 MG/50 ML PIGGYBACK 50 MG IV (15:25)
--- NOTE | 2021-10-24 15:37 | SUR.OPER ---
Supine on padded OR bed, head on pillow, arms secured on padded arm boards at <90 degrees abduction, legs uncrossed, safety belt at thigh, tape over blanket over lower legs.
--- NOTE | 2021-10-24 17:03 | P.OP_ITS ---
Operative Date/Time/Diagnoses Date of procedure: 10/24/21 Time of procedure: 17:03 Pre-op diagnosis: Incarcerated ventral hernia Large bowel obstruction Metastatic uterine carcinoma Post-op diagnosis: same Procedure & Clinicians Procedure: Exploratory laparotomy Lysis of adhesions Repair of ventral hernia Same procedure as scheduled: Yes Indications: 76-year-old woman history of ventral hernia and previous repair with metastatic uterine carcinoma who presented with a incarcerated ventral hernia containing obstructed large bowel. Surgeon: Abhishek Metzger Anesthesia Type: General Operative Notes Findings: Viable colon within ventral hernia. 8 cm fascial defect. Specimen(s): none sent Estimated Blood Loss (mL): 100 Procedure in detail: Patient was brought to the operating room placed supine on the table. Bilateral lower extremity compression devices were applied. She received 900 mg of clindamycin prior to skin incision. General anesthesia was induced she was intubated with an endotracheal tube. Amor catheter was sterilely placed. She was then prepped and draped in sterile fashion. Time-out performed. A lower midline incision was made the subcutaneous tissue was divided. There was a large incarcerated loop of transverse colon protruding through the abdominal wall that was chronically incarcerated in appearance. The abdomen was then carefully opened with sharp dissection and the hernia was released. There were numerous intra abdominal adhesions which were sharply lysed in order to entirely free the incarcerated bowel. The colon and small bowel were carefully examined and were both well perfused. The midline fascia closed without undue tension and was closed from above and below with a running 1. PDS suture. A soft macro porous Bard flat mesh was then placed in an onlay fashion above the fascia with good overlap in all directions. The mesh was secured with interrupted Ethibond suture and reinforced with Tisseel. A 19 [place] straight was then placed above the mesh brought out through the skin. The subcutaneous tissue was reapproximated with 3-0 Vicryl followed by skin closure Monocryl followed by Dermabond. Patient tolerated the operation well was transferred to recovery in stable condition. Complications: none Post-operative Condition: stable Disposition: Acute Care
--- NOTE | 2021-10-24 17:33 | DI.RAD.S_ITS ---
PROCEDURE: XR CHEST 1V INDICATIONS: Verify placement of NG tube TECHNIQUE: One view of the chest was acquired. COMPARISON: [facility], CT, CT ABDOMEN PELVIS W CON, 10/24/2021, 10:08. [facility], CT, CT ANGIO CHEST PE PROTOCOL, 10/11/2021, 7:38. [facility], CR, XR CHEST 1V, 10/10/2021, 17:59. [facility], CR, XR CHEST 1V, 10/12/2021, 17:37. FINDINGS: Surgical changes and devices: A gastric tube is seen, with the tip overlying the mid stomach. The side hole is seen just below the level of the diaphragm. There is a stable left-sided chest port. Lungs and pleura: An incomplete inspiratory result is noted, causing a crowded appearance to the lung markings. No focal infiltrates are seen. No pneumothorax or significant pleural effusions are seen. Mediastinum: Mediastinal contours appear normal. Heart size is normal. Bones and chest wall: No suspicious bony lesions. Overlying soft tissues appear unremarkable. IMPRESSION: The tip of the gastric tube is seen overlying the mid stomach, with the side hole just below the level of the diaphragm. Please consider advancement, if clinically appropriate. Dictated by: Milo Acosta M.D. on 10/24/2021 at 17:04 Approved by: Milo Acosta M.D. on 10/24/2021 at 17:06
[2021-10-24] MEDS: HYDROMORPHONE 2 MG INJ IV ×4 (17:45→18:15)
--- NOTE | 2021-10-24 18:01 | SUR.PHASEI ---
SBAR report at bedside from Mark Kearney RN. X-ray done for NGT placement. NG tube advanced approx 3 minches by Mark STEVENS. PT with now small amt of brown fluid from NGT, scant amt prior to advancing. NGT tube to LIWS. Pt medicated for pain of throat and stomach. FANNY with sang drainage.
--- NOTE | 2021-10-24 18:19 | SUR.PHASEI ---
Dr Metzger called. Notified of small buldge at top of dressing at end of diaphram. stated he did not do surgery in this area and buldge was there pre-op. No new order at this time. also informed of NGT advancment of 3 inches after inital x-ray. Read new report of: A gastric tube is seen, with the tip overlying the mid stomach. The side hole is seen just below the level of the diaphragm. No new orders at this time. stated it was ok where it is
--- NOTE | 2021-10-24 18:55 | SUR.PHASEI ---
Dr Gandhi at bedside. Reviewed VS and telemetry strip. Pt recieved 1500 IVF in OR and PACU. OVF at this time wide open. [address] Gandhi to complete IVF bag. Ok to transfer to floor if patient to admit to PACU baseline of 96/49 Pt sleeping. Awakens to voice, denies dizziness. States pain is better .
[2021-10-24] MEDS: SODIUM CHLORIDE 0.9% 1,000 ML 100 ML IV (19:46)
--- NOTE | 2021-10-24 20:15 | SUR.PHASEI ---
1921 Pt left PACU in bed on 2L of Oxygen via NC with this RN. Pt awake, alert. Pt transferred to room 213. SBAR report at bedside with Alyssa STEVENS. BP 98/57. HR 78 and 100 %RA O2 sat. Pt awake, alert, states pain is 4/10. NGT placed to hao MERCER patent, dressing clean dry and intact. Arik drain with very small amt of drainage since being emptied at 183. Bed locked and in low position.
--- NOTE | 2021-10-24 21:56 | P.HP_ITS ---
History of Present Illness History of Present Illness Date Patient Seen: 10/24/21 Time Patient Seen: 21:57 Chief complaint: Distended hernia/pain- sent by Narrative: PT with multiple comorbidities and multiple presentations for painful hernia presented with painful nonreducible hernia and was taken for surgical repair by Dr. Metzger yesterday. She is conscious and in pain postop with clean dressings and a Arik drain putting out serosanguineous fluid. She desires to be full code status in the event of cardiac arrest. Patient History Medical History Abnormal vaginal bleeding with endometrial thickness greater than 5 mm present on transvaginal ultrasound in postmenopausal patient Adjustment disorder with mixed anxiety and depressed mood CHF (congestive heart failure) Essential hypertension Hx of renal calculi Hyperlipidemia Obstructive uropathy Postmenopausal bleeding Senile atrophic vaginitis ST elevation myocardial infarction (STEMI) of lateral wall Stenosis, cervix Urethral polyp Surgical History History of cholecystectomy History of common carotid artery stent placement History of tonsillectomy and adenoidectomy History of total hysterectomy with bilateral salpingo-oophorectomy (BSO) Hx of parathyroidectomy Family & Social History Family History Father Congestive heart failure Sister No problems noted. Social History: household members family Prior Living Arrangements House Safety & Behavioral: Feels Safe in Current Yes Environment Been Physically Hurt or No Threatened By a Person Suicidal Ideation Description None Suicide Plan Description No Plan Tobacco & Substance use: Smoking Status Never smoker alcohol intake current alcohol intake frequency holiday/special occasion Substance Use Type does not use Meds Home Medications and Allergies Home Medications Medication Instructions Recorded Confirmed Type acetaminophen 650 mg 650 mg PO Q8H PRN 03/07/18 10/24/21 History tablet,extended release (Tylenol Arthritis Pain) clopidogrel 75 mg tablet 75 mg PO QAM 03/07/18 10/19/21 History febuxostat 80 mg tablet 80 mg PO QAM 12/27/18 10/19/21 History aspirin 81 mg chewable tablet 81 mg PO QAM 09/08/19 10/24/21 History carvedilol 6.25 mg tablet 6.25 mg PO BID 10/19/21 10/24/21 History Allergies Allergy/AdvReac Type Severity Reaction Status Date / Time Cephalosporins Allergy Severe Hives Verified 10/24/21 10:10 Penicillins [PENICILLINS] Allergy Severe RASH Verified 10/24/21 10:10 erythromycin base Allergy Hives Verified 10/24/21 10:10 Review of Systems Review of Systems Narrative: all systems reviewed and negative except as otherwise documented in HPI Exam Vital Signs (past 8 hours): - 10/24/21 13:57 10/24/21 17:02 10/24/21 17:07 Temperature 98.8 F Pulse Rate 72 66 65 Respiratory Rate 14 14 15 Blood Pressure 122/68 96/49 L 108/59 L Pulse Oximetry 96 98 98 10/24/21 17:11 10/24/21 17:16 10/24/21 17:22 Temperature 97.5 F L Pulse Rate 68 70 69 Respiratory Rate 20 17 Blood Pressure 112/59 L 119/62 126/54 L Pulse Oximetry 96 97 16 L 10/24/21 17:26 10/24/21 17:31 10/24/21 17:36 Temperature 97.4 F L Pulse Rate 68 68 70 Respiratory Rate 15 17 16 Blood Pressure 123/64 118/64 126/64 Pulse Oximetry 99 100 100 10/24/21 17:41 10/24/21 17:52 10/24/21 18:07 Temperature 97.0 F L Pulse Rate 69 69 81 Respiratory Rate 16 15 17 Blood Pressure 105/61 99/55 L 112/54 L Pulse Oximetry 100 98 99 10/24/21 18:21 10/24/21 18:36 10/24/21 18:42 Temperature Pulse Rate 72 83 72 Respiratory Rate 14 19 12 Blood Pressure 102/64 97/60 72/43 L Pulse Oximetry 97 96 92 10/24/21 18:43 10/24/21 18:48 10/24/21 18:52 Temperature Pulse Rate 86 74 72 Respiratory Rate 12 11 L 12 Blood Pressure 79/41 L 80/51 L 77/45 L Pulse Oximetry 94 95 91 10/24/21 18:55 10/24/21 19:02 10/24/21 19:07 Temperature Pulse Rate 71 66 Respiratory Rate 12 12 Blood Pressure 85/53 L 90/54 L 92/47 L Pulse Oximetry 100 100 10/24/21 19:12 10/24/21 19:17 10/24/21 19:57 Temperature 97.3 F L 96.3 F L Pulse Rate 67 71 76 Respiratory Rate 12 12 16 Blood Pressure 91/55 L 101/58 L 97/59 L Pulse Oximetry 100 100 100 10/24/21 20:15 10/24/21 20:42 10/24/21 20:47 Temperature 96.6 F L 96.3 F L Pulse Rate 73 71 Respiratory Rate 16 16 Blood Pressure 87/48 L 103/57 L Pulse Oximetry 100 97 100 10/24/21 21:45 Temperature 97.0 F L Pulse Rate 71 Respiratory Rate 16 Blood Pressure 84/50 L Pulse Oximetry 99 Oxygen Delivery Method Nasal Cannula Oxygen Flow Rate 1 Narrative Exam Narrative: laying on side in bed in pain Const General: cooperative, well developed and in distress [facility] Head: normal to inspection, normocephalic and atraumatic Eyes General: appearance normal, both eyes and all related structures Resp Effort & Inspection: normal respiratory effort and able to speak in complete sentences Auscultation: clear to auscultation bilaterally Cardio Rate: regular rate Heart Sounds: S1 normal and S2 normal GI Other: ventral incision under clean dressing draining SS fluid to Leana drain Back/Spine/Pelvis Back: normal to inspection Skin General: no rashes or lesions noted Neuro General: patient alert, patient awake, patient oriented x3, moves all extremities and CN's II-XI intact bilaterally Extrem General: normal to inspection and no pedal edema Psych Appearance: grossly normal Mental Status: mental status grossly normal Mood: congruent mood Affect: normal affect Objective Labs Result Diagrams: 10/24/21 10:00 10/24/21 10:00 Labs: Laboratory Results - last 24 hr 10/24/21 10/24/21 10/24/21 10:00 10:00 10:00 WBC 4.8 RBC 2.40 L Hgb 8.7 L Hct 26.1 L MCV 108.5 H MCH 36.2 H MCHC 33.4 RDW 13.3 Plt Count 202 Neut % (Auto) 77.5 H Lymph % (Auto) 15.4 L [place] % (Auto) 1.6 L Eos % (Auto) 5.4 H Baso % (Auto) 0.1 Neut # (Auto) 3700 Lymph # (Auto) 700 L [place] # (Auto) 100 Eos # (Auto) 300 Baso # (Auto) 0 Sodium 136 L Potassium 5.6 H Chloride 109 H Carbon Dioxide 20 L BUN 38 H Creatinine 1.21 H Estimated GFR 43.3 L BUN/Creatinine Ratio 31.4 H Glucose 125 H Lactate 1.4 Calcium 8.5 Magnesium 2.4 H Total Bilirubin 0.6 AST 17 ALT 11 Alkaline Phosphatase 52 Total Protein 6.2 L Albumin 3.6 Globulin 2.6 Albumin/Globulin Ratio 1.4 Lipase 63 SARS-CoV-2 (PCR) Blood Type Antibody Screen 10/24/21 10/24/21 10:45 14:15 WBC RBC Hgb Hct MCV MCH MCHC RDW Plt Count Neut % (Auto) Lymph % (Auto) [place] % (Auto) Eos % (Auto) Baso % (Auto) Neut # (Auto) Lymph # (Auto) [place] # (Auto) Eos # (Auto) Baso # (Auto) Sodium Potassium Chloride Carbon Dioxide BUN Creatinine Estimated GFR BUN/Creatinine Ratio Glucose Lactate Calcium Magnesium Total Bilirubin AST ALT Alkaline Phosphatase Total Protein Albumin Globulin Albumin/Globulin Ratio Lipase SARS-CoV-2 (PCR) Negative Blood Type A Positive Antibody Screen Negative Assessment & Plan Assessment & Plan narrative: #nonreducible ventral hernia s/p repair Dr. Metzger performed operation pt is NPO with NGT continue with gentle IVF and pain control #hyperkalemia K is 5.6 on admit, ivf and recheck in am #CKD3 Cr 1.2 is actually an improvement for her compared to 1.6 two weeks ago IVF and monitor avoid nephrotoxics #HX of [place] #CHF mild diastolic when stable, continue ASA 81 statin BB plavix gentle IVF to avoid overloading #Macrocytic anemia hgb 8.8 MCV 108 about the same as two weeks ago monitor may need folate/B12 supplementation Dispo: Admit inpatient for postop mgmt, surgery is managing Service: hospitalist MDM: sister Lis Julian [phone] Code: full Diet: NPO Time Spent With Patient Critical Care time: I spent a total of [] minutes of critical care time on this patient's care today; this time is exclusive of procedural time.
--- NOTE | 2021-10-24 22:18 | PC.NURSE ---
Addendum entered by Alyssa Antony R.N. 10/25/21 06:55: UOP only 50cc this shift. Dr. Kim informed; no new orders. Addendum entered by Alyssa Antony R.N. 10/25/21 02:49: Dr. Kim here to see patient. Informed him of low BP, observed low UOP in catheter and informed of Arik drain putting out 90cc so far this shift. Patient having increased pain so MD ordered 1 dose of 1mg Dilaudid; patient medicated as ordered. Original Note: Patient admitted to room 213 from PACU at 1940. Is oriented but drowsy. Breath sounds diminished but CTA; on oxygen at 1L/min per NC with sat of 100% so is currently on 0.5L/min. On continuous oximetry. HRR. BP trending low (as she was in PACU). Earlier BP was 87/[address] Metzger was contacted but did not change orders; stated he was okay with BP in that range. Most recent BP is 94/49. Denies nausea. NG to LIS. BT absent and abdomen is soft and distended. Aquacel dressings to abdomen are CDI. Arik drain is intact and compressed w/serosanguinous drainage. Indwelling catheter is patent; urine is clear yellow. Is assisted to reposition but can help. Gait not assessed at this time. Bilateral calf SCD's applied. Fall risk score is high and bed alarm is activated.
[2021-10-25] VITALS (12 sets, daily range): BP systolic 93–132; BP diastolic 53–64; PULSE 77–104; RESP 16–20; TEMP 35.9–36.7; O2SAT 94–99
[2021-10-25] MEDS: HYDROMORPHONE 0.5 MG INJ IV ×2 (00:57→05:48)
[2021-10-25] MEDS: HYDROMORPHONE 1 MG INJ IV ×3 (02:47→22:35)
[2021-10-25] MEDS: SODIUM CHLORIDE 0.9% 1,000 ML 100 ML IV ×2 (05:00→15:19)
[2021-10-25] MEDS: SODIUM CHLORIDE 0.9% FLUSH 10 ML IV (05:02)
[2021-10-25 06:01] LABS: BUN Creatinine Ratio 25.1 (6-22); Blood Urea Nitrogen 46 mg/dL (7-17); Calcium 7.5 mg/dL (8.4-10.2); Carbon Dioxide 18 mmol/L (22-32); Chloride 109 mmol/L (98-107); Estimated Glomerular Filt Rate 26.8 mL/min (>60); Glucose 129 mg/dL (80-110); HEMOLYSIS < 15 (0-50); Magnesium 2.2 mg/dL (1.6-2.3); Sodium 136 mmol/L (137-145)
[2021-10-25 06:20] LABS: Potassium 6.3 mmol/L (3.4-5.1)
[2021-10-25 06:32] LABS: Hematocrit 22.7 % (36-46); Hemoglobin 7.5 g/dL (12.0-16.0); Mean Corpuscular Volume 107.3 fL (80-100); Red Blood Cell Count 2.12 X10^6/uL (4.0-5.2); White Blood Cell Count 1.7 X10^3/uL (4.5-11.0)
[2021-10-25 06:33] LABS: Add Manual Diff / Slide Review YES; Mean Corpuscular HGB Conc 33.1 % (30-36); Mean Corpuscular Hemoglobin 35.5 PG (26-34); Platelet Count 257 X10^3/uL (150-400); Red Cell Distribution Width 13.7 % (11.6-14.8)
[2021-10-25 07:10] LABS: Macrocytosis 3+; Neutrophils Absolute Manual 952 /uL (3000-5900); Total Cells Counted 100
[2021-10-25] MEDS: CALCIUM GLUCONATE 4.65 MEQ in SODIUM CHLORIDE 0.9% 50 ML 180 ML IV (07:34)
--- NOTE | 2021-10-25 07:45 | P.PN_ITS ---
Subjective Subjective Date Patient Seen: 10/25/21 Time Patient Seen: 07:45 Interval history: Complains of throat pain and right abdominal wall pain this AM. No nausea or emesis but NG tube remains in place. No chest pain or trouble breathing today. Denies edema. Exam Vital Signs (past 8 hours): - 10/25/21 01:03 10/25/21 02:18 10/25/21 05:00 Temperature 97.2 F L Pulse Rate 77 Respiratory Rate 16 Blood Pressure 93/53 L Pulse Oximetry 97 98 99 10/25/21 05:21 Temperature 96.6 F L Pulse Rate 79 Respiratory Rate 16 Blood Pressure 111/60 Pulse Oximetry 97 Oxygen Delivery Method Room Air Oxygen Flow Rate 0 Narrative Exam Narrative: General:?elderly female, mildly ill appearing, no acute distress HEENT:? Normocephalic, atraumatic, extraocular muscles intact, oral pharynx is clear and mucous membranes are dry. Neck: supple and symmetric, trachea is midline, no cervical adenopathy. Negative for JVD Chest:? Normal AP diameter and contour without kyphoscoliosis, no tachypnea, equal chest rise bilaterally. Lungs:? decreased breath sounds bilateral lung bases but no obvious wheezing, rhonchi, rales. Poor effort. Cardio:?RRR no m/r/g. Abdomen: soft, appropriately tender, non-distended. dressings c/d/i. FANNY drain with s/s drainage. Musculoskeletal:? Muscle strength and tone are equal within normal limits, no deformity. Extremities: No edema or joint effusions. No cyanosis or clubbing. Skin:? Pale,? Warm to touch,dry and intact without rashes, ulcerations or petechiae.? Neuro:? Alert and orientated x3,? sensation to touch intact in all extremities, no gross deficits noted of cranial nerves. Psych:? Patient has a well-kept appearance, appropriate affect, mental status attitude thought context and judgment are appropriate for age. Objective Labs Result Diagrams: 10/25/21 05:42 10/25/21 05:42 Labs: Laboratory Results - last 24 hr 10/24/21 10/24/21 10/24/21 10:00 10:00 10:00 WBC 4.8 RBC 2.40 L Hgb 8.7 L Hct 26.1 L MCV 108.5 H MCH 36.2 H MCHC 33.4 RDW 13.3 Plt Count 202 Neut % (Auto) 77.5 H Lymph % (Auto) 15.4 L [place] % (Auto) 1.6 L Eos % (Auto) 5.4 H Baso % (Auto) 0.1 Neut # (Auto) 3700 Lymph # (Auto) 700 L [place] # (Auto) 100 Eos # (Auto) 300 Baso # (Auto) 0 Total Counted Seg Neutrophils % Lymphocytes % (Manual) Atypical Lymphs % Neutrophils # (Manual) RBC Morphology Macrocytosis Sodium 136 L Potassium 5.6 H Chloride 109 H Carbon Dioxide 20 L BUN 38 H Creatinine 1.21 H Estimated GFR 43.3 L BUN/Creatinine Ratio 31.4 H Glucose 125 H Lactate 1.4 Calcium 8.5 Magnesium 2.4 H Total Bilirubin 0.6 AST 17 ALT 11 Alkaline Phosphatase 52 Total Protein 6.2 L Albumin 3.6 Globulin 2.6 Albumin/Globulin Ratio 1.4 Lipase 63 SARS-CoV-2 (PCR) Blood Type Antibody Screen 10/24/21 10/24/21 10/25/21 10:45 14:15 05:42 WBC 1.7 L* D RBC 2.12 L Hgb 7.5 L Hct 22.7 L MCV 107.3 H MCH 35.5 H MCHC 33.1 RDW 13.7 Plt Count 257 Neut % (Auto) Not Reportable Lymph % (Auto) Not Reportable [place] % (Auto) Not Reportable Eos % (Auto) Not Reportable Baso % (Auto) Not Reportable Neut # (Auto) Lymph # (Auto) Not Reportable [place] # (Auto) Not Reportable Eos # (Auto) Baso # (Auto) Not Reportable Total Counted 100 Seg Neutrophils % 56.0 Lymphocytes % (Manual) 28.0 Atypical Lymphs % 16.0 H Neutrophils # (Manual) 952 L RBC Morphology Not Reportable Macrocytosis 3+ H Sodium Potassium Chloride Carbon Dioxide BUN Creatinine Estimated GFR BUN/Creatinine Ratio Glucose Lactate Calcium Magnesium Total Bilirubin AST ALT Alkaline Phosphatase Total Protein Albumin Globulin Albumin/Globulin Ratio Lipase SARS-CoV-2 (PCR) Negative Blood Type A Positive Antibody Screen Negative 10/25/21 05:42 WBC RBC Hgb Hct MCV MCH MCHC RDW Plt Count Neut % (Auto) Lymph % (Auto) [place] % (Auto) Eos % (Auto) Baso % (Auto) Neut # (Auto) Lymph # (Auto) [place] # (Auto) Eos # (Auto) Baso # (Auto) Total Counted Seg Neutrophils % Lymphocytes % (Manual) Atypical Lymphs % Neutrophils # (Manual) RBC Morphology Macrocytosis Sodium 136 L Potassium 6.3 H* Chloride 109 H Carbon Dioxide 18 L BUN 46 H Creatinine 1.83 H Estimated GFR 26.8 L BUN/Creatinine Ratio 25.1 H Glucose 129 H Lactate Calcium 7.5 L Magnesium 2.2 Total Bilirubin AST ALT Alkaline Phosphatase Total Protein Albumin Globulin Albumin/Globulin Ratio Lipase SARS-CoV-2 (PCR) Blood Type Antibody Screen [facility] Medical History Abnormal vaginal bleeding with endometrial thickness greater than 5 mm present on transvaginal ultrasound in postmenopausal patient Adjustment disorder with mixed anxiety and depressed mood CHF (congestive heart failure) Essential hypertension Hx of renal calculi Hyperlipidemia Obstructive uropathy Postmenopausal bleeding Senile atrophic vaginitis ST elevation myocardial infarction (STEMI) of lateral wall Stenosis, cervix Urethral polyp Surgical History History of cholecystectomy History of common carotid artery stent placement History of tonsillectomy and adenoidectomy History of total hysterectomy with bilateral salpingo-oophorectomy (BSO) Hx of parathyroidectomy Family History Father Congestive heart failure Sister No problems noted. Social History details: Patient lives with her niece and sister, retired household members: family Smoking Status: Never smoker alcohol intake: current substance use type: does not use Assessment & Plan Assessment & Plan narrative: #nonreducible ventral hernia s/p repair Dr. Metzger performed hernia repair on 10/24. No bowel resection during surgery. pt is NPO with NGT continue with gentle IVF and pain control. okay to start Lovenox today. Although given CAD consider switching to her usual ASA/Plavix when tolerating oral intake as all 3 may increase bleeding risk in setting of her already chronic anemia. #hyperkalemia K 6.3, normally lower 5s. Continue telemetry and IV fluids. No current symptoms. Given calcium gluconate overnight. Shortage of d50 so will avoid insulin and d50 for now and monitor with tele and frequent lab draws with continued fluids. unable to add lasix given volume status #ROSA M on CKD3 Cr 1.2 on admit is actually an improvement for her compared to 1.6 two weeks ago Creatinine to 1.8 after surgery with hyperkalemia #HX of [place] #chronic diastolic heart failure when able, continue ASA 81 statin BB plavix gentle IVF to avoid overloading likely volume down still given ROSA M and hyperkalemia. Avoid LR in hyperkalemia. Has borderline high potassium normally. This AM 6.3. #Macrocytic anemia / and leukopenia hgb 8.8 MCV 108, slightly decreased to 7.5. Continue to follow after surgery. Goal Hg >7. Leukopenia likely related to surgery. No current evidence of infection. Dispo: remains inpatient MDM: sister Lis Julian [phone] Code: full Diet: NPO Time Spent With Patient Critical Care time: I spent a total of [] minutes of critical care time on this patient's care today; this time is exclusive of procedural time.
--- NOTE | 2021-10-25 09:00 | DIET.CONS ---
Dietary Consultation Note Admission Date: 10/24/2021 11:56 Assessment: Please see previous dietary consultation note from 10/11/21 for further details. 76y F s/p ventral hernia repair (no bowel resection) with metastatic endometrial cancer, recent hysterectomy and bilateral oophorectomy and significant unintentional weight loss over last 6mo (13%). Pt with Severe Malnutrition secondary to poor appetite and projected further difficulty eating as pt initiating chemotherapy 10/19/21. RD spoke c pt about using ONS as tool daily to support nutrition status as baseline diet is scant (B: tea c milk, L: skip or pb crackers D: TV dinner). Recc low threshold to initiate TPN if pt presents with slow return of bowel fxn. Ht: 154.94 cm Wt: 67.132 kg BMI: 27.9 UBW: 81-88kg Last BM: 10/23/21 (10/24/21 20:16) MNA: 12 Garett Score: 21 Diet: 10/24/21 08:53 NPO Diet Diet Modifications: ok for sips of water and ice chips meds with NGT NPO Type: NPO except for Ice Chips Labs: RBC 2.12 X10^6/uL (4.0-5.2) L 10/25/21 05:42 Hgb 7.5 g/dL (12.0-16.0) L 10/25/21 05:42 Hct 22.7 % (36-46) L 10/25/21 05:42 Creatinine 1.83 mg/dL (0.52-1.04) H 10/25/21 05:42 Lactate 1.4 mmol/L (0.7-2.1) 10/24/21 10:00 Nutrition Diagnosis: Severe acute on chronic protein calorie malnutrition r/t reduced appetite, cancer diagnosis, low PO aeb pt NPO c NG to lis, pt report, diet recall indicating <75% EER in over 1 mo, >10% weight loss in 6 months, some physical signs of muscle wasting. Interventions: 1. Recc low threshold to initiate TPN if delayed return of bowel function. 2. Reiterate ONS Enlive once or twice daily during chemotherapy to support nutrition status. Kitchen to send ONS once pt assigned diet. EER: [id number] (25-27kcal/kg per BMI and cancer dx) 100g PRO (1.5g/kg per malnutrition and ca dx) Monitoring/Evaluations: diet advancement Electronically Signed by: Mariela Richey 10/25/21 09:00 Clinical Dietitian [address] [id number]
[2021-10-25] MEDS: HYDROMORPHONE 0.5 MG INJ 1 MG IV ×2 (10:21→14:35)
--- NOTE | 2021-10-25 10:40 | PC.NURSE ---
Port draws: pt's port is positional. +Blood return with pt supine, no pillow and slow deep breaths.
[2021-10-25 10:57] LABS: BUN Creatinine Ratio 25.8 (6-22); Blood Urea Nitrogen 50 mg/dL (7-17); Calcium 7.6 mg/dL (8.4-10.2); Carbon Dioxide 17 mmol/L (22-32); Chloride 110 mmol/L (98-107); Estimated Glomerular Filt Rate 26.4 mL/min (>60); Glucose 119 mg/dL (80-110); HEMOLYSIS < 15 (0-50); Sodium 136 mmol/L (137-145)
[2021-10-25 10:58] LABS: Potassium 6.2 mmol/L (3.4-5.1)
[2021-10-25] MEDS: OXYCODONE IR 5 MG TABLET PO (11:12)
--- NOTE | 2021-10-25 13:10 | PM.PNPO.1 ---
Subjective Subjective Date Patient Seen: 10/25/21 Time Patient Seen: 13:10 Interval history: No acute overnight events. +Flatus. No nausea or vomiting. Exam Vital Signs (past 8 hours): - 10/25/21 05:21 10/25/21 07:00 10/25/21 09:31 Temperature 96.6 F L 96.8 F L Pulse Rate 79 88 Respiratory Rate 16 19 Blood Pressure 111/60 131/63 Pulse Oximetry 97 98 94 10/25/21 11:00 Temperature 96.6 F L Pulse Rate 81 Respiratory Rate 20 Blood Pressure 104/53 L Pulse Oximetry 97 Oxygen Delivery Method Room Air Oxygen Flow Rate 0 Narrative Exam Narrative: Gen-Elderly woman alert and oriented. Uncomfortable Chest-Non labored resp Abdomen-Soft, dressing CDI. Drain SS Objective Labs Result Diagrams: 10/25/21 05:42 10/25/21 10:30 Labs: Laboratory Results - last 24 hr 10/24/21 10/25/21 10/25/21 14:15 05:42 05:42 WBC 1.7 L* D RBC 2.12 L Hgb 7.5 L Hct 22.7 L MCV 107.3 H MCH 35.5 H MCHC 33.1 RDW 13.7 Plt Count 257 Neut % (Auto) Not Reportable Lymph % (Auto) Not Reportable [place] % (Auto) Not Reportable Eos % (Auto) Not Reportable Baso % (Auto) Not Reportable Lymph # (Auto) Not Reportable [place] # (Auto) Not Reportable Baso # (Auto) Not Reportable Total Counted 100 Seg Neutrophils % 56.0 Lymphocytes % (Manual) 28.0 Atypical Lymphs % 16.0 H Neutrophils # (Manual) 952 L RBC Morphology Not Reportable Macrocytosis 3+ H Sodium 136 L Potassium 6.3 H* Chloride 109 H Carbon Dioxide 18 L BUN 46 H Creatinine 1.83 H Estimated GFR 26.8 L BUN/Creatinine Ratio 25.1 H Glucose 129 H Calcium 7.5 L Magnesium 2.2 Blood Type A Positive Antibody Screen Negative 10/25/21 10:30 WBC RBC Hgb Hct MCV MCH MCHC RDW Plt Count Neut % (Auto) Lymph % (Auto) [place] % (Auto) Eos % (Auto) Baso % (Auto) Lymph # (Auto) [place] # (Auto) Baso # (Auto) Total Counted Seg Neutrophils % Lymphocytes % (Manual) Atypical Lymphs % Neutrophils # (Manual) RBC Morphology Macrocytosis Sodium 136 L Potassium 6.2 H Chloride 110 H Carbon Dioxide 17 L BUN 50 H Creatinine 1.94 H Estimated GFR 26.4 L BUN/Creatinine Ratio 25.8 H Glucose 119 H Calcium 7.6 L Magnesium Blood Type Antibody Screen [facility] Medical History Abnormal vaginal bleeding with endometrial thickness greater than 5 mm present on transvaginal ultrasound in postmenopausal patient Adjustment disorder with mixed anxiety and depressed mood CHF (congestive heart failure) Essential hypertension Hx of renal calculi Hyperlipidemia Obstructive uropathy Postmenopausal bleeding Senile atrophic vaginitis ST elevation myocardial infarction (STEMI) of lateral wall Stenosis, cervix Urethral polyp Surgical History History of cholecystectomy History of common carotid artery stent placement History of tonsillectomy and adenoidectomy History of total hysterectomy with bilateral salpingo-oophorectomy (BSO) Hx of parathyroidectomy Family History Father Congestive heart failure Sister No problems noted. Social History details: Patient lives with her niece and sister, retired household members: family Smoking Status: Never smoker alcohol intake: current substance use type: does not use Assessment & Plan Post-op Postoperative Procedures: Procedures Operation Date: 10/24/21 15:00 Actual Procedure Side Surgeon p Exploratory Laparotomy with lysis of adhesions and open ventral hernia repair Not Applicable Abhishek Metzger MD Postoperative plan narrative: 76 y.o woman POD 1 sp exlap and repair of incarcerated ventral hernia with associated large bowel obstruction. -Remove NGT -Start clear liquids -Ok for ASA and Plavix at this point -Continue bui cath for monitoring of acute kidney injury -SCDs and OK for VTE prophylaxis with Heparin at this point.
--- NOTE | 2021-10-25 16:16 | CM.DANOTE ---
Addendum entered by Beata Hernandez R.N. 10/25/21 16:22: Insurance entered below is error patients insurance is Medicare and medicaid. Beata Hernandez RNclinic manager Original Note: DCP Assessment: patient is a 76 yr old female who is currently undergoing chemo for endometrial cancer was admitted for abdominal pain and hernia repair preformed by Dr. faustin. CM met with the patient at the bedside and explained role. Patient was alert and oriented x4 during meeting. Patient currently lives in a multi-generational home with her sister Saskia- (DPOA) and her Niece's family. Patient states she is independent with all ADLs but does use a FWW at her baseline. Patients sister does all her grocery shopping and drives. Patient did ask CM for [facility] when she is DC to help with strength after her surgery and chemo treatments. CM provided patient with choice list and patient chose [facility]. CM got F2F signed and faxed to [facility] along with clinicals. Cm called [facility] and they are working on referral. I: Medicare and [facility] PCP: Jose Wong Plan: DC home with family, [facility] with her sister Saskia providing transportation. Beata Hernandez RNnarrow gauge engineer Discharge Planning/Care Management CM Discharge Assessment Start: 10/25/21 15:56 Freq: Status: Active Protocol: Document 10/25/21 15:56 HS (Rec: 10/25/21 16:00 HS [id number]) Discharge Planning Assessment Assigned County Engineer Beata Hernandez RNclinic manager DPOA/Assigned Designee Name Saskia uJlian- Contact Information [phone] Advance Directives? Yes Advance Directives on File No History Provided By Patient,Medical Record Has Patient been admitted in last 30 Yes days? Comment Patient was discharged on 10/11 Prior Living Arrangements House Household Members family Comment Patient lives in a multi- generational house hold. lives with her sister, niece her nieces and there 3 kids Type of transporation used prior to Relies on Others admit Comment Patients sister Arnold drives her where she needs to go Independent with ADL's Yes Is patient alert and oriented? Yes Needs Assistance With Home Chores / Shopping Caregiver for Another No DME Already Rented / Owned FWW / Walker Patient/Family Preference Home with Home Health Comment Pateint requested [facility] referral Barriers to Discharge No Discharge Plan Home with Home Health Referrals Initiated Home Health Additional Comment [facility] Medicare Choice List Provided Yes SNF/HH Preference Patient choose [facility] since she has used them before in the past Whiteboard Updated in Patient Room with Yes name and ext. # of County Engineer Review Status In Process Next Review Type Continued Stay Review
[2021-10-25 20:27] LABS: BUN Creatinine Ratio 24.5 (6-22); Blood Urea Nitrogen 53 mg/dL (7-17); Calcium 6.8 mg/dL (8.4-10.2); Carbon Dioxide 15 mmol/L (22-32); Chloride 112 mmol/L (98-107); Estimated Glomerular Filt Rate 23 mL/min (>60); Glucose 106 mg/dL (80-110); HEMOLYSIS < 15 (0-50); Sodium 136 mmol/L (137-145)
[2021-10-25 20:31] LABS: Potassium 5.7 mmol/L (3.4-5.1)
[2021-10-26] VITALS (16 sets, daily range): BP systolic 130–150; BP diastolic 63–81; PULSE 82–100; RESP 16–20; TEMP 36.2–37.3; O2SAT 93–99
[2021-10-26] MEDS: SODIUM CHLORIDE 0.9% 1,000 ML 100 ML IV (01:26)
[2021-10-26] MEDS: HYDROMORPHONE 1 MG INJ IV ×4 (03:21→22:18)
[2021-10-26 05:06] LABS: BUN Creatinine Ratio 25.5 (6-22); Blood Urea Nitrogen 59 mg/dL (7-17); Calcium 7.2 mg/dL (8.4-10.2); Carbon Dioxide 15 mmol/L (22-32); Chloride 112 mmol/L (98-107); Estimated Glomerular Filt Rate 21 mL/min (>60); Glucose 117 mg/dL (80-110); HEMOLYSIS < 15 (0-50); Magnesium 2.2 mg/dL (1.6-2.3); Sodium 138 mmol/L (137-145)
[2021-10-26 05:53] LABS: Mean Corpuscular HGB Conc 32.9 % (30-36); Mean Corpuscular Hemoglobin 36.4 PG (26-34); Mean Corpuscular Volume 110.7 fL (80-100); Platelet Count 217 X10^3/uL (150-400); Red Blood Cell Count 1.61 X10^6/uL (4.0-5.2); Red Cell Distribution Width 13.7 % (11.6-14.8)
[2021-10-26 05:59] LABS: Potassium 6.3 mmol/L (3.4-5.1)
[2021-10-26 06:00] LABS: White Blood Cell Count 1.1 X10^3/uL (4.5-11.0)
[2021-10-26 06:01] LABS: Hematocrit 17.8 % (36-46); Hemoglobin 5.9 g/dL (12.0-16.0)
[2021-10-26 06:02] LABS: Add Manual Diff / Slide Review YES
--- NOTE | 2021-10-26 06:15 | DI.US.S_ITS ---
PROCEDURE: US RENAL COMPLETE INDICATIONS: lasohnda TECHNIQUE: Real-time scanning was performed of the kidneys and bladder, with image documentation. COMPARISON: [facility], CT, CT ABDOMEN PELVIS W CON, 10/24/2021, 10:08. FINDINGS: Kidneys: Kidneys are atrophic in size. Right kidney measures 8.4 cm long; left kidney measures 9.7 cm long. Right renal cortical thickness is 1.0 cm; left renal cortical thickness is 0.9 cm. Renal cortical echotexture is normal. No hydronephrosis or nephrolithiasis. Previous punctate renal calcifications identified on CT are not visualized on current ultrasound. No suspicious solid mass lesions. Bladder: Bladder is poorly visualized secondary to Amor catheter. In addition, bandages are noted overlying the expected region of the bladder allowing only limited visualization. Miscellaneous: No free pelvic fluid. IMPRESSION: Limited visualization of the bladder as above. Renal atrophy. Nonvisualization of previously identified renal calculi. Dictated by: Olivia Nelson M.D. on 10/26/2021 at 11:02 Approved by: Olivia Nelson M.D. on 10/26/2021 at 11:04
[2021-10-26] MEDS: DEXTROSE 10 % IN WATER 250 ML 999 ML IV (06:26)
[2021-10-26 06:28] LABS: Creatine Kinase 31 U/L (30-135); Lactate Dehydrogenase 316 U/L (313-618)
[2021-10-26] MEDS: INSULIN REGULAR 100 UNIT/ML 3 ML VIAL 10 UNIT IV (06:30)
[2021-10-26] MEDS: CALCIUM GLUCONATE 4.65 MEQ in SODIUM CHLORIDE 0.9% 50 ML 180 ML IV (06:35)
[2021-10-26 06:41] LABS: HEMOLYSIS < 15 (0-50); Iron 56 ug/dL (37-170)
[2021-10-26 06:52] LABS: Percent Iron Saturation 32 % (15-50); Total Iron Binding Capacity 173 ug/dL (265-497); Transferrin 112 mg/dL (206-381)
[2021-10-26 07:02] LABS: Neutrophils Absolute Manual 308 /uL (3000-5900); Total Cells Counted 50
[2021-10-26 07:03] LABS: Anisocytosis 2+; Macrocytosis 3+
[2021-10-26 07:53] LABS: Folate 4.1 ng/mL (2.76-20.0); Vitamin B12 474 pg/mL (239-931)
[2021-10-26] MEDS: OXYCODONE IR 5 MG TABLET PO ×2 (09:06→15:45)
[2021-10-26] MEDS: HYDROMORPHONE 0.5 MG INJ 3 MG IV (11:34)
[2021-10-26] MEDS: FUROSEMIDE 100 MG/10 ML VIAL 60 MG IV (12:34)
--- NOTE | 2021-10-26 12:58 | P.PN_ITS ---
Subjective Subjective Interval history: Patient endorses continued pain today. She denies n/v/d. She is aware that she has a poor prognosis due to underlying stage 4 uterine cancer. Exam Vital Signs (past 8 hours): - 10/26/21 05:00 10/26/21 07:00 10/26/21 07:49 Temperature 98.8 F Pulse Rate 93 H Respiratory Rate 18 Blood Pressure 139/68 Pulse Oximetry 95 96 97 10/26/21 08:53 10/26/21 09:00 10/26/21 09:14 Temperature 99.0 F 98.8 F Pulse Rate 95 H 100 H Respiratory Rate 16 20 Blood Pressure 147/77 H 140/81 Pulse Oximetry 93 10/26/21 11:44 Temperature 99.1 F Pulse Rate 97 H Respiratory Rate 18 Blood Pressure 150/67 H Pulse Oximetry Oxygen Delivery Method Room Air Oxygen Flow Rate 0 Const Other: Patient laying in bed, holding abdomen over anterior side, and appears uncomfortable and in mild distress, although not acutely toxic Eyes Other: No scleral icterus appreciated Resp Other: Lungs clear to auscultation bilaterally Cardio Other: Tachycardic rate with regular rhythm, S1 and S2 heart sounds normal, no extra heart sounds appreciated, with grade III/ sysotlic ejection murmur noted GI Other: Soft, slightly distended, tender to palpation throughout, without rebound or guarding, bowel sounds present, with dressings over surgical incision sites clean, dry and intact, along with drain with serosanguinous fluid Skin Other: No grossly abnormal skin lesions noted Extrem Other: No peripheral edema, bilateral dorsalis pedis pulses palpable Objective Labs Result Diagrams: 10/26/21 04:37 10/26/21 04:37 Labs: Laboratory Results - last 24 hr 10/24/21 10/25/21 10/26/21 14:15 19:00 04:37 WBC 1.1 L* RBC 1.61 L Hgb 5.9 L* Hct 17.8 L* MCV 110.7 H D MCH 36.4 H MCHC 32.9 RDW 13.7 Plt Count 217 Neut % (Auto) Not Reportable Lymph % (Auto) Not Reportable [place] % (Auto) Not Reportable Eos % (Auto) Not Reportable Baso % (Auto) Not Reportable Lymph # (Auto) Not Reportable [place] # (Auto) Not Reportable Baso # (Auto) Not Reportable Total Counted 50 Seg Neutrophils % 20.0 L D Band Neutrophils % 8.0 H Lymphocytes % (Manual) 42.0 Atypical Lymphs % 16.0 H Monocytes % (Manual) 12.0 H Metamyelocytes % 2.0 H Neutrophils # (Manual) 308 L RBC Morphology See below Anisocytosis 2+ H Macrocytosis 3+ H Sodium 136 L Potassium 5.7 H Chloride 112 H Carbon Dioxide 15 L BUN 53 H Creatinine 2.16 H Estimated GFR 23 L BUN/Creatinine Ratio 24.5 H Glucose 106 Calcium 6.8 L Magnesium Iron TIBC % Saturation Transferrin Lactate Dehydrogenase Total Creatine Kinase Vitamin B12 Folate Blood Type A Positive Antibody Screen Negative Crossmatch See Detail 10/26/21 10/26/21 10/26/21 04:37 04:37 04:37 WBC RBC Hgb Hct MCV MCH MCHC RDW Plt Count Neut % (Auto) Lymph % (Auto) [place] % (Auto) Eos % (Auto) Baso % (Auto) Lymph # (Auto) [place] # (Auto) Baso # (Auto) Total Counted Seg Neutrophils % Band Neutrophils % Lymphocytes % (Manual) Atypical Lymphs % Monocytes % (Manual) Metamyelocytes % Neutrophils # (Manual) RBC Morphology Anisocytosis Macrocytosis Sodium 138 Potassium 6.3 H* Chloride 112 H Carbon Dioxide 15 L BUN 59 H Creatinine 2.31 H Estimated GFR 21 L BUN/Creatinine Ratio 25.5 H Glucose 117 H Calcium 7.2 L Magnesium 2.2 Iron TIBC % Saturation Transferrin Lactate Dehydrogenase 316 Total Creatine Kinase 31 Vitamin B12 Folate Blood Type Antibody Screen Crossmatch 10/26/21 10/26/21 04:37 04:37 WBC RBC Hgb Hct MCV MCH MCHC RDW Plt Count Neut % (Auto) Lymph % (Auto) [place] % (Auto) Eos % (Auto) Baso % (Auto) Lymph # (Auto) [place] # (Auto) Baso # (Auto) Total Counted Seg Neutrophils % Band Neutrophils % Lymphocytes % (Manual) Atypical Lymphs % Monocytes % (Manual) Metamyelocytes % Neutrophils # (Manual) RBC Morphology Anisocytosis Macrocytosis Sodium Potassium Chloride Carbon Dioxide BUN Creatinine Estimated GFR BUN/Creatinine Ratio Glucose Calcium Magnesium Iron 56 TIBC 173 L % Saturation 32 Transferrin 112 L Lactate Dehydrogenase Total Creatine Kinase Vitamin B12 474 Folate 4.1 Blood Type Antibody Screen Crossmatch [facility] Medical History Abnormal vaginal bleeding with endometrial thickness greater than 5 mm present on transvaginal ultrasound in postmenopausal patient Adjustment disorder with mixed anxiety and depressed mood CHF (congestive heart failure) Essential hypertension Hx of renal calculi Hyperlipidemia Obstructive uropathy Postmenopausal bleeding Senile atrophic vaginitis ST elevation myocardial infarction (STEMI) of lateral wall Stenosis, cervix Urethral polyp Surgical History History of cholecystectomy History of common carotid artery stent placement History of tonsillectomy and adenoidectomy History of total hysterectomy with bilateral salpingo-oophorectomy (BSO) Hx of parathyroidectomy Family History Father Congestive heart failure Sister No problems noted. Social History details: Patient lives with her niece and sister, retired household members: family Smoking Status: Never smoker alcohol intake: current substance use type: does not use Assessment & Plan Assessment & Plan narrative: 76-year-old female with a history of endometrial cancer, status post hysterectomy and bilateral oophorectomy, with left Port-A-Cath in place as of October 12, and undergoing active chemotherapy that presented with incarcerated ventral hernia status post exploratory laparotomy repair on October 24, 2021. 1. Ventral hernia with incarceration, status post surgical repair on October 24, 2021 - No bowel resection was necessary intraoperatively per surgery, NG tube no longer in place 2. ROSA M, likely pre-renal, with possible ATN, on CKD stage III - Likely due to acute blood loss anemia intraoperatively, resulting in int ravascular depletion and possible ATN - Has been fluid resuscitated, and will Lasix challenge today to see if that opens up her kidneys, especially given oncotic support today with RBC transfusion - There might be an element of compartment syndrome, too, that is contributing to low kidney perfusion, Amor in-place 3. Hyperkalemia, possibly due to ATN - No peaked T-wave on EKG appreciated, telemetry on-board - Likely occurred due to ROSA M on CKD III, along with increased cell turnover from underlying cancer, and being on lactated Ringer's post-op - Should absolutely avoid Kayexalate in this patient, due to recent abdominal surgical interventions - Treating with IV insulin with dextrose, and diuresis might help today, too - If patient's kidneys do not open up with Lasix challenge, will likely need transfer to dialysis-capable facility 4. Acute blood loss anemia on chronic macrocytic anemia - Will transfuse for hemoglobin less than 7, due to undergo 1 unit RBC transfusion today 5. Hx of OK, remote - Recent echocardiogram (September 2021) shows preserved EF, with recent stress test (September 2021) unremarkable for obstructive CAD - Will hold off on home aspirin, Plavix for now, given propensity for GI bleed, especially as she's on VTE prophylaxis, too 6. Hx of uterine cancer, stage 4, status post hysterectomy and bilateral oopherectomy, undergoing active chemotherapy - Reportedly received carboplatin and Taxol outpatient, approximately 1 week ago 7. Leukopenia, likely due to chemotherapy, stable 8. Hypocalcemia, likely due to acute stress response - Will have to monitor QTc, especially if using QT-prolonging drugs - Replenish as needed with IV calcium gluconate, especially in light of concomitant hyperkalemia 9. Moderate aortic stenosis - This likely contributed to being volume depleted intraoperatively, leading to ATN - The degree of the stenosis makes her a poor candidate for future interventions, and worsens her prognosis 10. Hx of hypertension - Will hold all home NIECY/ARB due to hyperkalemia - Will resume home carvedilol 6.25 mg bid and uptitrate as tolerated 11. Hyperlipidemia - Will start atorvastatin 40 mg daily for atherosclerotic protection, especially given calcifications around aortic valve 12. [id number] conversation - I spoke with the patient and her sister frankly about her poor prognosis, and offered enrollment in hospice - Patient and her family understandably want some time to contemplate this - If the patient decided to continue with full code, then will attempt transfer to dialysis-capable facility VTE prophylaxis: Renally-dosed Lovenox 30 mg daily Code: Full code Proxy: Sister, Saskia I have utilized all available immediate resources to obtain, review, and confirm the patient's medications. Time Spent With Patient Critical Care time: I spent a total of [] minutes of critical care time on this patient's care today; this time is exclusive of procedural time. Quality MIPS - Admit I confirm the patient?s Advance Care Plan is present, Code status is documented, Surrogate decision maker is in patient?s record [If Yes, STOP here]: Yes
--- NOTE | 2021-10-26 13:23 | CM.DPC ---
Addendum entered by Darling Boyer R.N. 10/26/21 14:39: Spoke briefly to Dr. Metzger who will be seeing patient. He brought up that patient does have a poor prognosis. Let him know that this was discussed at team rounds by Dr. Richards. Did read Dr. Richards's note from today and he did mention hospice, but patient wants time to think about this and discuss with family. If she wishes to continue with treatment, she may need to be transferred out for dialysis. Will continue to follow closely. Original Note: DCP Cont: Discussed patient during team rounds. Patient was recently here before. She is a current oncology patient next door at [facility] with Dr. Dos Santos. She has port-a-cath. Patient was here for hernia with surgical repair. Hospitalist indicated, poor prognosis, and he may discuss goals of care, for there is a possibility that patient cold be transferred out if her kidney function continues to decline. Patient resides here in [place], multi-generational family. Her sister, Saskia, is supportive and involved, also lives with patient, along with children and grand children. Her sister drives and takes her to appointments as needed. It is noted that DC Planning has sent a referral to [facility] per patient's request, and have face to face completed and attached. P: DCP to continue to follow for any needs. Plan is home with [facility], will see if her kidney function improves. Darling Boyer RN/Baccarat Dealer
[2021-10-26 15:28] LABS: Creatinine Urine Random 28.4 mg/dL; Sodium Urine Random 96 mmol/L (30-90)
--- NOTE | 2021-10-26 16:03 | P.PN_ITS ---
Subjective Subjective Date Patient Seen: 10/26/21 Time Patient Seen: 16:03 Interval history: Abdominal incisional pain improved over the past 24 hours. No fever nausea vomiting. Creatinine continues to rise she is being treated for hyperkalemia. Exam Vital Signs (past 8 hours): - 10/26/21 08:53 10/26/21 09:00 10/26/21 09:14 Temperature 99.0 F 98.8 F Pulse Rate 95 H 100 H Respiratory Rate 16 20 Blood Pressure 147/77 H 140/81 Pulse Oximetry 93 10/26/21 11:44 10/26/21 13:00 10/26/21 14:57 Temperature 99.1 F 98.6 F Pulse Rate 97 H 88 Respiratory Rate 18 20 Blood Pressure 150/67 H 136/76 Pulse Oximetry 99 99 Oxygen Delivery Method Room Air Oxygen Flow Rate 1 Narrative Exam Narrative: General adult woman alert oriented no acute distress Abdomen soft appropriately tender to palpation. Midline incision clean dry intact. Drain serosanguineous. Objective Labs Result Diagrams: 10/26/21 04:37 10/26/21 04:37 Labs: Laboratory Results - last 24 hr 10/24/21 10/25/21 10/26/21 14:15 19:00 04:37 WBC 1.1 L* RBC 1.61 L Hgb 5.9 L* Hct 17.8 L* MCV 110.7 H D MCH 36.4 H MCHC 32.9 RDW 13.7 Plt Count 217 Neut % (Auto) Not Reportable Lymph % (Auto) Not Reportable [place] % (Auto) Not Reportable Eos % (Auto) Not Reportable Baso % (Auto) Not Reportable Lymph # (Auto) Not Reportable [place] # (Auto) Not Reportable Baso # (Auto) Not Reportable Total Counted 50 Seg Neutrophils % 20.0 L D Band Neutrophils % 8.0 H Lymphocytes % (Manual) 42.0 Atypical Lymphs % 16.0 H Monocytes % (Manual) 12.0 H Metamyelocytes % 2.0 H Neutrophils # (Manual) 308 L RBC Morphology See below Anisocytosis 2+ H Macrocytosis 3+ H Sodium 136 L Potassium 5.7 H Chloride 112 H Carbon Dioxide 15 L BUN 53 H Creatinine 2.16 H Estimated GFR 23 L BUN/Creatinine Ratio 24.5 H Glucose 106 Calcium 6.8 L Magnesium Iron TIBC % Saturation Transferrin Lactate Dehydrogenase Total Creatine Kinase Vitamin B12 Folate Ur Random Sodium Urine Creatinine Blood Type A Positive Antibody Screen Negative Crossmatch See Detail 10/26/21 10/26/21 10/26/21 04:37 04:37 04:37 WBC RBC Hgb Hct MCV MCH MCHC RDW Plt Count Neut % (Auto) Lymph % (Auto) [place] % (Auto) Eos % (Auto) Baso % (Auto) Lymph # (Auto) [place] # (Auto) Baso # (Auto) Total Counted Seg Neutrophils % Band Neutrophils % Lymphocytes % (Manual) Atypical Lymphs % Monocytes % (Manual) Metamyelocytes % Neutrophils # (Manual) RBC Morphology Anisocytosis Macrocytosis Sodium 138 Potassium 6.3 H* Chloride 112 H Carbon Dioxide 15 L BUN 59 H Creatinine 2.31 H Estimated GFR 21 L BUN/Creatinine Ratio 25.5 H Glucose 117 H Calcium 7.2 L Magnesium 2.2 Iron TIBC % Saturation Transferrin Lactate Dehydrogenase 316 Total Creatine Kinase 31 Vitamin B12 Folate Ur Random Sodium Urine Creatinine Blood Type Antibody Screen Crossmatch 10/26/21 10/26/21 10/26/21 04:37 04:37 13:33 WBC RBC Hgb Hct MCV MCH MCHC RDW Plt Count Neut % (Auto) Lymph % (Auto) [place] % (Auto) Eos % (Auto) Baso % (Auto) Lymph # (Auto) [place] # (Auto) Baso # (Auto) Total Counted Seg Neutrophils % Band Neutrophils % Lymphocytes % (Manual) Atypical Lymphs % Monocytes % (Manual) Metamyelocytes % Neutrophils # (Manual) RBC Morphology Anisocytosis Macrocytosis Sodium Potassium Chloride Carbon Dioxide BUN Creatinine Estimated GFR BUN/Creatinine Ratio Glucose Calcium Magnesium Iron 56 TIBC 173 L % Saturation 32 Transferrin 112 L Lactate Dehydrogenase Total Creatine Kinase Vitamin B12 474 Folate 4.1 Ur Random Sodium 96 H Urine Creatinine 28.4 Blood Type Antibody Screen Crossmatch [facility] Medical History Abnormal vaginal bleeding with endometrial thickness greater than 5 mm present on transvaginal ultrasound in postmenopausal patient Adjustment disorder with mixed anxiety and depressed mood CHF (congestive heart failure) Essential hypertension Hx of renal calculi Hyperlipidemia Obstructive uropathy Postmenopausal bleeding Senile atrophic vaginitis ST elevation myocardial infarction (STEMI) of lateral wall Stenosis, cervix Urethral polyp Surgical History History of cholecystectomy History of common carotid artery stent placement History of tonsillectomy and adenoidectomy History of total hysterectomy with bilateral salpingo-oophorectomy (BSO) Hx of parathyroidectomy Family History Father Congestive heart failure Sister No problems noted. Social History details: Patient lives with her niece and sister, retired household members: family Smoking Status: Never smoker alcohol intake: current substance use type: does not use Assessment & Plan Post-op Postoperative Procedures: Procedures Operation Date: 10/24/21 15:00 Actual Procedure Side Surgeon p Exploratory Laparotomy with lysis of adhesions and open ventral hernia repair Not Applicable Abhishek Metzger MD Postoperative status narrative: 76-year-old woman with metastatic uterine cancer postoperative day 2 status post exploratory laparotomy for incarcerated ventral hernia. Her major issues at this point include a severe acute kidney injury and her uterine cancer. Creatinine continues to rise she is requiring treatment for hyperkalemia. If kidney function continues to deteriorate she will need transfer to a facility capable of dialysis. In addition she is considering her goals of care in the setting of metastatic uterine cancer. She may elect to proceed with hospice in which case no transfer is necessary. Discussion with her family was had today and they will provide further input tomorrow.
[2021-10-26 17:15] LABS: Hematocrit 24.9 % (36-46); Hemoglobin 8.5 g/dL (12.0-16.0); Mean Corpuscular HGB Conc 34.3 % (30-36); Mean Corpuscular Hemoglobin 34.6 PG (26-34); Mean Corpuscular Volume 100.9 fL (80-100); Platelet Count 212 X10^3/uL (150-400); Red Blood Cell Count 2.47 X10^6/uL (4.0-5.2); Red Cell Distribution Width 18.5 % (11.6-14.8)
[2021-10-26] MEDS: ALTEPLASE 2 MG/2 ML VIAL IV (17:15)
[2021-10-26] MEDS: ONDANSETRON 4 MG/2 ML INJ IV ×2 (17:17→23:16)
[2021-10-26 17:18] LABS: White Blood Cell Count 0.7 X10^3/uL (4.5-11.0)
[2021-10-26 17:33] LABS: BUN Creatinine Ratio 25.8 (6-22); Blood Urea Nitrogen 58 mg/dL (7-17); Calcium 7.6 mg/dL (8.4-10.2); Carbon Dioxide 15 mmol/L (22-32); Chloride 111 mmol/L (98-107); Estimated Glomerular Filt Rate 22 mL/min (>60); Glucose 139 mg/dL (80-110); HEMOLYSIS < 15 (0-50); Sodium 134 mmol/L (137-145)
[2021-10-26 17:34] LABS: Magnesium 2.2 mg/dL (1.6-2.3)
[2021-10-26 17:36] LABS: Potassium 5.5 mmol/L (3.4-5.1)
--- NOTE | 2021-10-26 17:56 | PC.NURSE ---
1625: Dr. Richards made aware regarding critical lab WBC 0.7. Will not proceed with transferring patient. Awaiting for family update.
--- NOTE | 2021-10-26 18:38 | PC.NURSE ---
1 unit PRBC transfused uneventfully this am. Per Dr. Richards, holding off on second unit until after repeat H&H drawn at 1400. 1 dose lasix administered in the meantime, as well as 2mg dilaudid after pt did not respond to oxycodone and is moaning in pain. Goals of care discussion with sister Saskia and pt at bedside. Dr. Richards explained her poor prognosis and options moving forward. Saskia to consult with the rest of the family and call the pt back to discuss further before they make a decision. Port to R chest not drawing back, pt very hard stick but labs drawn after multiple attempts. H&H improved, second unit of blood canceled per Dr. Richards. Cath sona ordered and administered for port.
[2021-10-27] VITALS (15 sets, daily range): BP systolic 122–158; BP diastolic 62–80; PULSE 74–86; RESP 16–18; TEMP 36.2–36.6; O2SAT 94–98
[2021-10-27] MEDS: HYDROMORPHONE 1 MG INJ IV ×5 (00:38→21:56)
[2021-10-27] MEDS: ONDANSETRON 4 MG/2 ML INJ IV (08:43)
[2021-10-27] MEDS: carvediloL 12.5 MG TABLET 25 MG PO ×2 (08:45→21:58)
[2021-10-27 10:10] LABS: Hematocrit 21.1 % (36-46); Hemoglobin 7.1 g/dL (12.0-16.0); Mean Corpuscular HGB Conc 33.7 % (30-36); Mean Corpuscular Volume 100.7 fL (80-100)
[2021-10-27 10:20] LABS: Add Manual Diff / Slide Review YES; White Blood Cell Count 1.3 X10^3/uL (4.5-11.0)
[2021-10-27] MEDS: metOLazone 2.5 MG TABLET 5 MG PO (10:32)
[2021-10-27 10:37] LABS: Neutrophils Absolute Manual 442 /uL (3000-5900); Total Cells Counted 50
[2021-10-27 10:39] LABS: Anisocytosis 2+; Dohle Bodies 1+
[2021-10-27 10:41] LABS: Macrocytosis 2+
[2021-10-27 10:43] LABS: Platelet Count 203 X10^3/uL (150-400)
[2021-10-27] MEDS: FUROSEMIDE 100 MG/10 ML VIAL 60 MG IV (11:33)
[2021-10-27 12:46] LABS: BUN Creatinine Ratio 29.1 (6-22); Blood Urea Nitrogen 62 mg/dL (7-17); Carbon Dioxide 13 mmol/L (22-32); Chloride 115 mmol/L (98-107); Estimated Glomerular Filt Rate 24 mL/min (>60); Glucose 135 mg/dL (80-110); Magnesium 2.2 mg/dL (1.6-2.3); Sodium 137 mmol/L (137-145)
[2021-10-27 12:55] LABS: HEMOLYSIS 58 (0-50); Potassium 4.9 mmol/L (3.4-5.1)
[2021-10-27] MEDS: OXYCODONE IR 5 MG TABLET PO (13:01)
[2021-10-27] MEDS: METOCLOPRAMIDE 10 MG/2 ML INJ IV ×2 (13:08→21:59)
--- NOTE | 2021-10-27 13:13 | PM.PN.1 ---
Subjective Subjective Interval history: The patient endorses abd pain that is the same as days prior. She reports some improvement of the pain with current medications. She endorses not having much of an appetite. She states that she and her family are still contemplating enrollment in hospice if things don't improve. Exam Vital Signs (past 8 hours): - 10/27/21 08:30 10/27/21 08:45 10/27/21 09:00 Temperature 97.2 F L Pulse Rate 80 80 Respiratory Rate 18 Blood Pressure 141/76 H 141/76 H Pulse Oximetry 96 95 10/27/21 11:58 Temperature Pulse Rate Respiratory Rate Blood Pressure Pulse Oximetry 96 Oxygen Delivery Method Room Air Oxygen Flow Rate 0 Narrative Exam Narrative: Const Other: Patient laying in bed, holding abdomen over anterior side, and appears uncomfortable and in mild distress, although not acutely toxic Eyes Other: No scleral icterus appreciated Resp Other: Lungs clear to auscultation bilaterally Cardio Other: RRR, S1 and S2 heart sounds normal, no extra heart sounds appreciated, with grade III/ sysotlic ejection murmur noted GI Other: Soft, slightly distended, tender to palpation throughout, without rebound or guarding, bowel sounds present, with dressings over surgical incision sites clean, dry and intact, along with drain with serosanguinous fluid Skin Other: No grossly abnormal skin lesions noted Extrem Other: No peripheral edema, bilateral dorsalis pedis pulses palpable Objective Labs Result Diagrams: 10/27/21 09:57 10/27/21 12:23 Labs: Laboratory Results - last 24 hr 10/26/21 10/26/21 10/26/21 13:33 16:35 16:35 WBC 0.7 L* RBC 2.47 L Hgb 8.5 L Cancelled Hct 24.9 L Cancelled MCV 100.9 H D MCH 34.6 H MCHC 34.3 RDW 18.5 H Plt Count 212 Neut % (Auto) Lymph % (Auto) Sunflower % (Auto) Eos % (Auto) Baso % (Auto) Lymph # (Auto) [place] # (Auto) Baso # (Auto) Total Counted Seg Neutrophils % Band Neutrophils % Lymphocytes % (Manual) Atypical Lymphs % Monocytes % (Manual) Blast Cells % Neutrophils # (Manual) Dohle Bodies RBC Morphology Anisocytosis Macrocytosis Sodium Potassium Chloride Carbon Dioxide BUN Creatinine Estimated GFR BUN/Creatinine Ratio Glucose Calcium Magnesium Ur Random Sodium 96 H Urine Creatinine 28.4 10/26/21 10/26/21 10/27/21 16:35 16:35 09:57 WBC 1.3 L* D RBC 2.10 L Hgb 7.1 L Hct 21.1 L MCV 100.7 H MCH 34.0 MCHC 33.7 RDW 18.0 H Plt Count 203 Neut % (Auto) Not Reportable Lymph % (Auto) Not Reportable Sunflower % (Auto) Not Reportable Eos % (Auto) Not Reportable Baso % (Auto) Not Reportable Lymph # (Auto) Not Reportable [place]flower # (Auto) Not Reportable Baso # (Auto) Not Reportable Total Counted 50 Seg Neutrophils % 26.0 L Band Neutrophils % 8.0 H Lymphocytes % (Manual) 18.0 L Atypical Lymphs % 2.0 H Monocytes % (Manual) 44.0 H Blast Cells % 2.0 H Neutrophils # (Manual) 442 L Dohle Bodies 1+ H RBC Morphology See below Anisocytosis 2+ H Macrocytosis 2+ H Sodium 134 L Potassium 5.5 H Chloride 111 H Carbon Dioxide 15 L BUN 58 H Creatinine 2.25 H Estimated GFR 22 L BUN/Creatinine Ratio 25.8 H Glucose 139 H Calcium 7.6 L Magnesium 2.2 Ur Random Sodium Urine Creatinine 10/27/21 12:23 WBC RBC Hgb Hct MCV MCH MCHC RDW Plt Count Neut % (Auto) Lymph % (Auto) Sunflower % (Auto) Eos % (Auto) Baso % (Auto) Lymph # (Auto) [place] # (Auto) Baso # (Auto) Total Counted Seg Neutrophils % Band Neutrophils % Lymphocytes % (Manual) Atypical Lymphs % Monocytes % (Manual) Blast Cells % Neutrophils # (Manual) Dohle Bodies RBC Morphology Anisocytosis Macrocytosis Sodium 137 Potassium 4.9 Chloride 115 H Carbon Dioxide 13 L BUN 62 H Creatinine 2.13 H Estimated GFR 24 L BUN/Creatinine Ratio 29.1 H Glucose 135 H Calcium 7.0 L Magnesium 2.2 Ur Random Sodium Urine Creatinine [facility] Medical History Abnormal vaginal bleeding with endometrial thickness greater than 5 mm present on transvaginal ultrasound in postmenopausal patient Adjustment disorder with mixed anxiety and depressed mood CHF (congestive heart failure) Essential hypertension Hx of renal calculi Hyperlipidemia Obstructive uropathy Postmenopausal bleeding Senile atrophic vaginitis ST elevation myocardial infarction (STEMI) of lateral wall Stenosis, cervix Urethral polyp Surgical History History of cholecystectomy History of common carotid artery stent placement History of tonsillectomy and adenoidectomy History of total hysterectomy with bilateral salpingo-oophorectomy (BSO) Hx of parathyroidectomy Family History Father Congestive heart failure Sister No problems noted. Social History details: Patient lives with her niece and sister, retired household members: family Smoking Status: Never smoker alcohol intake: current substance use type: does not use Assessment & Plan Assessment & Plan narrative: 76-year-old female with a history of endometrial cancer, status post hysterectomy and bilateral oophorectomy, with left Port-A-Cath in place as of October 12, and undergoing active chemotherapy that presented with incarcerated ventral hernia status post exploratory laparotomy repair on October 24, 2021. 1. Ventral hernia with incarceration, status post surgical repair on October 24, 2021 ?- No bowel resection was necessary intraoperatively per surgery, NG tube no longer in place 2. ROSA M, likely pre-renal, with possible ATN, on CKD stage III ?- Likely due to acute blood loss anemia intraoperatively, resulting in intravascular depletion and possible ATN ?- Has been fluid resuscitated, and will Lasix challenge to see if that opens up her kidneys, especially given oncotic support with RBC transfusion ?- There might be an element of compartment syndrome, too, that is contributing to low kidney perfusion, Amor in-place 3. Hyperkalemia, likely due to ATN ?- No peaked T-wave on EKG appreciated, telemetry on-board ?- Likely occurred due to ROSA M on CKD III, along with increased cell turnover from underlying cancer, and being on lactated Ringer's post-op ?- Should absolutely avoid Kayexalate in this patient, due to recent abdominal surgical interventions ?- Treating with IV insulin with dextrose, and diuresis might help, too, especially with metolazone ?- If patient's kidneys do not open up with Lasix challenge and metolazone, will likely need transfer to dialysis-capable facility 4. Acute blood loss anemia on chronic macrocytic anemia ?- Will transfuse for hemoglobin less than 7, has received 1 unit RBC so far 5. Hx of HI, remote ?- Recent echocardiogram (September 2021) shows preserved EF, with recent stress test (September 2021) unremarkable for obstructive CAD ?- Will hold off on home aspirin, Plavix for now, given propensity for GI bleed, especially as she's on VTE prophylaxis, too 6. Hx of uterine cancer, stage 4, status post hysterectomy and bilateral oopherectomy, undergoing active chemotherapy ?- Reportedly received carboplatin and Taxol outpatient, approximately 1 week ago 7. Leukopenia, likely due to chemotherapy, stable 8. Hypocalcemia, likely due to acute stress response ?- Will have to monitor QTc, especially if using QT-prolonging drugs ?- Replenish as needed with IV calcium gluconate, especially in light of concomitant hyperkalemia 9. Moderate aortic stenosis ?- This likely contributed to being volume depleted intraoperatively, leading to ATN ?- The degree of the stenosis makes her a poor candidate for future interventions, and worsens her prognosis 10. Hx of hypertension ?- Will hold all home NIECY/ARB due to hyperkalemia ?- Will resume home carvedilol 6.25 mg bid and uptitrate as tolerated 11. Hyperlipidemia ?- Will start atorvastatin 40 mg daily for atherosclerotic protection, especially given calcifications around aortic valve 12. Severe acute on chronic protein malnutrition - This will have an adverse effect on post-operative healing and other co-morbidities - Appreciate dietary consult recommendations 13. [id number] conversation - I spoke with the patient and her sister frankly about her poor prognosis, and offered enrollment in hospice - Patient and her family understandably want some time to contemplate this - If the patient decided to continue with full code, then will attempt transfer to dialysis-capable facility VTE prophylaxis: Holding for now given tenuous acute blood loss anemia Time Spent With Patient Critical Care time: I spent a total of [] minutes of critical care time on this patient's care today; this time is exclusive of procedural time.
--- NOTE | 2021-10-27 13:18 | DI.RAD.S_ITS ---
PROCEDURE: XR ABDOMEN 1V INDICATIONS: Concern for ileus TECHNIQUE: One view of the abdomen acquired. COMPARISON: [facility], CT, CT ABDOMEN PELVIS W CON, 10/24/2021, 10:08. FINDINGS: Surgical changes and devices: Surgical percutaneous drain in the pelvis noted. Bowel: Gaseous distension of both the large and small bowel present. Small bowel in the left flank measures up to 3.8 cm in diameter. No transition noted. Soft tissues: No suspicious abdominal calcifications. Visualized solid organ contours appear normal in size. Bones: No suspicious bony lesions. IMPRESSION: Consistent with ileus. Consider short-term interval follow-up to assess for developing obstruction. Approved by: Justin Vazquez M.D. on 10/27/2021 at 13:54
--- NOTE | 2021-10-27 14:36 | PM.PNPO.1 ---
Subjective Subjective Date Patient Seen: 10/27/21 Time Patient Seen: 14:39 Interval history: No major events. Tolerated sips of clears yesterday. +Flatus Exam Vital Signs (past 8 hours): - 10/27/21 08:30 10/27/21 08:45 10/27/21 09:00 Temperature 97.2 F L Pulse Rate 80 80 Respiratory Rate 18 Blood Pressure 141/76 H 141/76 H Pulse Oximetry 96 95 10/27/21 11:58 10/27/21 13:00 10/27/21 13:35 Temperature 97.3 F L Pulse Rate 83 Respiratory Rate 18 Blood Pressure 141/80 H Pulse Oximetry 96 95 96 Oxygen Delivery Method Room Air Oxygen Flow Rate 0 Narrative Exam Narrative: Gen-Elderly woman alert and oriented Abdomen-Distended but compressible. Drain SS Objective Labs Result Diagrams: 10/27/21 09:57 10/27/21 12:23 Labs: Laboratory Results - last 24 hr 10/26/21 10/26/21 10/26/21 13:33 16:35 16:35 WBC 0.7 L* RBC 2.47 L Hgb 8.5 L Cancelled Hct 24.9 L Cancelled MCV 100.9 H D MCH 34.6 H MCHC 34.3 RDW 18.5 H Plt Count 212 Neut % (Auto) Lymph % (Auto) [place] % (Auto) Eos % (Auto) Baso % (Auto) Lymph # (Auto) [place] # (Auto) Baso # (Auto) Total Counted Seg Neutrophils % Band Neutrophils % Lymphocytes % (Manual) Atypical Lymphs % Monocytes % (Manual) Blast Cells % Neutrophils # (Manual) Dohle Bodies RBC Morphology Anisocytosis Macrocytosis Sodium Potassium Chloride Carbon Dioxide BUN Creatinine Estimated GFR BUN/Creatinine Ratio Glucose Calcium Magnesium Ur Random Sodium 96 H Urine Creatinine 28.4 10/26/21 10/26/21 10/27/21 16:35 16:35 09:57 WBC 1.3 L* D RBC 2.10 L Hgb 7.1 L Hct 21.1 L MCV 100.7 H MCH 34.0 MCHC 33.7 RDW 18.0 H Plt Count 203 Neut % (Auto) Not Reportable Lymph % (Auto) Not Reportable [place] % (Auto) Not Reportable Eos % (Auto) Not Reportable Baso % (Auto) Not Reportable Lymph # (Auto) Not Reportable [place] # (Auto) Not Reportable Baso # (Auto) Not Reportable Total Counted 50 Seg Neutrophils % 26.0 L Band Neutrophils % 8.0 H Lymphocytes % (Manual) 18.0 L Atypical Lymphs % 2.0 H Monocytes % (Manual) 44.0 H Blast Cells % 2.0 H Neutrophils # (Manual) 442 L Dohle Bodies 1+ H RBC Morphology See below Anisocytosis 2+ H Macrocytosis 2+ H Sodium 134 L Potassium 5.5 H Chloride 111 H Carbon Dioxide 15 L BUN 58 H Creatinine 2.25 H Estimated GFR 22 L BUN/Creatinine Ratio 25.8 H Glucose 139 H Calcium 7.6 L Magnesium 2.2 Ur Random Sodium Urine Creatinine 10/27/21 12:23 WBC RBC Hgb Hct MCV MCH MCHC RDW Plt Count Neut % (Auto) Lymph % (Auto) [place] % (Auto) Eos % (Auto) Baso % (Auto) Lymph # (Auto) [place] # (Auto) Baso # (Auto) Total Counted Seg Neutrophils % Band Neutrophils % Lymphocytes % (Manual) Atypical Lymphs % Monocytes % (Manual) Blast Cells % Neutrophils # (Manual) Dohle Bodies RBC Morphology Anisocytosis Macrocytosis Sodium 137 Potassium 4.9 Chloride 115 H Carbon Dioxide 13 L BUN 62 H Creatinine 2.13 H Estimated GFR 24 L BUN/Creatinine Ratio 29.1 H Glucose 135 H Calcium 7.0 L Magnesium 2.2 Ur Random Sodium Urine Creatinine [facility] Medical History Abnormal vaginal bleeding with endometrial thickness greater than 5 mm present on transvaginal ultrasound in postmenopausal patient Adjustment disorder with mixed anxiety and depressed mood CHF (congestive heart failure) Essential hypertension Hx of renal calculi Hyperlipidemia Obstructive uropathy Postmenopausal bleeding Senile atrophic vaginitis ST elevation myocardial infarction (STEMI) of lateral wall Stenosis, cervix Urethral polyp Surgical History History of cholecystectomy History of common carotid artery stent placement History of tonsillectomy and adenoidectomy History of total hysterectomy with bilateral salpingo-oophorectomy (BSO) Hx of parathyroidectomy Family History Father Congestive heart failure Sister No problems noted. Social History details: Patient lives with her niece and sister, retired household members: family Smoking Status: Never smoker alcohol intake: current substance use type: does not use Assessment & Plan Post-op Postoperative Procedures: Procedures Operation Date: 10/24/21 15:00 Actual Procedure Side Surgeon p Exploratory Laparotomy with lysis of adhesions and open ventral hernia repair Not Applicable Abhishek Metzger MD Postoperative status narrative: 76 y.o woman pod 3 sp exlap for incacerated ventral hernia without bowel resection. -Tolerating clears continue subcutaneous drain -ROSA M-bui trend lasix challenge. -SCDs -Advance diet as tolerated
[2021-10-27] MEDS: CALCIUM GLUCONATE 4.65 MEQ in SODIUM CHLORIDE 0.9% 50 ML 180 ML IV (15:30)
[2021-10-27] MEDS: SODIUM CHLORIDE 0.9% FLUSH 10 ML IV ×2 (15:39→16:07)
[2021-10-27] MEDS: polyethylene glycoL 3350 17 GM POWD.PACK PO (16:11)
--- NOTE | 2021-10-27 17:09 | PC.NURSE ---
Addendum entered by Alise Blackburn R.N. 10/27/21 19:16: Output 425 ml (Amor Cath) Output 29 ml (FANNY drain) Original Note: Day shift note: Patient awake, alert, and pleasantly cooperatively. C/O abdominal pain described as dull ache to epigastric region radiating to RLQ. Medicated for pain and nausea as ordered. Abdomen is tender, firm, and round/distended. C/O nausea, no vomiting. Dr. Metzger aware, at bedside this am. Patient very guarded with mobility, repositioning in bed, and sitting up for sips of water (HOB 35-40). IS teaching performed, SCDs in place, and instructed to splint with movement and cough. Call light within reach, bed alarm active. Port a Cath accessed and functioning, able to draw labs this shift. Amor Cath to gravity, FANNY drain secured. Dr. Richards at bedside this afternoon discussing plan of care with patient and Sister.
--- NOTE | 2021-10-27 18:58 | PC.NURSE ---
Patient sleeping, does not want to eat
--- NOTE | 2021-10-27 19:02 | PC.NURSE ---
Patient in too much pain to eat, does not want her lunch.
[2021-10-27] MEDS: ATORVASTATIN 20 MG TABLET 40 MG PO (21:58)
[2021-10-28] VITALS (14 sets, daily range): BP systolic 82–114; BP diastolic 39–64; PULSE 68–85; RESP 16–166; TEMP 36.2–36.6; O2SAT 88–96
[2021-10-28] MEDS: METOCLOPRAMIDE 10 MG/2 ML INJ IV ×2 (06:04→13:06)
[2021-10-28] MEDS: HYDROMORPHONE 1 MG INJ IV ×3 (06:04→23:23)
[2021-10-28 06:45] LABS: Blood Urea Nitrogen 81 mg/dL (7-17); Calcium 7.8 mg/dL (8.4-10.2); Carbon Dioxide 18 mmol/L (22-32); Chloride 110 mmol/L (98-107); Estimated Glomerular Filt Rate 16 mL/min (>60); Glucose 131 mg/dL (80-110); HEMOLYSIS < 15 (0-50); Magnesium 2.3 mg/dL (1.6-2.3); Phosphorous 6.3 mg/dL (2.8-4.1); Potassium 4.9 mmol/L (3.4-5.1); Sodium 136 mmol/L (137-145)
[2021-10-28 06:56] LABS: Mean Corpuscular HGB Conc 33.6 % (30-36); Mean Corpuscular Hemoglobin 33.9 PG (26-34); Platelet Count 233 X10^3/uL (150-400); Red Blood Cell Count 1.62 X10^6/uL (4.0-5.2); Red Cell Distribution Width 17.7 % (11.6-14.8); White Blood Cell Count 2.4 X10^3/uL (4.5-11.0)
[2021-10-28 07:00] LABS: Add Manual Diff / Slide Review YES; Hematocrit 16.4 % (36-46); Hemoglobin 5.5 g/dL (12.0-16.0)
[2021-10-28 07:10] LABS: Neutrophils Absolute Manual 912 /uL (3000-5900); Total Cells Counted 50
[2021-10-28 07:11] LABS: Anisocytosis 2+
[2021-10-28 07:13] LABS: Macrocytosis 1+
[2021-10-28 07:14] LABS: Dohle Bodies 1+
--- NOTE | 2021-10-28 07:27 | PC.NURSE ---
Notified Dr. San Pt output 100mL and input was 150mL during the welder 2nd shift and pt was unable to take PO fluid d/t nausea and refused to move in/out of bed, refusing patient care at 0630, Also notified Dr. San and Steven Hgb was 5.5 and Hct 16.4 this morning, was told they would order transfusion after their shift report.
--- NOTE | 2021-10-28 09:17 | P.PN_ITS ---
Subjective Subjective Interval history: The patient reports continued pain and discomfort. She endorses passing flatus. She endorses being able to take sips of water/juice. She and her family have yet to decide on hospice enrollment. However, after we re-discussed code status conversation this morning, she wants to be DNR/DNI. Exam Vital Signs (past 8 hours): - 10/28/21 04:57 10/28/21 07:43 10/28/21 07:49 Temperature 97.6 F 97.1 F L 97.1 F L Pulse Rate 85 80 80 Respiratory Rate 17 16 166 H Blood Pressure 112/61 82/51 L 82/51 L Pulse Oximetry 94 93 10/28/21 08:06 Temperature 97.8 F Pulse Rate 68 Respiratory Rate 16 Blood Pressure 93/39 L Pulse Oximetry Oxygen Delivery Method Room Air Oxygen Flow Rate 0 Narrative Exam Narrative: Const Other: Patient laying in bed, holding abdomen over anterior side, and appears uncomfo rtable and in mild distress Eyes Other: No scleral icterus appreciated Resp Other: Lungs clear to auscultation bilaterally Cardio Other: RRR, S1 and S2 heart sounds normal, no extra heart sounds appreciated, with grade III/ systolic ejection murmur noted GI Other: Soft, slightly distended, tender to palpation throughout, without rebound or guarding, bowel sounds hypoactive, with dressings over surgical incision sites clean, dry and intact, along with drain with serosanguinous fluid Skin Other: No grossly abnormal skin lesions noted Extrem Other: No peripheral edema, bilateral dorsalis pedis pulses palpable Objective Labs Result Diagrams: 10/28/21 06:15 10/28/21 06:15 Labs: Laboratory Results - last 24 hr 10/24/21 10/27/21 10/27/21 14:15 09:57 12:23 WBC 1.3 L* D RBC 2.10 L Hgb 7.1 L Hct 21.1 L MCV 100.7 H MCH 34.0 MCHC 33.7 RDW 18.0 H Plt Count 203 Neut % (Auto) Not Reportable Lymph % (Auto) Not Reportable [place] % (Auto) Not Reportable Eos % (Auto) Not Reportable Baso % (Auto) Not Reportable Lymph # (Auto) Not Reportable [place] # (Auto) Not Reportable Baso # (Auto) Not Reportable Total Counted 50 Seg Neutrophils % 26.0 L Band Neutrophils % 8.0 H Lymphocytes % (Manual) 18.0 L Atypical Lymphs % 2.0 H Monocytes % (Manual) 44.0 H Blast Cells % 2.0 H Neutrophils # (Manual) 442 L Dohle Bodies 1+ H RBC Morphology See below Anisocytosis 2+ H Macrocytosis 2+ H Sodium 137 Potassium 4.9 Chloride 115 H Carbon Dioxide 13 L BUN 62 H Creatinine 2.13 H Estimated GFR 24 L BUN/Creatinine Ratio 29.1 H Glucose 135 H Calcium 7.0 L Phosphorus Magnesium 2.2 Blood Type A Positive Antibody Screen Negative Crossmatch See Detail 10/28/21 10/28/21 06:15 06:15 WBC 2.4 L D RBC 1.62 L Hgb 5.5 L* Hct 16.4 L* MCV 101.0 H MCH 33.9 MCHC 33.6 RDW 17.7 H Plt Count 233 Neut % (Auto) Not Reportable Lymph % (Auto) Not Reportable [place] % (Auto) Not Reportable Eos % (Auto) Not Reportable Baso % (Auto) Not Reportable Lymph # (Auto) Not Reportable [place] # (Auto) Not Reportable Baso # (Auto) Not Reportable Total Counted 50 Seg Neutrophils % 16.0 L Band Neutrophils % 22.0 H Lymphocytes % (Manual) 36.0 Atypical Lymphs % Monocytes % (Manual) 26.0 H Blast Cells % Neutrophils # (Manual) 912 L Dohle Bodies 1+ H RBC Morphology See below Anisocytosis 2+ H Macrocytosis 1+ H Sodium 136 L Potassium 4.9 Chloride 110 H Carbon Dioxide 18 L BUN 81 H Creatinine 3.00 H Estimated GFR 16 L BUN/Creatinine Ratio 27.0 H Glucose 131 H Calcium 7.8 L Phosphorus 6.3 H Magnesium 2.3 Blood Type Antibody Screen Crossmatch [facility] Medical History Abnormal vaginal bleeding with endometrial thickness greater than 5 mm present on transvaginal ultrasound in postmenopausal patient Adjustment disorder with mixed anxiety and depressed mood CHF (congestive heart failure) Essential hypertension Hx of renal calculi Hyperlipidemia Obstructive uropathy Postmenopausal bleeding Senile atrophic vaginitis ST elevation myocardial infarction (STEMI) of lateral wall Stenosis, cervix Urethral polyp Surgical History History of cholecystectomy History of common carotid artery stent placement History of tonsillectomy and adenoidectomy History of total hysterectomy with bilateral salpingo-oophorectomy (BSO) Hx of parathyroidectomy Family History Father Congestive heart failure Sister No problems noted. Social History details: Patient lives with her niece and sister, retired household members: family Smoking Status: Never smoker alcohol intake: current substance use type: does not use Assessment & Plan Assessment & Plan narrative: 76-year-old female with a history of endometrial cancer, status post hysterectomy and bilateral oophorectomy, with left Port-A-Cath in place as of October 12, and undergoing active chemotherapy that presented with incarcerated ventral hernia status post exploratory laparotomy repair on October 24, 2021. 1. Ventral hernia with incarceration, status post surgical repair on October 24, 2021 ?- No bowel resection was necessary intraoperatively per surgery, NG tube no longer in place 2. Post-op ileus, as demonstrated on abd X-ray - Patient endorses passing flatus, will discuss with surgery regarding whether reinsertion of NG tube warranted 3. ROSA M, likely pre-renal, with possible ATN, on CKD stage III ?- Likely due to acute blood loss anemia intraoperatively, resulting in intravascular depletion, espeically in setting of moderate aortic stenosis ?- Has been fluid resuscitated, and will Lasix challenge to see if that opens up her kidneys, especially given oncotic support with RBC transfusion 4. Hyperkalemia, likely due to ATN ?- No peaked T-wave on EKG appreciated, telemetry on-board ?- Likely occurred due to oliguric ATN as above, and being on lactated Ringer's post-op ?- Should absolutely avoid Kayexalate in this patient, due to recent abdominal surgical interventions ?- Treating with IV insulin with dextrose, and diuresis might help, too, marleen ecially with metolazone ?- If patient's kidneys do not open up with Lasix challenge and metolazone, will likely need transfer to dialysis-capable facility 5. Acute blood loss anemia on chronic macrocytic anemia ?- Will transfuse for hemoglobin less than 7, has received 1 unit RBC so far 6. Hx of CT, remote ?- Recent echocardiogram (September 2021) shows preserved EF, with recent stress test (September 2021) unremarkable for obstructive CAD ?- Will hold off on home aspirin, Plavix for now, given propensity for GI bleed, especially as she's on VTE prophylaxis, too 7. Hx of uterine cancer, stage 4, status post hysterectomy and bilateral oopherectomy, undergoing active chemotherapy ?- Reportedly received carboplatin and Taxol outpatient, approximately 1 week ago 8. Leukopenia, likely due to chemotherapy, stable 9. Hypocalcemia, likely due to acute stress response, and worsened with RBC transfusions ?- Will have to monitor QTc, especially if using QT-prolonging drugs ?- Replenish as needed with IV calcium gluconate, especially in light of concomitant hyperkalemia 10. Moderate aortic stenosis ?- This likely contributed greatly to being volume depleted intraoperatively, leading to ATN ?- The degree of the stenosis makes her a poor candidate for future interventions, and worsens her prognosis 11. Hx of hypertension ?- Will hold all home NIECY/ARB due to hyperkalemia ?- Will hold home carvedilol 6.25 mg bid due to hypotension 12. Hyperlipidemia ?- Will start atorvastatin 40 mg daily for atherosclerotic protection, especially given calcifications around aortic valve 13. Severe acute on chronic protein malnutrition ?- This will have an adverse effect on post-operative healing and other co- morbidities ?- Appreciate dietary consult recommendations 14. [id number] conversation - I spoke with the patient and her sister frankly about her poor prognosis, and offered enrollment in hospice - Patient and her family understandably want some time to contemplate this - After re-discussion on October 28, patient wishes to be DNR/DNI, yet is still undecided on hospice VTE prophylaxis: Holding for now given tenuous acute blood loss anemia Time Spent With Patient Critical Care time: I spent a total of [] minutes of critical care time on this patient's care today; this time is exclusive of procedural time.
--- NOTE | 2021-10-28 09:31 | DI.RAD.S_ITS ---
PROCEDURE: XR ABDOMEN 1V INDICATIONS: Follow-up ileus TECHNIQUE: One view of the abdomen acquired. COMPARISON: [facility], , XR ABDOMEN 1V, 10/27/2021, 13:21. FINDINGS: Surgical changes and devices: Surgical drain again seen in the pelvis. Bowel: Dilated air-filled loops of bowel are again seen throughout the abdomen and pelvis including small and large bowel loops and stomach. Overall, findings do not appear significantly changed when compared to the exam from the day prior. Soft tissues: No suspicious abdominal calcifications. Visualized solid organ contours appear normal in size. Bones: No suspicious bony lesions. Degenerative changes are seen in the spine, sacroiliac joints, and left hip. IMPRESSION: Dilated air-filled loops of bowel throughout the abdomen again most likely represent ileus. Findings have not significantly changed when compared to the radiographs from 10/27/2021. Dictated by: Mark Stevens M.D. on 10/28/2021 at 10:16 Approved by: Mark Stevens M.D. on 10/28/2021 at 10:19
[2021-10-28] MEDS: SODIUM CHLORIDE 0.9% 1,000 ML 1000 ML IV (09:54)
--- NOTE | 2021-10-28 10:10 | PC.NURSE ---
Day shift: NS bolus rate decreased to 125ml/hr per Dr Ali at this time.
--- NOTE | 2021-10-28 10:33 | CM.DPC ---
DCP Cont: Discussed patient during team rounds. Hospitalist, Dr. Richards, indicated, patient is pretty ill. He stated, even if she were sent out for dialysis, may not have the best outcome. He indicated that he has approached hospice with patient and sister, have not yet decided, but sister will be in today and he may reapproach the conversation. This DC Recruiting Assistant let him know that she is available if needed, and to update on situation. Patient has been in bed. She has other comorbidities with aortic stenosis, stage 4 cancer. Hospitalist did indicate that patient is now DNR/DNI. P: DCP to continue to follow and will see if there is a decision on goals of care. Darling Boyer RN/Pruner
[2021-10-28 14:29] LABS: Hematocrit 23.9 % (36-46); Hemoglobin 8.1 g/dL (12.0-16.0)
[2021-10-28 14:40] LABS: BUN Creatinine Ratio 26.5 (6-22); Blood Urea Nitrogen 86 mg/dL (7-17); Calcium 7.4 mg/dL (8.4-10.2); Carbon Dioxide 16 mmol/L (22-32); Chloride 111 mmol/L (98-107); Estimated Glomerular Filt Rate 14 mL/min (>60); Glucose 130 mg/dL (80-110); HEMOLYSIS < 15 (0-50); Potassium 4.7 mmol/L (3.4-5.1); Sodium 137 mmol/L (137-145)
--- NOTE | 2021-10-28 14:45 | CM.DPC ---
Addendum entered by Darling Boyer R.N. 10/28/21 15:37: Spoke to Rhianna at [facility] about [facility]. Let her know, patient's sister's concerns are niece's children seeing patient pass at home. Rhianna stated that they can discuss upon phone informational visit which may not occur until Sunday. She will look for referral. Also, spoke to Imer at [facility]. Medicaid does cover room and board, but no available current beds, but could change. She will also look for referral. Addendum entered by Darling Boyer R.N. 10/28/21 15:21: Was able to retrieve [facility] fax number: [phone]. On fax sheet mentioned that patient has Medicaid, if they have Medicaid beds at their facilities. Original Note: DCP Cont: Dr. Richards, hospitalist, came by the care management office and indicated that he had just spoken to patient's sister, Saskia, who is also patient's POA. She is accepting to have hospice referral sent, but has several questions. Let him know that this DC Outpatient Receptionist will call her back and give her additional information about hospice, and what they provide. Asked Dr. Richards if oncology was updated, but he indicated, patient's sister tried to call them, they are closed today. Called patient's sister, Saskia. Had met her before upon patient's last admission, but went ahead and introduced self and role over the phone. Mentioned hospice, and asked her if she was aware of what hospice does. Saskia indicated, she is aware of some of their services, [place] Saskia stated that her and patient moved here from [place], for their niece and family wanted to take care of them when they got older. Explained and reminded Saskia that hospice services are covered by patient's Medicare A, and she would most likely not readmit back to the hospital, with the goal of being comfort. Explained what they offer (nursing team, FLIGHT INSTRUCTOR, bath aide, spiritual counselor), and that comfort medications are covered, as well as hospital bed, oxygen, other DME if needed, and incontinent supplies. Did remind her that caregivers are not provided, although there may be some respite care of volunteers if needed. Saskia stated, she really wants to have her sister home, but still thinking about where she would put hospital bed, but has a good idea. Her other concern is having her niece, kids, see her at home. Discussed other option, for sister wanted to know if there were any hospice facilities here. Let her know that [facility] [place], but explained that daily board is most likely not covered, and can be at least $300.00 a day. It is uncertain if they would accept a Medicaid bed. Sister confirmed, patient's finances aren't great. Mentioned to her that assisted facilities also have patients on hospice, but the same scenario, is not covered with room and board, although, 5 days of Medicare is. Saskia stated to go ahead and send referral to [facility] , she will discuss with family, she is hoping to have her home, but to go ahead and find out about [facility] as well. Let Saskia know that someone from [facility] will contact her via phone for an informational visit and may be able to answer additional questions. Gave her care managements phone number as well. Faxed [facility] the referral, reminding them that Saskia is point of contact. Included face sheet, H&P, recent progress notes, med sheets, labs. Called [facility] at: [phone], and left them a message to see if they have beds, and to confirm daily rates, as well as someone that has Medicaid. Did not fax referral, for fax number is not currently available. Will await their call back. P: DCP to continue to follow. Will follow up with [facility] today, referral faxed, and await to hear from [facility] as well. Darling Boyer, RODNEY/Latex Fashions Designer
[2021-10-28] MEDS: SODIUM CHLORIDE 0.9% 1,000 ML 100 ML IV (14:54)
--- NOTE | 2021-10-28 16:22 | PM.PN.1 ---
Subjective Subjective Date Patient Seen: 10/28/21 Time Patient Seen: 16:22 Interval history: Complains of abdominal pain and fatigue. Minimal appetite but tolerating clears. Passing some flatus, no bowel movement. Exam Vital Signs (past 8 hours): - 10/28/21 09:56 10/28/21 09:59 10/28/21 11:28 Temperature 97.3 F L Pulse Rate 76 Respiratory Rate 16 Blood Pressure 114/61 Pulse Oximetry 91 88 L 10/28/21 11:29 10/28/21 12:56 10/28/21 13:10 Temperature 97.4 F L Pulse Rate 73 Respiratory Rate 16 Blood Pressure 113/55 L Pulse Oximetry 92 92 91 10/28/21 13:15 Temperature Pulse Rate Respiratory Rate Blood Pressure Pulse Oximetry 91 Oxygen Delivery Method Nasal Cannula Oxygen Flow Rate 1 Narrative Exam Narrative: Abdomen soft Dressings are clean Drain output is serosanguineous at Objective Labs Result Diagrams: 10/28/21 14:25 10/28/21 14:25 Labs: Laboratory Results - last 24 hr 10/24/21 10/28/21 10/28/21 14:15 06:15 06:15 WBC 2.4 L D RBC 1.62 L Hgb 5.5 L* Hct 16.4 L* MCV 101.0 H MCH 33.9 MCHC 33.6 RDW 17.7 H Plt Count 233 Neut % (Auto) Not Reportable Lymph % (Auto) Not Reportable Berks % (Auto) Not Reportable Eos % (Auto) Not Reportable Baso % (Auto) Not Reportable Lymph # (Auto) Not Reportable Berks # (Auto) Not Reportable Baso # (Auto) Not Reportable Total Counted 50 Seg Neutrophils % 16.0 L Band Neutrophils % 22.0 H Lymphocytes % (Manual) 36.0 Monocytes % (Manual) 26.0 H Neutrophils # (Manual) 912 L Dohle Bodies 1+ H RBC Morphology See below Anisocytosis 2+ H Macrocytosis 1+ H Sodium 136 L Potassium 4.9 Chloride 110 H Carbon Dioxide 18 L BUN 81 H Creatinine 3.00 H Estimated GFR 16 L BUN/Creatinine Ratio 27.0 H Glucose 131 H Calcium 7.8 L Phosphorus 6.3 H Magnesium 2.3 Blood Type A Positive Antibody Screen Negative Crossmatch See Detail 04/15/22 04/15/22 14:25 14:25 WBC RBC Hgb 8.1 L Hct 23.9 L MCV MCH MCHC RDW Plt Count Neut % (Auto) Lymph % (Auto) Berks % (Auto) Eos % (Auto) Baso % (Auto) Lymph # (Auto) Berks # (Auto) Baso # (Auto) Total Counted Seg Neutrophils % Band Neutrophils % Lymphocytes % (Manual) Monocytes % (Manual) Neutrophils # (Manual) Dohle Bodies RBC Morphology Anisocytosis Macrocytosis Sodium 137 Potassium 4.7 Chloride 111 H Carbon Dioxide 16 L BUN 86 H Creatinine 3.25 H Estimated GFR 14 L BUN/Creatinine Ratio 26.5 H Glucose 130 H Calcium 7.4 L Phosphorus Magnesium Blood Type Antibody Screen Crossmatch [facility] Medical History Abnormal vaginal bleeding with endometrial thickness greater than 5 mm present on transvaginal ultrasound in postmenopausal patient Adjustment disorder with mixed anxiety and depressed mood CHF (congestive heart failure) Essential hypertension Hx of renal calculi Hyperlipidemia Obstructive uropathy Postmenopausal bleeding Senile atrophic vaginitis ST elevation myocardial infarction (STEMI) of lateral wall Stenosis, cervix Urethral polyp Surgical History History of cholecystectomy History of common carotid artery stent placement History of tonsillectomy and adenoidectomy History of total hysterectomy with bilateral salpingo-oophorectomy (BSO) Hx of parathyroidectomy Family History Father Congestive heart failure Sister No problems noted. Social History details: Patient lives with her niece and sister, retired household members: family Smoking Status: Never smoker alcohol intake: current substance use type: does not use Assessment & Plan Assessment and plan (1) Postoperative examination: Status: Acute Plan Continue clear liquid diet for now and advance diet when she is able to tolerate more substance. Dr. Metzger returns tomorrow. Time Spent With Patient Critical Care time: I spent a total of [] minutes of critical care time on this patient's care today; this time is exclusive of procedural time.
--- NOTE | 2021-10-28 18:56 | PC.NURSE ---
Day shift: Dr Richards informed of Pt's urine output, for 12 hour day shift, of 85mls, at this time.
[2021-10-28] MEDS: METOCLOPRAMIDE 10 MG/2 ML INJ 5 MG IV (21:03)
[2021-10-28] MEDS: SODIUM CHLORIDE 0.9% FLUSH 10 ML IV (21:05)
[2021-10-29] VITALS (8 sets, daily range): BP systolic 67–92; BP diastolic 41–49; PULSE 68–84; RESP 16; TEMP 36.1–36.8; O2SAT 93–98
[2021-10-29] MEDS: SODIUM CHLORIDE 0.9% 1,000 ML 100 ML IV (02:58)
[2021-10-29] MEDS: METOCLOPRAMIDE 10 MG/2 ML INJ 5 MG IV ×2 (03:01→09:40)
[2021-10-29 06:01] LABS: BUN Creatinine Ratio 26.5 (6-22); Blood Urea Nitrogen 100 mg/dL (7-17); Carbon Dioxide 14 mmol/L (22-32); Chloride 114 mmol/L (98-107); Estimated Glomerular Filt Rate 12 mL/min (>60); Glucose 127 mg/dL (80-110); HEMOLYSIS < 15 (0-50); Magnesium 2.3 mg/dL (1.6-2.3); Phosphorous 6.8 mg/dL (2.8-4.1); Potassium 4.7 mmol/L (3.4-5.1); Sodium 139 mmol/L (137-145)
[2021-10-29 06:12] LABS: Hematocrit 23.9 % (36-46); Hemoglobin 8.1 g/dL (12.0-16.0); Mean Corpuscular HGB Conc 33.8 % (30-36); Mean Corpuscular Hemoglobin 33.3 PG (26-34); Mean Corpuscular Volume 98.6 fL (80-100); Platelet Count 181 X10^3/uL (150-400); Red Blood Cell Count 2.43 X10^6/uL (4.0-5.2); Red Cell Distribution Width 18.9 % (11.6-14.8); White Blood Cell Count 2.3 X10^3/uL (4.5-11.0)
[2021-10-29 06:13] LABS: Add Manual Diff / Slide Review YES
[2021-10-29 06:30] LABS: Neutrophils Absolute Manual 1449 /uL (3000-5900); Total Cells Counted 100
[2021-10-29 06:31] LABS: Anisocytosis 2+; Ovalocytes 1+
[2021-10-29 06:32] LABS: Dohle Bodies 1+
[2021-10-29] MEDS: polyethylene glycoL 3350 17 GM POWD.PACK PO (09:39)
[2021-10-29] MEDS: HYDROMORPHONE 1 MG INJ IV ×2 (09:44→11:36)
--- NOTE | 2021-10-29 11:28 | CM.DPC ---
DCP continued: CM met with the patient and her sister Saskia at the bedside patient was pale and very short of breath when attempting to speak. patient was A&O x4 patient was able to verbally answer a few questions but then went to answering yes no questions due to shortness of breath when speaking. CM asked the patient about how she was feeling about hospice at Discharge. patient verbally stated she agreed with hospice at Dc but isn't sure she will make it out of the hospital. Patients sister stated they agree with hospice as a part of the DC plan. Cm spoke with the patient and her sister about the options for DC Option 1. DC home with family and having hospice of the start on Sunday or Sunday for care with equipment delivery prior to Sunday or Sunday, Option 2 is maybe to [facility] [place] when they have bed availability this week or Option 3 would be to a SNF under she Medicare for a week until hospice starts then move to comfort care under her medicaid and [facility] the starting on Sunday or Sunday. Patients sister Saskia asked for a little time to talk it over and CM will check in with them later today for there choices on how to proceed. Lio also spoke with patients nurse Guilherme who stated patient is not on comfort measure orders. LIO spoke with provider Dr. Olson who stated she will follow up with the patient and her family and her Oncology team to get Comfort care orders set up for the patient. LIO also let Dr. Olson know about how the patient doesn't feel she is going to make it home and feels like she is dying here. Lio also let Dr. Olson know the patient is very short of breath that it is making it hard for her to talk with CM. LIO will continue to work on DC planning and will follow up with family about determined plan. LIO called and LVM with [facility] to check on there availability for a comfort bed if the patient decided to go this route. CM LVM with [facility] [place] to see how there bed availability is looking and LVM with [facility] to discuss with them options they may know of that LIO hasn't considered. Beata Hernandez RNpara machine operator
--- NOTE | 2021-10-29 12:44 | PC.NURSE ---
Day shift: Dr Olson informed of Pt's low BP (70/50).
--- NOTE | 2021-10-29 12:44 | PM.PN.1 ---
Subjective Subjective Date Patient Seen: 10/29/21 Interval history: 76 y/o female with metastatic uterine cancer, s/p ventral hernia repair, now with oliguric renal failure. Patient complains of pain, she is short of breath , she appears quite ill. Case discuss with Dr Anglin from Oncology. As it is felt that uterine cancer is highly susceptible to chemotherapy his recommendation was to pursue aggressive treatment of her underlying medical conditions such that she would continue her chemotherapy. Unfortunately the patient is not interested in hemodialysis, she is not interested in transfer, patient after a lengthy discussion desires comfort measures only. She is hypotensive at this point. She is currently complaining of pain in his short of breath. Exam Vital Signs (past 8 hours): - 10/29/21 05:00 10/29/21 08:26 10/29/21 08:35 Temperature 97.1 F L 97.0 F L Pulse Rate 84 82 Respiratory Rate 16 16 Blood Pressure 92/49 L 81/43 L Pulse Oximetry 94 93 95 10/29/21 09:01 10/29/21 12:01 Temperature Pulse Rate Respiratory Rate Blood Pressure Pulse Oximetry 94 93 Oxygen Delivery Method Nasal Cannula Oxygen Flow Rate 2 Narrative Exam Narrative: Ill-appearing female lying in bed Resp Other: Lungs decreased breath sounds Cardio Other: Cardiac exam: Regular rate and rhythm normal S1-S2 GI Other: Abdomen: Distended, soft, diffusely tender Extrem Other: 1+ edema Objective Labs Result Diagrams: 10/29/21 05:42 10/29/21 05:42 Labs: Laboratory Results - last 24 hr 10/28/21 10/28/21 10/29/21 14:25 14:25 05:42 WBC 2.3 L RBC 2.43 L Hgb 8.1 L 8.1 L Hct 23.9 L 23.9 L MCV 98.6 MCH 33.3 MCHC 33.8 RDW 18.9 H Plt Count 181 Neut % (Auto) Not Reportable Lymph % (Auto) Not Reportable Mcdonald % (Auto) Not Reportable Eos % (Auto) Not Reportable Baso % (Auto) Not Reportable Lymph # (Auto) Not Reportable Mcdonald # (Auto) Not Reportable Baso # (Auto) Not Reportable Total Counted 100 Seg Neutrophils % 31.0 L D Band Neutrophils % 32.0 H Lymphocytes % (Manual) 9.0 L Monocytes % (Manual) 28.0 H Neutrophils # (Manual) 1449 L Dohle Bodies 1+ H RBC Morphology See below Anisocytosis 2+ H Ovalocytes 1+ H Sodium 137 Potassium 4.7 Chloride 111 H Carbon Dioxide 16 L BUN 86 H Creatinine 3.25 H Estimated GFR 14 L BUN/Creatinine Ratio 26.5 H Glucose 130 H Calcium 7.4 L Phosphorus Magnesium 10/29/21 05:42 WBC RBC Hgb Hct MCV MCH MCHC RDW Plt Count Neut % (Auto) Lymph % (Auto) Mcdonald % (Auto) Eos % (Auto) Baso % (Auto) Lymph # (Auto) Mcdonald # (Auto) Baso # (Auto) Total Counted Seg Neutrophils % Band Neutrophils % Lymphocytes % (Manual) Monocytes % (Manual) Neutrophils # (Manual) Dohle Bodies RBC Morphology Anisocytosis Ovalocytes Sodium 139 Potassium 4.7 Chloride 114 H Carbon Dioxide 14 L BUN 100 H Creatinine 3.77 H Estimated GFR 12 L BUN/Creatinine Ratio 26.5 H Glucose 127 H Calcium 7.0 L Phosphorus 6.8 H Magnesium 2.3 PFSH Medical History Abnormal vaginal bleeding with endometrial thickness greater than 5 mm present on transvaginal ultrasound in postmenopausal patient Adjustment disorder with mixed anxiety and depressed mood CHF (congestive heart failure) Essential hypertension Hx of renal calculi Hyperlipidemia Obstructive uropathy Postmenopausal bleeding Senile atrophic vaginitis ST elevation myocardial infarction (STEMI) of lateral wall Stenosis, cervix Urethral polyp Surgical History History of cholecystectomy History of common carotid artery stent placement History of tonsillectomy and adenoidectomy History of total hysterectomy with bilateral salpingo-oophorectomy (BSO) Hx of parathyroidectomy Family History Father Congestive heart failure Sister No problems noted. Social History details: Patient lives with her niece and sister, retired household members: family Smoking Status: Never smoker alcohol intake: current substance use type: does not use Assessment & Plan Assessment & Plan narrative: 76-year-old female with a history of endometrial cancer, status post hysterectomy and bilateral oophorectomy, with left Port-A-Cath in place as of March 30, and undergoing active chemotherapy that presented with incarcerated ventral hernia status post exploratory laparotomy repair on October 24, 2021. 1. Ventral hernia with incarceration, status post surgical repair on October 24, 2021 ?- No bowel resection was necessary intraoperatively per surgery, NG tube no longer in place -patient continues to complain of abdominal pain and has significant abdominal distension 2. Post-op ileus, as demonstrated on abd X-ray ?- Patient endorses passing flatus, will discuss with surgery regarding whether reinsertion of NG tube warranted -will defer NG tube at this time 3. ROSA M, likely pre-renal, with possible ATN, on CKD stage III ?- Likely due to acute blood loss anemia intraoperatively, resulting in intravascular depletion, espeically in setting of moderate aortic stenosis ?- Has been fluid resuscitated, and will Lasix challenge to see if that opens up her kidneys, especially given oncotic support with RBC transfusion -patient with minimal urine output, as we are progressing to comfort measures, will defer Lasix or additional fluids 4. Hyperkalemia, likely due to ATN ?- No peaked T-wave on EKG appreciated, telemetry on-board ?- Likely occurred due to oliguric ATN as above, and being on lactated Ringer's post-op ?- Should absolutely avoid Kayexalate in this patient, due to recent abdominal surgical interventions ?- Treating with IV insulin with dextrose, and diuresis might help, too, especially with metolazone ?- If patient's kidneys do not open up with Lasix challenge and metolazone, will likely need transfer to dialysis-capable facility -patient has refused transfer, she is not interested in hemodialysis, she will be transferred addition to comfort care 5. Acute blood loss anemia on chronic macrocytic anemia ?- Will transfuse for hemoglobin less than 7, has received 1 unit RBC so far -no further transfusion 6. Hx of HI, remote ?- Recent echocardiogram (September 2021) shows preserved EF, with recent stress test (September 2021) unremarkable for obstructive CAD ?- Will hold off on home aspirin, Plavix for now, given propensity for GI bleed, especially as she's on VTE prophylaxis, too 7. Hx of uterine cancer, stage 4, status post hysterectomy and bilateral oopherectomy, undergoing active chemotherapy ?- Reportedly received carboplatin and Taxol outpatient, approximately 1 week ago -discontinuation of chemotherapy, per the patient's request for comfort measures only 8. Leukopenia, likely due to chemotherapy, stable 9. Hypocalcemia, likely due to acute stress response, and worsened with RBC transfusions ?- Will have to monitor QTc, especially if using QT-prolonging drugs ?- Replenish as needed with IV calcium gluconate, especially in light of concomitant hyperkalemia 10. Moderate aortic stenosis ?- This likely contributed greatly to being volume depleted intraoperatively, leading to ATN ?- The degree of the stenosis makes her a poor candidate for future interventions, and worsens her prognosis 11. Hx of hypertension ?- Will hold all home NIECY/ARB due to hyperkalemia ?- Will hold home carvedilol 6.25 mg bid due to hypotension -hypotension likely multifactorial, be related to narcotics 12. Hyperlipidemia ?- Will start atorvastatin 40 mg daily for atherosclerotic protection, especially given calcifications around aortic valve 13. Severe acute on chronic protein malnutrition ?- This will have an adverse effect on post-operative healing and other co-morbidities ?- Appreciate dietary consult recommendations 14. [id number] conversation - I spoke with the patient and her sister frankly about her poor prognosis, and offered enrollment in hospice - Patient and her family understandably want some time to contemplate this - After re-discussion on October 28, patient wishes to be DNR/DNI, yet is still undecided on hospice -after further discussion today, family and patient would like comfort measures only, will arrange for hospice either at discharge or transfer to hospice house pending her progression Time Spent With Patient Critical Care time: I spent a total of [] minutes of critical care time on this patient's care today; this time is exclusive of procedural time.
[2021-10-29] MEDS: LORazepam 2 MG/ML INJ 1 MG IV (12:55)
[2021-10-29] MEDS: fentaNYL 25 MCG/PATCH TOP (12:58)
[2021-10-29] MEDS: SCOPOLAMINE 1 PATCH TOP (12:58)
--- NOTE | 2021-10-29 15:19 | PC.NURSE ---
Day shift: Checked in on Pt at approx 1515 and she has . Will let territory account manager and MD know.
--- NOTE | 2021-10-29 15:28 | PC.NURSE ---
Day shift: Dr Olson notified. Pt has no pulse and no heart beat at this time ([id number]).
--- NOTE | 2021-10-29 15:28 | CM.DPC ---
DCP Per RN, pt just in her room within the last few minutes around 1515 and MD and helium arc welder notified and pt's sister had been bedside today. SW called [facility], [facility], and [facility] to provide update that pt had and referral/review no longer needed at this time for pt. CARITO Mariee
--- NOTE | 2021-10-29 16:40 | PC.NURSE ---
Day shift: Removed Amor cath and Port access IV at approx 1630 after conversation with endoscopy rn Erika.
--- NOTE | 2021-10-29 17:18 | PC.NURSE ---
Day shift: Pt's family members (sisters) came to see Pt at approx 1700. All questions answered.
--- NOTE | 2021-10-29 17:59 | PC.NURSE ---
Day shift: Home person here at approx 1755. DANIELLE Hernandez and another ADVERTISING INTERNSHIP have cleaned the Pt prior to leaving. Pt has gone with Home transport person at approx 1810.
--- NOTE | 2021-11-03 18:17 | PM.DDS.1 ---
Discharge Summary History of Illness Chief Complaint: Abdominal Pain Narrative: PT with multiple comorbidities and multiple presentations for painful hernia presented with painful nonreducible hernia and was taken for surgical repair by Dr. Metzger yesterday.? She is conscious and in pain postop with clean dressings and a Arik drain putting out serosanguineous fluid.? She desires to be full code status in the event of cardiac arrest. Hospital Course Date of Admission: 10/24/21 11:56 Primary care provider: Jose Neumann MD Consults: 10/29/21 12:31 Consult to Discharge Planning Routine Comment: Consult to Hospice Referral Urgent Comment: Discharge Diagnosis: 1. Status post exploratory laparotomy with lysis of adhesions for a ventral hernia 2. Uterine cancer 3. Postoperative ileus 4. Acute kidney injury 5. Chronic diastolic heart failure 6. Anemia 7. History of myocardial infarction Hospital Course: Patient was admitted to the hospital for treatment of a ventral hernia. She underwent exploratory laparotomy and lysis of adhesions. Unfortunately the patient developed acute renal failure which was progressive postoperatively. In addition she continued to have significant pain. As her renal function was progressive and the patient did not want hemodialysis discussions ensued regarding end of life care. Patient was recently treated for uterine cancer and although this was felt to be curable she did not want aggressive treatment. She was hypotensive. Patient was made comfort care. She uneventfully. Objective Labs Result Diagrams: 10/29/21 05:42 10/29/21 05:42
== END 2021-10-29 18:03 | disposition expired | DRG 335 ==
LOC: ED 11:48 → AC 11:56
PROVIDERS: Internal Medicine; Student in an Organized Health Care Education/Training Program; Surgery; Admitting Provider Internal Medicine; Emergency Provider Emergency Medicine; PCP Internal Medicine; Referring Provider Emergency Medicine; Visit Provider Internal Medicine
PROC: 0WUF0JZ Supplement Abdominal Wall with Synthetic Substitute, Open Approach (ICD-10-PCS; CPT 49000; principal; 2021-10-24 15:00)
DX: K43.6 Other and unspecified ventral hernia with obstruction, without gangrene (principal); E43 Unspecified severe protein-calorie malnutrition; N17.0 Acute kidney failure with tubular necrosis; C79.9 Secondary malignant neoplasm of unspecified site; I13.0 Hypertensive heart and chronic kidney disease with heart failure and stage 1 through stage 4 chronic kidney disease, or unspecified chronic kidney disease; I50.32 Chronic diastolic (congestive) heart failure; K56.50 Intestinal adhesions [bands], unspecified as to partial versus complete obstruction; D62 Acute posthemorrhagic anemia; K91.89 Other postprocedural complications and disorders of digestive system; K56.7 Ileus, unspecified; N18.30 Chronic kidney disease, stage 3 unspecified; D70.1 Agranulocytosis secondary to cancer chemotherapy; E87.5 Hyperkalemia; C55 Malignant neoplasm of uterus, part unspecified; E83.51 Hypocalcemia; Z68.28 Body mass index [BMI] 28.0-28.9, adult; I35.0 Nonrheumatic aortic (valve) stenosis; E86.9 Volume depletion, unspecified; I95.9 Hypotension, unspecified; E78.5 Hyperlipidemia, unspecified; Z66 Do not resuscitate; Z86.79 Personal history of other diseases of the circulatory system; Z51.5 Encounter for palliative care; Z20.822 Contact with and (suspected) exposure to COVID-19
CPT/HCPCS: 36415; 36430; 71045; 74018; 74177; 76770; 80048; 80053; 82550; 82570; 82607; 82746; 83540; 83550; 83605; 83615; 83690; 83735; 84100; 84300; 85007; 85014; 85018; 85025; 85027; 86850; 86900; 86901; 87040; 87635; 93005; 93010; 94760; 94762; 96374; 96375; 99284; 99285; C9803; P9016; J0131; J0610; J1100; J1170; J1642; J1650; J1940; J2060; J2405; J2704; J2765; J2997; J3010; Q9967